=== PATIENT | female | born 1940 | race Caucasian/White ===

== ENCOUNTER 2024-09-16 21:46 | Inpatient (IN) | payer MEDICARE, BC, SELFPAY ==
[2024-09-16] VITALS (9 sets, daily range): BP systolic 103–144; BP diastolic 49–87; BMI 17.9
--- NOTE | 2024-09-16 19:11 | ED.GENMED ---
History of Present Illness
<Fina Wheeler PA-C - Last Filed: 09/16/24 21:19>
General
Chief Complaint: Bowel Problem
Source: patient
Exam Limitations: none
Time Seen by Provider: 09/16/24 18:53
History of Present Illness
History of Present Illness:
83yoF with a history of atrial fibrillation not on anticoagulation, prior pulmonary embolism, pacemaker, microscopic colitis, IBS presenting for evaluation of abdominal pain. She initially started with lower abdominal pain 4 days ago. Pain was
initially intermittent but is now constant. The pain became severe today and is now generalized. She currently rates her pain as a 100 out of 10 in severity. She states it feels like her stomach is going to explode. Her last bowel movement was 5
days ago. She is passing clear mucous several times a day with some blood in the stool. She had an episode of vomiting in the waiting room. She denies any fevers, chills, dysuria, chest pain, shortness of breath. Previous abdominal surgeries
includes an umbilical hernia as a child.
Phy Exam
<Fina Wheeler PA-C - Last Filed: 09/16/24 21:19>
General Physical Exam
General Presentation: moderate distress
General Skin: dry and ashen
General Habitus: elderly
General Mental: alert
ENT Exam
ENT Exam: normocephalic
Cardiovascular Exam
Cardiovascular Exam: regular rate/rhythm
Pulmonary Exam
Pulmonary Exam: lungs clear, no respiratory distress, no rales, no crackles and no rhonchi
Gastrointestinal Exam
Gastrointestinal Exam: guarding, rebound, tender and other (Abdomen distended with generalized tenderness. +Guarding and rebound.)
Neurological Exam
Neurological Exam: alert
Janeth Coma Scale
Eye Opening: Spontaneous
Verbal Response: Oriented
Motor Response: Obeys Commands
GCS Total Score: 15
Skin Exam
Skin Exam: warm/dry and pallor
Course
<Fina Wheeler PA-C - Last Filed: 09/16/24 21:19>
Orders/Labs/Results
Orders:
Orders
09/16/24 19:02
Electrocardiogram (*1) Urgent
Reason for Study: Abdominal Pain
EKG- Treatment ONCE
0.9% Sodium Chloride 500 ml [Nss] 500 ml IV BOLUS
09/16/24 19:11
Fentanyl Citrate/Pf [Sublimaze] 50 mcg IV NOW STA
09/16/24 19:12
Basic Metabolic Panel Urgent
Complete Blood Count/With Diff Urgent
LFT [Trwww-Syem-Gxiwoub] Urgent
Lactate Level [Lactic Acid] Urgent
Lipase Urgent
Potassium Urgent
Troponin I Urgent
09/16/24 19:17
Ondansetron Injectable [Zofran] 4 mg IV NOW STA
09/16/24 19:31
CT Abd/pelvis W Iv Cont Urgent
Comment:
Reason For Exam: generalized abd pain
09/16/24 19:45
Fentanyl Citrate/Pf [Sublimaze] 50 mcg IV NOW STA
09/16/24 19:47
Ondansetron Injectable [Zofran] 4 mg IV NOW STA
09/16/24 20:18
Piperacillin/Tazo 4.5 Gram [Zosyn] 4.5 gram in 100 ml IV NOW
09/16/24 20:40
0.9% Sodium Chloride 1000 ml [Nss] 1,000 ml IV BOLUS
09/16/24 20:48
Fentanyl Citrate/Pf [Sublimaze] 50 mcg IV NOW STA
09/16/24 20:53
Blood Culture Q30M
FRANCISCO Source: Blood/Venous
Specimen Description:
09/16/24 21:00
Blood Culture Q30M
FRANCISCO Source: Blood/Venous
Specimen Description:
Lidocaine HCl/Pf [Xylocaine-Mpf 1% Vial] 50 mg .ROUTE .STK-MED ONE
Propofol [Diprivan] 20 ml .ROUTE .STK-MED
Rocuronium [place] [Rocuronium] 50 mg .ROUTE .STK-MED ONE
Succinylcholine Chloride [Succinylcholine] 200 mg .ROUTE .STK-MED ONE
09/16/24 21:05
Admit/Transfer Patient As Directed
Co-Sign Provider:
Level of Care: Inpatient admission
Assign to:: IMU- Intermediate Care
Physician / Group: rosa
Diagnosis: perforated viscus
Reason for Hospitalization: perforated viscus
Expected length of stay greater than two midnights?: Yes
ELOS- Estimated Length of Stay in days: 2
I certify the patient meets the requirements for IP care: Yes
Code Status As Directed
Resuscitation Status: Full Code
PRN Pain Medication Management As Directed
May give lesser potent ordered pain med per pt: Yes
preference::
Protocol:: Medication orders for pain may be administered in a
manner that supports deferring to patient preference
when the pt is:
- Requesting an ordered lesser potent pain medication.
Least to most potent pain medications are defined
as: acetaminophen < NSAID < tramadol < opioids
(morphine, oxycodone, hydromorphone).
- Requesting a lesser dose of the same medication IF
ORDERED.
- Requesting a less intrusive route of administration
if both routes are prescribed by the provider (PO <
IV).
Abnormal Lab Results
09/16/24
19:12
RBC 3.87 L 10^6/uL
(4.20-5.40)
MCH 33.1 H pg
(27.0-31.0)
RDW 15.4 H %
(11.5-14.5)
Carbon Dioxide 16 L mmol/L
(22-30)
BUN 30 H mg/dl
(7-17)
Glucose 157 H mg/dl
(70-99)
Lactic Acid 2.8 H mmol/L
(0.7-2.0)
Direct Bilirubin 0.5 H mg/dl
(0.0-0.4)
AST 100 H U/L
(14-36)
ALT 102 H U/L
(0-35)
Alkaline Phosphatase 912 H U/L
(38-126)
09/16/24 19:12
09/16/24 19:12
Vital Signs
Initial and Last Documented VS:
Initial Vital Signs
Temp Pulse Resp BP Pulse Ox
97.4 F 73 18 135/73 98
09/16/24 18:41 09/16/24 18:41 09/16/24 18:41 09/16/24 18:41 09/16/24 18:41
Last Documented Vital Signs
Temp Pulse Resp BP Pulse Ox
97.4 F 84 19 106/87 96
09/16/24 18:41 09/16/24 20:45 09/16/24 20:45 09/16/24 20:22 09/16/24 20:45
<Maicol H. Asa, DO - Last Filed: 09/16/24 20:40>
Orders/Labs/Results
Orders:
Orders
09/16/24 19:02
Electrocardiogram (*1) Urgent
Reason for Study: Abdominal Pain
EKG- Treatment ONCE
0.9% Sodium Chloride 500 ml [Nss] 500 ml IV BOLUS
09/16/24 19:11
Fentanyl Citrate/Pf [Sublimaze] 50 mcg IV NOW STA
09/16/24 19:12
Basic Metabolic Panel Urgent
Complete Blood Count/With Diff Urgent
LFT [Etekh-Irxz-Elfjeih] Urgent
Lactate Level [Lactic Acid] Urgent
Lipase Urgent
Potassium Urgent
Troponin I Urgent
09/16/24 19:17
Ondansetron Injectable [Zofran] 4 mg IV NOW STA
09/16/24 19:31
CT Abd/pelvis W Iv Cont Urgent
Comment:
Reason For Exam: generalized abd pain
09/16/24 19:45
Fentanyl Citrate/Pf [Sublimaze] 50 mcg IV NOW STA
09/16/24 19:47
Ondansetron Injectable [Zofran] 4 mg IV NOW STA
09/16/24 20:18
Piperacillin/Tazo 4.5 Gram [Zosyn] 4.5 gram in 100 ml IV NOW
09/16/24 20:40
0.9% Sodium Chloride 1000 ml [Nss] 1,000 ml IV BOLUS
09/16/24 20:48
Fentanyl Citrate/Pf [Sublimaze] 50 mcg IV NOW STA
09/16/24 20:53
Blood Culture Q30M
FRANCISCO Source: Blood/Venous
Specimen Description:
09/16/24 21:00
Blood Culture Q30M
FRANCISCO Source: Blood/Venous
Specimen Description:
Lidocaine HCl/Pf [Xylocaine-Mpf 1% Vial] 50 mg .ROUTE .STK-MED ONE
Propofol [Diprivan] 20 ml .ROUTE .STK-MED
Rocuronium [place] [Rocuronium] 50 mg .ROUTE .STK-MED ONE
Succinylcholine Chloride [Succinylcholine] 200 mg .ROUTE .STK-MED ONE
09/16/24 21:05
Admit/Transfer Patient As Directed
Co-Sign Provider:
Level of Care: Inpatient admission
Assign to:: IMU- Intermediate Care
Physician / Group: rosa
Diagnosis: perforated viscus
Reason for Hospitalization: perforated viscus
Expected length of stay greater than two midnights?: Yes
ELOS- Estimated Length of Stay in days: 2
I certify the patient meets the requirements for IP care: Yes
Code Status As Directed
Resuscitation Status: Full Code
PRN Pain Medication Management As Directed
May give lesser potent ordered pain med per pt: Yes
preference::
Protocol:: Medication orders for pain may be administered in a
manner that supports deferring to patient preference
when the pt is:
- Requesting an ordered lesser potent pain medication.
Least to most potent pain medications are defined
as: acetaminophen < NSAID < tramadol < opioids
(morphine, oxycodone, hydromorphone).
- Requesting a lesser dose of the same medication IF
ORDERED.
- Requesting a less intrusive route of administration
if both routes are prescribed by the provider (PO <
IV).
Abnormal Lab Results
09/16/24
19:12
RBC 3.87 L 10^6/uL
(4.20-5.40)
MCH 33.1 H pg
(27.0-31.0)
RDW 15.4 H %
(11.5-14.5)
Carbon Dioxide 16 L mmol/L
(22-30)
BUN 30 H mg/dl
(7-17)
Glucose 157 H mg/dl
(70-99)
Lactic Acid 2.8 H mmol/L
(0.7-2.0)
Direct Bilirubin 0.5 H mg/dl
(0.0-0.4)
AST 100 H U/L
(14-36)
ALT 102 H U/L
(0-35)
Alkaline Phosphatase 912 H U/L
(38-126)
09/16/24 19:12
09/16/24 19:12
Vital Signs
Initial and Last Documented VS:
Initial Vital Signs
Temp Pulse Resp BP Pulse Ox
97.4 F 73 18 135/73 98
09/16/24 18:41 09/16/24 18:41 09/16/24 18:41 09/16/24 18:41 09/16/24 18:41
Last Documented Vital Signs
Temp Pulse Resp BP Pulse Ox
97.4 F 84 19 106/87 96
09/16/24 18:41 09/16/24 20:45 09/16/24 20:45 09/16/24 20:22 09/16/24 20:45
<Fina Wheeler PA-C - Last Filed: 09/16/24 21:19>
MDM/Problems Addressed
Differential Diagnosis Includes:
83yoF here with severe abd pain. Lower abd pain x 4 days with constipation. Severe generalized pain started today. Vomited in the waiting room. VSS. She is ill appearing and moaning in pain. Abdomen is distended with rebound and guarding.
Differential diagnosis includes but is not limited to: Ischemic colitis, perforated viscus, bowel obstruction, diverticulitis, constipation
Initial ED plan: Abdominal labs, lactate, troponin/EKG, and CT abdomen ordered. IV Zofran, fentanyl, and fluid bolus for symptoms.
<Fina Wheeler PA-C - Last Filed: 09/16/24 21:19>
*EKG
Interpreted by ED Provider?: Yes
EKG Intrepretation Date: 09/16/24
Heart Rate: 70
Rhythm: other (atrial paced)
[place]: left axis deviation
QRS Pattern: normal QRS
Ischemia: no ischemia
*Critical Care Note
Total Time (30-74mins, 75-104mins- exclusive of procedures): 45
<Fina Wheeler PA-C - Last Filed: 09/16/24 21:19>
Update Note
Update Note:
Lactate 2.8. White count within normal limits. Patient sent urgently for CT scan. Free air noted on images and case was discussed immediately with general surgeon on-call, Dr. Kaminski. Radiology read of CT shows: 'significant amount of free air
suggestive of perforated viscus. Severe proctocolitis with surrounding inflammatory change and fluid within the pelvis, possible site of perforation.' IV Zosyn ordered. Patient requiring multiple doses of pain medication throughout ED stay.
Goals of care discussed with patient. Patient is a full code and would like to pursue surgery. Patient to go to OR tonight. She was admitted for further management. Granddaughters updated at bedside.
ED Attending Note
<Fina Wheeler PA-C - Last Filed: 09/16/24 21:19>
-
Portions of this chart may have been created with voice recognition software.� Occasional wrong word or��sound alike� substitutions may have occurred due to the inherent limitations of voice recognition software.
<Maicol Bray DO - Last Filed: 09/16/24 20:40>
ED Attending Note
Patient seen and examined by attending physician: Yes
I performed the substantive portion of visit, reviewed & personally made and approve the management plan that is documented in note by myself or AMANDEEP.: Yes
ED Attending Note:
I agree with Abbie's note
83-year-old female presents to the emergency room with severe abdominal pain. Patient states has been having abdominal pain for several days however it has become more severe today.
Patient appears quite uncomfortable/
General: Awake, Alert, Oriented X3. Cachectic, in distress due to pain, pale
Vitals: unremarkable
Head: Atraumatic
Eyes: Pupils equal, EOMI
Throat: Airway intact, no exudates
Neck: Trachea midline
Lungs: Clear and equal b/l
Heart: Regular rate, no murmurs
Abd: Distended, firm, tender to palpation diffusely, rebound is present
Neuro: Nonfocal
Skin: Pale, dry
Extremities: pulses equal b/l, no edema
Abdominal exam concerning for surgical emergency. Patient taken to CAT scan urgently where it was discovered she has free air with rectosigmoid inflammation. There is fluid in the pelvis. Also a large amount of stool throughout the colon. Abbie
is reaching out to general surgery for a stat consultation. IV fluid resuscitation. IV antibiotics.
Discharge Plan
Departure
Patient Disposition: Admit
Date of Disposition: 09/16/24
Time of Disposition: 20:39
Presentation/result/management discussed w/ accepting MD/DO: Hospitalist
Discharge Problem:
Perforated abdominal viscus
Referrals:
UNKNOWN - PT DOES,NOT KNOW [Family Provider] -
Interventions
Interventions:
*Risk Screen - Suicide Last Done: 09/16/24 18:41
*General Assessment Last Done: 09/16/24 18:41
*Neglect/Abuse Screening Last Done: 09/16/24 18:41
*ED- Fall Risk Assessment Last Done: 09/16/24 18:41
*ED COVID-19 Vaccine History Last Done: 09/16/24 18:41
PQ-Hldcon-Qtsnogiiud Assessment Last Done: 09/16/24 19:57
Discharge Date and Time
Print Language: ANGUILLAN
[2024-09-16 19:21] LABS: % Basophils 0.4 % (0-2); % Eosinophils 1.2 % (0-6); % Immature Granulocytes 0.5 % (0-0.5); % Lymphocytes 24.9 % (20.5-51.1); % Monocytes 6.9 % (1.7-9.3); % Neutrophils 66.1 % (42.2-75.2); Absolute Eosinophils 0.1 10^3/uL (0-0.7); Absolute Lymphocytes 1.9 10^3/uL (1.2-3.4); Absolute Monocytes 0.5 10^3/uL (0.1-0.6); Absolute Neutrophils 5.2 10^3/uL (1.4-6.5); Hematocrit 37.9 % (37.0-47.0); Hemoglobin 12.8 g/dL (12.0-16.0); Mean Corp Hgb Conc. 33.8 g/dL (33.0-37.0); Mean Corpuscular Hgb 33.1 pg (27.0-31.0); Mean Corpuscular Volume 97.9 fL (81.0-99.0); Mean Platelet Volume 9.2 fL (7.4-10.4); Nucleated Red Blood Cells % 0 %; Platelet Count 208 10^3/uL (130-400); Red Blood Cell Count 3.87 10^6/uL (4.20-5.40); Red Cell Dist. Width 15.4 % (11.5-14.5); White Blood Cell Count 7.8 10^3/uL (4.8-10.8)
[2024-09-16] MEDS: NSS 500 IV (19:21)
[2024-09-16] MEDS: ZOFRAN 4 MG IV ×2 (19:21→19:45)
[2024-09-16] MEDS: SUBLIMAZE 50 MCG IV ×3 (19:22→20:54)
[2024-09-16 19:36] LABS: Lactic Acid 2.8 mmol/L (0.7-2.0)
[2024-09-16 19:41] LABS: Blood Urea Nitrogen 30 mg/dl (7-17); Calcium 9.9 mg/dl (8.4-10.2); Carbon Dioxide 16 mmol/L (22-30); Chloride 107 mmol/L (98-107); Estimated Creatinine Clearance 33 ml/min; Glucose 157 mg/dl (70-99); Lipase 259 U/L (23-300); Sodium 136 mmol/L (135-145)
[2024-09-16 19:54] LABS: Troponin I 0.013 ng/ml
[2024-09-16 20:06] LABS: ALT (SGPT) 102 U/L (0-35); AST (SGOT) 100 U/L (14-36); Albumin 4.2 g/dl (3.5-5.0); Alkaline Phosphatase 912 U/L (38-126); Direct Bilirubin 0.5 mg/dl (0.0-0.4); Potassium 4.8 mmol/L (3.5-5.1); Total Bilirubin 1.2 mg/dl (0.2-1.3); Total Protein 6.7 g/dl (6.3-8.2)
[2024-09-16] MEDS: NSS 1000 IV (20:54)
[2024-09-16] MEDS: ZOSYN 100 IV (21:01)
--- NOTE | 2024-09-16 21:09 | HPS.HSE ---
Family Physician
-
Family Physician: NOT KNOW UNKNOWN - PT DOES
Chief Complaint
-
abdominal pain
History of Present Illness
83-year-old female past medical history of umbilical hernia surgery as a child, atrial fibrillation not on anticoagulation, prior pulmonary embolism, microscopic colitis, IBS presenting with abdominal pain. She started having lower abdominal pain 4
days ago. Pain was initially intermittent but now constant. Pain became more severe today. Last bowel movement 5 days ago. She is passing clear mucus several times a day with some blood in the stool. She had an episode of vomiting today without
blood. Denies fevers or chills, chest pain, shortness of breath.
She denies smoking or alcohol use.
Medical History
Past Medical History
Past Medical History: Reports Other (umbilical hernia surgery as a child, atrial fibrillation not on anticoagulation, prior pulmonary embolism, microscopic colitis, IBS)
Past Surgical History: Reports Other (foot surgeries )
Social History
Tobacco: Non-smoker
Alcohol: None
Drug: None
Family History
Family History: Not pertinent
Allergies / Home Medications
Allergies reflects when Allergies were last updated in [facility].
Home Medications with original date entered in [facility]
Allergy/Medication List:
Allergies
Allergy/AdvReac Type Severity Reaction Status Date / Time
clindamycin Allergy Unknown Verified 09/16/24 18:48
Sulfa (Sulfonamide Allergy Unknown Verified 09/16/24 18:48
Antibiotics)
Review of Systems
-
History Source: Patient
A 12 point ROS was completed and negative except as noted: Yes
Constitutional: Reports No Symptoms
EENT: Reports No Symptoms
Respiratory: Reports No Symptoms
Cardiac: Reports No Symptoms
Abdomen/GI: Reports See HPI
: Reports No Symptoms
Musculoskeletal: Reports No Symptoms
Skin: Reports No Symptoms
Neurological: Reports No Symptoms
Endocrine: Reports No Symptoms
Hematologic/Lymphatic: Reports No Symptoms
Psych: Reports No Symptoms
Physical Exam
Vital Signs
Vital Signs
Temp Pulse Resp BP Pulse Ox
97.4 F 84 19 106/87 96
09/16/24 18:41 09/16/24 20:45 09/16/24 20:45 09/16/24 20:22 09/16/24 20:45
Physical Exam
General: Well Developed, Well Nourished and No Apparent Distress
HEENT: NormoCephalic, Moist mucous membranes and Atraumatic
Respiratory: Clear
Cardiac: S1/S2 and Regular Rhythm; No Murmur or Rub
GI: Soft, Non Distended, Normal Bowel Sounds and Tender (guarding and rebound, diffuse tenderness ); No Organomegaly
Rectal: Deferred by Provider
Musculoskeletal: No Clubbing, No Cyanosis and No Edema
Skin: No Rash
Neuro: Nonfocal/grossly intact
Laboratory Results
-
09/16/24 19:12
09/16/24 19:12
Laboratory Results
Lactic Acid 2.8 mmol/L (0.7-2.0) H 09/16/24 19:12
Total Bilirubin 1.2 mg/dl (0.2-1.3) 09/16/24 19:12
Total Bilirubin Cancelled 09/16/24 19:12
AST 100 U/L (14-36) H 09/16/24 19:12
AST Cancelled 09/16/24 19:12
ALT 102 U/L (0-35) H 09/16/24 19:12
ALT Cancelled 09/16/24 19:12
Alkaline Phosphatase 912 U/L (38-126) H 09/16/24 19:12
Alkaline Phosphatase Cancelled 09/16/24 19:12
Troponin I 0.013 ng/ml 09/16/24 19:12
Lipase 259 U/L (23-300) 09/16/24 19:12
Data Reviewed
-
Lab Data: Labs Reviewed by me
Old Records: Reviewed
Impression/Plan
-
IMPRESSION:
PLAN:
# Perforated viscus
# Severe proctocolitis likely site of perforation
-CT abdomen pelvis shows significant amount of free air suggesting perforated viscous, severe proctocolitis, indeterminate 1.6 cm left renal lesion, questionable subtle changes of acute pancreatitis, severe constipation
-Lipase 260, doubt pancreatitis
-N.p.o.
-IV fluids
-Blood cultures
-Zosyn
-Surgery to take to OR today
-Dilaudid/Zofran
# Transaminitis likely secondary to perforation
-Cholestatic pattern of elevation
-May need to consider abdominal ultrasound
History of umbilical hernia surgery as a child
Atrial fibrillation unspecified type
-Not on anticoagulation
Microscopic colitis
IBS
History of pulmonary embolism
Full code
DVT prophylaxis�SCDs
N.p.o.
--- NOTE | 2024-09-16 21:53 | CON.GS ---
Consultation
-
Requesting Provider: Liam
Performing Provider: Yamilex
Reason for Consultation: Pneumoperitoneum
Medical History
-
Chief Complaint: Abd pain
History of Present Illness:
83F with 4 day history of acute onset progressive and severe abd pain. Began intermittent, now constant. Acute worsening pain today prompting ED presentation. Last BM 5 days ago. Had been passing mucus and blood per rectum but no stool. + emesis
today. Denies f/c.
Past Medical History
Past Medical History: Other (atrial fibrillation not on anticoagulation, prior pulmonary embolism, microscopic colitis, IBS)
Past Surgical History: Hernia Repair (umbilical hernia repair in childhood) and Orthopedic
Social History
Tobacco: Non-Smoker
Alcohol: None
Drug: None
Family History
Family History: Reviewed & Noncontributory
Allergies / Home Medications
Allergy/AdvReac Type Severity Reaction Status Date / Time
clindamycin Allergy Unknown Verified 09/16/24 18:48
Sulfa (Sulfonamide Allergy Unknown Verified 09/16/24 18:48
Antibiotics)
Review of Systems
-
A 10 point review of systems was completed, and was negative except as per HPI.
Physical Exam
Vital Signs
Temp Pulse Resp BP Pulse Ox
97.4 F 82 14 118/65 98
09/16/24 18:41 09/16/24 21:15 09/16/24 21:15 09/16/24 21:06 09/16/24 21:15
09/15/24 09/16/24 09/17/24
06:59 06:59 06:59
Actual Weight 47.174 kg
Body Mass Index (BMI) 17.9
Lab Results
09/16/24 19:12
09/16/24 19:12
WBC 7.8 10^3/uL (4.8-10.8) 09/16/24 19:12
Hgb 12.8 g/dL (12.0-16.0) 09/16/24 19:12
Hct 37.9 % (37.0-47.0) 09/16/24 19:12
Plt Count 208 10^3/uL (130-400) 09/16/24 19:12
Abs Immat Gran (auto) 0.0 10^3/uL (0-0.05) 09/16/24 19:12
Neutrophils % 66.1 % (42.2-75.2) 09/16/24 19:12
Physical Exam
General: Other (mild distress)
HEENT: Normocephalic
GI: Other (deferred due to reported peritonitis)
Neuro: AO x 3
Data Reviewed
-
CT Scan: Image Personally Visualized and interpreted, Report Reviewed by me, Discussed with Physician, Discussed with Patient and Discussed with Family
Labs: Labs Reviewed by me and Discussed with Physician
Assessment / Plan
-
83F with free air, suspect stercoral colitis with perforation
Presently stable, reportedly peritoneal in ED, c/o severe intractable abd pain now, lactic elevated
OCTOR for emergent ex lap, possible bowel resection, possible ostomy
D/w patient , son, granddaughters at bedside. High risk situation.
--- NOTE | 2024-09-16 23:27 | SUR.PHASEI ---
REc'd sleepy in bed with HOB elevated low fowlers, oriented x 3 by RN reassured, N?G tube audible in stomach, to lcws with light pink seriosang drainage, Dr Kaminski in spoke with pt
--- NOTE | 2024-09-16 23:32 | W.IMMPOSTOP ---
Surgical Immed Post Op Note
-
Primary Surgeon: Yamilex
Pre-op Diagnosis: Pneumoperitoneum
Post-op Diagnosis: Stercoral colitis with perforated sigmoid colon
Procedure Performed: Exploratory laparotomy, sigmoid colon resection, creation end colostomy
Anesthesia Type: GETA
Specimen / Cultures: Sigmoid colon
Estimated Blood Loss: 25cc (+300cc old blood in belly)
Complications: None immediate
Operative Findings: 3cm sigmoid perforation, free floating stool and old blood in the belly, colon resected with 80mm purple load LAURIE stapler, end colostomy, rectal stump prolene tag, ngt palpated in stomach, sepra film, 19fr guerrero drain into pelvis
--- NOTE | 2024-09-16 23:34 | SUR.PHASEI ---
Conner to bsd cl yellow urine, sleeping in bed
[2024-09-16 23:46] LABS: Glucose - Point of Care 110 mg/dl (70-99)
[2024-09-17] VITALS (30 sets, daily range): BP systolic 15–109; BP diastolic 49–77; BMI 19.0
[2024-09-17] MEDS: DILAUDID 0.25 MG IV ×3 (00:42→07:59)
[2024-09-17] MEDS: ZOFRAN 4 MG IV ×3 (00:43→20:11)
[2024-09-17] MEDS: NSS 1000 IV ×3 (00:43→23:41)
[2024-09-17] MEDS: NSS IV ×3 (01:28→10:49)
--- NOTE | 2024-09-17 01:35 | PTCARENOTE ---
Pt received from PACU. Pt awake and alert. sleepy. c/o abdominal pain throughout. Pt given ordered dilaudid per order see THERESA ortega administration. family assisted pt in admission questions answering. NGT maintained to low intermittent suction.
colostomy present. bag with no current bowel movement or gas. BP 106/61(75) HR 80, sat 95% 2L. Call light in reach. Safe environment maintained.
[2024-09-17] MEDS: ZOSYN 50 IV ×4 (02:06→19:55)
[2024-09-17 06:01] LABS: Hematocrit 29.8 % (37.0-47.0); Hemoglobin 9.8 g/dL (12.0-16.0); Mean Corp Hgb Conc. 32.9 g/dL (33.0-37.0); Mean Corpuscular Hgb 33.1 pg (27.0-31.0); Mean Corpuscular Volume 100.7 fL (81.0-99.0); Mean Platelet Volume 9.5 fL (7.4-10.4); Platelet Count 175 10^3/uL (130-400); Red Blood Cell Count 2.96 10^6/uL (4.20-5.40); Red Cell Dist. Width 15.3 % (11.5-14.5); White Blood Cell Count 2.6 10^3/uL (4.8-10.8)
[2024-09-17 06:09] LABS: ALT (SGPT) 61 U/L (0-35); AST (SGOT) 52 U/L (14-36); Albumin 2.5 g/dl (3.5-5.0); Alkaline Phosphatase 423 U/L (38-126); Blood Urea Nitrogen 28 mg/dl (7-17); Calcium 7.9 mg/dl (8.4-10.2); Carbon Dioxide 21 mmol/L (22-30); Chloride 111 mmol/L (98-107); Estimated Creatinine Clearance 27 ml/min; Glucose 131 mg/dl (70-99); Potassium 4.6 mmol/L (3.5-5.1); Sodium 139 mmol/L (135-145); Total Bilirubin 1.4 mg/dl (0.2-1.3); Total Protein 4.6 g/dl (6.3-8.2); eGFR 45.48
--- NOTE | 2024-09-17 07:03 | W.PN.HOSP.TC ---
Today's Communication/Plan
-
Please see plan
Assessment / Plan
Assessment / Plan
Physical Exam
General: Well Developed, Well Nourished and No Apparent Distress
HEENT: Normocephalic, Moist mucous membranes and Atraumatic
Respiratory: Clear to Auscultation Bilaterally
Cardiac: S1/S2 and Regular Rhythm; No Murmur or Rub
GI: Soft, Mild Appropriate Tenderness (given surgery), midline incision and dressing intact, NG tube with bilious material
Rectal: Deferred by Provider
Musculoskeletal: No Cyanosis and No Edema
Skin: Warm. Dry.
Neuro: Alert. Awake. Nonfocal/grossly intact
Assessment/Plan
83-year-old female with past medical history of umbilical hernia surgery as a child, atrial fibrillation not on anticoagulation, prior pulmonary embolism, microscopic colitis and IBS presented with abdominal pain. She started having lower abdominal
pain 4 days prior to presentation. Pain was initially intermittent but now constant, and has become more severe. Last bowel movement 5 days prior to presentation. Patient has been passing clear mucus several times a day with some blood in the stool.
On the day of presentation, she had an episode of vomiting, without blood. At the time of admission, she denied fevers, chills, chest pain or shortness of breath. She was found to have perforated viscus likely secondary to severe proctocolitis.
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
#Severe proctocolitis likely site of perforation
-CT abdomen pelvis shows significant amount of free air suggesting perforated viscous, severe proctocolitis, indeterminate 1.6 cm left renal lesion, questionable subtle changes of acute pancreatitis,
severe constipation
-Not pancreatitis especially with pain location not characteristic of pancreatitis and lipase being normal
-Continue NPO (but can have ice chips) with NGT to LIWS. Continue MADELAINE drain output monitoring.
-IV fluids
-Blood cultures
-Continue Zosyn
-Surgery to take to OR today
-Pain regimen scheduled and PRN, but hold NSAIDs given increase in creatine
-Wound/ostomy nurse consultation
-Out of bed as tolerated
#Rising creatinine as of 09/17/24
#Decreased Urine Output as of 09/17/24
-Continue IVF at 100ml/hr with bolus of 1L over 4 hours
-Continue with Conner catheter
# Transaminitis likely secondary to perforation
# High ALP
-Numbers are improving, continue to monitor
-Cholestatic pattern of elevation
-May need to consider abdominal ultrasound
#History of umbilical hernia surgery as a child
#Atrial fibrillation unspecified type
-Not on anticoagulation as an outpatient
#History of Pulmonary Embolism
#Microscopic colitis
#IBS
Code Status: Full code
DVT Prophylaxis: SCDs and Heparin SUBQ
Anticipated Discharge: > 48 hours
Subjective/Interval History
-
Date of Service: September 17, 2024
Patient was seen and examined. She reported some abdominal soreness as expected post-op but otherwise denied any other symptoms or complaints.
Objective Data
-
Labs:
Laboratory Results
09/16/24 09/16/24 09/16/24
19:12 19:12 19:12
WBC 7.8
Hgb 12.8
Hct 37.9
Plt Count 208
Sodium 136
Potassium 4.8
Chloride 107
Carbon Dioxide 16 L
BUN 30 H
Creatinine 1.0
Glucose 157 H
Calcium 9.9
Total Bilirubin Cancelled 1.2
AST Cancelled
ALT
Alkaline Phosphatase
09/16/24 09/16/24 09/16/24
19:12 19:12 19:12
WBC
Hgb
Hct
Plt Count
Sodium
Potassium
Chloride
Carbon Dioxide
BUN
Creatinine
Glucose
Calcium
Total Bilirubin
AST 100 H
ALT Cancelled 102 H
Alkaline Phosphatase Cancelled 912 H
09/17/24 09/17/24
05:08 06:47
WBC 2.6 L Pending
Hgb 9.8 L D Pending
Hct 29.8 L Pending
Plt Count 175 Pending
Sodium 139
Potassium 4.6
Chloride 111 H
Carbon Dioxide 21 L
BUN 28 H
Creatinine 1.2 H
Glucose 131 H
Calcium 7.9 L D
Total Bilirubin 1.4 H
AST 52 H
ALT 61 H
Alkaline Phosphatase 423 H
Vital Signs:
Vital Signs
Temp Pulse Resp BP Pulse Ox
98.0 F 84 24 95/61 98
09/17/24 03:00 09/17/24 05:15 09/17/24 05:15 09/17/24 04:00 09/17/24 06:30
I&O
09/16/24 09/17/24 09/18/24
06:59 06:59 06:59
Intake Total 250 / 250
Output Total 870 / 870
Balance -620 / -620
--- NOTE | 2024-09-17 07:15 | PTCARENOTE ---
report received. aaox3. apaced. vss. ng tube in right nare. Aquacel dressing to midline abd. drainage noted. aware. + prelim blood cultures. aware. vss. aviles draining yellow urine, care provided. r erich draining serous fluid. stoma red and
budded. no output to ostomy. call goldberg in reach will monitor.
[2024-09-17 07:42] LABS: Lymphocytes 30 % (20-51); Monocytes 6 % (2-9)
[2024-09-17 07:43] LABS: Absolute Neutrophils -Man Diff 1.6 10^3/uL (1.4-6.5); Band Neutrophils 22 % (0-3); Normal RBC Morphology No; Platelets Checked Yes; Segmented Neutrophils 40 % (42-75)
[2024-09-17 07:44] LABS: Anisocytosis 1+; Hypochromasia 2+; Macrocytosis 1+; Ovalocytes Slight; Total Cells Counted 100
[2024-09-17] MEDS: HEPARIN 5000 UNITS SC ×2 (07:59→19:55)
[2024-09-17] MEDS: NSS 500 IV ×2 (11:35→18:47)
--- NOTE | 2024-09-17 13:35 | OR.RPT ---
Operative Report
Operative Report
Primary Surgeon: Yamilex
Pre-op Diagnosis: Pneumoperitoneum
Post-op Diagnosis: Stercoral colitis with perforated sigmoid colon
Procedure Performed: Exploratory laparotomy, sigmoid colon resection, creation end colostomy
Anesthesia Type: GETA
Specimen / Cultures: Sigmoid colon
Estimated Blood Loss: 25cc (+300cc old blood in belly)
Complications: None immediate
Operative Findings: 3cm sigmoid perforation, free floating stool and old blood in the belly, colon resected with 80mm purple load LAURIE stapler, end colostomy, rectal stump prolene tag, ngt palpated in stomach, sepra film, 19fr guerrero drain into pelvis
Date of Surgery: 09/16/24
Indications: This 83F developed severe abdominal pain and on workup was found to have pneumoperitoneum. Emergent exploratory laparotomy was planned.
Description of procedure: The patient was placed on the operating table in the supine position. General anesthesia was induced. A time-out was completed verifying correct patient, procedure, site, positioning, and special equipment prior to
beginning this procedure. An orogastric tube was placed. A aviles was placed. The abdomen was prepped and draped in the usual sterile fashion.
A midline incision was made with cut cautery and carried down to the fascia with coag cautery and the abdomen was entered. Immediately about 300cc of dark old blood and clot was encountered and several large pieces of stool in the pelvis. This was
evacuated. A 3cm defect in the wall of the sigmoid colon was identified. A LAURIE 80mm purple load stapler was used to transect the sigmoid colon distal and proximal to the defect. A prolene tag was placed on the sigmoid stump. The abdomen was
irrigated with 6L of warm sterile saline until effluent ran clear. The nasogastric tube was palpated in the stomach. A 19 fr guerrero drain was placed into the pelvis and brought out through the right lower quadrant of the abdominal wall and secured
with a 2-0 ethilon suture. A circular defect was created in the left upper quadrant of the abdominal wall skin, the anterior fascia was divided in cruciate fashion and the posterior fascia was opened with careful blunt dissection until two fingers
could pass easily through the defect. The proximal end of the colon was brought through the defect and secured gently with a patricia. Sepra film was placed over the bowel and the midline was closed with #1 PDS stratafix suture. The subcutaneous
tissues were irrigated and the skin was closed with laura. The stoma was matured with 3-0 vicryl suture. An aquacel dressing was placed. An ostomy appliance was placed.
The patient tolerated the procedure well and was taken to the postanesthesia care unit in stable condition.
--- NOTE | 2024-09-17 14:20 | W.PN.GS2 ---
Addendum entered and electronically signed by Misha Kaminski MD 09/17/24 15:10:
I saw and examined the patient.
The Senior It Architect's note was reviewed and I agree with the note.
Comment: Stable. BP soft, UOP declined a bit post-op, belly soft, stoma PPV will give additional IVF bolus today. Cont NPO/NGT
Original Note:
Today's Communication / Plan
-
NPO/NGT
Pain management
Assessment / Plan
-
83 yo female presenting with perforated sigmoid colon secondary to stercoral colitis now POD #1 ex lap with sigmoid resection and end colostomy creation
AFVSS
Low urine output overnight with JT noted, cr 1.2 (1.0)
metabolic acidosis improved on am labs
Acute anemia secondary to acute blood loss from perforation and subsequent surgery with hemodilution after volume resuscitation, do not suspect active bleeding
--Continue NPO with NGT to LIWS. Ok for ice chips for comfort
--Analgesics scheduled and PRN, hold NSAIDs given increase in creatine
--Continue IVF at 100ml/hr with bolus of 1L over 4 hours
--Continue IV zosyn
--c/w MADELAINE drain
--c/w aviles
--Ostomy nurse consult
--OOB as able. PT consult placed
--Trend labs
--Heparin SQ and SCDS for VTE ppx
Medical management as per primary team
Subjective Data
-
Date of Service: September 17, 2024
Patient seen and examined at bedside with Dr. Kaminski. Awake and oriented. Dry mouth. Denies n/v. Pain present but manageable. Feels quite tired.
Objective Data
-
Intake and Output
09/16/24 09/17/24 09/18/24
06:59 06:59 06:59
Intake Total 250 / 250
Output Total 870 / 870 60 / 60
Balance -620 / -620 -60 / -60
Intake:
IV fluids (Total) 250 / 250
normosol 250 / 250
Output:
Drain Output (Total) 75 / 75 60 / 60
Right Lower Abdomen Mynor- 75 / 75 60 / 60
Horner
Gastrointestinal tube output (
Total)
Lizarraga /
Urine, Aviles 700 / 700
Urine, Voided 75 / 75
Vital Signs
Temp Pulse Resp BP Pulse Ox
98 F 75 13 92/53 94
09/17/24 07:05 09/17/24 13:15 09/17/24 13:15 09/17/24 12:00 09/17/24 13:00
Lab Results
09/17/24 06:47
09/17/24 05:08
Calcium 7.9 mg/dl (8.4-10.2) L D 09/17/24 05:08
Total Bilirubin 1.4 mg/dl (0.2-1.3) H 09/17/24 05:08
Direct Bilirubin 0.5 mg/dl (0.0-0.4) H 09/16/24 19:12
AST 52 U/L (14-36) H 09/17/24 05:08
ALT 61 U/L (0-35) H 09/17/24 05:08
Alkaline Phosphatase 423 U/L (38-126) H 09/17/24 05:08
Total Protein 4.6 g/dl (6.3-8.2) L D 09/17/24 05:08
Albumin 2.5 g/dl (3.5-5.0) L D 09/17/24 05:08
Physical Exam
-
NAD
ABD softly protuberant, mild distention, expected tenderness
Midline abd incision with inact dressing. MADELAINE with SSF. NGT with bilious output
Patient has a aviles catheter: Yes
[2024-09-17] MEDS: OFIRMEV 100 IV ×2 (14:41→19:55)
--- NOTE | 2024-09-17 18:32 | PTCARENOTE ---
pt hypotensive. systolic 80's. nss 500c bolus ordered and infusing. Dr. hernandez and hospilist aware.
--- NOTE | 2024-09-17 19:17 | PTCARENOTE ---
report given to agricultural plow operator
--- NOTE | 2024-09-17 20:00 | PTCARENOTE ---
Resumed care of pt this evening. Received pt A&Ox3, can move all 4 extremities, and can make needs known. Pt is A-paced on tele monitor, has +3 pitting edema B/L lower extremities, and has palpable pedal pulses bilaterally. Pt is on 2L of O2 satting
at 98% pulse ox. On auscultation pt lungs sound diminished TO. Pt's abdomen is round, tender, tender to palpation, and has hypoactive BS. Pt has a right nare NG salem sump connected to low intermittent suctioning and is draining greenish output.
Pt's new colostomy stoma is red and budded. Pt is passing flatulence in colostomy bag. Pt also has a right MADELAINE drain that is draining serosanguineous drainage. Pt has aviles in place draining kiera colored urine. Pt's midline surgical aquacell
dressing intact, was previously reinforced w/ ABD pads by day shift.
[2024-09-17] MEDS: DILAUDID 0.5 MG IV (20:07)
[2024-09-17] MEDS: LR 1000 IV (21:18)
[2024-09-17 21:29] LABS: Hematocrit 26.6 % (37.0-47.0); Hemoglobin 8.8 g/dL (12.0-16.0)
[2024-09-17 21:57] LABS: Blood Urea Nitrogen 33 mg/dl (7-17); Calcium 7.6 mg/dl (8.4-10.2); Carbon Dioxide 18 mmol/L (22-30); Chloride 112 mmol/L (98-107); Estimated Creatinine Clearance 21 ml/min; Glucose 89 mg/dl (70-99); Potassium 5.2 mmol/L (3.5-5.1); Sodium 139 mmol/L (135-145); eGFR 29.94
[2024-09-18] VITALS (53 sets, daily range): BP systolic 85–131; BP diastolic 48–96; PULSE 70–77; O2SAT 96–98
--- NOTE | 2024-09-18 | PTCARENOTE ---
Pt is hypotensive. 1L NSS bolus administered by this RN per order.
[2024-09-18] MEDS: ZOSYN 50 IV ×3 (02:52→19:43)
[2024-09-18] MEDS: OFIRMEV 100 IV ×2 (02:52→09:11)
[2024-09-18 04:18] LABS: Lactic Acid 1.3 mmol/L (0.7-2.0)
[2024-09-18 04:34] LABS: Hematocrit 22.4 % (37.0-47.0); Hemoglobin 7.5 g/dL (12.0-16.0); INR 1.31; Mean Corp Hgb Conc. 33.5 g/dL (33.0-37.0); Mean Corpuscular Volume 98.7 fL (81.0-99.0); Mean Platelet Volume 9.9 fL (7.4-10.4); PT 16.6 Sec (11.4-14.6); Platelet Count 136 10^3/uL (130-400); Red Blood Cell Count 2.27 10^6/uL (4.20-5.40); Red Cell Dist. Width 15.7 % (11.5-14.5); White Blood Cell Count 7.2 10^3/uL (4.8-10.8)
[2024-09-18 04:35] LABS: APTT 39.2 Sec (23.4-35.0)
[2024-09-18] MEDS: LR 1000 IV ×2 (04:59→16:02)
[2024-09-18 05:03] LABS: ALT (SGPT) 49 U/L (0-35); AST (SGOT) 50 U/L (14-36); Albumin 2.1 g/dl (3.5-5.0); Alkaline Phosphatase 233 U/L (38-126); Blood Urea Nitrogen 33 mg/dl (7-17); Calcium 6.8 mg/dl (8.4-10.2); Carbon Dioxide 18 mmol/L (22-30); Chloride 114 mmol/L (98-107); Estimated Creatinine Clearance 21 ml/min; Glucose 88 mg/dl (70-99); Magnesium 1.8 mg/dl (1.6-2.3); Phosphorus 4.6 mg/dl (2.5-4.5); Potassium 4.7 mmol/L (3.5-5.1); Sodium 140 mmol/L (135-145); Total Bilirubin 0.9 mg/dl (0.2-1.3); eGFR 29.94
--- NOTE | 2024-09-18 06:00 | PTCARENOTE ---
1 unit of PRBCs initiated by this RN following morning labs.
--- NOTE | 2024-09-18 08:26 | CON.INTV ---
Addendum entered and electronically signed by Darian Garcia MD 09/18/24 15:59:
Additional impression + plan:
#Acute anemia likely due to hemoperitoneum (there was 300 cc of old blood in the belly found during the operation)
#Sepsis with bandemia
#JT with hyperphosphatemia
#Metabolic acidosis with preserved anion gap due to JT
#Transaminitis with elevated ALP
Plan:
-Postoperative management as per general surgery
-Pain control
-Follow-up sensitivities from blood cultures collected on 09/16, which is growing E. coli
-Obtain a surveillance set of blood cultures today
-Continue with broad-spectrum antibiotics however can change from Zosyn to cefuroxime + Flagyl
- Maintain SpO2 >90-94% and wean down supplemental O2 as tolerated
- Maintain MAP>65
- Replete electrolytes with K>4, Mg>2
- Maintain euglycemia with goal BG 140-180
- Trend H/H and transfuse if needed to keep Hb>7g/dL; keep plt>50k given her postoperative status
- prn nebulized bronchodilators - not currently bronchospastic
- Incentive spirometer encouraged 10x per hour for at least 4 hrs a day
- DVT ppx: HSQ
If patient remains hemodynamically stable today and is okay with surgery then will downgrade out of ICU to IMU. For now, continue ICU level of care. Once transferred to IMU then we will sign off.
Total time spent today was 78 minutes for this encounter. Time includes reviewing laboratory test/imaging results, reviewing pertinent medical records, obtaining and reviewing medical history, performing an appropriate exam, ordering medications,
tests and procedures. Time also includes documentation of this encounter, coordinating patient care and communicating with other healthcare professionals. Total time does not include separately billed tests performed on this date of service.
Original Note:
Consultation
Consultation Request
Date/Time Consultation Requested: 09/17/2024 19:51
Date/Time Consultation Performed: 09/18/2024 08:30
Requesting Provider: Momo Angulo
Performing Provider: Artemio Champion MD ; Darian Garcia MD
Reason for Consultation: ICU mgmt.
Medical History
-
Chief Complaint: Abdominal Pain
History of Present Illness:
83-year-old female with PMHx of Atrial fibrillation not on anticoagulation, h/o pulmonary embolism, microscopic colitis, IBS, umbilical hernia s/p sx presented in the ER on 09/16/24 with c/o abdominal pain.
Pain started 4 days prior to arrival. Pain was initially intermittent but was constant on day of arrival. Last BM 5 days prior to arrival. She was passing clear mucus several times a day with some blood in the stools. She also had an episode of
vomiting prior to coming to the hosp. Denies fevers or chills, chest pain, shortness of breath.
In the ER vitals were 97.4, pulse of 73, RR18, BP 135/73 and o2 sat 98.
EKG: Atrial-paced rhythm
Elevated Lactic acid to 2.8 on arrival now normal
Received IV NSS Bolus 1.5 L in the ER. Total of 7.5 L as of today
BC = for e coli and was started on zosyn
CT abd/pelvis: significant amount of free air suggestive of perforated viscus. Severe proctocolitis with surrounding inflammatory change and fluid within the pelvis, possible site of perforation.
Surgery was consulted stat and patient was taken to OR for emergent ex lap: had Exploratory laparotomy, sigmoid colon resection, creation end colostomy. Admitted to IMU initially, however patient bp continues to remain in 90s and patient was
trasnsferred to ICU.
Overnight stat H& H showed hb 8.8 at 21:16 and 7.5 in the am. Additional IV bolus of IVS nss given and 1 unit of PRBC ordered.
PMHx: Atrial fibrillation not on anticoagulation, h/o pulmonary embolism, microscopic colitis, IBS
PSHx: umbilical hernia, Pacemaker
Past Medical History
Past Medical History: Other (as above)
Past Surgical History: Other (as above)
Social History
Tobacco: Non-smoker
Alcohol: None
Drug: None
Living: Alone
Family History
Family History: Reviewed & Not Pertinent
Allergies / Home Medications
Allergies
Allergy/AdvReac Type Severity Reaction Status Date / Time
clindamycin Allergy Unknown Verified 09/16/24 18:48
Sulfa (Sulfonamide Allergy Unknown Verified 09/16/24 18:48
Antibiotics)
Review of Systems
-
History Source: Patient
Respiratory: No Symptoms
Cardiac: No Symptoms
Abdomen/GI: Other (mild abd cramping)
: No Symptoms
Neuro: No Symptoms
Vitals / Labs / Diagnostic Testing
Vital Signs
Temp Pulse Resp BP Pulse Ox
98.1 F 71 14 98/58 99
09/18/24 07:29 09/18/24 07:15 09/18/24 07:15 09/18/24 07:00 09/18/24 07:15
Lab Data
09/18/24 03:53
09/18/24 03:53
Laboratory Results
09/18/24
03:53
PT 16.6 H
INR 1.31
APTT 39.2 H
Microbiology
09/17/24 05:08 Nose MRSA Screen - Final
No Methicillin Resistant Staphylococcus aureus isolated.
09/16/24 20:53 Blood/Venous Blood Culture - Preliminary
Escherichia coli
09/16/24 20:53 Blood/Venous Gram Stain - Preliminary
09/16/24 21:00 Blood/Venous Blood Culture - Preliminary
Positive culture in progress
09/16/24 21:00 Blood/Venous Gram Stain - Preliminary
Diagnostic Testing:
Physical Exam
-
HEENT: Moist Mucous Membranes
Cardiovascular: S1/S2 and Regular Rhythm
Respiratory: Clear and Non-Labored Respirations
GI: Soft and Other (Midline abd incision with intact dressing. MADELAINE with SSF. NGT with bilious output, + ostomy appliance)
Neurology: Awake, Alert and Oriented
Skin: Warm
General: Comfortable
Exam:
Conner+
3+ non pitting edema b/l LE
Assessment
-
#Perforated sigmoid colon secondary to stercoral coral colitis status post ex lap with sigmoid resection and end colostomy on 09/16/2024
#Severe for toe colitis; likely site of perforation
#JT
#Transaminitis; likely due to perforation; improving
#A-fib; unspecified type
#History of PE
#Microscopic colitis
#IBS
#History of umbilical hernia s/p surgery
#Elevated phosphorus
#Acute blood loss anemia + likely dilutional
Continue n.p.o. with NG tube to LIWS for now; final recs defer to surgery
Maintain IV fluids for now; discussed with surgery during round
Awaiting ROBF
Maintain MADELAINE drain and Conner for now
IV Dilaudid as needed for pain
OOB as tolerated
Repeat labs in the a.m.
Blood culture positive for E. coli; okay to switch antibiotics to p.o.
Repeat blood culture today
Check CBC, CMP, Phos in the a.m.
Can be transferred out of the ICU once blood pressure stable. Currently soft blood pressure readings with most recent 99/56; patient not on any pressors.
DVT prophylaxis: Heparin subcu and SCDs
Data Reviewed
-
EKG: Report reviewed by me
Radiology: Report reviewed by me
CT Scan: Report reviewed by me
Labs: Labs reviewed by me, Discussed with Physician and Discussed with Patient
[2024-09-18] MEDS: HEPARIN 5000 UNITS SC ×2 (08:45→20:25)
--- NOTE | 2024-09-18 08:57 | W.PN.GS2 ---
Today's Communication / Plan
-
IV abx
NPO/NGT, possible clamp trial later today
1 u PRBCs for anemia
Assessment / Plan
-
83 yo female presenting with perforated sigmoid colon secondary to stercoral colitis now POD #1 ex lap with sigmoid resection and end colostomy creation
AF
Transient hypotension, fluid responsive, no tachycardia
SBP to 83 x1, received 500cc bolus and responded well.
Good UOP
Minimal NGT output
JT
Hb trending down, received 1 u PRBC this am
Acute anemia secondary to acute blood loss from perforation and subsequent surgery with hemodilution after volume resuscitation, do not suspect active bleeding, drain with ss fluid in bulb but clear serous fluid in the tubing
--Continue NPO with NGT to LIWS. Ok for ice chips for comfort, if continues with flatus will initiate clamp trial later today
--Analgesics scheduled and PRN, hold NSAIDs given increase in creatine
--IVF per yarn sizer
--Continue IV zosyn
--c/w MADELAINE drain
--c/w aviles for I/O monitoring
--Ostomy nurse consult
--OOB as able. PT consult placed
--Trend labs
--Heparin SQ and SCDS for VTE ppx given reported hx of PE
Appreciate [employer] sales consultant assistance.
Subjective Data
-
Date of Service: September 18, 2024
No complaints overnight, feeling some cramping in the belly 'like I need to have a BM', some gurgling and some flatus into the bag. Transfer to ICU overnight for the transient hypotension responsive to IVF
Objective Data
-
Intake and Output
09/17/24 09/18/24 09/19/24
06:59 06:59 06:59
Intake Total 250 / 250 3625 / 3625
Output Total 870 / 870 1118 / 1118
Balance -620 / -620 2507 / 2507
Intake:
IV fluids (Total) 250 / 250 2375 / 2375
Lr 1,000 ml @ 125 mls/hr IV . 1125 / 1125
Q8H JANNET Rx#:[id number]
Nss 1,000 ml @ 100 mls/hr IV . 250 / 250
Q10H JANNET Rx#:[id number]
normosol 250 / 250
IV piggybacks 1250 / 1250
Blood Product Amount Infused ( 0 / 0
mL)
Packed Rbc Leukoreduced Unit 0 / 0
[id number]
Output:
Drain Output (Total) 75 243 / 243
Right Lower Abdomen Mynor- 243 / 243
Horner
Gastrointestinal tube output ( 20 20 200 / 200
Total)
Lizarraga 20 / 20 200 / 200
Urine, Aviles 700 / 700 675 / 675
Urine, Voided
Vital Signs
Temp Pulse Resp BP Pulse Ox
98.1 F 71 14 98/58 99
09/18/24 07:29 09/18/24 07:15 09/18/24 07:15 09/18/24 07:00 09/18/24 07:15
Lab Results
09/18/24 03:53
09/18/24 03:53
Calcium 6.8 mg/dl (8.4-10.2) L* 09/18/24 03:53
Phosphorus 4.6 mg/dl (2.5-4.5) H 09/18/24 03:53
Magnesium 1.8 mg/dl (1.6-2.3) 09/18/24 03:53
Total Bilirubin 0.9 mg/dl (0.2-1.3) 09/18/24 03:53
Direct Bilirubin 0.5 mg/dl (0.0-0.4) H 09/16/24 19:12
AST 50 U/L (14-36) H 09/18/24 03:53
ALT 49 U/L (0-35) H 09/18/24 03:53
Alkaline Phosphatase 233 U/L (38-126) H 09/18/24 03:53
Total Protein 4.0 g/dl (6.3-8.2) L 09/18/24 03:53
Albumin 2.1 g/dl (3.5-5.0) L 09/18/24 03:53
Physical Exam
-
Gen: NAd
Abd: soft, approp ttp, drain with ss fluid in bulb but clear straw colored fluid in tubing
Patient has a aviles catheter: Yes
Patient has a central line: No
--- NOTE | 2024-09-18 09:30 | PTCARENOTE ---
Rec'd pt at 0745 dozing, awakens easily to verbal stimuli and is alert and oriented. Overall admits to some abd soreness but did not want anything for pain. ELIEL. 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 Denies headache or dizziness. Skin is pale pink
wm and dry. LE with multiple bruises. Buttocks with blanchable reddness- No sting and silicone boarder foam applied. Midline abd incision with aquacell intact. Old drainage on dressing. Respirs are shallow and sl tachypnic in the 20's but
non-labored . Rec'd pt on 2l nc with sats of 100%- changed to RA at 0900 with sats of 97%. BS are sl decreased a the bases. Pt coughing/spitting up whitish secretions from the back of her throat. Using the Yankeur to suction herself. Monitor A paced
with some periods of SR. Denies chest pain. + pulses. +2 LE edema. L upper arm with +2 edema -had infiltrated LAC IV Site- int removed at 0800 and arm elevated on pillows. VS as documented. KH SCD's in place. Abd is tender to palp but soft with
hypoactive BS. R nare salem ng to low int suction with greenish/brown drainage. RLQ MADELAINE drain to bulb suction.-old drainage on dressing.Draining sang-serosang drainage. LUQ colostomy stoma is reddish/pink/budded with scant amt of sanginous drainage +
some flatus/air- bag burped. Conner intact for kiera/yellow urine. I/O as documented. #1 unit PRBC completed at 0907 via R upper arm IV site and LR at 125 ml/hr changed over to that site once LAC site removed. Pt turned and repositioned. Complete
CHG bath given. Mouth care given. Turned and repositioned. Call goldberg in reach. Thuan Kaminski and Myriam in to see pt and updated.
--- NOTE | 2024-09-18 10:33 | CM ---
CM following re: discharge planning.
Reviewed pt's chart, met with pt.
Pt is an 83 year old female, admitted with primary dx of POD #1 ex lap with sigmoid resection and end colostomy creation
Pt [facility], 2 steps to enter, has supportive son and 3 grandchildren. Pt reports she uses a walker when goes outside, was at [facility] and [facility] and pt
expressed her negative experience being there. Pt made it very clear she will not go to any rehab places. Pt stated her son and grandchildren will stay with her upon the discharge and they will help as needed.
Pt reports she had [facility] in the past, 'not crazy about them', declined having [facility] again, and pt is requested [facility]. A referral to [facility] made.
PT and OT will evaluate the pt to determine a level of care at discharge.
PCP: Binu Carl
Pharmacy: [facility].
D/C plan: per pt's strong request, home with [facility] and family support.
CM will follow with discharge plan updates as hospitalization progresses
--- NOTE | 2024-09-18 11:00 | PTCARENOTE ---
Dozing at intervals. No changes in assessment. Repositioned.
--- NOTE | 2024-09-18 11:30 | W.PN.HOSP.TC ---
Today's Communication/Plan
-
Possible clamping of NGT today if patient continues to have flatus today
Blood cultures both sets growing E. coli
Zosyn stopped due to JT -- changed to a Cephalosporin and Flagyl
Consulted Infectious Disease given E. coli bacteremia
Assessment / Plan
Assessment / Plan
Physical Exam
General: Well Developed, Well Nourished and No Apparent Distress
HEENT: Normocephalic, Moist mucous membranes and Atraumatic
Respiratory: Clear to Auscultation Bilaterally
Cardiac: S1/S2 and Regular Rhythm; No Murmur or Rub
GI: Soft, Mild Appropriate Tenderness (given surgery), midline incision and dressing intact, NG tube with bilious material, drain with serosanguinous fluid
Musculoskeletal: No Cyanosis and No Edema
Skin: Warm. Dry.
Neuro: Alert. Awake. Nonfocal/grossly intact
Assessment/Plan
83-year-old female with past medical history of umbilical hernia surgery as a child, atrial fibrillation not on anticoagulation, prior pulmonary embolism, microscopic colitis and IBS presented with abdominal pain. She started having lower abdominal
pain 4 days prior to presentation. Pain was initially intermittent but now constant, and has become more severe. Last bowel movement 5 days prior to presentation. Patient has been passing clear mucus several times a day with some blood in the stool.
On the day of presentation, she had an episode of vomiting, without blood. At the time of admission, she denied fevers, chills, chest pain or shortness of breath. She was found to have perforated viscus likely secondary to severe proctocolitis.
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
#Severe proctocolitis likely site of perforation
#E. Coli bacteremia
-CT abdomen pelvis shows significant amount of free air suggesting perforated viscous, severe proctocolitis, indeterminate 1.6 cm left renal lesion, questionable subtle changes of acute pancreatitis,
severe constipation
-Not pancreatitis especially with pain location not characteristic of pancreatitis and lipase being normal
-Continue NPO (but can have ice chips) with NGT to LIWS. Continue MADELAINE drain output monitoring.
-Patient having flatus in her colostomy bag. If patient continues with flatus then start clamp trial later today
-IV fluids
-Blood cultures
-Given JT, change Zosyn to Cefuroxime and Flagyl (cannot do Ceftriaxone due to LR IV fluids, and avoiding Cefepime to avoid impact on kidneys)
-On 09/18/24, I communicated with the surgeon involved in the case, and he is okay with stopping the Zosyn and starting cephalosporin and Flagyl (as above)
-Given E. coli bacteremia, consulted Infectious Disease
-Pain regimen scheduled and PRN, but hold NSAIDs given increase in creatine
-Wound/ostomy nurse consultation
-Out of bed as tolerated
#Transient hypotension on 09/17/24
-Patient moved to ICU as per the recommendation of surgeon
-Hypotension responded to IV fluids bolus
-Patient did not need Levophed -- discussed this with patient's nurse today
#Anemia secondary to blood loss from colon perforation and subsequent surgery and hemodilution with intravenous fluids
-Received 1 unit PRBC on 09/18/24 morning
#Rising creatinine as of 09/17/24
#Decreased Urine Output as of 09/17/24
-Urine output better
-Continue with Conner catheter
-Avoid NSAIDs
-Stopping Zosyn as above
# Transaminitis likely secondary to perforation
# High ALP
-Numbers are improving, continue to monitor
-Cholestatic pattern of elevation
-May need to consider abdominal ultrasound
#History of umbilical hernia surgery as a child
#Atrial fibrillation unspecified type
-Not on anticoagulation as an outpatient
#History of Pulmonary Embolism
#Microscopic colitis
#IBS
Code Status: Full code
DVT Prophylaxis: SCDs and Heparin SUBQ
Anticipated Discharge: > 48 hours
Subjective/Interval History
-
Date of Service: September 18, 2024
Patient was seen and examined. She reported some abdominal soreness.
Objective Data
-
Labs:
Laboratory Results
09/18/24
03:53
WBC 7.2
Hgb 7.5 L
Hct 22.4 L
Plt Count 136 D
PT 16.6 H
INR 1.31
APTT 39.2 H
Sodium 140
Potassium 4.7
Chloride 114 H
Carbon Dioxide 18 L
BUN 33 H
Creatinine 1.7 H
Glucose 88
Calcium 6.8 L*
Total Bilirubin 0.9
AST 50 H
ALT 49 H
Alkaline Phosphatase 233 H
Vital Signs:
Vital Signs
Temp Pulse Resp BP Pulse Ox
98.3 F 70 23 99/56 97
09/18/24 09:09 09/18/24 10:15 09/18/24 10:15 09/18/24 10:00 09/18/24 10:15
I&O
09/17/24 09/18/24 09/19/24
06:59 06:59 06:59
Intake Total 250 / 250 3625 / 3750 900 / 900
Output Total 870 / 870 1118 / 1118 260 / 260
Balance -620 / -620 2507 / 2632 640 / 640
--- NOTE | 2024-09-18 12:30 | PTCARENOTE ---
Pt has been resting this am. IV team in earlier and difficulty obtaining a second site. Discusssed possible need for a midline if cannot maintain R upper arm site. L arm remains with edema. No increase in amt. PT/OT in at 1200 to work with pt and
assisted pt oob to the chair. Pt needs her own specialized shoes from home to be able to stand on hardened surface (hospital floor). Once shoes on pt able to stand with a walker and ambulate to the chair. Admits to tenderness in the abd but did not
want anything for pain. Currently oob in the chair. Call goldberg in reach. No other changes
--- NOTE | 2024-09-18 12:41 | VNURNOTE ---
Home health liaison met with patient to discuss [facility] services, visit scheduling/frequency, homebound status and pet policy. Patient understands home visits will be 1-3 times a week to assess and teach medical management. Patient has not learned out
to care for her ostomy yet. She has some trouble with her fingers and is aware she or a family member will need to know how to empty bag prior to coming home in case the visting nurse can not come out for for a few days. Patient made aware to take
the extra colostomy supplies home and that the visiting nurse will also be ordering supplies after the initial visit. Patient aware a visiting nurse will contact her for start of care within 1-2 days after discharge from . Home health liaison will
continue to follow
--- NOTE | 2024-09-18 12:54 | CON.ID ---
Consultation
-
Date/Time Consultation Requested: 09/18/2024 1149
Date/Time Consultation Performed: 09/18/2024 1250
Requesting Provider: Dr. Miguel
Performing Provider: Dr. Mike
Reason for Consultation: Perforated viscus
Chief Complaint / Past History
History of Present Illness
Porsche Suh is an 83-year-old female being evaluated at the request of Dr. Miguel regarding perforated viscus. History is obtained from chart review, along with patient interview.
The patient has a significant past medical history of atrial fibrillation and IBS and per reviewed records she started having lower abdominal discomfort approximately 4 days prior to admission. Pain initially was intermittent but had grown more
constant and severe. Because of the ongoing pain, she presented to the emergency room on 09/16/2024 for further evaluation. Here, a CT of the abdomen was performed which revealed free air and severe proctocolitis. She was taken emergently to the
OR last evening and underwent an exploratory laparotomy with sigmoid colon resection and end colostomy formation. Operative report indicated free-floating stool and old blood in the belly.
Patient currently in intensive care unit. Reports pain is controlled.
Past History
Additional Past Medical History:
Atrial fibrillation
Hx PE
Microscopic colitis
IBS
Additional Past Surgical History:
Umbilical hernia surgery
Foot surgery
Allergy History:
clindamycin Allergy (Verified 09/16/24 18:48)
Unknown
Sulfa (Sulfonamide Antibiotics) Allergy (Verified 09/16/24 18:48)
Unknown
Medications Reviewed: Yes
Current Antibiotics:
Cefuroxime 1.5 g IV every 8 hours
Metronidazole 500 mg IV every 8 hours
Zosyn � discontinued
Social History
Tobacco: Non-Smoker
Alcohol: None
Drug: None
Employment: Retired
Family History
Family History: Not Pertinent
Review of Systems
Vital Signs
Temp Pulse Resp BP Pulse Ox
97.8 F 70 23 99/56 97
09/18/24 11:35 09/18/24 10:15 09/18/24 10:15 09/18/24 10:00 09/18/24 10:15
Physical Exam
Physical Exam
Constitutional: Comfortable, Chronically Ill, Non-toxic and Cachetic (mild)
Head: Normocephalic
Eyes: Pupils Equal, Pupils Round, No Conjunctival Hemorrhage and Sclera Anicteric
Oral: No Thrush, No Ulcers and Other (NG tube to suction)
Cardiovascular: Regular Rate (Tachycardic) and S1/S2; Negative S3/S4 or Murmur
Pulmonary: Clear; Negative Wheezes or Rales
Gastrointestinal: Soft, Non Distended, Decreased Bowel Sounds and Other (Ostomy in place. MADELAINE in place with serosanguineous fluid.)
Extremities: Edema; Negative Cyanosis
Neurological: Awake and Alert
Psychological: Calm
.
Lab / Diagnostic Study Results
09/18/24 03:53
09/18/24 03:53
Abs Immat Gran (auto) Cancelled 09/17/24 06:47
Absolute Neuts (auto) Cancelled 09/17/24 06:47
Absolute Lymphs (auto) Cancelled 09/17/24 06:47
Absolute Monos (auto) Cancelled 09/17/24 06:47
Absolute Basos (auto) Cancelled 09/17/24 06:47
Total Counted 100 09/17/24 05:08
Immature Gran % Cancelled 09/17/24 06:47
Neutrophils % Cancelled 09/17/24 06:47
Lymphocytes % Cancelled 09/17/24 06:47
Monocytes % Cancelled 09/17/24 06:47
Eosinophils % Cancelled 09/17/24 06:47
Basophils % Cancelled 09/17/24 06:47
Abs Neuts (Manual) 1.6 10^3/uL (1.4-6.5) 09/17/24 05:08
Segmented Neutrophils 40 % (42-75) L 09/17/24 05:08
Band Neutrophils 22 % (0-3) H 09/17/24 05:08
Lymphocytes (Manual) 30 % (20-51) 09/17/24 05:08
PT 16.6 Sec (11.4-14.6) H 09/18/24 03:53
INR 1.31 09/18/24 03:53
Lactic Acid 1.3 mmol/L (0.7-2.0) 09/18/24 03:53
Microbiology Results
Micro:
09/16/24 21:00 Blood Culture - Preliminary
Blood/Venous Escherichia coli
Gram Stain - Final
09/16/24 20:53 Blood Culture - Preliminary
Blood/Venous Escherichia coli
Gram Stain - Final
09/17/24 05:08 MRSA Screen - Final
Nose No Methicillin Resistant Staphylococcus aureus isolated.
Imaging:
09/16/2024 CT abdomen/pelvis with IV contrast: Significant amount of free air suggestive of perforated viscus. Severe proctocolitis with surrounding inflammatory change and fluid within the pelvis. Indeterminate 1.6 cm left renal lesion noted.
Questionable subtle change of acute pancreatitis. Underlying mass not excluded. Please see full dictation for additional detail.
Assessment / Plan
Perforated viscus
Fecal peritonitis
E. coli bacteremia; likely secondary to above
Renal insufficiency/JT
Atrial fibrillation
Hx PE
Hx Microscopic colitis
IBS
Recommendations:
Transition back to Zosyn dosed for renal insufficiency.
Await further culture data to guide further antimicrobial selection and potential de-escalation.
Follow creatinine aspirin and creatinine clearance to guide further antibiotic dosing.
Follow-up pending cultures.
Monitor for clinical improvement
[2024-09-18] MEDS: FLAGYL 500 MG 100 IV (14:02)
--- NOTE | 2024-09-18 14:05 | PTCARENOTE ---
Pt a difficult blood draw but blood cultures x2 obtained from peripheral sites. After obtaining Flagyl hung as ordered. Pt remains sitting oob in the chair but is soon ready to get back to bed. Overall tolerated sitting oob well. Granddaughter in to
visit.
--- NOTE | 2024-09-18 14:30 | PTCARENOTE ---
Assisted back to bed. Overall tolerated being oob well. C/O just being cold. Call goldberg in reach. Admits to some abd soreness mostly on the R but did not want anything for pain. Had evacuated some air from the colostomy bag earlier but no additional
flatus/air to be evacuated currently. updated on pt. Will keep JULIO and traci in for now and reevaluate in the AM.
--- NOTE | 2024-09-18 15:08 | WOUNDNOTE ---
[facility] RN note: Patient s/p colostomy 09/17/24. Stoma pink (dark pink proximal/medial section). Appliance intact. Skin on heels intact. L heel blanchable red. Air chair cushion given. Heels off bed with pillow. Patient is on a [facility] air bed. RN
Latasha stated patient's sacrum is blanchable red and a silicone border foam was applied. Ostomy supplies (Fe wafer # [id number], Shaq seals and [place] pouch # [id number]) and colostomy teaching folder given. [place] texted Dr. Kaminski re: appearance
of stoma, asking what day he wants appliance change d/t wafer overlapping post op midline incision. Await response.
--- NOTE | 2024-09-18 15:19 | WOUNDNOTE ---
Dr. Kaminski responded 'probably Wednesday' to question as to when ostomy nurse can change patient's appliance.
[2024-09-18] MEDS: STERILE WATER FOR INJECTION 16 ML IV (15:53)
[2024-09-18] MEDS: ZINACEF 1500 MG IV (15:53)
[2024-09-18] MEDS: ZOFRAN 4 MG IV (16:02)
[2024-09-18] MEDS: FLUSH (NSS) 2 FLUSH IV (16:03)
[2024-09-18] MEDS: DILAUDID 0.5 MG IV (16:03)
--- NOTE | 2024-09-18 16:05 | PTCARENOTE ---
Visting with granddaugter- c/o 02/04 upper and lower abd discomfort. Medicated with Dilaudid 0.5 mg IV along with Zofran 4 mg IV. No other changes in assessment
--- NOTE | 2024-09-18 17:35 | PTCARENOTE ---
Pt resting post earlier Dilaudid - While resting went into Afib in the 130-140's around 1715 and remains in it. VS as documented. Pt states she has a hx of it since 2018 and normally takes Valsartan and Metoprolol for it. Pt asymptomatic. VS as
documented. ECG done. Will update Dr. Garcia. No other changes
[2024-09-18] MEDS: LOPRESSOR 5 MG IV ×2 (18:19→23:03)
[2024-09-18] MEDS: FLUSH (NSS) 1 FLUSH IV (18:20)
--- NOTE | 2024-09-18 18:30 | PTCARENOTE ---
Lopressor 5 mg iv given as ordered at 1820. Pt states overall she just feels 'off' and is tired. Dozing at intervals. VS as documented. Call goldberg in reach. No other changes. Pt had been put in for IMU transfer but will hold in ICU tonight per
Myriam after updates given. Family in to see pt
--- NOTE | 2024-09-18 19:00 | PTCARENOTE ---
HR sl better since Lopressor 115-130 range but still bursts up to the 140's.
--- NOTE | 2024-09-18 20:00 | PTCARENOTE ---
Resumed care of pt this evening. Received pt A&Ox3, can move all 4 extremities, and can make needs known. Pt is in A-fib on tele monitor, has +2 pitting edema B/L lower extremities, and has palpable pedal pulses bilaterally. Pt on RA satting at 95%
pulse ox. On auscultation pt lungs sound diminished TO. Pt's abdomen is round, tender, tender to palpation, and has hypoactive BS. Pt has right nare NG [place] sump connected to low intermittent suctioning and is draining greenish output. Pt's
colostomy stoma is pink/red and budded. Pt is passing flatulence and some serosanguineous drainage in colostomy bag. Pt also has right MADELAINE drain that is draining serous drainage. Pt has aviles in place and voiding kiera colored urine. Pt's midline
surgical aquacell dressing intact.
[2024-09-18] MEDS: RESTASIS 0.05% OPHTHALMIC EMULSION 1 DROPS BOTH EYES (20:24)
[2024-09-18] MEDS: NON-FORMULARY ITEM 1 SPRAY NASAL (20:25)
[2024-09-18] MEDS: REFRESH EYE DROPS (PF) 1 DROPS OPHTH (21:44)
[2024-09-19] VITALS (31 sets, daily range): BP systolic 91–149; BP diastolic 61–117; BMI 20.5
--- NOTE | 2024-09-19 | PTCARENOTE ---
Upon reassessment pt is resting comfortably.
[2024-09-19] MEDS: LR 1000 IV (00:08)
[2024-09-19] MEDS: ZOSYN 50 IV ×4 (02:08→22:04)
[2024-09-19] MEDS: ZOFRAN 4 MG IV ×2 (02:15→09:39)
[2024-09-19] MEDS: DILAUDID 0.5 MG IV (02:15)
--- NOTE | 2024-09-19 02:30 | PTCARENOTE ---
Pt awoke with c/o abdominal pain at the surgical site, 7 out of 10 rating. PRN dose of zofran and PRN dose of dilaudid administered by this RN.
[2024-09-19 05:17] LABS: Hematocrit 25.9 % (37.0-47.0); Hemoglobin 8.8 g/dL (12.0-16.0); Mean Corpuscular Hgb 31.1 pg (27.0-31.0); Mean Corpuscular Volume 91.5 fL (81.0-99.0); Platelet Count 143 10^3/uL (130-400); Red Blood Cell Count 2.83 10^6/uL (4.20-5.40); White Blood Cell Count 9.7 10^3/uL (4.8-10.8)
[2024-09-19] MEDS: LOPRESSOR 5 MG IV ×3 (05:25→17:28)
[2024-09-19 05:54] LABS: ALT (SGPT) 46 U/L (0-35); AST (SGOT) 52 U/L (14-36); Albumin 2.1 g/dl (3.5-5.0); Alkaline Phosphatase 230 U/L (38-126); Blood Urea Nitrogen 32 mg/dl (7-17); Calcium 7.4 mg/dl (8.4-10.2); Carbon Dioxide 20 mmol/L (22-30); Chloride 118 mmol/L (98-107); Estimated Creatinine Clearance 25 ml/min; Glucose 54 mg/dl (70-99); Potassium 3.5 mmol/L (3.5-5.1); Sodium 147 mmol/L (135-145); Total Bilirubin 0.9 mg/dl (0.2-1.3); Total Protein 4.2 g/dl (6.3-8.2); eGFR 34.79
[2024-09-19] MEDS: KCL ELIXIR 20 MEQ TUBE (06:29)
[2024-09-19] MEDS: DEXTROSE 50% SYRINGE 12.5 GRAMS IV ×2 (06:29→10:44)
[2024-09-19 06:58] LABS: Glucose - Point of Care 121 mg/dl (70-99)
--- NOTE | 2024-09-19 07:51 | W.PN.INTV ---
Today's Communication / Plan
Recommendations
Continue IV ABX
Postoperative management as per surgery
Can be transferred out of the ICU
Discontinue LR; start D5 half-normal
low resis insulin.
accucheck q6h
Assessment
-
#Pneumoperitoneum with stercoral colitis with perforated sigmoid colon found on ex lap with sigmoid colon resection and creation of end colostomy (POD #2)
#Severe stercoral colitis; likely site of perforation
#JT with hyperphosphatemia
#Transaminitis; likely due to perforation; improving
#A-fib; unspecified type
#History of PE
#Microscopic colitis
#IBS
#History of umbilical hernia s/p surgery
# Anemia secondary to acute blood loss+ likely dilutional
Continue n.p.o. with NG tube to LIWS for now; final recs defer to surgery
Awaiting ROBF
Blood cultures collected on 09/16 with growing E. coli; currently on Zosyn; awaiting final sensitivities can consider potential de-escalation
Maintain MADELAINE drain for now
IV Dilaudid as needed for pain
OOB as tolerated
Repeat blood culture pending
Discontinue LR
Start D5 half normal at 75
Added low resis insulin
Labs from the a.m. showed stable Hb
Phosphorus within normal limits
Can be transferred out of the ICU if ok with gen surgery and hospitalist.
DVT prophylaxis: Heparin subcu and SCDs
Subjective Dataa
Subjective Data
Date of Service:
Date of Service: September 19, 2024
Chief Complaint: Brush Stainer Follow Up
Subjective:
Patient seen and evaluated in the AM. Sitting comfortably in the bed. Offers no new complaints. AFVSS in the morning. Had an episode of tachycardia last night. Normal sinus rhythm in the AM. NG tube to low intermittent wall suction. Mild
abdominal pain.
Review of Systems
General: Fever (No)
Cardiopulmonary: Cough (No) and Chest Pain (No)
GI: Abdominal Pain and Vomiting (No)
Neuro: Headache (No)
Genitourinary: Conner
Objective Data
Data Reviewed
Vital Signs / I&O / Oxygen:
Vital Signs
Temp Pulse Resp BP Pulse Ox
97.8 F 119 22 107/66 95
09/19/24 07:48 09/19/24 05:25 09/19/24 05:15 09/19/24 05:25 09/19/24 05:15
Intake and Output
09/18/24 09/19/24 09/20/24
06:59 06:59 06:59
Intake Total 3625 / 3750 3515 / 3515
Output Total 1118 / 1118 191 / 1918
Balance 2507 / 2632 1597 / 1597
SaO2 95
Nasal Cannula flow liters per 2
minute
Physical Exam
General: Comfortable
Cardiovascular: S1-S2 and Regular Rhythm
Respiratory: Non-Labored Respirations
GI: Soft and Tender
Neurology: Awake, Alert and Oriented
Skin: Warm, Dry and Other (Nonpitting lower extremity edema)
Labs/Micro/Reports
Lab Data
09/19/24 05:00
09/19/24 05:00
Microbiology
09/16/24 20:53 Blood/Venous Blood Culture - Preliminary
Escherichia coli
09/16/24 20:53 Blood/Venous Gram Stain - Final
09/16/24 21:00 Blood/Venous Blood Culture - Preliminary
Escherichia coli
09/16/24 21:00 Blood/Venous Gram Stain - Final
09/17/24 05:08 Nose MRSA Screen - Final
No Methicillin Resistant Staphylococcus aureus isolated.
[2024-09-19] MEDS: RESTASIS 0.05% OPHTHALMIC EMULSION 1 DROPS BOTH EYES ×2 (07:55→22:04)
[2024-09-19] MEDS: HEPARIN 5000 UNITS SC ×2 (07:55→22:03)
[2024-09-19 08:47] LABS: Glucose - Point of Care 80 mg/dl (70-99)
[2024-09-19] MEDS: NON-FORMULARY ITEM 1 SPRAY NASAL ×2 (09:35→22:06)
[2024-09-19] MEDS: DILAUDID 0.25 MG IV (09:35)
[2024-09-19] MEDS: D5/0.45%NACL 1000 IV (10:11)
[2024-09-19] MEDS: LR IV (10:13)
--- NOTE | 2024-09-19 10:15 | W.PN.GS2 ---
Today's Communication / Plan
-
NPO/IVF/NGT
DC Aviles
IV abx per ID
Assessment / Plan
-
83 yo female presenting with perforated sigmoid colon secondary to stercoral colitis now POD #3 ex lap with sigmoid resection and end colostomy creation
AF, tachycadric yesterday, now resolved, normotensive
Excellent UOP
Minimal NGT output, dark and bilious
JT, improving
Hb stable
More nausea past 24 hrs
--Continue NPO with NGT to LIWS. Ok for ice chips for comfort,
--Analgesics scheduled and PRN, hold NSAIDs given increase in creatine
--IVF per money laundering investigator
--Continue IV abx per ID
--c/w MADELAINE drain
--OK to DC aviles today
--Ostomy nurse consult
--OOB as able. PT consult placed
--Trend labs
--Heparin SQ and SCDS for VTE ppx given reported hx of PE
Appreciate mining consultant assistance.
Subjective Data
-
Date of Service: September 19, 2024
AF, tachycardia resolved, normotensive, OOBTC, c/o intermittent pain and nausea
Objective Data
-
Intake and Output
09/18/24 09/19/24 09/20/24
06:59 06:59 06:59
Intake Total 3625 / 3750 3515 / 3515
Output Total 1118 / 1118 191 / 1918
Balance 2507 / 2632 1597 / 1597
Intake:
IV fluids (Total) 2375 / 2500 2875 / 2875
Lr 1,000 ml @ 125 mls/hr IV . 1125 / 1250 2875 / 2875
Q8H JANNET Rx#:[id number]
Nss 1,000 ml @ 100 mls/hr IV . 250 / 250
Q10H JANNET Rx#:[id number]
IV piggybacks 1250 / 1250 350 / 350
Amount instilled into GI Tube ( 40 / 40
Total)
[place] Sump 40 / 40
Blood Product Amount Infused ( 0 / 0 250 / 250
mL)
Packed Rbc Leukoreduced Unit 0 / 0 250 / 250
[id number]
Output:
Drain Output (Total)
Right Lower Abdomen Mynor-
Horner
Gastrointestinal tube output ( 200 / 200 550 / 550
Total)
[place] 200 / 200
Lookout Sump 550 / 550
Urine, Aviles 675 / 675 1340 / 1340
Vital Signs
Temp Pulse Resp BP Pulse Ox
97.8 F 119 22 107/66 95
09/19/24 07:48 09/19/24 05:25 09/19/24 05:15 09/19/24 05:25 09/19/24 05:15
Lab Results
09/19/24 05:00
09/19/24 05:00
Calcium 7.4 mg/dl (8.4-10.2) L 09/19/24 05:00
Phosphorus 4.0 mg/dl (2.5-4.5) 09/19/24 05:00
Magnesium 2.0 mg/dl (1.6-2.3) 09/19/24 05:00
Total Bilirubin 0.9 mg/dl (0.2-1.3) 09/19/24 05:00
Direct Bilirubin 0.5 mg/dl (0.0-0.4) H 09/16/24 19:12
AST 52 U/L (14-36) H 09/19/24 05:00
ALT 46 U/L (0-35) H 09/19/24 05:00
Alkaline Phosphatase 230 U/L (38-126) H 09/19/24 05:00
Total Protein 4.2 g/dl (6.3-8.2) L 09/19/24 05:00
Albumin 2.1 g/dl (3.5-5.0) L 09/19/24 05:00
Physical Exam
-
Gen: NAD
Abd: soft, approp ttp, stoma PPV with no gas or stool in the bag, drain ss
Patient has a aviles catheter: Yes
Patient has a central line: No
[2024-09-19 10:51] LABS: Glucose - Point of Care 63 mg/dl (70-99)
--- NOTE | 2024-09-19 11:00 | PTCARENOTE ---
pt awake and oriented , A paced on monitor , rate 70s , blood pressure 99/61, 96% on room air , pt blood glucose down overnight and rechecked as per protocol , she is now receiving D51/2 at 75 ml hour , her blood glucose at 63 she was given 12.5 of
dextrose and then her BS up to 118, 112 afterwards , she was seen by surgery , she is now written for telemetry status
[2024-09-19 11:27] LABS: Glucose - Point of Care 118 mg/dl (70-99)
--- NOTE | 2024-09-19 12:09 | W.PN.HOSP.TC ---
Today's Communication/Plan
-
Continue Zosyn
Follow repeat cultures
D5 06/29 NS
Recheck BMP this evening
Okay to transfer to telemetry/[address] [place] [address]. Continue monitoring on telemetry.
Assessment / Plan
Assessment / Plan
Physical Exam
General: Well Developed, Well Nourished and No Apparent Distress
HEENT: Normocephalic, Moist mucous membranes and Atraumatic
Respiratory: Clear to Auscultation Bilaterally
Cardiac: S1/S2 and Regular Rhythm; No Murmur or Rub
GI: Soft, Mild Appropriate Tenderness (given surgery), midline incision and dressing intact, NG tube with bilious material, drain with serosanguinous fluid
Musculoskeletal: No Cyanosis and No Edema
Skin: Warm. Dry.
Neuro: Alert. Awake. Nonfocal/grossly intact
Assessment/Plan
83-year-old female with past medical history of umbilical hernia surgery as a child, atrial fibrillation not on anticoagulation, prior pulmonary embolism, microscopic colitis and IBS presented with abdominal pain. She started having lower abdominal
pain 4 days prior to presentation. Pain was initially intermittent but now constant, and has become more severe. Last bowel movement 5 days prior to presentation. Patient has been passing clear mucus several times a day with some blood in the stool.
On the day of presentation, she had an episode of vomiting, without blood. At the time of admission, she denied fevers, chills, chest pain or shortness of breath. She was found to have perforated viscus likely secondary to severe proctocolitis.
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
#Severe proctocolitis likely site of perforation
#E. Coli bacteremia
-CT abdomen pelvis shows significant amount of free air suggesting perforated viscous, severe proctocolitis, indeterminate 1.6 cm left renal lesion, questionable subtle changes of acute pancreatitis,
severe constipation
-Not pancreatitis especially with pain location not characteristic of pancreatitis and lipase being normal
-Continue NPO (but can have ice chips) with NGT to LIWS. Continue MADELAINE drain output monitoring.
-Patient having flatus in her colostomy bag. If patient continues with flatus then start clamp trial later today
-IV fluids
-Initial blood cultures showed E. coli, repeat blood cultures with no growth to date
-Given E. coli bacteremia, consulted Infectious Disease --> okay to continue Zosyn
-Pain regimen scheduled and PRN, but hold NSAIDs given recent rise in creatine
-Wound/ostomy nurse consultation
-Out of bed as tolerated
#Mild Hypernatremia
-Continue D5 1/2 NS
-Recheck BMP this evening
#Asymptomatic Hypoglycemia
-Continue dextrose-containing IV fluids as above
#Transient hypotension on 09/17/24
-Patient moved to ICU as per the recommendation of surgeon
-Hypotension responded to IV fluids bolus
-Patient did not need Levophed -- discussed this with patient's nurse today
#Anemia secondary to blood loss from colon perforation and subsequent surgery and hemodilution with intravenous fluids
-Received 1 unit PRBC on 09/18/24 morning
#Rising creatinine as of 09/17/24
#Decreased Urine Output as of 09/17/24
-Urine output better
-Okay to stop Conner catheter today
-Avoid NSAIDs
# Transaminitis likely secondary to perforation
# High ALP
-Numbers are improving, continue to monitor
-Cholestatic pattern of elevation
-May need to consider abdominal ultrasound
#History of umbilical hernia surgery as a child
#Atrial fibrillation unspecified type
-Not on anticoagulation as an outpatient
#History of Pulmonary Embolism
#Microscopic colitis
-Patient usually sees Dr. Shweta Zhu at [facility] with [facility]; Dr. Zhu prescribes the patient's Budesonide and the Colestipol
#Rheumatoid Arthritis
-Patient sees Dr. Delgado - Rheumatology at [place] who prescribes the Hydroxychloroquine and Azathioprine
#IBS
Code Status: Full code
DVT Prophylaxis: SCDs and Heparin SUBQ
Anticipated Discharge: > 48 hours
Subjective/Interval History
-
Date of Service: September 19, 2024
Patient was seen and examined. She reported feeling fine, denied any new complaints, still has some on and off abdominal pain.
Objective Data
-
Labs:
Laboratory Results
09/19/24
05:00
WBC 9.7
Hgb 8.8 L
Hct 25.9 L
Plt Count 143
Sodium 147 H
Potassium 3.5 D
Chloride 118 H
Carbon Dioxide 20 L
BUN 32 H
Creatinine 1.5 H
Glucose 54 L*
Calcium 7.4 L
Total Bilirubin 0.9
AST 52 H
ALT 46 H
Alkaline Phosphatase 230 H
Vital Signs:
Vital Signs
Temp Pulse Resp BP Pulse Ox
97.8 F 119 22 107/66 95
09/19/24 11:07 09/19/24 05:25 09/19/24 05:15 09/19/24 05:25 09/19/24 05:15
I&O
09/18/24 09/19/24 09/20/24
06:59 06:59 06:59
Intake Total 3625 / 3750 3515 / 3515
Output Total 1118 / 1118 191 / 1918
Balance 2507 / 2632 1597 / 1597
[2024-09-19 13:11] LABS: Glucose - Point of Care 112 mg/dl (70-99)
--- NOTE | 2024-09-19 14:26 | W.PN.ID1 ---
Date of Service
Date of Service: September 19, 2024
Today's Communication
Continue antibiotics.
Assessment / Plan
Perforated viscus
Fecal peritonitis
E. coli bacteremia; likely secondary to above
Renal insufficiency/JT
Atrial fibrillation
Hx PE
Hx Microscopic colitis
IBS
Recommendations:
Continue with Zosyn.
Follow repeat blood cultures. No intraoperative cultures obtained.
Follow creatinine and creatinine clearance to guide further antibiotic dosing.
Monitor white count temperature curve.
Monitor for clinical improvement
����������������������������������������������������������
Chief Complaint
-: Other (Perforated viscus; fecal peritonitis.)
Subjective / Review of Systems
Review of Systems: No Fever and No Chills
Vital Signs / Physical Exam
Vital Signs
Vital Signs
Temp Pulse Resp BP Pulse Ox
97.8 F 70 22 117/70 95
09/19/24 11:07 09/19/24 12:59 09/19/24 05:15 09/19/24 12:59 09/19/24 05:15
Physical Exam
Constitutional: No Acute Distress, Acutely Ill, Chronically Ill and Non-toxic
Head: Other (NG to suction)
Eyes: Sclera Anicteric
Cardiovascular: S1/S2; Negative S3/S4
Pulmonary: Non Labored
Gastrointestinal: Soft, Non Distended and Decreased Bowel Sounds
Extremities: Edema; Negative Cyanosis or Erythema
Neurological: Awake and Alert
Psychological: Calm
Objective Data
Lab Data
Lab Results
09/19/24 05:00
09/19/24 05:00
PT 16.6 Sec (11.4-14.6) H 09/18/24 03:53
INR 1.31 09/18/24 03:53
APTT 39.2 Sec (23.4-35.0) H 09/18/24 03:53
Estimated Creat Clear 25 ml/min 09/19/24 05:00
Lactic Acid 1.3 mmol/L (0.7-2.0) 09/18/24 03:53
Total Bilirubin 0.9 mg/dl (0.2-1.3) 09/19/24 05:00
AST 52 U/L (14-36) H 09/19/24 05:00
ALT 46 U/L (0-35) H 09/19/24 05:00
Alkaline Phosphatase 230 U/L (38-126) H 09/19/24 05:00
Most recent labs reviewed.
Micro Results:
09/18/24 13:56 Blood Culture - Preliminary
Blood/Venous No Growth in 24 hours- Final report to follow
09/18/24 13:56 Blood Culture - Preliminary
Blood/Venous No Growth in 24 hours- Final report to follow
09/16/24 21:00 Blood Culture - Final
Blood/Venous Escherichia coli
Gram Stain - Final
09/16/24 20:53 Blood Culture - Final
Blood/Venous Escherichia coli
Gram Stain - Final
09/17/24 05:08 MRSA Screen - Final
Nose No Methicillin Resistant Staphylococcus aureus isolated.
Imaging:
09/16/2024 CT abdomen/pelvis with IV contrast: Significant amount of free air suggestive of perforated viscus. Severe proctocolitis with surrounding inflammatory change and fluid within the pelvis. Indeterminate 1.6 cm left renal lesion noted.
Questionable subtle change of acute pancreatitis. Underlying mass not excluded. Please see full dictation for additional detail.
--- NOTE | 2024-09-19 15:46 | CM ---
CM following re: discharge planning.
Reviewed pt's chart, met with pt. Pt is POD #3 ex lap with sigmoid resection and end colostomy creation, continue supportive care.
PT and OT evaluations noted - SNF vs home PT recommended. Pt strongly requested home PT.
[facility] liaison following.
D/C plan: home with [facility] and family support. Family to transport at discharge.
CM will follow with discharge plan updates as hospitalization progresses
[2024-09-19 15:49] LABS: Glucose - Point of Care 94 mg/dl (70-99)
[2024-09-19] MEDS: OFIRMEV 100 IV ×2 (16:15→22:46)
[2024-09-19 17:41] LABS: Glucose - Point of Care 109 mg/dl (70-99)
--- NOTE | 2024-09-19 18:15 | PTCARENOTE ---
pt transferred to , report given to receiving RN
--- NOTE | 2024-09-19 18:35 | PTCARENOTE ---
pt transferred from ICU. AOx3. No C/O pain. Tele, A-paced. obd tender to palp midline Aquacel, colostomy draining drk bloody liquid. MADELAINE righ abd dressing CDI draining clear red. NG to right nare @50 draining dark brown LWIS. +2 pitting edema noted
to B/L LE and LUE. PP detected with Doppler. Pt requesting Ice chips, oral suction set up, purwick and soda tester socks. states she is not able to walk on the floors here d/t compromised b/l foot anatomy. Conner was pulled in ICU prior to arrival, pt
instructed on voiding trial. education on purwick, pt agreeable to bed proctor. CB in reach
[2024-09-19 21:47] LABS: Blood Urea Nitrogen 33 mg/dl (7-17); Calcium 8.7 mg/dl (8.4-10.2); Carbon Dioxide 22 mmol/L (22-30); Chloride 116 mmol/L (98-107); Estimated Creatinine Clearance 29 ml/min; Glucose 85 mg/dl (70-99); Potassium 3.2 mmol/L (3.5-5.1); Sodium 144 mmol/L (135-145); eGFR 41.31
[2024-09-19] MEDS: REFRESH EYE DROPS (PF) 1 DROPS OPHTH (22:09)
[2024-09-19] MEDS: ZOFRAN IV (22:46)
[2024-09-20] VITALS (7 sets, daily range): BP systolic 128–139; BP diastolic 71–78
[2024-09-20 00:17] LABS: Glucose - Point of Care 99 mg/dl (70-99)
[2024-09-20] MEDS: LOPRESSOR 5 MG IV ×5 (00:26→22:46)
[2024-09-20] MEDS: KCL 270 MEQ IV (00:26)
[2024-09-20] MEDS: ZOFRAN 4 MG IV ×4 (03:53→21:56)
[2024-09-20] MEDS: D5/0.45%NACL 1000 IV (03:53)
[2024-09-20] MEDS: ZOSYN 50 IV ×4 (03:53→21:06)
[2024-09-20] MEDS: DILAUDID 0.5 MG IV ×6 (03:53→21:08)
--- NOTE | 2024-09-20 04:46 | PTCARENOTE ---
Patient resting in bed, NGT in Right nare to low intermittent suction, producing brown drainage, colostomy bag with small amount of bloody drainage and some air, patient was a very difficult blood draw for her BMP took 4 nurses to try, K+ came back
at 3.2 down from 3.5 in the AM, K Basil was ordered form Karen MARES, patient was up OOB to BS to void 200cc of yellow urine with out difficulty around 02:30am. Midline surgical dressing in place small amount of drainage noted, MADELAINE drain to RLQ
draining small amount of bloody drainage, outer dressing was saturated with old blood patient unsure of when or if it had been changed, site was assessed no concerns noted around insertion site, new outer dressing placed on. patient was medication
for pain 1x during shift. call goldberg within reach.
[2024-09-20] MEDS: OFIRMEV 100 IV ×2 (05:00→10:06)
[2024-09-20 06:20] LABS: Glucose - Point of Care 91 mg/dl (70-99)
[2024-09-20 06:46] LABS: Hematocrit 27.5 % (37.0-47.0); Hemoglobin 9.3 g/dL (12.0-16.0); Mean Corp Hgb Conc. 33.8 g/dL (33.0-37.0); Mean Corpuscular Hgb 31.1 pg (27.0-31.0); Mean Platelet Volume 10.2 fL (7.4-10.4); Platelet Count 155 10^3/uL (130-400); Red Blood Cell Count 2.99 10^6/uL (4.20-5.40); Red Cell Dist. Width 19.7 % (11.5-14.5); White Blood Cell Count 11.2 10^3/uL (4.8-10.8)
[2024-09-20 06:54] LABS: ALT (SGPT) 45 U/L (0-35); AST (SGOT) 49 U/L (14-36); Albumin 2.2 g/dl (3.5-5.0); Alkaline Phosphatase 325 U/L (38-126); Blood Urea Nitrogen 31 mg/dl (7-17); Calcium 8.9 mg/dl (8.4-10.2); Carbon Dioxide 25 mmol/L (22-30); Chloride 118 mmol/L (98-107); Estimated Creatinine Clearance 25 ml/min; Glucose 85 mg/dl (70-99); Potassium 3.5 mmol/L (3.5-5.1); Sodium 147 mmol/L (135-145); Total Bilirubin 0.9 mg/dl (0.2-1.3); Total Protein 4.1 g/dl (6.3-8.2); eGFR 34.79
--- NOTE | 2024-09-20 07:49 | W.PN.HOSP.TC ---
Today's Communication/Plan
-
Recheck potassium this evening given hypokalemia and the fact that patient is on Dextrose-containing IV fluids
See plan
Assessment / Plan
Assessment / Plan
Physical Exam
General: Well Developed, Well Nourished and No Apparent Distress
HEENT: Normocephalic, Moist mucous membranes and Atraumatic
Respiratory: Clear to Auscultation Bilaterally
Cardiac: S1/S2 and Regular Rhythm; No Murmur or Rub
GI: Soft, Mild Appropriate Tenderness (given surgery), midline incision and dressing intact, NG tube with bilious material, drain with serosanguinous fluid
Musculoskeletal: No Cyanosis and No Edema
Skin: Warm. Dry.
Neuro: Alert. Awake. Nonfocal/grossly intact
Assessment/Plan
83-year-old female with past medical history of umbilical hernia surgery as a child, atrial fibrillation not on anticoagulation, prior pulmonary embolism, microscopic colitis and IBS presented with abdominal pain. She started having lower abdominal
pain 4 days prior to presentation. Pain was initially intermittent but now constant, and has become more severe. Last bowel movement 5 days prior to presentation. Patient has been passing clear mucus several times a day with some blood in the stool.
On the day of presentation, she had an episode of vomiting, without blood. At the time of admission, she denied fevers, chills, chest pain or shortness of breath. She was found to have perforated viscus likely secondary to severe proctocolitis.
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
#Severe proctocolitis likely site of perforation
#E. Coli bacteremia
-CT abdomen pelvis shows significant amount of free air suggesting perforated viscous, severe proctocolitis, indeterminate 1.6 cm left renal lesion, questionable subtle changes of acute pancreatitis,
severe constipation
-Not pancreatitis especially with pain location not characteristic of pancreatitis and lipase being normal
-Continue NPO (but can have ice chips) with NGT to LIWS. Continue MADELAINE drain output monitoring.
-IV fluids with D5W given mild hypernatremia
-Initial blood cultures showed E. coli, repeat blood cultures with no growth to date
-Given E. coli bacteremia, consulted Infectious Disease --> okay to continue Zosyn
-Pain regimen scheduled and PRN, but hold NSAIDs given recent rise in creatine
-Wound/ostomy nurse consultation
-Out of bed as tolerated
#Mild Hypernatremia
-Sodium mildly elevated
-Change IV fluids from D5 1/2 NS to D5W @ 60 cc/hr
-Monitor potassium levels while on dextrose-containing IV fluids; recheck BMP this evening
#Asymptomatic Hypoglycemia
-Continue dextrose-containing IV fluids as above
#Transient hypotension on 09/17/24
-Patient was previously moved to ICU as per the recommendation of surgeon, then became more stable and transferred to tele
-Hypotension responded to IV fluids bolus
-Patient did not need Levophed
#Anemia secondary to blood loss from colon perforation and subsequent surgery and hemodilution with intravenous fluids
-Received 1 unit PRBC on 09/18/24 morning
#Rising creatinine as of 09/17/24
#Decreased Urine Output as of 09/17/24
-Urine output better
-Okay to stop Conner catheter today
-Avoid NSAIDs
# Transaminitis likely secondary to perforation
# High ALP
-Numbers are improving, continue to monitor
-Cholestatic pattern of elevation
-May need to consider abdominal ultrasound
#History of umbilical hernia surgery as a child
#Atrial fibrillation unspecified type
-Not on anticoagulation as an outpatient
#History of Pulmonary Embolism
#Microscopic colitis
-Patient usually sees Dr. Shweta Zhu at [facility]; Dr. Zhu prescribes the patient's Budesonide and the Colestipol
#Rheumatoid Arthritis
-Patient sees Dr. Delgado - Rheumatology at [facility] who prescribes the Hydroxychloroquine and Azathioprine
#IBS
Code Status: Full code
DVT Prophylaxis: SCDs and Heparin SUBQ
Anticipated Discharge: > 48 hours
Subjective/Interval History
-
Date of Service: September 20, 2024
Patient was seen and examined. She reported nausea, but there has been no flatus or stool via her stoma.
Objective Data
-
Labs:
Laboratory Results
09/19/24 09/20/24 09/20/24
21:28 05:21 12:00
WBC 11.2 H
Hgb 9.3 L
Hct 27.5 L
Plt Count 155
Sodium 144 147 H Pending
Potassium 3.2 L 3.5 Pending
Chloride 116 H 118 H Pending
Carbon Dioxide 22 25 Pending
BUN 33 H 31 H Pending
Creatinine 1.3 H 1.5 H Pending
Glucose 85 85 Pending
Calcium 8.7 8.9 Pending
Total Bilirubin 0.9
AST 49 H
ALT 45 H
Alkaline Phosphatase 325 H
09/20/24
20:00
WBC
Hgb
Hct
Plt Count
Sodium Pending
Potassium Pending
Chloride Pending
Carbon Dioxide Pending
BUN Pending
Creatinine Pending
Glucose Pending
Calcium Pending
Total Bilirubin
AST
ALT
Alkaline Phosphatase
Vital Signs:
Vital Signs
Temp Pulse Resp BP Pulse Ox
98.3 F 71 18 126/69 97
09/20/24 03:10 09/20/24 06:16 09/20/24 03:10 09/20/24 06:16 09/20/24 03:10
I&O
09/19/24 09/20/24 09/21/24
06:59 06:59 06:59
Intake Total 3515 / 3640 2180 / 2180
Output Total 1917 1460 / 1460
Balance 1597 / 1642 720 / 720
[2024-09-20] MEDS: D5W 1000 IV (08:46)
[2024-09-20] MEDS: THIAMINE INJECTION 100 MG IV (08:48)
[2024-09-20] MEDS: RESTASIS 0.05% OPHTHALMIC EMULSION 1 DROPS BOTH EYES ×2 (08:48→21:09)
[2024-09-20] MEDS: HEPARIN 5000 UNITS SC ×2 (08:49→21:08)
[2024-09-20] MEDS: NON-FORMULARY ITEM 1 SPRAY NASAL ×2 (08:53→21:22)
--- NOTE | 2024-09-20 11:18 | W.PN.GS2 ---
Today's Communication / Plan
-
F/U KUB
NPO/NGT/IVF
IV abx
Assessment / Plan
-
83 yo female presenting with perforated sigmoid colon secondary to stercoral colitis now POD #4 ex lap with sigmoid resection and end colostomy creation
AFVSS
Excellent UOP, aviles out and voiding
Low NGT output, dark and bilious
JT, Cr trended up today
Hb stable, WBC up slightly today
Ongoing nausea, post-op ileus expected after feculent peritonitis
--Continue NPO with NGT to LIWS. Ok for ice chips for comfort,
--KUB
--Analgesics scheduled and PRN, hold NSAIDs given increase in creatine
--IVF per injection molding machine tender
--Continue IV abx per ID
--c/w MADELAINE drain
--Ostomy nurse following
--OOB as able. PT following
--Trend labs
--Heparin SQ and SCDS for VTE ppx given reported hx of PE
Appreciate oracle security consultant assistance.
Subjective Data
-
Date of Service: September 20, 2024
AFVSS, OOBTC, no flatus or stool via stoma, c/o nausea and abd pain that impove with meds
Objective Data
-
Intake and Output
09/19/24 09/20/24 09/21/24
06:59 06:59 06:59
Intake Total 3515 / 3640 2180 / 2180
Output Total 1917 / 1997 1460 / 1460 200 / 200
Balance 1597 / 1642 720 / 720 -200 / -200
Intake:
Oral fluids 0 / 0
IV fluids (Total) 2875 / 3000 2150 / 2150
D5/0.45%NaCl 1,000 ml @ 75 mls/ 450 / 450
hr IV .[id number] JANNET Rx#:[id number]
Lr 1,000 ml @ 125 mls/hr IV . 2875 / 3000 500 / 500
Q8H JANNET Rx#:[id number]
IV piggybacks 350 / 350
Amount instilled into GI Tube ( 40 / 40 30 / 30
Total)
Dailey Sump 40 / 40 30 / 30
Blood Product Amount Infused ( 250 / 250
mL)
Packed Rbc Leukoreduced Unit 250 / 250
[id number]
Output:
Drain Output (Total)
Right Lower Abdomen Mynor-
Horner
Gastrointestinal tube output ( 550 / 550 750 / 750
Total)
Dailey Sump 550 / 550 750 / 750
Urine, Aviles 1340 / 1420 495 / 495
Urine, Voided 200 / 200 200 / 200
Vital Signs
Temp Pulse Resp BP Pulse Ox
98.2 F 72 16 128/71 96
09/20/24 07:15 09/20/24 07:15 09/20/24 07:15 09/20/24 07:15 09/20/24 10:37
Lab Results
09/20/24 05:21
Calcium 8.9 mg/dl (8.4-10.2) 09/20/24 05:21
Phosphorus 4.0 mg/dl (2.5-4.5) 09/19/24 05:00
Magnesium 2.0 mg/dl (1.6-2.3) 09/19/24 05:00
Total Bilirubin 0.9 mg/dl (0.2-1.3) 09/20/24 05:21
Direct Bilirubin 0.5 mg/dl (0.0-0.4) H 09/16/24 19:12
AST 49 U/L (14-36) H 09/20/24 05:21
ALT 45 U/L (0-35) H 09/20/24 05:21
Alkaline Phosphatase 325 U/L (38-126) H 09/20/24 05:21
Total Protein 4.1 g/dl (6.3-8.2) L 09/20/24 05:21
Albumin 2.2 g/dl (3.5-5.0) L 09/20/24 05:21
Physical Exam
-
Gen: NAD
Abd: soft, approp ttp, midl distention, stoma PPV with mild edema, bowel sweat in the bag but no air or stool, drain with minimal clear ss fluid
Patient has a aviles catheter: No
Patient has a central line: No
[2024-09-20 11:27] LABS: Glucose - Point of Care 102 mg/dl (70-99)
--- NOTE | 2024-09-20 11:30 | W.PN.ID1 ---
Date of Service
Date of Service: September 20, 2024
Today's Communication
Continue antibiotics.
Assessment / Plan
Perforated viscus
Fecal peritonitis
- s/p exp lap / sigmoid colon resection / colostomy (09/16/24)
E. coli bacteremia; secondary to above
Renal insufficiency/JT
Hyponatremia
Atrial fibrillation
Hx PE
Hx Microscopic colitis
IBS
Recommendations:
White count slightly up today.
Continue with Zosyn.
Follow repeat blood cultures. No intraoperative cultures obtained.
Follow creatinine and creatinine clearance to guide further antibiotic dosing.
Monitor white count temperature curve.
Monitor for clinical improvement
����������������������������������������������������������
Chief Complaint
-: Other (Perforated viscus; fecal peritonitis.)
Subjective / Review of Systems
Patient seen and examined. Overall feels weak, and notes ongoing nausea. NG tube remains in place at this time.
Review of Systems: No Fever and No Chills
Vital Signs / Physical Exam
Vital Signs
Vital Signs
Temp Pulse Resp BP Pulse Ox
98.2 F 72 16 128/71 96
09/20/24 07:15 09/20/24 07:15 09/20/24 07:15 09/20/24 07:15 09/20/24 10:37
Physical Exam
Constitutional: No Acute Distress, Comfortable, Chronically Ill and Non-toxic
Head: Other (NG to suction)
Eyes: Sclera Anicteric
Cardiovascular: S1/S2; Negative S3/S4
Pulmonary: Non Labored
Gastrointestinal: Soft, Non Distended, Decreased Bowel Sounds and Other (Midline incision intact with mild bloody strikethrough underneath dressing.)
Extremities: Edema; Negative Cyanosis or Erythema
Neurological: Awake and Alert
Psychological: Calm
Objective Data
Lab Data
Lab Results
09/20/24 05:21
PT 16.6 Sec (11.4-14.6) H 09/18/24 03:53
INR 1.31 09/18/24 03:53
APTT 39.2 Sec (23.4-35.0) H 09/18/24 03:53
Estimated Creat Clear 25 ml/min 09/20/24 05:21
Lactic Acid 1.3 mmol/L (0.7-2.0) 09/18/24 03:53
Total Bilirubin 0.9 mg/dl (0.2-1.3) 09/20/24 05:21
AST 49 U/L (14-36) H 09/20/24 05:21
ALT 45 U/L (0-35) H 09/20/24 05:21
Alkaline Phosphatase 325 U/L (38-126) H 09/20/24 05:21
Most recent labs reviewed.
Micro Results:
09/18/24 13:56 Blood Culture - Preliminary
Blood/Venous No Growth in 24 hours- Final report to follow
09/18/24 13:56 Blood Culture - Preliminary
Blood/Venous No Growth in 24 hours- Final report to follow
09/16/24 21:00 Blood Culture - Final
Blood/Venous Escherichia coli
Gram Stain - Final
09/16/24 20:53 Blood Culture - Final
Blood/Venous Escherichia coli
Gram Stain - Final
09/17/24 05:08 MRSA Screen - Final
Nose No Methicillin Resistant Staphylococcus aureus isolated.
Imaging:
09/16/2024 CT abdomen/pelvis with IV contrast: Significant amount of free air suggestive of perforated viscus. Severe proctocolitis with surrounding inflammatory change and fluid within the pelvis. Indeterminate 1.6 cm left renal lesion noted.
Questionable subtle change of acute pancreatitis. Underlying mass not excluded. Please see full dictation for additional detail.
[2024-09-20 13:36] LABS: Blood Urea Nitrogen 31 mg/dl (7-17); Carbon Dioxide 24 mmol/L (22-30); Chloride 116 mmol/L (98-107); Estimated Creatinine Clearance 29 ml/min; Glucose 104 mg/dl (70-99); Potassium 3.4 mmol/L (3.5-5.1); Sodium 146 mmol/L (135-145); eGFR 41.31
--- NOTE | 2024-09-20 13:38 | PTCARENOTE ---
Patient requested to have ALL 4 side rails up in bed. Patient is AAOx3 and makes her needs known appropriately.
[2024-09-20] MEDS: REFRESH EYE DROPS (PF) 1 DROPS OPHTH (14:35)
--- NOTE | 2024-09-20 15:28 | CM ---
Patient seen at bedside.
NPO, NGT
PT rec SNF vs. Home PT
Patient declines SNF - [facility] referral placed in [facility]
Left message with grand-daughter Jazmin
PLAN: home with [facility] and family support. Family to transport at discharge.
--- NOTE | 2024-09-20 15:31 | WOUNDNOTE ---
WO RN NOTE: Reviewed chart and met with patient, who was visiting with family. Ostomy appliance pink and budded with scant sanguinous drainage. TT with Dr. Kaminski and plan is to remove midline dressing and change ostomy appliance tomorrow, 09/21.
Midline dressing is intact. Spoke to family, patient and RN Aleyda to coordinate care and teaching for tomorrow. [id number], Hai will be here tomorrow and will be helping patient with ostomy appliance at home. RN's to text [facility] RN when
Hai arrives in the morning. Ostomy supplies at bedside.
[2024-09-20] MEDS: KCL 260 MEQ IV (15:45)
--- NOTE | 2024-09-20 16:13 | W.PN.UPDATE ---
Update Note
Progress Note Update
Patient's nurse reported patient's left arm appears more swollen. Ordered left upper extremity ultrasound.
--- NOTE | 2024-09-20 17:22 | W.PN.UPDATE ---
Update Note
Progress Note Update
Attempted to see, off floor for US of arm 2/2 edema.
XR with non obstructive bowel gas pattern. Per nursing NGT put out 800cc today. Will re-assess in the am
[2024-09-20 18:13] LABS: Glucose - Point of Care 105 mg/dl (70-99)
[2024-09-20 22:17] LABS: Blood Urea Nitrogen 31 mg/dl (7-17); Calcium 9.8 mg/dl (8.4-10.2); Carbon Dioxide 29 mmol/L (22-30); Chloride 112 mmol/L (98-107); Estimated Creatinine Clearance 31 ml/min; Glucose 98 mg/dl (70-99); Potassium 4.2 mmol/L (3.5-5.1); Sodium 148 mmol/L (135-145); eGFR 45.48
[2024-09-20 23:53] LABS: Glucose - Point of Care 100 mg/dl (70-99)
--- NOTE | 2024-09-21 01:10 | PTCARENOTE ---
224 pt noted to be in AFIB HR 115's-150's, b/p 132/74-97%RA-97.9. pt states she feels her heart racing. [employer] notified, lopressor 5mg given.
--- NOTE | 2024-09-21 01:13 | PTCARENOTE ---
0030 HR noted to be 80's-130's AFIB with pacer noted to occasionally pace on QRS, and randomly going between A and V paced at times. BOILERMAKER'S ASSISTANT notified, strips placed in chart. Vs 97.9-95-18-120/64-97% RA-NG drainage currently dark brown-bloody 500cc since
1900. pt denies any symptoms at this time. pt resting/sleeping comfortably.
[2024-09-21] MEDS: ZOSYN 50 IV ×4 (01:27→21:29)
[2024-09-21 03:20] VITALS: BP 118/64
[2024-09-21 05:52] LABS: Glucose - Point of Care 111 mg/dl (70-99)
[2024-09-21 06:00] VITALS: BMI 20.1
[2024-09-21] MEDS: LOPRESSOR 5 MG IV ×4 (06:05→23:38)
[2024-09-21 06:48] LABS: Hematocrit 29.2 % (37.0-47.0); Hemoglobin 9.7 g/dL (12.0-16.0); Mean Corp Hgb Conc. 33.2 g/dL (33.0-37.0); Mean Corpuscular Hgb 30.8 pg (27.0-31.0); Mean Corpuscular Volume 92.7 fL (81.0-99.0); Mean Platelet Volume 9.9 fL (7.4-10.4); Platelet Count 158 10^3/uL (130-400); Red Blood Cell Count 3.15 10^6/uL (4.20-5.40); Red Cell Dist. Width 19.1 % (11.5-14.5); White Blood Cell Count 7.3 10^3/uL (4.8-10.8)
[2024-09-21 07:01] LABS: ALT (SGPT) 53 U/L (0-35); AST (SGOT) 66 U/L (14-36); Albumin 2.2 g/dl (3.5-5.0); Alkaline Phosphatase 308 U/L (38-126); Blood Urea Nitrogen 27 mg/dl (7-17); Calcium 9.4 mg/dl (8.4-10.2); Carbon Dioxide 29 mmol/L (22-30); Chloride 113 mmol/L (98-107); Estimated Creatinine Clearance 34 ml/min; Glucose 118 mg/dl (70-99); Magnesium 1.8 mg/dl (1.6-2.3); Potassium 3.4 mmol/L (3.5-5.1); Sodium 148 mmol/L (135-145); Total Bilirubin 0.9 mg/dl (0.2-1.3); Total Protein 4.4 g/dl (6.3-8.2); eGFR 50.48
[2024-09-21 07:20] VITALS: BP 124/71
--- NOTE | 2024-09-21 07:27 | W.PN.HOSP.TC ---
Today's Communication/Plan
-
Small Bowel Follow Through
Clear Liquids Diet
Potassium replacement
Increased rate of D5W IV fluids to address hypernatremia
Monitor BMP closely given the D5W IV fluids for correction of sodium and any hypokalemia
Assessment / Plan
Assessment / Plan
Physical Exam
General: Well Developed, Well Nourished and No Apparent Distress
HEENT: Normocephalic, Moist mucous membranes and Atraumatic
Respiratory: Clear to Auscultation Bilaterally
Cardiac: S1/S2 and Regular Rate and Rhythm
GI: Soft, Mild Appropriate Tenderness (given surgery), midline incision and dressing intact, NG tube with bilious material, drain with serosanguinous fluid
Musculoskeletal: No Cyanosis and No Edema
Skin: Warm. Dry.
Neuro: Alert. Awake. Nonfocal/grossly intact
Assessment/Plan
83-year-old female with past medical history of umbilical hernia surgery as a child, atrial fibrillation not on anticoagulation, prior pulmonary embolism, microscopic colitis and IBS presented with abdominal pain. She started having lower abdominal
pain 4 days prior to presentation. Pain was initially intermittent but now constant, and has become more severe. Last bowel movement 5 days prior to presentation. Patient has been passing clear mucus several times a day with some blood in the stool.
On the day of presentation, she had an episode of vomiting, without blood. At the time of admission, she denied fevers, chills, chest pain or shortness of breath. She was found to have perforated viscus likely secondary to severe proctocolitis.
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
#Severe proctocolitis likely site of perforation
#E. Coli bacteremia
-CT abdomen pelvis shows significant amount of free air suggesting perforated viscous, severe proctocolitis, indeterminate 1.6 cm left renal lesion, questionable subtle changes of acute pancreatitis,
severe constipation
-Not pancreatitis especially with pain location not characteristic of pancreatitis and lipase being normal
-Small Bowel Follow Through X-Ray today
-Clear Liquids Diet started (NG tube taken out on 09/21/24, and previously was NPO). Continue MADELAINE drain output monitoring.
-IV fluids with D5W given mild hypernatremia
-Initial blood cultures showed E. coli, repeat blood cultures with no growth to date
-Given E. coli bacteremia, consulted Infectious Disease --> okay to continue Zosyn
-Pain regimen scheduled and PRN, but no NSAIDs given recent rise in creatine
-Wound/ostomy nurse consultation
-Out of bed as tolerated
#Mild Hypernatremia
-Sodium mildly elevated
-Previously changed IV fluids from D5 1/2 NS to D5W @ 60 cc/hr-->increased D5W rate to 75 cc/hr since sodium not improving but slightly worse
-Closely monitor sodium levels
-Closely monitor potassium levels while on dextrose-containing IV fluids; recheck BMP this afternoon
#Mild Hypokalemia
-Suspected from dextrose-containing fluids, NPO status, recent surgery with NG tube
-Replaced with IV potassium
-Closely monitor potassium levels while on dextrose-containing IV fluids; recheck BMP this afternoon
#Asymptomatic Hypoglycemia
-Continue dextrose-containing IV fluids as above
#Transient hypotension on 09/17/24
-Patient was previously moved to ICU as per the recommendation of surgeon, then became more stable and transferred to [facility]
-Previously, hypotension responded to IV fluids bolus
-Patient did not need Levophed
#Anemia secondary to blood loss from colon perforation and subsequent surgery and hemodilution with intravenous fluids
-Received 1 unit PRBC on 09/18/24 morning
#Rising creatinine as of 09/17/24
#Decreased Urine Output as of 09/17/24
-Urine output better
-Okay to stop Conner catheter today
-Avoid NSAIDs
# Transaminitis likely secondary to perforation
# High ALP
-Numbers are generally stable
-Cholestatic pattern of elevation
-May need to consider abdominal ultrasound
#History of umbilical hernia surgery as a child
#Atrial fibrillation unspecified type
-Not on anticoagulation as an outpatient
#History of Pulmonary Embolism
#Microscopic colitis
-Patient usually sees Dr. Shweta Zhu at [facility]; Dr. Zhu prescribes the patient's Budesonide and the Colestipol
#Rheumatoid Arthritis
-Patient sees Dr. Delgado - Rheumatology at [place] who prescribes the Hydroxychloroquine and Azathioprine
#IBS
Code Status: Full code
DVT Prophylaxis: SCDs and Heparin SUBQ
Anticipated Discharge: > 48 hours
Subjective/Interval History
-
Date of Service: September 21, 2024
Patient was seen and examined. She reported abdominal pain after having a small bowel follow-through earlier today.
Objective Data
-
Labs:
Laboratory Results
09/20/24 09/21/24
21:54 06:06
WBC 7.3
Hgb 9.7 L
Hct 29.2 L
Plt Count 158
Sodium 148 H 148 H
Potassium 4.2 3.4 L
Chloride 112 H 113 H
Carbon Dioxide 29 29
BUN 31 H 27 H
Creatinine 1.2 H 1.1 H
Glucose 98 118 H
Calcium 9.8 9.4
Total Bilirubin 0.9
AST 66 H
ALT 53 H
Alkaline Phosphatase 308 H
Vital Signs:
Vital Signs
Temp Pulse Resp BP Pulse Ox
98.2 F 93 16 118/64 93
09/21/24 03:20 09/21/24 03:20 09/21/24 03:20 09/21/24 03:20 09/21/24 03:20
I&O
09/20/24 09/21/24 09/22/24
06:59 06:59 06:59
Intake Total 2180 / 2180 2029
Output Total 1460 / 1460 218 / 218
Balance 720 / 720 -150 / -150
[2024-09-21] MEDS: DILAUDID 0.5 MG IV ×4 (08:31→23:49)
[2024-09-21] MEDS: HEPARIN 5000 UNITS SC ×2 (08:33→21:26)
[2024-09-21] MEDS: RESTASIS 0.05% OPHTHALMIC EMULSION 1 DROPS BOTH EYES ×2 (08:33→21:27)
[2024-09-21] MEDS: THIAMINE INJECTION 100 MG IV (08:33)
[2024-09-21] MEDS: NON-FORMULARY ITEM 1 SPRAY NASAL ×2 (08:34→21:28)
--- NOTE | 2024-09-21 09:01 | W.PN.GS2 ---
Today's Communication / Plan
-
SBFT
Assessment / Plan
-
83 yo female presenting with perforated sigmoid colon secondary to stercoral colitis now POD #5 ex lap with sigmoid resection and end colostomy creation
AFVSS
Low NGT output, dark and watery
Cr improving
Hb stable, WBC normalized
Small gas in bag, suspect increased ice chip intake explains rise in NGT output
--Continue NPO with NGT to LIWS. Ok for ice chips for comfort,
--SBFT
--Analgesics scheduled and PRN, hold NSAIDs given increase in creatine
--IVF per advertisement compositor
--Continue IV abx per ID
--c/w MADELAINE drain
--Ostomy nurse following
--OOB as able. PT following
--Trend labs
--Heparin SQ and SCDS for VTE ppx given reported hx of PE
Appreciate business intelligence consultant assistance.
Subjective Data
-
Date of Service: September 21, 2024
AFVSS, pain controlled, denies nausea
Objective Data
-
Intake and Output
09/20/24 09/21/24 09/22/24
06:59 06:59 06:59
Intake Total 218 / 2180 2029
Output Total 1460 / 1460 2179 / 218
Balance 720 / 720 -150 / -150
Intake:
Oral fluids 0 / 0 240 / 240
IV fluids (Total) 2150 / 2150 1340 / 1340
D5/0.45%NaCl 1,000 ml @ 75 mls/ 450 / 450
hr IV .[id number] JANNET Rx#:[id number]
Lr 1,000 ml @ 125 mls/hr IV . 500 / 500
Q8H JANNET Rx#:[id number]
IV piggybacks 450 / 450
Amount instilled into GI Tube ( 30 / 30
Total)
[place] Sump
Output:
Drain Output (Total)
Right Lower Abdomen Mynor-
Horner
Gastrointestinal tube output ( 750 / 750 1650 / 1650
Total)
[place] Sump 750 / 750 1650 / 1650
Urine, Aviles 495 / 495
Urine, Voided 200 / 200 500 / 500
Other:
Number of approximated SMALL 1
amounts of urine
Number of approximated MODERATE 2
amounts of urine
Number of approximated LARGE 2
amounts of urine
Vital Signs
Temp Pulse Resp BP Pulse Ox
97.7 F 100 16 124/71 99
09/21/24 07:20 09/21/24 07:20 09/21/24 07:20 09/21/24 07:20 09/21/24 07:20
Lab Results
09/21/24 06:06
Calcium 9.4 mg/dl (8.4-10.2) 09/21/24 06:06
Phosphorus 4.0 mg/dl (2.5-4.5) 09/19/24 05:00
Magnesium 1.8 mg/dl (1.6-2.3) 09/21/24 06:06
Total Bilirubin 0.9 mg/dl (0.2-1.3) 09/21/24 06:06
Direct Bilirubin 0.5 mg/dl (0.0-0.4) H 09/16/24 19:12
AST 66 U/L (14-36) H 09/21/24 06:06
ALT 53 U/L (0-35) H 09/21/24 06:06
Alkaline Phosphatase 308 U/L (38-126) H 09/21/24 06:06
Total Protein 4.4 g/dl (6.3-8.2) L 09/21/24 06:06
Albumin 2.2 g/dl (3.5-5.0) L 09/21/24 06:06
Physical Exam
-
Gen: NAD
Abd: soft, approp ttp, drain ss, ngt dark and watery, stoma ppv with small gas in bag
Patient has a aviles catheter: No
Patient has a central line: No
[2024-09-21] MEDS: ZOFRAN 4 MG IV (10:42)
[2024-09-21] MEDS: KCL 160 MEQ IV (10:42)
[2024-09-21] MEDS: D5W 1000 IV (10:42)
--- NOTE | 2024-09-21 10:58 | PTCARENOTE ---
Patient back from SBFT. Patient NG hooked back up to low intermittent suction per order. Patient immediately having excruciating abd pain. Dr. Kaminski made aware. Ordered to hold of on NGT suction. PRN Dilaudid administered per orders. VSS
[2024-09-21 11:05] VITALS: BP 141/71
--- NOTE | 2024-09-21 11:16 | PTCARENOTE ---
NG tube removed per MD order. Patient tolerated well. Patient still c/o of 10/10 abd pain. MD made aware.
[2024-09-21] MEDS: DILAUDID 1 MG IV (11:20)
[2024-09-21 12:07] LABS: Glucose - Point of Care 122 mg/dl (70-99)
--- NOTE | 2024-09-21 13:56 | W.PN.ID1 ---
Date of Service
Date of Service: September 21, 2024
Today's Communication
Continue Zosyn.
Assessment / Plan
Perforated viscus
Fecal peritonitis
- s/p exp lap / sigmoid colon resection / colostomy (09/16/24)
E. coli bacteremia; secondary to above
Renal insufficiency/JT
Hyponatremia
Atrial fibrillation
Hx PE
Hx Microscopic colitis
IBS
Recommendations:
Leukocytosis improved today.
Continue with Zosyn.
Follow repeat blood cultures. No intraoperative cultures obtained.
Creatinine appears stable.
Monitor white count temperature curve.
Monitor for clinical improvement
����������������������������������������������������������
Chief Complaint
-: Other (Perforated viscus; fecal peritonitis.)
Subjective / Review of Systems
Patient seen and examined. Notes ongoing abdominal discomfort and nausea.
Review of Systems: No Fever and No Chills
Vital Signs / Physical Exam
Vital Signs
Vital Signs
Temp Pulse Resp BP Pulse Ox
97.3 F 70 14 141/71 98
09/21/24 11:05 09/21/24 12:10 09/21/24 11:05 09/21/24 11:05 09/21/24 11:05
Physical Exam
Constitutional: Chronically Ill, Non-toxic and Other (Appears uncomfortable today.)
Eyes: Sclera Anicteric
Cardiovascular: S1/S2; Negative S3/S4
Pulmonary: Non Labored
Gastrointestinal: Soft, Distended (Mild), Decreased Bowel Sounds and Other (Midline incision intact with mild bloody strikethrough underneath dressing.)
Extremities: Edema; Negative Cyanosis or Erythema
Neurological: Awake and Alert
Psychological: Calm
Objective Data
Lab Data
Lab Results
09/21/24 06:06
PT 16.6 Sec (11.4-14.6) H 09/18/24 03:53
INR 1.31 09/18/24 03:53
APTT 39.2 Sec (23.4-35.0) H 09/18/24 03:53
Estimated Creat Clear 34 ml/min 09/21/24 06:06
Lactic Acid 1.3 mmol/L (0.7-2.0) 09/18/24 03:53
Total Bilirubin 0.9 mg/dl (0.2-1.3) 09/21/24 06:06
AST 66 U/L (14-36) H 09/21/24 06:06
ALT 53 U/L (0-35) H 09/21/24 06:06
Alkaline Phosphatase 308 U/L (38-126) H 09/21/24 06:06
Most recent labs reviewed.
Micro Results:
09/18/24 13:56 Blood Culture - Preliminary
Blood/Venous No Growth in 48 hours- Final report to follow
09/18/24 13:56 Blood Culture - Preliminary
Blood/Venous No Growth in 48 hours- Final report to follow
09/16/24 21:00 Blood Culture - Final
Blood/Venous Escherichia coli
Gram Stain - Final
09/16/24 20:53 Blood Culture - Final
Blood/Venous Escherichia coli
Gram Stain - Final
09/17/24 05:08 MRSA Screen - Final
Nose No Methicillin Resistant Staphylococcus aureus isolated.
Imaging:
09/16/2024 CT abdomen/pelvis with IV contrast: Significant amount of free air suggestive of perforated viscus. Severe proctocolitis with surrounding inflammatory change and fluid within the pelvis. Indeterminate 1.6 cm left renal lesion noted.
Questionable subtle change of acute pancreatitis. Underlying mass not excluded. Please see full dictation for additional detail.
[2024-09-21 14:43] LABS: Blood Urea Nitrogen 26 mg/dl (7-17); Calcium 9.6 mg/dl (8.4-10.2); Carbon Dioxide 28 mmol/L (22-30); Chloride 112 mmol/L (98-107); Estimated Creatinine Clearance 37 ml/min; Glucose 115 mg/dl (70-99); Potassium 3.3 mmol/L (3.5-5.1); Sodium 149 mmol/L (135-145)
[2024-09-21 15:35] VITALS: BP 144/71
--- NOTE | 2024-09-21 16:07 | WOUNDNOTE ---
Colostomy supplies- Fe Barrier # [id number], Pouch # [id number].
Call supply company (list in folder provided) for monthly Ostomy supplies after discharge (ask VN to order supplies while on service).
Follow up with surgeon.
Call [facility] RN nurse for ostomy pouching concerns or leakage problems [phone] or [phone] or [phone].
--- NOTE | 2024-09-21 16:11 | WOUNDNOTE ---
[facility] RN NOTE: Patient visited for ostomy teaching. [id number] and adult grandchildren present for teaching. Patient had NG tube removed today and is reporting some abdominal pain. RN aware and patient has been medicated for pain per order.
Midline dressing removed. Niko are clean and intact. No drainage or erythema noted. Stoma is pink, budded and appears slightly edematous. No output yet. Reviewed pouch emptying and pouch change with family and patient. All asked appropriate
questions and all questions were answered. Pouch changed with Chloe Barrier [id number] and pouch # [id number]. Secure start kit ordered to [facility] with permission of [id number] and patient. Patient reports getting OOB and ambulating to a few
times/day but explained that she could not today due to pain. Patient declined to be turned today due to pain, agree to allow RN to assess later. Heels intact and off-loaded with air cushion. Patient is on a [facility] Air bed. Will continue to
follow with patient for ostomy teaching. All ostomy supplies in room. RN Bradly given update.
--- NOTE | 2024-09-21 16:23 | CM ---
Patient chart reviewed
NGT out today
Ostomy teaching with patient, [id number] and adult grandchildren
Patient declines SNF
[facility] referral accepted
PLAN: home, [facility] when medically stable
family to transport
[2024-09-21 16:58] LABS: Glucose - Point of Care 144 mg/dl (70-99)
[2024-09-21 17:02] LABS: Potassium 2.3 mmol/L (3.5-5.1)
[2024-09-21 18:15] LABS: Blood Urea Nitrogen 26 mg/dl (7-17); Calcium 9.4 mg/dl (8.4-10.2); Carbon Dioxide 30 mmol/L (22-30); Chloride 108 mmol/L (98-107); Estimated Creatinine Clearance 34 ml/min; Glucose 156 mg/dl (70-99); Potassium 2.9 mmol/L (3.5-5.1); Sodium 148 mmol/L (135-145); eGFR 50.48
[2024-09-21] MEDS: D5W IV (18:20)
[2024-09-21] MEDS: D5W with KCL 20 MEQ 1000 IV (18:21)
[2024-09-21] MEDS: KCL 260 MEQ IV (18:36)
[2024-09-21 19:05] VITALS: BP 122/77
[2024-09-21 21:47] LABS: Glucose - Point of Care 226 mg/dl (70-99)
[2024-09-21 23:15] VITALS: BP 103/68
[2024-09-22] VITALS (7 sets, daily range): BP systolic 110–126; BP diastolic 55–76; BMI 20.6
--- NOTE | 2024-09-22 01:08 | PTCARENOTE ---
pt's K-Basil still infusing. pt was unable to tolerate infusion rate d/t burning. TOW MOTOR MECHANIC notified. will notify TOW MOTOR MECHANIC when K-Basil complete so BMP can be drawn
[2024-09-22] MEDS: DILAUDID 0.5 MG IV ×3 (01:56→08:57)
[2024-09-22] MEDS: ZOSYN 50 IV ×4 (01:56→20:23)
[2024-09-22 04:45] LABS: Blood Urea Nitrogen 28 mg/dl (7-17); Carbon Dioxide 29 mmol/L (22-30); Chloride 108 mmol/L (98-107); Estimated Creatinine Clearance 28 ml/min; Glucose 231 mg/dl (70-99); Potassium 3.8 mmol/L (3.5-5.1); Sodium 144 mmol/L (135-145); eGFR 41.31
[2024-09-22] MEDS: LOPRESSOR 5 MG IV ×3 (05:00→17:33)
--- NOTE | 2024-09-22 07:06 | W.PN.HOSP.TC ---
Today's Communication/Plan
-
See plan
Assessment / Plan
Assessment / Plan
Physical Exam
General: Well Developed, Well Nourished and No Apparent Distress
HEENT: Normocephalic, Moist mucous membranes and Atraumatic
Respiratory: Clear to Auscultation Bilaterally
Cardiac: S1/S2 and Regular Rate and Rhythm
GI: Soft, Mild Appropriate Tenderness (given surgery), midline incision and dressing intact, NG tube with bilious material, drain with serosanguinous fluid
Musculoskeletal: No Cyanosis and No Edema
Skin: Warm. Dry.
Neuro: Alert. Awake. Nonfocal/grossly intact
Assessment/Plan
83-year-old female with past medical history of umbilical hernia surgery as a child, atrial fibrillation not on anticoagulation, prior pulmonary embolism, microscopic colitis and IBS presented with abdominal pain. She started having lower abdominal
pain 4 days prior to presentation. Pain was initially intermittent but now constant, and has become more severe. Last bowel movement 5 days prior to presentation. Patient has been passing clear mucus several times a day with some blood in the stool.
On the day of presentation, she had an episode of vomiting, without blood. At the time of admission, she denied fevers, chills, chest pain or shortness of breath. She was found to have perforated viscus likely secondary to severe proctocolitis.
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
#Severe proctocolitis likely site of perforation
#E. Coli bacteremia
-CT abdomen pelvis shows significant amount of free air suggesting perforated viscous, severe proctocolitis, indeterminate 1.6 cm left renal lesion, questionable subtle changes of acute pancreatitis,
severe constipation
-Not pancreatitis especially with pain location not characteristic of pancreatitis and lipase being normal
-Small Bowel Follow Through X-Ray completed on 09/21/24
-Clear Liquids Diet started (NG tube taken out on 09/21/24, and previously was NPO) --> continue. Continue MADELAINE drain output monitoring.
-IV fluids with D5W given mild hypernatremia
-Initial blood cultures showed E. coli, repeat blood cultures with no growth to date
-Given E. coli bacteremia, consulted Infectious Disease --> okay to continue Zosyn
-At time of discharge, can transition to Augmentin 500mg po bid.
-Pain regimen scheduled and PRN, but no NSAIDs given recent rise in creatine
-Wound/ostomy nurse consultation
-Out of bed as tolerated
-PO bowel regimen, colace/miralax -- may need to irrigate stoma pending outputs.
#Mild Hypernatremia
-Sodium mildly elevated
-Previously changed IV fluids from D5 1/2 NS to D5W @ 60 cc/hr-->increased D5W rate to 75 cc/hr since sodium not improving but slightly worse
-Closely monitor sodium levels
-Closely monitor potassium levels while on dextrose-containing IV fluids
#Mild Hypokalemia
-Suspected from dextrose-containing fluids, NPO status, recent surgery with NG tube
-Replaced with IV potassium
-Closely monitor potassium levels while on dextrose-containing IV fluids
#Asymptomatic Hypoglycemia
#Transient hypotension on 09/17/24
-Patient was previously moved to ICU as per the recommendation of surgeon, then became more stable and transferred to tele
-Previously, hypotension responded to IV fluids bolus
-Patient did not need Levophed
#Anemia secondary to blood loss from colon perforation and subsequent surgery and hemodilution with intravenous fluids
-Received 1 unit PRBC on 09/18/24 morning
#Rising creatinine as of 09/17/24
#Decreased Urine Output as of 09/17/24
-Urine output better
-Okay to stop Conner catheter today
-Avoid NSAIDs
hi pt hasn't been takig her Lasix for some days, she has swelling on her legs and left arm, bladder scanned for 149 and no urine output, small amount overnight, painful urination, BUN and CR are on the high side
# Transaminitis likely secondary to perforation
# High ALP
-Numbers are generally stable
-Cholestatic pattern of elevation
-May need to consider abdominal ultrasound
#History of umbilical hernia surgery as a child
#Atrial fibrillation unspecified type
#A-Fib with RVR
-Not on anticoagulation as an outpatient
-Ordered IV Lopressor, Consulted cardiology
#History of Pulmonary Embolism
#Microscopic colitis
-Patient usually sees Dr. Shweta Zhu at [facility]; Dr. Zhu prescribes the patient's Budesonide and the Colestipol
#Rheumatoid Arthritis
-Patient sees Dr. Delgado - Rheumatology at [place] who prescribes the Hydroxychloroquine and Azathioprine
#IBS
Code Status: Full code
DVT Prophylaxis: SCDs and Heparin SUBQ
Anticipated Discharge: > 48 hours
Subjective/Interval History
-
Date of Service: September 22, 2024
Patient was seen and examined. She reported abdominal pain from her surgery.
Objective Data
-
Labs:
Laboratory Results
09/21/24 09/22/24 09/22/24
22:30 01:53 02:30
WBC
Hgb
Hct
Plt Count
Sodium Cancelled Cancelled Cancelled
Potassium Cancelled Cancelled Cancelled
Chloride Cancelled Cancelled Cancelled
Carbon Dioxide Cancelled Cancelled Cancelled
BUN Cancelled Cancelled Cancelled
Creatinine Cancelled Cancelled Cancelled
Glucose Cancelled Cancelled Cancelled
Calcium Cancelled Cancelled Cancelled
Total Bilirubin
AST
ALT
Alkaline Phosphatase
09/22/24 09/22/24
03:14 06:00
WBC Pending
Hgb Pending
Hct Pending
Plt Count Pending
Sodium 144 Pending
Potassium 3.8 D Pending
Chloride 108 H Pending
Carbon Dioxide 29 Pending
BUN 28 H Pending
Creatinine 1.3 H Pending
Glucose 231 H Pending
Calcium 9.0 Pending
Total Bilirubin Pending
AST Pending
ALT Pending
Alkaline Phosphatase Pending
Vital Signs:
Vital Signs
Temp Pulse Resp BP Pulse Ox
98.4 F 80 17 111/59 96
09/22/24 03:05 09/22/24 05:00 09/22/24 03:05 09/22/24 03:05 09/22/24 03:05
I&O
09/21/24 09/22/24 09/23/24
06:59 06:59 06:59
Intake Total 2029 / 2029 1670 / 1670
Output Total 2180 / 2180 455 / 455
Balance -150 / -150 1215 / 1215
[2024-09-22 07:22] LABS: Glucose - Point of Care 239 mg/dl (70-99)
[2024-09-22 08:38] LABS: Hematocrit 34.3 % (37.0-47.0); Hemoglobin 11.5 g/dL (12.0-16.0); Mean Corp Hgb Conc. 33.5 g/dL (33.0-37.0); Mean Corpuscular Hgb 30.7 pg (27.0-31.0); Mean Corpuscular Volume 91.7 fL (81.0-99.0); Mean Platelet Volume 10.1 fL (7.4-10.4); Platelet Count 168 10^3/uL (130-400); Red Blood Cell Count 3.74 10^6/uL (4.20-5.40); Red Cell Dist. Width 18.6 % (11.5-14.5)
[2024-09-22 08:57] LABS: ALT (SGPT) 40 U/L (0-35); AST (SGOT) 38 U/L (14-36); Albumin 2.3 g/dl (3.5-5.0); Alkaline Phosphatase 266 U/L (38-126); Blood Urea Nitrogen 28 mg/dl (7-17); Carbon Dioxide 29 mmol/L (22-30); Chloride 108 mmol/L (98-107); Estimated Creatinine Clearance 32 ml/min; Glucose 193 mg/dl (70-99); Magnesium 1.7 mg/dl (1.6-2.3); Potassium 3.5 mmol/L (3.5-5.1); Sodium 142 mmol/L (135-145); Total Bilirubin 0.8 mg/dl (0.2-1.3); Total Protein 4.3 g/dl (6.3-8.2); eGFR 45.48
[2024-09-22] MEDS: D5W with KCL 20 MEQ 1000 IV (08:57)
[2024-09-22] MEDS: HEPARIN 5000 UNITS SC ×2 (08:58→20:22)
[2024-09-22] MEDS: RESTASIS 0.05% OPHTHALMIC EMULSION 1 DROPS BOTH EYES ×2 (08:58→20:22)
[2024-09-22] MEDS: THIAMINE INJECTION 100 MG IV (08:59)
[2024-09-22] MEDS: NON-FORMULARY ITEM 1 SPRAY NASAL ×2 (09:15→20:26)
--- NOTE | 2024-09-22 09:30 | W.PN.GS2 ---
Today's Communication / Plan
-
Continue CLD
Bowel regimen
Assessment / Plan
-
83 yo female presenting with perforated sigmoid colon secondary to stercoral colitis now POD #6 ex lap with sigmoid resection and end colostomy creation
AFVSS
Tolerating some clears, but discomfort with PO intake
SBFT on 09/21 with moderate fecal material throughout the colon but good transit time/no obstruction
Cr mildly elevated/stable
Hb stable, WBC normalized
Stoma with some stool
--CLD with supplements as tolerated
--Multimodal analgesics
--Add PO bowel regimen, colace/miralax. May need to irrigate stoma pending outputs.
--IVF per prmary team
--Continue IV abx per ID
--c/w MADELAINE drain
--Ostomy nurse following
--OOB as able. PT following
--Trend labs
--Heparin SQ and SCDS for VTE ppx given reported hx of PE
Appreciate portrait consultant assistance.
Subjective Data
-
Date of Service: September 22, 2024
Patient seen and examined at bedside with Dr. Amin. Pain to abdomen persists, increases with eating. Denies n/v.
Objective Data
-
Intake and Output
09/21/24 09/22/24 09/23/24
06:59 06:59 06:59
Intake Total 2029 1670 / 1670
Output Total 2180 / 2180 455 / 455
Balance -150 / -150 1215 / 1215
Intake:
Oral fluids 240 / 240 320 / 320
IV fluids (Total) 1340 / 1340 1250 / 1250
IV piggybacks 450 / 450 100 / 100
Output:
Liquid stool amount 5 / 5
Colostomy 5 / 5
Drain Output (Total) 30 / 30 50 / 50
Right Lower Abdomen Mynor- 30 / 30 50 / 50
Horner
Gastrointestinal tube output ( 165 / 0 400 / 400
Total)
[place] Sump 1650 / 1650 400 / 400
Urine, Voided 500 / 500
Other:
Number of approximated SMALL 1
amounts of urine
Number of approximated MODERATE 2 1
amounts of urine
Number of approximated LARGE 2 1
amounts of urine
Vital Signs
Temp Pulse Resp BP Pulse Ox
97.9 F 72 17 123/55 96
09/22/24 07:15 09/22/24 07:15 09/22/24 07:15 09/22/24 07:15 09/22/24 07:15
Lab Results
09/22/24 08:13
09/22/24 08:13
Calcium 9.0 mg/dl (8.4-10.2) 09/22/24 08:13
Phosphorus 4.0 mg/dl (2.5-4.5) 09/19/24 05:00
Magnesium 1.7 mg/dl (1.6-2.3) 09/22/24 08:13
Total Bilirubin 0.8 mg/dl (0.2-1.3) 09/22/24 08:13
Direct Bilirubin 0.5 mg/dl (0.0-0.4) H 09/16/24 19:12
AST 38 U/L (14-36) H 09/22/24 08:13
ALT 40 U/L (0-35) H 09/22/24 08:13
Alkaline Phosphatase 266 U/L (38-126) H 09/22/24 08:13
Total Protein 4.3 g/dl (6.3-8.2) L 09/22/24 08:13
Albumin 2.3 g/dl (3.5-5.0) L 09/22/24 08:13
Physical Exam
-
Gen: NAD
Abd: soft, some distention, approp ttp, drain with ssf, stoma ppv with small gas/stool in appliance
Incision with intact staple line
Patient has a aviles catheter: No
Patient has a central line: No
[2024-09-22] MEDS: NOVOLOG FLEXPEN-LOW RESISTANCE 2 UNITS SC (10:06)
[2024-09-22] MEDS: MIRALAX 17 GRAMS PO (10:06)
--- NOTE | 2024-09-22 10:07 | W.PN.ID1 ---
Date of Service
Date of Service: September 22, 2024
Today's Communication
Continue Zosyn
Assessment / Plan
Perforated viscus
Fecal peritonitis
- s/p exp lap / sigmoid colon resection / colostomy (09/16/24)
E. coli bacteremia; secondary to above
Renal insufficiency/JT
Hyponatremia
Atrial fibrillation
Hx PE
Hx Microscopic colitis
IBS
Recommendations:
Leukocytosis resolved
Follow repeat blood cultures - neg to date.
Continue with Zosyn.
At time of discharge, can transition to Augmentin 500mg po bid.
Creatinine appears stable.
Monitor white count temperature curve.
Monitor for clinical improvement
����������������������������������������������������������
Chief Complaint
-: Other (Perforated viscus; fecal peritonitis.)
Subjective / Review of Systems
c/o abd spasms with severe pain.
Vital Signs / Physical Exam
Vital Signs
Vital Signs
Temp Pulse Resp BP Pulse Ox
97.9 F 72 17 123/55 96
09/22/24 07:15 09/22/24 07:15 09/22/24 07:15 09/22/24 07:15 09/22/24 07:15
Physical Exam
Constitutional: Chronically Ill, Non-toxic and Other (Appears uncomfortable today.)
Eyes: Sclera Anicteric
Cardiovascular: S1/S2; Negative S3/S4
Pulmonary: Non Labored
Gastrointestinal: Soft, Distended (Mild), Decreased Bowel Sounds and Other (Midline incision intact with mild bloody strikethrough underneath dressing.)
Extremities: Edema; Negative Cyanosis or Erythema
Neurological: Awake, Alert and AO x 3
Objective Data
Lab Data
Lab Results
09/22/24 08:13
09/22/24 08:13
PT 16.6 Sec (11.4-14.6) H 09/18/24 03:53
INR 1.31 09/18/24 03:53
APTT 39.2 Sec (23.4-35.0) H 09/18/24 03:53
Estimated Creat Clear 32 ml/min 09/22/24 08:13
Lactic Acid 1.3 mmol/L (0.7-2.0) 09/18/24 03:53
Total Bilirubin 0.8 mg/dl (0.2-1.3) 09/22/24 08:13
AST 38 U/L (14-36) H 09/22/24 08:13
ALT 40 U/L (0-35) H 09/22/24 08:13
Alkaline Phosphatase 266 U/L (38-126) H 09/22/24 08:13
Most recent labs reviewed.
Micro Results:
09/18/24 13:56 Blood Culture - Preliminary
Blood/Venous No Growth in 72 hours- Final report to follow
09/18/24 13:56 Blood Culture - Preliminary
Blood/Venous No Growth in 72 hours- Final report to follow
09/16/24 21:00 Blood Culture - Final
Blood/Venous Escherichia coli
Gram Stain - Final
09/16/24 20:53 Blood Culture - Final
Blood/Venous Escherichia coli
Gram Stain - Final
09/17/24 05:08 MRSA Screen - Final
Nose No Methicillin Resistant Staphylococcus aureus isolated.
Imaging:
09/16/2024 CT abdomen/pelvis with IV contrast: Significant amount of free air suggestive of perforated viscus. Severe proctocolitis with surrounding inflammatory change and fluid within the pelvis. Indeterminate 1.6 cm left renal lesion noted.
Questionable subtle change of acute pancreatitis. Underlying mass not excluded. Please see full dictation for additional detail.
[2024-09-22] MEDS: ULTRAM 50 MG PO ×2 (10:20→23:21)
[2024-09-22] MEDS: FLEET MINERAL OIL ENEMA 133 ML S (10:39)
--- NOTE | 2024-09-22 11:23 | WOUNDNOTE ---
R PLANTAR FOOT, L 5TH TOE
--- NOTE | 2024-09-22 11:25 | WOUNDNOTE ---
[facility] RN note: Patient's colostomy stoma pink. ELSIE Isaacs changed patient's colostomy appliance this am d/t DANILO Bundy gave patient a mineral oil enema via the stoma this am. Sacral/buttocks with red fragile slow to ollie red skin areas with a small,
slightly serous filled blister. Sacral shaped silicone border foam changed. Heel foam dressings changed. Heels blanchable red. Patient has R plantar foot callus and a small scabbed abrasion on her L dorsal 5th toe. She wears custom molded off
loading shoes. L shoulder with red area and mid back with linear blanchable red bear. +Anasarca. +Extremity bruises. Bruises appear old on legs. Patient is on a [facility] Max air bed. Patient turned to R semi side lying position using a folded air
chair cushion with help from ELSIE Isaacs. Heels off bed with pillow. Foam cushion in recliner chair. Ostomy supplies in room. Spoke with DANILO Bundy who requested ostomy irrigation kit and 20 surinamese red rubber catheter in case patient needs her
colostomy irrigated. Niharika cuadra text this commercial lines underwriter if assistance for colostomy irrigation needed later today. Next colostomy appliance change due Wednesday.
[2024-09-22 12:23] LABS: Glucose - Point of Care 193 mg/dl (70-99)
--- NOTE | 2024-09-22 14:13 | CM ---
Patient chart reviewed
cont on antibiotic
[facility]
Refuses SNF
PLAN: home with [facility] with family support
family to transport
[2024-09-22] MEDS: NOVOLOG FLEXPEN-LOW RESISTANCE 1 UNITS SC (14:34)
[2024-09-22] MEDS: D5W with KCL 20 MEQ IV (14:35)
[2024-09-22 15:17] LABS: Blood Urea Nitrogen 28 mg/dl (7-17); Calcium 9.1 mg/dl (8.4-10.2); Carbon Dioxide 30 mmol/L (22-30); Chloride 103 mmol/L (98-107); Estimated Creatinine Clearance 32 ml/min; Glucose 143 mg/dl (70-99); Magnesium 1.6 mg/dl (1.6-2.3); Potassium 3.1 mmol/L (3.5-5.1); Sodium 140 mmol/L (135-145); eGFR 45.48
--- NOTE | 2024-09-22 15:18 | CON.CAR ---
Addendum entered and electronically signed by Brennan Vann DO 09/22/24 16:36:
I saw and examined the patient.
The Ged Teacher's note was reviewed and I agree with the note.
Comment:
A/P as below
PAF noted by telemetry/EKG likely in the setting of acute illness (surgery, NPO, off medical therapy).
Resume oral medical therapy (beta-valeria); start at 50 BID (prev 25 TID) and monitor response.
Regarding anticoagulation, patient has a [id number] of at least 5 (age, gender, prior VTE); however, following discussion, patient wishes to forgo anticoagulation due to prior hemorrhagic pericardial effusion. Benefits and risks regarding OAC
discussed with patient. Patient remains a candidate for OAC however following discussion, she wishes to hold OAC for now and discuss with her primary roustabout supervisor further. Patient verbalized understanding of risks associated with not taking OAC.
Routine post-op care per surgery, primary services
Monitor on telemetry, replete electrolytes goal K > 4, Mg >2
Remaining plan as below.
Original Note:
Consultation
Consultation Request
Date/Time Consultation Performed: 09/22/24
Requesting Provider: Dr. Miguel
Performing Provider: Missy Tamez PA-C for Dr. Vann
Reason for Consultation: afib
Medical History
-
Chief Complaint: abd pain
History of Present Illness:
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
fibrillation, not on anticoagulation due to history of hemorrhagic pericardial effusion, rheumatoid arthritis, hypertension, hyperlipidemia who presented to [facility] due to abdominal discomfort. She was found to have evidence by imaging
of perforated viscus and underwent ex lap with colostomy formation earlier in hospital course. She is presently on clear liquids. Her metoprolol was initially held postoperatively and over the last 3 days she reports she has had some brief runs of
atrial fibrillation, however today was more prolonged. She was given a dose of IV Lopressor and several minutes later spontaneously converted back to sinus rhythm. As an outpatient she is on Lopressor 25 mg 3 times daily. She can typically tell
when she is in atrial fibrillation with palpitations. She denies chest pain or shortness of breath. Cardiology consulted for evaluation. She reports prior to this admission, she had not had recurrence of A-fib for some time.
PMH:
Paroxysmal atrial fibrillation, not on OAC
History of PE
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
[employer] DC PPM
RA
HTN
HLD
Chronic venous insufficiency
Peripheral neuropathy
PVCs
Osteoporosis
Past Medical History
Past Medical History: Other (in HPI)
Social History
Tobacco: Non-Smoker
Alcohol: None
Living: Alone
Family History
Family History: Reviewed & Not Pertinent
Allergies / Home Medications
Allergy/AdvReac Type Severity Reaction Status Date / Time
clindamycin Allergy Unknown Verified 09/16/24 18:48
Sulfa (Sulfonamide Allergy Unknown Verified 09/16/24 18:48
Antibiotics)
�Medication �Instructions �Recorded �Confirmed �Type
B-complex with vitamin C 1 tab PO DAILY Supplement 09/18/24 09/18/24 History
adalimumab 40 mg/0.4 mL 40 mg SC Q14D Gastrointestinal 09/18/24 09/18/24 History
subcutaneous pen kit (Humira(CF) Issue
Pen)
alendronate 35 mg tablet 35 mg PO Q7D Osteoporosis 09/18/24 09/18/24 History
atorvastatin 20 mg tablet 20 mg PO HS High Cholesterol 09/18/24 09/18/24 History
azathioprine 50 mg tablet 50 mg PO DAILY Gastrointestinal 09/18/24 09/18/24 History
Issue
budesonide 3 mg 3 mg PO DAILY Gastrointestinal 09/18/24 09/18/24 History
capsule,delayed,extended release Issue
carboxymethylcellulose 0.5 1 drp ophthalmic (eye) QIDPRN PRN 09/18/24 09/18/24 History
%-glycerin 1 % (PF) eye dry eyes
drops,dropperette (Refresh Relieva
PF)
cholecalciferol (vitamin D3) 25 25 mcg PO DAILY Supplement 09/18/24 09/18/24 History
mcg (1,000 unit) tablet
colestipol 1 gram tablet 3 g PO DAILY Gastrointestinal Issue 09/18/24 09/18/24 History
cyanocobalamin (vitamin B-12) 500 500 mcg PO DAILY Supplement 09/18/24 09/18/24 History
mcg tablet
cyclosporine 0.05 % eye drops in a 1 drp BOTH EYES BID dry eyes 09/18/24 09/18/24 History
dropperette (Restasis)
famotidine 20 mg tablet 20 mg PO BID Gastrointestinal Issue 09/18/24 09/18/24 History
furosemide 40 mg tablet 40 mg PO DAILY Fluid 09/18/24 09/18/24 History
Retention/Swelling
hydroxychloroquine 200 mg tablet 200 mg PO DAILY Autoimmune Disorder 09/18/24 09/18/24 History
metoprolol tartrate 25 mg tablet 25 mg PO TID Heart 09/18/24 09/18/24 History
Disease/Condition
potassium chloride 20 mEq 40 meq PO BID@14,20 Electrolyte 09/18/24 09/18/24 History
tablet,extended release Repletion
potassium chloride 20 mEq 60 meq PO DAILY Electrolyte 09/18/24 09/18/24 History
tablet,extended release Repletion
valsartan 40 mg tablet 40 mg PO DAILY@2000 Blood Pressure 09/18/24 09/18/24 History
varenicline tartrate 0.03 mg/spray 1 spray intranasal BID dry eyes 09/18/24 09/18/24 History
metered nasal spray (Tyrvaya)
Review of Systems
-
History Source: Patient
All other systems: Negative unless noted
Physical Exam
Vital Signs
Temp Pulse Resp BP Pulse Ox
97.7 F 92 17 126/76 96
09/22/24 14:49 09/22/24 14:49 09/22/24 14:49 09/22/24 14:49 09/22/24 14:49
Lab Results
09/22/24 08:13
09/22/24 14:46
Troponin I 0.013 ng/ml 09/16/24 19:12
Physical Exam
General: No Apparent Distress and Other (chronically ill appearing)
HEENT: Normocephalic, Anicteric and Moist Mucous Membranes
Respiratory: Clear and Non Labored Respirations
Cardiac: S1/S2 and Regular Rhythm
GI: Soft, Non Tender, Non Distended and Normal Bowel Sounds
Musculoskeletal: No Clubbing, No Cyanosis and No Edema
Skin: Warm, Dry and Other (ecchymoses of B/L UE)
Impression / Plan
-
Primary Auto Electrical Technician: Dr. Tiwari
Assessment:
Presentation with abdominal pain
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
E. coli bacteremia
JT
Hyponatremia
Paroxysmal atrial fibrillation, not on OAC
History of PE
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
[employer] DC PPM
RA
HTN
HLD
Chronic venous insufficiency
Peripheral neuropathy
PVCs
Osteoporosis
[facility]: EF 60 to 65%, no regional wall motion abnormalities noted, mild to moderate MR, mild TR, mild AR, no pericardial effusion, mildly dilated ascending aorta measuring 3.6 cm
Plan:
-Patient recovering from ex lap with sigmoid resection and end colostomy formation in the setting of perforated viscus secondary to stercoral colitis. As off her outpatient beta-valeria, over the last 72 hours has been noted to have very brief runs
of atrial fibrillation, with episode more persistent today however did spontaneously convert with dose of IV Lopressor
-Requested and reviewed records from primary roustabout supervisor including EKG and office visit 03/17/2024, echocardiogram 09/11/2024
-remains in sinus rhythm at this time on review of telemetry
-As able to take p.o. medications at this time, will resume po Lopressor at 50 mg twice daily. Prior to admission was on 25 mg 3 times daily
-Despite elevated [id number] score, in the setting of recent surgery and prior hemorrhagic pericardial effusion, patient continues to refuse anticoagulation. We did discuss stroke risk associated with this
-Recent echo as outpatient as above, no need to repeat at this time
-By last device check atrially paced 90% of the time and paced in the ventricle less than 1%
-Suspect increased arrhythmia burden secondary to acute abdominal process. Continue supportive care postoperatively
-Outpatient follow-up to Dr. Tiwari of [facility]
-Discussed with nursing
-Discussed with hospitalist via [place] text
-Discussed with family at bedside
Data Reviewed
-
EKG: Tracing Personally Visualized and interpreted
Medical Tests (Nuc Med, Echo etc): Report Reviewed by me
Labs: Labs Reviewed by me
Old Records: Requested and Reviewed
[2024-09-22 15:50] LABS: Urine Albumin 2+ (Neg - Trace); Urine Bilirubin Negative (Negative); Urine Character Clear (Clear); Urine Color Yellow; Urine Glucose Negative (Negative); Urine Ketone Negative (Negative); Urine Leukocyte 1+ (Negative); Urine Nitrite Negative (Negative); Urine Occult Blood Negative (Negative); Urine Urobilinogen Negative (Neg - 1+)
[2024-09-22 16:02] LABS: Urine Red Blood Cell 0-2 /HPF (0-2)
[2024-09-22 16:03] LABS: Urine Bacteria Many (Negative)
[2024-09-22] MEDS: KCL 260 MEQ IV ×2 (16:31→23:45)
[2024-09-22 17:02] LABS: Glucose - Point of Care 121 mg/dl (70-99)
[2024-09-22] MEDS: NOVOLOG FLEXPEN-LOW RESISTANCE SC (17:05)
--- NOTE | 2024-09-22 18:23 | PTCARENOTE ---
during PT session pt had an episode of rapid afib with HR as high as 190bp, cardiology and MD made aware, IV Lopressor given EKG obtained. Cardiology at bedside to evaluate pt, she also was retaining urine, unable to urinate 300ml output vis
straight cath. Stoma was irrigated with Fleet enema from [employer], with some output and relief on abdominal pain. HR came down to 74 and abdominal discomfort got better throughout shift.
--- NOTE | 2024-09-22 18:28 | PTCARENOTE ---
MADELAINE drain leaking around it, Kriss CARRASCO made aware, soaked through her sheets, changed bed and dressing.
[2024-09-22] MEDS: LOPRESSOR 50 MG PO (20:22)
[2024-09-22] MEDS: COLACE 100 MG PO (20:22)
[2024-09-22 21:49] LABS: Glucose - Point of Care 122 mg/dl (70-99)
[2024-09-22 23:02] LABS: Blood Urea Nitrogen 28 mg/dl (7-17); Calcium 8.7 mg/dl (8.4-10.2); Carbon Dioxide 28 mmol/L (22-30); Chloride 104 mmol/L (98-107); Estimated Creatinine Clearance 32 ml/min; Glucose 115 mg/dl (70-99); Potassium 3.3 mmol/L (3.5-5.1); Sodium 137 mmol/L (135-145); eGFR 45.48
[2024-09-23] MEDS: ZOSYN 50 IV ×4 (01:52→20:24)
[2024-09-23 03:09] VITALS: BP 98/50
[2024-09-23 06:00] VITALS: BMI 21.4
--- NOTE | 2024-09-23 06:55 | W.PN.HOSP.TC ---
Today's Communication/Plan
-
Continue antibiotics
Hypernatremia and Hypokalemia have resolved
Still with abdominal pain
Sinus rhythm in the 70s -- AFib RVR resolved -- appreciate cardiology -- continue increased dose (increased more than home dose) of Lopressor
Assessment / Plan
Assessment / Plan
Physical Exam
General: Not in acute distress
HEENT: Normocephalic, Moist mucous membranes and Atraumatic
Respiratory: Clear to Auscultation Bilaterally
Cardiac: S1/S2 and Regular Rate and Rhythm
GI: Soft, Mild Appropriate Tenderness (given surgery), midline incision and dressing intact, NG tube with bilious material, drain with serosanguinous fluid
Musculoskeletal: No Cyanosis and No Edema
Skin: Warm. Dry.
Neuro: Alert. Awake. Nonfocal/grossly intact
Assessment/Plan
83-year-old female with past medical history of umbilical hernia surgery as a child, atrial fibrillation not on anticoagulation, prior pulmonary embolism, microscopic colitis and IBS presented with abdominal pain. She started having lower abdominal
pain 4 days prior to presentation. Pain was initially intermittent but now constant, and has become more severe. Last bowel movement 5 days prior to presentation. Patient has been passing clear mucus several times a day with some blood in the stool.
On the day of presentation, she had an episode of vomiting, without blood. At the time of admission, she denied fevers, chills, chest pain or shortness of breath. She was found to have perforated viscus likely secondary to severe proctocolitis.
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
#Severe proctocolitis likely site of perforation
#E. Coli bacteremia
#Leukocytosis
-CT abdomen pelvis shows significant amount of free air suggesting perforated viscous, severe proctocolitis, indeterminate 1.6 cm left renal lesion, questionable subtle changes of acute pancreatitis,
severe constipation
-Small Bowel Follow Through X-Ray completed on 09/21/24 with moderate fecal material
-Clear Liquids Diet started (NG tube taken out on 09/21/24, and previously was NPO) --> continue. Continue MADELAINE drain output monitoring.
-Initial blood cultures showed E. coli
-Repeat blood cultures with no growth to date
-Given E. coli bacteremia, consulted Infectious Disease --> okay to continue Zosyn
-At time of discharge, can transition to Augmentin 500mg po bid.
-Pain regimen scheduled and PRN, but no NSAIDs given recent rise in creatine
-Wound/ostomy nurse consultation
-Out of bed as tolerated
-PO bowel regimen, colace/miralax -- may need to irrigate stoma pending outputs.
#Mild Hypernatremia - RESOLVED
-Sodium was mildly elevated
-Previously changed IV fluids from D5 1/2 NS to D5W @ 60 cc/hr-->previously increased D5W rate to 100 cc/hr with resolution of hyponatremia
-Stopped D5W+Potassium IV fluids
-Patient taking in clear liquids
-Monitor BMP
#Hypokalemia - RESOLVED
-Suspected from dextrose-containing fluids, NPO status, recent surgery with NG tube
-Replaced with IV potassium
-Closely monitor potassium levels if dextrose-containing fluids are restarted as Dextrose can stimulate Insulin which can lower potassium
#Asymptomatic Hypoglycemia
-Monitor glucose
#Transient hypotension on 09/17/24
-Patient was previously moved to ICU as per the recommendation of surgeon, then became more stable and transferred to tele
-Previously, hypotension responded to IV fluids bolus
-Patient did not need Levophed
-Now blood pressure stable
#Anemia secondary to blood loss from colon perforation and subsequent surgery and hemodilution with intravenous fluids
-Received 1 unit PRBC on 09/18/24 morning
#Rising creatinine as of 09/17/24
#Decreased Urine Output as of 09/17/24
-Urine output better
-Okay to stop Conner catheter
-Avoid NSAIDs
#Anasarca
-Suspected from hypoalbuminemia
-Patient's blood pressure was low recently so her home Lasix was being held
# Transaminitis likely secondary to perforation
# High ALP
-AST and ALT have improved
-ALP stable in the 200s
-Cholestatic pattern of elevation
-May need to consider abdominal ultrasound outpatient
#History of umbilical hernia surgery as a child
#Atrial fibrillation unspecified type
#A-Fib with RVR
-Not on anticoagulation as an outpatient
-Ordered IV Lopressor, Consulted cardiology
-No anticoagulation due to history of hemorrhagic pericardial effusion (her piano accompanist told her no oral anticoagulation)
-Patient is aware of stroke risk associated with not taking anticoagulation and prefers to continue to avoid anticoagulation at this time
-But patient said Heparin DVT prophylaxis is okay
-Patient's PO Lopressor resumed, but at increased dose @ 50 mg BID (instead of home 25 mg TID)
-Outpatient follow-up to Dr. Tiwari of [facility]
#[place] DC PPM
#History of Pulmonary Embolism
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
#Microscopic colitis
-Patient usually sees Dr. Shweta Zhu at [facility] [place]; Dr. Zhu prescribes the patient's Budesonide and the Colestipol
-Holding Budesonide and Colestipol for now given acute illness
#Rheumatoid Arthritis
-Stable without any flare-up
-Patient sees Dr. Delgado - Rheumatology at [place] who prescribes the Hydroxychloroquine and Azathioprine
-Holding both for now, especially given Azathioprine is a immunosuppressant and patient is recovering from abdominal surgery and bacteremia
-Can consider resuming Hydroxychloroquine, when patient's clinical condition improved
-Patient will notify her manager business operations Dr. Delgado that both of the above medications are being held at this time
#IBS
#Chronic venous insufficiency
#Peripheral neuropathy
#PVCs
#Osteoporosis
Code Status: Full code
DVT Prophylaxis: SCDs and Heparin SUBQ
Anticipated Discharge: > 48 hours
Subjective/Interval History
-
Date of Service: September 23, 2024
Patient was seen and examined. She reported still having abdominal pain, denied any other significant complaints, she denied chest pain or shortness of breath.
Objective Data
-
Labs:
Laboratory Results
09/22/24 09/23/24
22:38 06:00
WBC Pending
Hgb Pending
Hct Pending
Plt Count Pending
Sodium 137 Pending
Potassium 3.3 L Pending
Chloride 104 Pending
Carbon Dioxide 28 Pending
BUN 28 H Pending
Creatinine 1.2 H Pending
Glucose 115 H Pending
Calcium 8.7 Pending
Total Bilirubin Pending
AST Pending
ALT Pending
Alkaline Phosphatase Pending
Vital Signs:
Vital Signs
Temp Pulse Resp BP Pulse Ox
98.7 F 72 16 98/50 96
09/23/24 03:09 09/23/24 03:09 09/23/24 03:09 09/23/24 03:09 09/23/24 03:09
I&O
09/21/24 09/22/24 09/23/24
06:59 06:59 06:59
Intake Total 2029 / 2029 1670 / 1670 960 / 960
Output Total 2180 / 2180 455 / 455 940 / 940
Balance -150 / -150 1215 / 1215
[2024-09-23 07:20] VITALS: BP 113/62
[2024-09-23 07:35] LABS: Glucose - Point of Care 100 mg/dl (70-99)
[2024-09-23] MEDS: NOVOLOG FLEXPEN-LOW RESISTANCE SC ×3 (08:01→18:14)
[2024-09-23 08:18] LABS: Hemoglobin 9.5 g/dL (12.0-16.0); Mean Corp Hgb Conc. 35.2 g/dL (33.0-37.0); Mean Corpuscular Hgb 31.5 pg (27.0-31.0); Mean Corpuscular Volume 89.4 fL (81.0-99.0); Mean Platelet Volume 10.6 fL (7.4-10.4); Platelet Count 177 10^3/uL (130-400); Red Blood Cell Count 3.02 10^6/uL (4.20-5.40); Red Cell Dist. Width 18.2 % (11.5-14.5)
[2024-09-23] MEDS: HEPARIN 5000 UNITS SC ×2 (09:21→20:23)
[2024-09-23] MEDS: MIRALAX 17 GRAMS PO (09:21)
[2024-09-23] MEDS: LOPRESSOR 50 MG PO ×2 (09:22→20:24)
[2024-09-23] MEDS: RESTASIS 0.05% OPHTHALMIC EMULSION 1 DROPS BOTH EYES ×2 (09:22→20:23)
[2024-09-23] MEDS: COLACE 100 MG PO ×2 (09:23→20:23)
[2024-09-23] MEDS: THIAMINE INJECTION 100 MG IV (09:23)
[2024-09-23 09:25] LABS: ALT (SGPT) 30 U/L (0-35); AST (SGOT) 35 U/L (14-36); Albumin 1.9 g/dl (3.5-5.0); Alkaline Phosphatase 277 U/L (38-126); Blood Urea Nitrogen 27 mg/dl (7-17); Calcium 8.3 mg/dl (8.4-10.2); Carbon Dioxide 26 mmol/L (22-30); Chloride 108 mmol/L (98-107); Estimated Creatinine Clearance 35 ml/min; Glucose 83 mg/dl (70-99); Magnesium 1.6 mg/dl (1.6-2.3); Potassium 3.9 mmol/L (3.5-5.1); Sodium 136 mmol/L (135-145); Total Bilirubin 0.9 mg/dl (0.2-1.3); Total Protein 3.7 g/dl (6.3-8.2); eGFR 50.48
[2024-09-23] MEDS: NON-FORMULARY ITEM 1 SPRAY NASAL ×2 (09:25→20:24)
[2024-09-23] MEDS: DILAUDID 0.5 MG IV ×3 (09:29→15:19)
--- NOTE | 2024-09-23 10:16 | W.PN.CARDCBS ---
Addendum entered and electronically signed by Tommy Hurt DO 09/23/24 12:18:
I saw and examined the patient.
The Batch Plant Supervisor's note was reviewed and I agree with the note.
Comment:
Plan:
Remains sinus rhythm
Continue Lopressor 50 mg BID
She has history of paroxysmal atrial fibrillation followed by Dr. Jarrett of [facility]. She was chronically on Lopressor 25 mg 3 times daily.
She is not on anticoagulation due to history of hemorrhagic pericardial effusion status post pericardial window.
She is aware of stroke risk associated with not taking anticoagulation and prefers to continue to avoid anticoagulation at this time as this was again discussed.
-By last device check as an outpatient her burden of atrial fibrillation was felt to be less than 1%.
Likely her recent increased arrhythmia burden secondary to acute abdominal process.
Cont post op care.
Stable cv status.
Outpt follow up with her outside railroad track mechanic, Dr. Tiwari of [facility].
Discussed with nursing.
Please recall if needed.
Original Note:
Today's Communication / Plan
-
continue lopressor 50mg BID
no OAC due to history of hemorrhagic pericardial effusion
continue post op care
Impression / Plan
-
Primary Fireproof Door Assembler: Dr. Tiwari
Assessment:
Presentation with abdominal pain
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
E. coli bacteremia
JT
Hyponatremia
Paroxysmal atrial fibrillation, not on OAC
History of PE
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
[employer] DC PPM
RA
HTN
HLD
Chronic venous insufficiency
Peripheral neuropathy
PVCs
Osteoporosis
outpatient echocardiogram at [facility] 09/11/2024: EF 60 to 65%, no regional wall motion abnormalities noted, mild to moderate MR, mild TR, mild AR, no pericardial effusion, mildly dilated ascending aorta measuring 3.6 cm
Plan:
-She continues to recover from ex lap with sigmoid resection and end colostomy formation due to perforated viscus in the setting of stercoral colitis
-Cardiology consulted as was noted to have some episodes of atrial fibrillation on telemetry. She did feel occasional palpitations. She has history of paroxysmal atrial fibrillation followed by Dr. Jarrett of [facility]. She is chronically on Lopressor
25 mg 3 times daily however is not on anticoagulation due to history of hemorrhagic pericardial effusion status post pericardial window. She is aware of stroke risk associated with not taking anticoagulation and prefers to continue to avoid
anticoagulation at this time. By last device check as an outpatient her burden of atrial fibrillation was felt to be less than 1%.
-Transitioned from IV Lopressor to p.o. Lopressor 50 mg twice daily as is tolerating clear liquids with improvement on review of telemetry overnight. currently in SR
-Suspect increased arrhythmia burden secondary to acute abdominal process. Continue supportive care postoperatively
-Outpatient follow-up to Dr. Tiwari of [facility]
Progress Note - Fireproof Door Assembler
Subjective
Date of Service: September 23, 2024
reports some discomfort with eating. no CP
Objective
Labs:
09/23/24 08:09
09/23/24 08:09
Labs
Hgb 9.5 g/dL (12.0-16.0) L 09/23/24 08:09
Hct 27.0 % (37.0-47.0) L 09/23/24 08:09
Plt Count 177 10^3/uL (130-400) 09/23/24 08:09
PT 16.6 Sec (11.4-14.6) H 09/18/24 03:53
INR 1.31 09/18/24 03:53
APTT 39.2 Sec (23.4-35.0) H 09/18/24 03:53
Sodium 136 mmol/L (135-145) 09/23/24 08:09
Potassium 3.9 mmol/L (3.5-5.1) 09/23/24 08:09
BUN 27 mg/dl (7-17) H 09/23/24 08:09
Creatinine 1.1 mg/dL (0.6-1.0) H 09/23/24 08:09
Glucose 83 mg/dl (70-99) 09/23/24 08:09
Vital Signs and I&O:
Vital Signs
Temp Pulse Resp BP Pulse Ox
98.4 F 70 16 113/62 93
09/23/24 07:20 09/23/24 09:22 09/23/24 07:20 09/23/24 09:22 09/23/24 07:20
Vital Signs
Temp Pulse Resp BP Pulse Ox
98.4 F 70 16 113/62 93
09/23/24 07:20 09/23/24 09:22 09/23/24 07:20 09/23/24 09:22 09/23/24 07:20
Intake & Output
09/21/24 09/22/24 09/23/24 09/24/24
07:59 07:59 07:59 07:59
Intake Total 2029 / 2029 1670 / 1670 960 / 960
Output Total 2180 / 2180 455 / 455 940 / 940
Balance -150 / -150 1215 / 1215
Physical Exam
Physical Exam
GEN: No distress, awake, alert, oriented x3. chronically ill appearing
HEENT: supple, anicteric, mmm, eomi
LUNGS: CTA B/L, no wheezes
CV: Reg, S1/S2, no murmur
ABD: soft, BS+
EXT: No cyanosis, clubbing, edema
NEURO: Gross non-focal
SKIN: Warm, pink, dry. No rash. ecchymoses of B/L UE
[2024-09-23 11:15] VITALS: BP 118/58
--- NOTE | 2024-09-23 11:54 | CHAP ---
Porsche was rather discouraged and frustrated. She has [facility] rody - welcomed prayer. Emotional and spiritual support provided.
[2024-09-23 12:32] LABS: Glucose - Point of Care 95 mg/dl (70-99)
--- NOTE | 2024-09-23 12:51 | W.PN.GS2 ---
Addendum entered and electronically signed by Darian Mejia MD 09/23/24 14:33:
Patient seen and examined.
Overall slightly improved. Reports issues with swallowing secondary to a globus sensation and increased phlegm/sputum. No episodes of emesis. Passing more flatus and stool via ostomy. No fevers. Difficulties with urination.
Gen: NAD
Abd: soft, mild tenderness, mild distension, non-peritoneal, midline dressing c/d/i, ostomy edematous, flatus and thin liquid stool in appliance, RRC fed through ostomy without resistance below level of fascia, flushing performed, debris and stool
returned
Labs reviewed.
83 yo female presenting with perforated sigmoid colon secondary to stercoral colitis
POD #7 ex lap with sigmoid resection and end colostomy creation
SBFT on 09/21 with moderate fecal material throughout the colon but good transit time/no obstruction
AFVSS
Pain improved today, passing more flatus
Cr mildly elevated/stable
Hb stable, WBC trended back up
Stoma productive of flatus, stool
Acute urinary retention, CIC yesterday
Overall slowly improving. Issues with ileus and constipation related to underlying disease process. Continue with full liquid diet and supplement shakes. Has been added MiraLAX daily to aid in thicker colonic stool and constipation.
Issues with urinary retention. Plan for straight cath and potential Aviles placement. Urine culture with no growth. Continues on Zosyn.
--Place Aviles if continues to retain urine, d/w patient's primary RN
--Advance to FLD with supplements
--Pain control: Tylenol and IV Dilaudid PRN
--Continue PO bowel regimen, Colace/Miralax. Stoma hand irrigated on 09/23
--IVF per primary team
--Continue IV abx per ID
--C/w MADELAINE drain
--Ostomy nurse following
--OOB as able. PT following
--Trend labs
--DVT: SQH, SCDs
Original Note:
Today's Communication / Plan
-
Aviles if continues retaining urine
Full liquids
Assessment / Plan
-
83 yo female presenting with perforated sigmoid colon secondary to stercoral colitis now POD #7 ex lap with sigmoid resection and end colostomy creation
AFVSS
Pain improved today, passing more flatus
SBFT on 09/21 with moderate fecal material throughout the colon but good transit time/no obstruction
Cr mildly elevated/stable
Hb stable, WBC trended back up
Stoma productive of flatus, stool
Acute urinary retention, CIC yesterday
--Place aviles if continues to retain urine, d/w patient's primary RN
--Advance to FLD with supplements
--Multimodal analgesics
--Continue PO bowel regimen, colace/miralax. Stoma hand irrigated today.
--IVF per primary team
--Continue IV abx per ID
--c/w MADELAINE drain
--Ostomy nurse following
--OOB as able. PT following
--Trend labs
--Heparin SQ and SCDS for VTE ppx given reported hx of PE
Subjective Data
-
Date of Service: September 23, 2024
Patient seen and examined at bedside with Dr. Mejia. Denies n/v. Tolerating more PO intake. Not spontaneously passing urine. Less pain today. Passing a good deal more flatus via stoma.
Objective Data
-
Intake and Output
09/22/24 09/23/24 09/24/24
06:59 06:59 06:59
Intake Total 1670 / 1670 960 / 960 50 / 50
Output Total 455 / 455 940 / 940 130 / 130
Balance 1215 / 1215 20 / 20 -80 / -80
Intake:
Oral fluids 320 / 320 960 / 960
IV fluids (Total) 1250 / 1250
IV piggybacks 100 / 100 50 / 50
Output:
Liquid stool amount 5 / 5 130 / 130 100 / 100
Colostomy 5 / 5 130 / 130 100 / 100
Drain Output (Total) 50 / 50 110 / 110 30 / 30
Right Lower Abdomen Mynor- 50 / 50 110 / 110 30 / 30
Horner
Gastrointestinal tube output ( 400 / 400
Total)
[place] Sump 400 / 400
Straight cath output 700 / 700
Other:
Number of approximated MODERATE 1
amounts of urine
Number of approximated LARGE 1
amounts of urine
Vital Signs
Temp Pulse Resp BP Pulse Ox
99.3 F 73 16 118/58 96
09/23/24 11:15 09/23/24 11:15 09/23/24 11:15 09/23/24 11:15 09/23/24 11:15
Lab Results
09/23/24 08:09
09/23/24 08:09
Calcium 8.3 mg/dl (8.4-10.2) L 09/23/24 08:09
Phosphorus 4.0 mg/dl (2.5-4.5) 09/19/24 05:00
Magnesium 1.6 mg/dl (1.6-2.3) 09/23/24 08:09
Total Bilirubin 0.9 mg/dl (0.2-1.3) 09/23/24 08:09
Direct Bilirubin 0.5 mg/dl (0.0-0.4) H 09/16/24 19:12
AST 35 U/L (14-36) 09/23/24 08:09
ALT 30 U/L (0-35) 09/23/24 08:09
Alkaline Phosphatase 277 U/L (38-126) H 09/23/24 08:09
Total Protein 3.7 g/dl (6.3-8.2) L 09/23/24 08:09
Albumin 1.9 g/dl (3.5-5.0) L 09/23/24 08:09
Physical Exam
-
NAD
ABD soft, mild distention, expected tenderness
Stoma pink, viable with some edema. Passing flatus several times during exam. Stoma irrigated and appliance changed
MADELAINE with SSF
Midline incision with intact laura
[2024-09-23] MEDS: REFRESH EYE DROPS (PF) 1 DROPS OPHTH ×2 (13:06→21:23)
[2024-09-23 15:30] VITALS: BP 116/60
[2024-09-23 17:45] LABS: Glucose - Point of Care 145 mg/dl (70-99)
[2024-09-23] MEDS: REFRESH EYE DROPS (PF) OPHTH (18:15)
[2024-09-23 19:20] VITALS: BP 110/64
[2024-09-23 21:53] LABS: Glucose - Point of Care 93 mg/dl (70-99)
[2024-09-23 23:15] VITALS: BP 107/55
[2024-09-24] MEDS: ZOSYN 50 IV ×4 (02:21→20:10)
[2024-09-24 03:13] VITALS: BP 107/58
[2024-09-24] MEDS: DILAUDID 0.5 MG IV ×5 (03:55→20:21)
[2024-09-24 06:00] VITALS: BMI 21.4
[2024-09-24 07:08] LABS: Hematocrit 29.2 % (37.0-47.0); Hemoglobin 9.7 g/dL (12.0-16.0); Mean Corp Hgb Conc. 33.2 g/dL (33.0-37.0); Mean Corpuscular Hgb 30.9 pg (27.0-31.0); Mean Platelet Volume 10.5 fL (7.4-10.4); Platelet Count 209 10^3/uL (130-400); Red Blood Cell Count 3.14 10^6/uL (4.20-5.40); Red Cell Dist. Width 17.9 % (11.5-14.5); White Blood Cell Count 14.4 10^3/uL (4.8-10.8)
[2024-09-24 07:20] VITALS: BP 111/61
[2024-09-24 07:26] LABS: Glucose - Point of Care 90 mg/dl (70-99)
[2024-09-24 07:48] LABS: ALT (SGPT) 22 U/L (0-35); AST (SGOT) 25 U/L (14-36); Albumin 1.8 g/dl (3.5-5.0); Alkaline Phosphatase 274 U/L (38-126); Blood Urea Nitrogen 25 mg/dl (7-17); Calcium 7.8 mg/dl (8.4-10.2); Carbon Dioxide 30 mmol/L (22-30); Chloride 105 mmol/L (98-107); Estimated Creatinine Clearance 32 ml/min; Glucose 64 mg/dl (70-99); Magnesium 1.7 mg/dl (1.6-2.3); Potassium 3.3 mmol/L (3.5-5.1); Sodium 136 mmol/L (135-145); Total Bilirubin 0.9 mg/dl (0.2-1.3); Total Protein 3.7 g/dl (6.3-8.2); eGFR 45.48
[2024-09-24] MEDS: LOPRESSOR 50 MG PO ×2 (08:36→20:11)
[2024-09-24] MEDS: REFRESH EYE DROPS (PF) 1 DROPS OPHTH ×3 (08:36→21:57)
[2024-09-24] MEDS: MIRALAX 17 GRAMS PO (08:36)
[2024-09-24] MEDS: RESTASIS 0.05% OPHTHALMIC EMULSION 1 DROPS BOTH EYES ×2 (08:37→20:10)
[2024-09-24] MEDS: THIAMINE INJECTION 100 MG IV (08:37)
[2024-09-24] MEDS: HEPARIN 5000 UNITS SC ×2 (08:37→20:10)
[2024-09-24] MEDS: COLACE 100 MG PO ×2 (08:38→20:10)
[2024-09-24] MEDS: NOVOLOG FLEXPEN-LOW RESISTANCE SC ×3 (08:38→17:17)
[2024-09-24] MEDS: NON-FORMULARY ITEM 1 SPRAY NASAL ×2 (08:59→20:10)
--- NOTE | 2024-09-24 10:17 | W.PN.GS2 ---
Addendum entered and electronically signed by Darian Mejia MD 09/24/24 13:49:
Patient seen and examined.
No complaints. No worsening pain. No worsening nausea or vomiting. Passing small amounts of liquid stool via ostomy. Minimal ambulation.
Gen: NAD
Abd: soft, mild tenderness, mild distension, non-peritoneal, incision c/d/i - no erythema, ecchymosis or drainage, laura in place, MADELAINE serosang, ostomy PPV small amount of stool present
83 yo female presenting with perforated sigmoid colon secondary to stercoral colitis now POD #8 ex lap with sigmoid resection and end colostomy creation
SBFT on 09/21 with moderate fecal material throughout the colon but good transit time/no obstruction
XR in follow up today with retained PO contrast noted all the way to stoma
AFVSS
Continues to pass flatus, not much stool. Stoma irrigated on 09/23
Cr mildly elevated/stable
Labs stable, mild hypokalemia noted
Acute urinary retention, Aviles placed on 09/23
--Continue FLD with supplements
--Multimodal analgesics
--Continue PO bowel regimen, colace/miralax
--IVF and electrolyte replacements as per primary team
--Continue aviles
--Continue IV abx per ID
--c/w MADELAINE drain
--Ostomy nurse following
--OOB as able. PT following
--Trend labs
--Heparin SQ and SCDS for VTE ppx given reported hx of PE
Original Note:
Today's Communication / Plan
-
Full liquids
OOB, increase activity
Assessment / Plan
-
83 yo female presenting with perforated sigmoid colon secondary to stercoral colitis now POD #8 ex lap with sigmoid resection and end colostomy creation
AFVSS
Continues to pass flatus, not much stool. Stoma irrigated on 09/23
SBFT on 09/21 with moderate fecal material throughout the colon but good transit time/no obstruction
XR in follow up today with retained PO contrast noted all the way to stoma
Cr mildly elevated/stable
Labs stable, mild hypokalemia noted
Acute urinary retention, aviles placed on 09/23
--Continue aviles
--Continue FLD with supplements
--Multimodal analgesics
--Continue PO bowel regimen, colace/miralax
--IVF and electrolyte replacements as per primary team
--Continue IV abx per ID
--c/w MADELAINE drain
--Ostomy nurse following
--OOB as able. PT following
--Trend labs
--Heparin SQ and SCDS for VTE ppx given reported hx of PE
Subjective Data
-
Date of Service: September 24, 2024
Patient seen and examined at bedside with Dr. Mejia. Using tonsil tip suction to assist with manageing secretions. Some cramping with PO intake but eating more than previous. Denies n/v. Passing flatus via stoma. Still with pain with movment.
Objective Data
-
Intake and Output
09/23/24 09/24/24 09/25/24
06:59 06:59 06:59
Intake Total 960 / 960 850 / 850
Output Total 940 / 940 550 / 550
Balance 20 / 20 300 / 300
Intake:
Oral fluids 960 / 960 800 / 800
IV piggybacks 50 / 50
Output:
Liquid stool amount 130 / 130 105 / 105
Colostomy 130 / 130 105 / 105
Drain Output (Total) 110 / 110 120 / 120
Right Lower Abdomen Mynor- 110 / 110 120 / 120
Horner
Urine, Aviles 325 / 325
Straight cath output 700 / 700
Vital Signs
Temp Pulse Resp BP Pulse Ox
97.9 F 72 16 111/61 95
09/24/24 07:20 09/24/24 08:36 09/24/24 07:20 09/24/24 08:36 09/24/24 07:20
Lab Results
09/24/24 05:53
09/24/24 05:53
Calcium 7.8 mg/dl (8.4-10.2) L 09/24/24 05:53
Phosphorus 4.0 mg/dl (2.5-4.5) 09/19/24 05:00
Magnesium 1.7 mg/dl (1.6-2.3) 09/24/24 05:53
Total Bilirubin 0.9 mg/dl (0.2-1.3) 09/24/24 05:53
Direct Bilirubin 0.5 mg/dl (0.0-0.4) H 09/16/24 19:12
AST 25 U/L (14-36) 09/24/24 05:53
ALT 22 U/L (0-35) 09/24/24 05:53
Alkaline Phosphatase 274 U/L (38-126) H 09/24/24 05:53
Total Protein 3.7 g/dl (6.3-8.2) L 09/24/24 05:53
Albumin 1.8 g/dl (3.5-5.0) L 09/24/24 05:53
Physical Exam
-
NAD
ABD soft, mild distention, expected tenderness
Stoma pink, viable with some edema. Passing flatus and small amounts of stool
MADELAINE with SSF
Midline incision with intact laura
[2024-09-24 11:05] VITALS: BP 92/54
[2024-09-24 12:16] LABS: Glucose - Point of Care 101 mg/dl (70-99)
--- NOTE | 2024-09-24 12:42 | W.PN.HOSP.TC ---
Today's Communication/Plan
-
IS
replace K
f/w surgery recommendations
Assessment / Plan
Assessment / Plan
Physical Exam
General: Not in acute distress
HEENT: Normocephalic, Moist mucous membranes and Atraumatic
Respiratory: limited to Auscultation Bilaterally, no wheezes.
Cardiac: S1/S2 and Regular Rate and Rhythm
GI: Soft, Mild Appropriate Tenderness (given surgery), midline incision and dressing intact, NG tube with bilious material, drain with serosanguineous fluid, + BS.
Musculoskeletal: No Cyanosis and No Edema
Skin: Warm. Dry.
Neuro: Alert. Awake. Nonfocal/grossly intact
Psych: calm
Assessment/Plan
83-year-old female with past medical history of umbilical hernia surgery as a child, atrial fibrillation not on anticoagulation, prior pulmonary embolism, microscopic colitis and IBS presented with abdominal pain. She started having lower abdominal
pain 4 days prior to presentation. Pain was initially intermittent but now constant, and has become more severe. Last bowel movement 5 days prior to presentation. Patient has been passing clear mucus several times a day with some blood in the stool.
On the day of presentation, she had an episode of vomiting, without blood. At the time of admission, she denied fevers, chills, chest pain or shortness of breath. She was found to have perforated viscus likely secondary to severe proctocolitis.
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
#Severe proctocolitis likely site of perforation
#E. Coli bacteremia
#Leukocytosis
-CT abdomen pelvis shows significant amount of free air suggesting perforated viscous, severe proctocolitis, indeterminate 1.6 cm left renal lesion, questionable subtle changes of acute pancreatitis,
severe constipation
-Small Bowel Follow Through X-Ray completed on 09/21/24 with moderate fecal material
-Clear Liquids Diet started (NG tube taken out on 09/21/24, and previously was NPO) --> continue. Continue MADELAINE drain output monitoring.
-Initial blood cultures showed E. coli
-Repeat blood cultures with no growth to date
-Given E. coli bacteremia, consulted Infectious Disease --> okay to continue Zosyn
-At time of discharge, can transition to Augmentin 500mg po bid.
-Pain regimen scheduled and PRN, but no NSAIDs given recent rise in creatine
-Wound/ostomy nurse consultation
-Out of bed as tolerated
-PO bowel regimen, colace/miralax -- may need to irrigate stoma pending outputs.
#Mild Hypernatremia - RESOLVED
-Sodium was mildly elevated
-Previously changed IV fluids from D5 1/2 NS to D5W @ 60 cc/hr-->previously increased D5W rate to 100 cc/hr with resolution of hyponatremia
-Stopped D5W+Potassium IV fluids
-Patient taking in clear liquids
-Monitor BMP
#Hypokalemia
#Asymptomatic Hypoglycemia
-Monitor glucose
#Transient hypotension on 09/17/24
-Patient was previously moved to ICU as per the recommendation of surgeon, then became more stable and transferred to tele
-Previously, hypotension responded to IV fluids bolus
-Patient did not need Levophed
-Now blood pressure stable
#Anemia secondary to acute blood loss anemia from colon perforation and subsequent surgery and hemodilution with intravenous fluids
Also suspect anemia of chronic disease due to Hx of RA
Stable HGB
-Received 1 unit PRBC on 09/18/24
#JT
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
-Urine output better
-Okay to stop Conner catheter
-Avoid NSAIDs
#Anasarca
-Suspected from hypoalbuminemia
# Transaminitis likely secondary to perforation
# High ALP
-AST and ALT have improved
-ALP stable in the 200s
-Cholestatic pattern of elevation
-May need to consider abdominal ultrasound outpatient
#History of umbilical hernia surgery as a child
#Atrial fibrillation unspecified type
#A-Fib with RVR
-Not on anticoagulation as an outpatient
-Ordered IV Lopressor, Consulted cardiology
-No anticoagulation due to history of hemorrhagic pericardial effusion (her tailor women's garment alteration told her no oral anticoagulation)
-Patient is aware of stroke risk associated with not taking anticoagulation and prefers to continue to avoid anticoagulation at this time
-But patient said Heparin DVT prophylaxis is okay
-Patient's PO Lopressor resumed, but at increased dose @ 50 mg BID (instead of home 25 mg TID)
-Outpatient follow-up to Dr. Tiwari of [facility]
#[employer] DC PPM
#History of Pulmonary Embolism
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
#Microscopic colitis
-Patient usually sees Dr. Shweta Zhu at [facility] [place]; Dr. Zhu prescribes the patient's Budesonide and the Colestipol
-Holding Budesonide and Colestipol for now given acute illness
#Rheumatoid Arthritis
-Stable without any flare-up
-Patient sees Dr. Delgado - Rheumatology at [place] who prescribes the Hydroxychloroquine and Azathioprine
-Holding both for now, especially given Azathioprine is a immunosuppressant and patient is recovering from abdominal surgery and bacteremia
-Can consider resuming Hydroxychloroquine, when patient's clinical condition improved
-Patient will notify her doggy daycare activities director Dr. Delgado that both of the above medications are being held at this time
#IBS
#Chronic venous insufficiency
#Peripheral neuropathy
#PVCs
#Osteoporosis
Code Status: Full code
DVT Prophylaxis: SCDs and Heparin SUBQ
Total time spent to see the patient, examine the pt, review data and lab results, discuss treatment plan with pt, nursing staff around 55 minutes
Anticipated Discharge: > 48 hours
Subjective/Interval History
-
Date of Service: September 24, 2024
No sob
No chest pain
Reports difficulty swallowing at times
Objective Data
-
Labs:
Laboratory Results
09/24/24
05:53
WBC 14.4 H
Hgb 9.7 L
Hct 29.2 L
Plt Count 209
Sodium 136
Potassium 3.3 L
Chloride 105
Carbon Dioxide 30
BUN 25 H
Creatinine 1.2 H
Glucose 64 L
Calcium 7.8 L
Total Bilirubin 0.9
AST 25
ALT 22
Alkaline Phosphatase 274 H
Vital Signs:
Vital Signs
Temp Pulse Resp BP Pulse Ox
97.4 F 72 16 92/54 98
09/24/24 11:05 09/24/24 11:05 09/24/24 11:05 09/24/24 11:05 09/24/24 11:05
I&O
09/23/24 09/24/24 09/25/24
06:59 06:59 06:59
Intake Total 960 / 960 850 / 850
Output Total 940 / 940 550 / 550
Balance 20 / 20 300 / 300
[2024-09-24] MEDS: KCL ELIXIR 40 MEQ PO (13:14)
[2024-09-24 15:25] VITALS: BP 126/59
[2024-09-24 17:01] LABS: Glucose - Point of Care 109 mg/dl (70-99)
[2024-09-24] MEDS: REFRESH EYE DROPS (PF) OPHTH (18:02)
[2024-09-24 19:10] VITALS: BP 123/62
--- NOTE | 2024-09-24 19:51 | PTCARENOTE ---
Patient was OOB to chair for 3 hours today.
[2024-09-24 21:45] LABS: Glucose - Point of Care 115 mg/dl (70-99)
[2024-09-24 23:47] VITALS: BP 97/49
[2024-09-25] VITALS (7 sets, daily range): BP systolic 102–123; BP diastolic 49–67; PULSE 72; O2SAT 95; BMI 21.5
[2024-09-25] MEDS: DILAUDID 0.5 MG IV ×5 (00:17→21:12)
[2024-09-25] MEDS: ZOSYN 50 IV ×4 (02:44→21:09)
[2024-09-25 06:44] LABS: Hematocrit 28.1 % (37.0-47.0); Hemoglobin 9.5 g/dL (12.0-16.0); Mean Corp Hgb Conc. 33.8 g/dL (33.0-37.0); Mean Corpuscular Volume 91.8 fL (81.0-99.0); Mean Platelet Volume 9.9 fL (7.4-10.4); Platelet Count 245 10^3/uL (130-400); Red Blood Cell Count 3.06 10^6/uL (4.20-5.40); Red Cell Dist. Width 17.7 % (11.5-14.5); White Blood Cell Count 12.8 10^3/uL (4.8-10.8)
[2024-09-25 07:04] LABS: Blood Urea Nitrogen 25 mg/dl (7-17); Calcium 8.1 mg/dl (8.4-10.2); Carbon Dioxide 26 mmol/L (22-30); Chloride 106 mmol/L (98-107); Estimated Creatinine Clearance 35 ml/min; Glucose 91 mg/dl (70-99); Potassium 3.6 mmol/L (3.5-5.1); Sodium 135 mmol/L (135-145); eGFR 50.48
[2024-09-25 07:54] LABS: Glucose - Point of Care 89 mg/dl (70-99)
[2024-09-25] MEDS: NOVOLOG FLEXPEN-LOW RESISTANCE SC ×3 (07:58→17:27)
[2024-09-25] MEDS: REFRESH EYE DROPS (PF) 1 DROPS OPHTH ×4 (08:21→21:09)
[2024-09-25] MEDS: LOPRESSOR 50 MG PO ×2 (08:22→21:09)
[2024-09-25] MEDS: COLACE 100 MG PO ×2 (08:22→21:08)
[2024-09-25] MEDS: RESTASIS 0.05% OPHTHALMIC EMULSION 1 DROPS BOTH EYES ×2 (08:22→21:09)
[2024-09-25] MEDS: THIAMINE INJECTION 100 MG IV (08:22)
[2024-09-25] MEDS: NON-FORMULARY ITEM 1 SPRAY NASAL ×2 (08:23→21:11)
[2024-09-25] MEDS: HEPARIN 5000 UNITS SC ×2 (08:23→21:08)
[2024-09-25] MEDS: MIRALAX 17 GRAMS PO (08:23)
--- NOTE | 2024-09-25 09:50 | W.PN.GS2 ---
Today's Communication / Plan
-
Out of bed and ambulate patient is much as able today.
Consider Lasix for swelling.
Remainder of care per primary.
Assessment / Plan
-
83 yo female presenting with perforated sigmoid colon secondary to stercoral colitis now POD #9 XL, Chauncey's. Has had a fairly prolonged hospital course.
AFVSS
Continues to pass flatus, not much stool. Stoma irrigated on 09/23
SBFT on 09/21 with moderate fecal material throughout the colon but good transit time/no obstruction
XR in follow up with retained PO contrast noted all the way to stoma
Cr mildly elevated/stable
Labs stable, mild hypokalemia noted
Acute urinary retention, aviles placed on 09/23
--Continue aviles
--Continue FLD with supplements
--Multimodal analgesics
--Continue PO bowel regimen, colace/miralax
--IVF and electrolyte replacements as per primary team
--Continue IV abx per ID
--c/w MADELAINE drain
--Ostomy nurse following
--OOB as able. PT following
--Trend labs
--Heparin SQ and SCDS for VTE ppx given reported hx of PE
Time Spent
Total Time Spent with Patient (in minutes): 20
Subjective Data
-
Date of Service: September 25, 2024
Interval Events:
No acute events overnight. Slept well. Pain Controlled. Denies Nausea/Vomiting, +bowel function. Tolerating diet.
Objective Data
-
Intake and Output
09/24/24 09/25/24 09/26/24
06:59 06:59 06:59
Intake Total 850 / 850 460 / 460
Output Total 550 / 550 815 / 815
Balance 300 / 300 -355 / -355
Intake:
Oral fluids 800 / 800 360 / 360
IV piggybacks 50 / 50 100 / 100
Output:
Liquid stool amount 105 / 105 5 / 5
Colostomy 105 / 105 5 / 5
Drain Output (Total) 120 / 120 110 / 110
Right Lower Abdomen Mynor- 120 / 120 110 / 110
Horner
Urine, Aviles 325 / 325 700 / 700
Vital Signs
Temp Pulse Resp BP Pulse Ox
98.3 F 73 16 108/49 94
09/25/24 07:55 09/25/24 07:55 09/25/24 07:55 09/25/24 07:55 09/25/24 07:55
Lab Results
09/25/24 06:26
09/25/24 06:26
Calcium 8.1 mg/dl (8.4-10.2) L 09/25/24 06:26
Phosphorus 4.0 mg/dl (2.5-4.5) 09/19/24 05:00
Magnesium 1.7 mg/dl (1.6-2.3) 09/24/24 05:53
Total Bilirubin 0.9 mg/dl (0.2-1.3) 09/24/24 05:53
Direct Bilirubin 0.5 mg/dl (0.0-0.4) H 09/16/24 19:12
AST 25 U/L (14-36) 09/24/24 05:53
ALT 22 U/L (0-35) 09/24/24 05:53
Alkaline Phosphatase 274 U/L (38-126) H 09/24/24 05:53
Total Protein 3.7 g/dl (6.3-8.2) L 09/24/24 05:53
Albumin 1.8 g/dl (3.5-5.0) L 09/24/24 05:53
Physical Exam
-
GENERAL/NEURO: Awake, Alert, no distress
CHEST: Unlabored breathing on RA
ABDOMEN: Soft, still mildly tender, and mildly distended. Stoma is edematous but pink patent and productive of stool and flatus
EXTREMITIES: warm, well perfused, no jaundice, there is some swelling but nonpitting edema in all 4 extremities. There is some stable bruising in the lower extremities bilaterally.
Patient has a aviles catheter: Yes
Patient has a central line: No
--- NOTE | 2024-09-25 10:47 | W.PN.HOSP.TC ---
Today's Communication/Plan
-
# chronic lymphedema
Her oral intake is very small to none per staff , and she has low albumin and borderline hypotension, stable weight, prefer to avoid Lasix for today, press on taking ensure/ food, re-consider Lasix in AM, will follow. c/w Daily weight
Assessment / Plan
Assessment / Plan
Physical Exam
General: Not in acute distress
HEENT: Normocephalic, Moist mucous membranes and Atraumatic
Respiratory: limited to Auscultation Bilaterally, no wheezes.
Cardiac: S1/S2 and Regular Rate and Rhythm
GI: Soft, not tender or distended. , midline incision and dressing intact, NG tube with bilious material, drain with serosanguineous fluid, + BS.
Musculoskeletal: No Cyanosis and No Edema
Skin: Warm. Dry.
Neuro: Alert. Awake. Nonfocal/grossly intact
Psych: calm
Assessment/Plan
83-year-old female with past medical history of umbilical hernia surgery as a child, atrial fibrillation not on anticoagulation, prior pulmonary embolism, microscopic colitis and IBS presented with abdominal pain. She started having lower abdominal
pain 4 days prior to presentation. Pain was initially intermittent but now constant, and has become more severe. Last bowel movement 5 days prior to presentation. Patient has been passing clear mucus several times a day with some blood in the stool.
On the day of presentation, she had an episode of vomiting, without blood. At the time of admission, she denied fevers, chills, chest pain or shortness of breath. She was found to have perforated viscus likely secondary to severe proctocolitis.
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
#Severe proctocolitis likely site of perforation
#E. Coli bacteremia
#Leukocytosis
-CT abdomen pelvis shows significant amount of free air suggesting perforated viscous, severe proctocolitis, indeterminate 1.6 cm left renal lesion, questionable subtle changes of acute pancreatitis,
severe constipation
-Small Bowel Follow Through X-Ray completed on 09/21/24 with moderate fecal material
-Clear Liquids Diet started (NG tube taken out on 09/21/24, and previously was NPO) --> continue. Continue MADELAINE drain output monitoring.
-Initial blood cultures showed E. coli
-Repeat blood cultures with no growth to date
-Given E. coli bacteremia, consulted Infectious Disease --> okay to continue Zosyn
-At time of discharge, can transition to Augmentin 500mg po bid.
-Pain regimen scheduled and PRN, but no NSAIDs given recent rise in creatine
-Wound/ostomy nurse consultation
- d/w pt, will do ensure clear BID, restric sodium intake
-Out of bed as tolerated
-PO bowel regimen, colace/miralax -- may need to irrigate stoma pending outputs.
#Mild Hypernatremia - RESOLVED
-Sodium was mildly elevated
-Previously changed IV fluids from D5 1/2 NS to D5W @ 60 cc/hr-->previously increased D5W rate to 100 cc/hr with resolution of hyponatremia
-Stopped D5W+Potassium IV fluids
-Patient taking in clear liquids
-Monitor BMP
#Hypokalemia
# chronic lymphedema
Her oral intake is very small to none per staff , and she has low albumin and borderline hypotension, stable weight, prefer to avoid Lasix for today, press on taking ensure/ food, re-consider Lasix in AM, will follow. c/w Daily weight
#Asymptomatic Hypoglycemia
-Monitor glucose
#Transient hypotension on 09/17/24
-Patient was previously moved to ICU as per the recommendation of surgeon, then became more stable and transferred to tele
-Previously, hypotension responded to IV fluids bolus
-Patient did not need Levophed
-Now blood pressure stable
#Anemia secondary to acute blood loss anemia from colon perforation and subsequent surgery and hemodilution with intravenous fluids
Also suspect anemia of chronic disease due to Hx of RA
Stable HGB
-Received 1 unit PRBC on 09/18/24
#JT
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
-Urine output better
-Okay to stop Conner catheter
-Avoid NSAIDs
#Anasarca
-Suspected from hypoalbuminemia
# Transaminitis likely secondary to perforation
# High ALP
-AST and ALT have improved
-ALP stable in the 200s
-Cholestatic pattern of elevation
-May need to consider abdominal ultrasound outpatient
#History of umbilical hernia surgery as a child
#Atrial fibrillation unspecified type
#A-Fib with RVR
-Not on anticoagulation as an outpatient
-Ordered IV Lopressor, Consulted cardiology
-No anticoagulation due to history of hemorrhagic pericardial effusion (her publications sales representative told her no oral anticoagulation)
-Patient is aware of stroke risk associated with not taking anticoagulation and prefers to continue to avoid anticoagulation at this time
-But patient said Heparin DVT prophylaxis is okay
-Patient's PO Lopressor resumed, but at increased dose @ 50 mg BID (instead of home 25 mg TID)
-Outpatient follow-up to Dr. Tiwari of [facility]
#[employer] DC PPM
#History of Pulmonary Embolism
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
#Microscopic colitis
-Patient usually sees Dr. Shweta Zhu at [facility]; Dr. Zhu prescribes the patient's Budesonide and the Colestipol
-Holding Budesonide and Colestipol for now given acute illness
#Rheumatoid Arthritis
-Stable without any flare-up
-Patient sees Dr. Delgado - Rheumatology at [place] who prescribes the Hydroxychloroquine and Azathioprine
-Holding both for now, especially given Azathioprine is a immunosuppressant and patient is recovering from abdominal surgery and bacteremia
-Can consider resuming Hydroxychloroquine, when patient's clinical condition improved
-Patient will notify her skating carhop Dr. Delgado that both of the above medications are being held at this time
#IBS
#Chronic venous insufficiency
#Peripheral neuropathy
#PVCs
#Osteoporosis
Code Status: Full code
DVT Prophylaxis: SCDs and Heparin SUBQ
Total time spent to see the patient, examine the pt, review data and lab results, discuss treatment plan with pt, surgery, nursing staff around 55 minutes
Anticipated Discharge: > 48 hours
Subjective/Interval History
-
Date of Service: September 25, 2024
No worsening pain in abdomen
No chest pain
Less difficulty swallowing
Objective Data
-
Labs:
Laboratory Results
09/25/24
06:26
WBC 12.8 H
Hgb 9.5 L
Hct 28.1 L
Plt Count 245
Sodium 135
Potassium 3.6
Chloride 106
Carbon Dioxide 26
BUN 25 H
Creatinine 1.1 H
Glucose 91
Calcium 8.1 L
Vital Signs:
Vital Signs
Temp Pulse Resp BP Pulse Ox
98.3 F 73 16 108/49 94
09/25/24 07:55 09/25/24 07:55 09/25/24 07:55 09/25/24 07:55 09/25/24 07:55
I&O
09/24/24 09/25/24 09/26/24
06:59 06:59 06:59
Intake Total 850 / 850 460 / 460
Output Total 550 / 550 815 / 815
Balance 300 / 300 -355 / -355
[2024-09-25 11:51] LABS: Glucose - Point of Care 132 mg/dl (70-99)
[2024-09-25] MEDS: ZOFRAN 4 MG IV ×2 (12:12→21:39)
--- NOTE | 2024-09-25 15:07 | PTCARENOTE ---
Patient attempted to get OOB with PT, however, unsuccessful. Patient requiring max assistance for standing balance and to bring weight forward. Patient assisted back to bed. Call goldberg within reach.
--- NOTE | 2024-09-25 15:30 | WOUNDNOTE ---
WON RN NOTE: Appliance changed today. Stoma pink with swelling, os patent and for liquid brown output. Peristomal skin intact. Patient able to open and close tail end of pouch. Reviewed skin care, emptying and changing appliance. Answered all
questions, support and encouragement given.
[2024-09-25 17:26] LABS: Glucose - Point of Care 120 mg/dl (70-99)
[2024-09-25 21:55] LABS: Glucose - Point of Care 122 mg/dl (70-99)
[2024-09-26] MEDS: DILAUDID 0.5 MG IV ×5 (01:13→21:56)
[2024-09-26] MEDS: COMPAZINE 5 MG IV ×2 (01:13→08:48)
[2024-09-26] MEDS: ZOSYN 50 IV ×4 (02:46→20:35)
[2024-09-26 03:07] VITALS: BP 107/52
[2024-09-26 06:00] VITALS: BMI 22.1
[2024-09-26 07:58] VITALS: BP 106/59
[2024-09-26 08:01] LABS: Glucose - Point of Care 105 mg/dl (70-99)
[2024-09-26] MEDS: MILK OF MAGNESIA 30 ML PO (08:43)
[2024-09-26] MEDS: NOVOLOG FLEXPEN-LOW RESISTANCE SC (08:43)
[2024-09-26] MEDS: REFRESH EYE DROPS (PF) 1 DROPS OPHTH ×4 (08:44→21:55)
[2024-09-26] MEDS: BUMEX 0.5 MG IV ×2 (08:44→20:30)
[2024-09-26] MEDS: MIRALAX 17 GRAMS PO ×2 (08:44→20:49)
[2024-09-26] MEDS: LOPRESSOR 50 MG PO ×2 (08:45→20:33)
[2024-09-26] MEDS: RESTASIS 0.05% OPHTHALMIC EMULSION 1 DROPS BOTH EYES ×2 (08:45→20:34)
[2024-09-26] MEDS: COLACE 100 MG PO ×2 (08:45→20:33)
[2024-09-26] MEDS: HEPARIN 5000 UNITS SC ×2 (08:45→20:33)
[2024-09-26] MEDS: THIAMINE INJECTION 100 MG IV (08:46)
[2024-09-26] MEDS: NON-FORMULARY ITEM 1 SPRAY NASAL ×2 (08:46→20:35)
--- NOTE | 2024-09-26 09:33 | W.PN.HOSP.TC ---
Today's Communication/Plan
-
Bumex trial
c/w oral diet
f/w surgery regarding drain out put
BMP in AM
Assessment / Plan
Assessment / Plan
Physical Exam
General: Not in acute distress
HEENT: Normocephalic, Moist mucous membranes and Atraumatic
Respiratory: limited to Auscultation Bilaterally, no wheezes.
Cardiac: S1/S2 and Regular Rate and Rhythm
GI: Soft, not tender or distended. , midline incision and dressing intact, NG tube with bilious material, drain with serosanguineous fluid, + BS.
Musculoskeletal: No Cyanosis, Edema of both lower extremities.
Skin: Warm. Dry.
Neuro: Alert. Awake. Nonfocal/grossly intact
Psych: calm
Assessment/Plan
83-year-old female with past medical history of umbilical hernia surgery as a child, atrial fibrillation not on anticoagulation, prior pulmonary embolism, microscopic colitis and IBS presented with abdominal pain. She started having lower abdominal
pain 4 days prior to presentation. Pain was initially intermittent but now constant, and has become more severe. Last bowel movement 5 days prior to presentation. Patient has been passing clear mucus several times a day with some blood in the stool.
On the day of presentation, she had an episode of vomiting, without blood. At the time of admission, she denied fevers, chills, chest pain or shortness of breath. She was found to have perforated viscus likely secondary to severe proctocolitis.
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
#Severe proctocolitis likely site of perforation
#E. Coli bacteremia
#Leukocytosis
-CT abdomen pelvis shows significant amount of free air suggesting perforated viscous, severe proctocolitis, indeterminate 1.6 cm left renal lesion, questionable subtle changes of acute pancreatitis,
severe constipation
-Small Bowel Follow Through X-Ray completed on 09/21/24 with moderate fecal material
-Clear Liquids Diet started (NG tube taken out on 09/21/24, and previously was NPO) --> continue. Continue MADELAINE drain output monitoring.
-Initial blood cultures showed E. coli
-Repeat blood cultures with no growth to date
-Given E. coli bacteremia, consulted Infectious Disease --> okay to continue Zosyn
-At time of discharge, can transition to Augmentin 500mg po bid.
-Pain regimen scheduled and PRN, but no NSAIDs given recent rise in creatine
-Wound/ostomy nurse consultation
- d/w pt, will do ensure clear BID, restrict sodium intake
-Out of bed as tolerated
-PO bowel regimen, Colace/MiraLAX BID -- may need to irrigate stoma pending outputs.
# Acute on chronic lymphedema
Will do Bumex IV , monitor BP and renal function
#Mild Hypernatremia - RESOLVED
-Sodium was mildly elevated
-Previously changed IV fluids from D5 1/2 NS to D5W @ 60 cc/hr-->previously increased D5W rate to 100 cc/hr with resolution of hyponatremia
-Stopped D5W+Potassium IV fluids
-Patient taking in clear liquids
-Monitor BMP
#Hypokalemia
# chronic lymphedema
Her oral intake is very small to none per staff , and she has low albumin and borderline hypotension, stable weight, prefer to avoid Lasix for today, press on taking ensure/ food, re-consider Lasix in AM, will follow. c/w Daily weight
#Asymptomatic Hypoglycemia
-Monitor glucose
#Transient hypotension on 09/17/24
-Patient was previously moved to ICU as per the recommendation of surgeon, then became more stable and transferred to tele
-Previously, hypotension responded to IV fluids bolus
-Patient did not need Levophed
-Now blood pressure stable
#Anemia secondary to acute blood loss anemia from colon perforation and subsequent surgery and hemodilution with intravenous fluids
Also suspect anemia of chronic disease due to Hx of RA
Stable HGB
-Received 1 unit PRBC on 09/18/24
#JT
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
-Urine output better
-Okay to stop Conner catheter
-Avoid NSAIDs
#Anasarca
-Suspected from hypoalbuminemia
# Transaminitis likely secondary to perforation
# High ALP
-AST and ALT have improved
-ALP stable in the 200s
-Cholestatic pattern of elevation
-May need to consider abdominal ultrasound outpatient
#History of umbilical hernia surgery as a child
#Atrial fibrillation unspecified type
#A-Fib with RVR
-Not on anticoagulation as an outpatient
-Ordered IV Lopressor, Consulted cardiology
-No anticoagulation due to history of hemorrhagic pericardial effusion (her hotel baggage handler told her no oral anticoagulation)
-Patient is aware of stroke risk associated with not taking anticoagulation and prefers to continue to avoid anticoagulation at this time
-But patient said Heparin DVT prophylaxis is okay
-Patient's PO Lopressor resumed, but at increased dose @ 50 mg BID (instead of home 25 mg TID)
-Outpatient follow-up to Dr. Tiwari of [facility]
#[employer] DC PPM
#History of Pulmonary Embolism
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
#Microscopic colitis
-Patient usually sees Dr. Shweta Zhu at [facility] [place]; Dr. Zhu prescribes the patient's Budesonide and the Colestipol
-Holding Budesonide and Colestipol for now given acute illness
#Rheumatoid Arthritis
-Stable without any flare-up
-Patient sees Dr. Delgado - Rheumatology at [place] who prescribes the Hydroxychloroquine and Azathioprine
-Holding both for now, especially given Azathioprine is a immunosuppressant and patient is recovering from abdominal surgery and bacteremia
-Can consider resuming Hydroxychloroquine, when patient's clinical condition improved
-Patient will notify her mill recorder Dr. Delgado that both of the above medications are being held at this time
#IBS
#Chronic venous insufficiency
#Peripheral neuropathy
#PVCs
#Osteoporosis
Code Status: Full code
DVT Prophylaxis: SCDs and Heparin SUBQ
Total time spent to see the patient, examine the pt, review data and lab results, discuss treatment plan with pt, surgery, nursing staff around 55 minutes
Anticipated Discharge: > 48 hours
Subjective/Interval History
-
Date of Service: September 26, 2024
No chest pain
No sob
No fevers
Objective Data
-
Vital Signs:
Vital Signs
Temp Pulse Resp BP Pulse Ox
98.2 F 72 16 106/59 96
09/26/24 07:58 09/26/24 07:58 09/26/24 07:58 09/26/24 07:58 09/26/24 07:58
I&O
09/25/24 09/26/24 09/27/24
06:59 06:59 06:59
Intake Total 460 / 460 600 / 600 220 / 220
Output Total 815 / 815 470 / 470 500 / 500
Balance -355 / -355 130 / 130 -280 / -280
--- NOTE | 2024-09-26 10:22 | W.PN.GS2 ---
Today's Communication / Plan
-
--Increased bowel regimen with Miralax BID and milk of mag
--OOB as able. PT following
Assessment / Plan
-
83 yo female presenting with perforated sigmoid colon secondary to stercoral colitis now POD #10 XL, Chauncey's
SBFT on 09/21 with moderate fecal material throughout the colon but good transit time/no obstruction
XR in follow up with retained PO contrast noted all the way to stoma
AFVSS
Cr mildly elevated/stable
Labs stable, mild hypokalemia noted
Continues to pass flatus, not much stool. Stoma irrigated on 09/23
Acute urinary retention, aviles placed on 09/23
Plan for more aggressive bowel regimen today.
--Continue FLD with supplements
--Multimodal analgesics
--Increased bowel regimen with Miralax BID and milk of mag
--Continue Aviles
--IVF and electrolyte replacements as per primary team
--Continue IV abx per ID
--OOB as able. PT following
--Heparin SQ and SCDS for VTE ppx given reported hx of PE
--c/w MADELAINE drain
--Ostomy nurse following
Subjective Data
-
Date of Service: September 26, 2024
No new complaints or issues. Continue with stable and slowly improving abdominal discomfort. No nausea or vomiting. Flatus and minimal stool via ostomy
Objective Data
-
Intake and Output
09/25/24 09/26/24 09/27/24
06:59 06:59 06:59
Intake Total 460 / 460 600 / 600 220 / 220
Output Total 815 / 815 470 / 470 500 / 500
Balance -355 / -355 130 / 130 -280 / -280
Intake:
Oral fluids 360 / 360 600 / 600 120 / 120
IV piggybacks 100 / 100 100 / 100
Output:
Liquid stool amount 5 / 5
Colostomy 5 / 5
Drain Output (Total) 110 / 110 120 / 120 100 / 100
Right Lower Abdomen Mynor- 110 / 110 120 / 120 100 / 100
[place]
Urine, Aviles 700 / 700 350 / 350 400 / 400
Vital Signs
Temp Pulse Resp BP Pulse Ox
98.2 F 72 16 106/59 96
09/26/24 07:58 09/26/24 07:58 09/26/24 07:58 09/26/24 07:58 09/26/24 07:58
Lab Results
09/25/24 06:26
09/25/24 06:26
Calcium 8.1 mg/dl (8.4-10.2) L 09/25/24 06:26
Phosphorus 4.0 mg/dl (2.5-4.5) 09/19/24 05:00
Magnesium 1.7 mg/dl (1.6-2.3) 09/24/24 05:53
Total Bilirubin 0.9 mg/dl (0.2-1.3) 09/24/24 05:53
Direct Bilirubin 0.5 mg/dl (0.0-0.4) H 09/16/24 19:12
AST 25 U/L (14-36) 09/24/24 05:53
ALT 22 U/L (0-35) 09/24/24 05:53
Alkaline Phosphatase 274 U/L (38-126) H 09/24/24 05:53
Total Protein 3.7 g/dl (6.3-8.2) L 09/24/24 05:53
Albumin 1.8 g/dl (3.5-5.0) L 09/24/24 05:53
Physical Exam
-
Gen: NAD
Abd: soft, tender, distended, non-peritoneal, incision c/d/i - no erythema, ecchymosis or drainage. MADELAINE serous, ostomy PPV - less edematous, minimal stool, some flatus
Patient has a aviles catheter: Yes
Patient has a central line: No
--- NOTE | 2024-09-26 10:35 | CM ---
Patient seen at bedside. Patient aknowleged that she was having difficulty with standing or moving. Patient states that she refuses to go to SNF due to problems with food; no salt is impossible for the institution to complete. CM reviewed concerns
about home and she states that grandchildren are planning to stay with her for 18/01 for the first 2 weeks and then see what she needed, referral also in place for [facility]. CM will provide information about a place for mom. CM will continue to follow fo
discharge planning needs.
Plan; home with [facility]; watch for further needs/ declining SNF
[2024-09-26 11:46] VITALS: BP 114/66
[2024-09-26 11:49] LABS: Glucose - Point of Care 198 mg/dl (70-99)
[2024-09-26] MEDS: NOVOLOG FLEXPEN-LOW RESISTANCE 1 UNITS SC ×2 (11:54→18:15)
[2024-09-26 15:26] VITALS: BP 113/63
[2024-09-26 17:11] LABS: Glucose - Point of Care 153 mg/dl (70-99)
[2024-09-26 19:20] VITALS: BP 130/61
[2024-09-26] MEDS: MIRALAX PO (20:30)
[2024-09-26 22:17] LABS: Glucose - Point of Care 141 mg/dl (70-99)
[2024-09-26 23:35] VITALS: BP 101/56
[2024-09-27] VITALS (8 sets, daily range): BP systolic 92–116; BP diastolic 49–59; PULSE 73; BMI 21.9
[2024-09-27] MEDS: DILAUDID 0.5 MG IV (02:31)
[2024-09-27] MEDS: ZOSYN 50 IV ×4 (02:31→20:47)
[2024-09-27 05:39] LABS: Hemoglobin 8.4 g/dL (12.0-16.0); Mean Corp Hgb Conc. 33.6 g/dL (33.0-37.0); Mean Corpuscular Hgb 30.4 pg (27.0-31.0); Mean Corpuscular Volume 90.6 fL (81.0-99.0); Platelet Count 267 10^3/uL (130-400); Red Blood Cell Count 2.76 10^6/uL (4.20-5.40); Red Cell Dist. Width 17.1 % (11.5-14.5); White Blood Cell Count 10.1 10^3/uL (4.8-10.8)
[2024-09-27 06:04] LABS: ALT (SGPT) 16 U/L (0-35); AST (SGOT) 28 U/L (14-36); Albumin 1.8 g/dl (3.5-5.0); Alkaline Phosphatase 246 U/L (38-126); Blood Urea Nitrogen 21 mg/dl (7-17); Calcium 7.7 mg/dl (8.4-10.2); Carbon Dioxide 27 mmol/L (22-30); Chloride 103 mmol/L (98-107); Estimated Creatinine Clearance 32 ml/min; Glucose 95 mg/dl (70-99); Potassium 3.3 mmol/L (3.5-5.1); Sodium 133 mmol/L (135-145); Total Bilirubin 0.5 mg/dl (0.2-1.3); Total Protein 3.8 g/dl (6.3-8.2); eGFR 45.48
[2024-09-27 07:45] LABS: Glucose - Point of Care 103 mg/dl (70-99)
--- NOTE | 2024-09-27 07:49 | W.PN.HOSP.TC ---
Today's Communication/Plan
-
Replace potassium
c/w Bumex for another day
Resume hydroxychloroquine
Assessment / Plan
Assessment / Plan
Physical Exam
General: Not in acute distress
HEENT: Normocephalic, Moist mucous membranes and Atraumatic
Respiratory: limited to Auscultation Bilaterally, no wheezes.
Cardiac: S1/S2 and Regular Rate and Rhythm
GI: Soft, not tender or distended. , midline incision and dressing intact, NG tube with bilious material, drain with serosanguineous fluid, + BS.
Musculoskeletal: No Cyanosis, Edema of both lower extremities.
Skin: Warm. Dry.
Neuro: Alert. Awake. Nonfocal/grossly intact
Psych: calm
Assessment/Plan
83-year-old female with past medical history of umbilical hernia surgery as a child, atrial fibrillation not on anticoagulation, prior pulmonary embolism, microscopic colitis and IBS presented with abdominal pain. She started having lower abdominal
pain 4 days prior to presentation. Pain was initially intermittent but now constant, and has become more severe. Last bowel movement 5 days prior to presentation. Patient has been passing clear mucus several times a day with some blood in the stool.
On the day of presentation, she had an episode of vomiting, without blood. At the time of admission, she denied fevers, chills, chest pain or shortness of breath. She was found to have perforated viscus likely secondary to severe proctocolitis.
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
#Severe proctocolitis likely site of perforation
#E. Coli bacteremia
#Leukocytosis
-CT abdomen pelvis shows significant amount of free air suggesting perforated viscous, severe proctocolitis, indeterminate 1.6 cm left renal lesion, questionable subtle changes of acute pancreatitis,
severe constipation
-Small Bowel Follow Through X-Ray completed on 09/21/24 with moderate fecal material
-Clear Liquids Diet started (NG tube taken out on 09/21/24, and previously was NPO) --> continue. Continue MADELAINE drain output monitoring.
-Initial blood cultures showed E. coli
-Repeat blood cultures with no growth to date
-Given E. coli bacteremia, consulted Infectious Disease --> okay to continue Zosyn
-At time of discharge, can transition to Augmentin 500mg po bid.
-Pain regimen scheduled and PRN, but no NSAIDs given recent rise in creatine
-Wound/ostomy nurse consultation
- d/w pt, will do ensure clear BID, restrict sodium intake
-Out of bed as tolerated
-PO bowel regimen, Colace/MiraLAX BID
# Acute on chronic lymphedema
c/w Bumex IV , monitor BP and renal function
#Mild Hyponatremia.
#Hypokalemia
replace with IV KCl
#Asymptomatic Hypoglycemia
-Monitor glucose
#Transient hypotension on 09/17/24
-Patient was previously moved to ICU as per the recommendation of surgeon, then became more stable and transferred to tele
-Previously, hypotension responded to IV fluids bolus
-Patient did not need Levophed
-Now blood pressure stable
#Anemia secondary to acute blood loss anemia from colon perforation and subsequent surgery and hemodilution with intravenous fluids
Also suspect anemia of chronic disease due to Hx of RA
Stable HGB
-Received 1 unit PRBC on 09/18/24
#JT
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
-Urine output better
-Okay to stop Conner catheter
-Avoid NSAIDs
#Anasarca
-Suspected from hypoalbuminemia
#Hx of paroxysmal atrial fibrillation, followed by Dr. Jarrett of [facility]
#A-Fib with RVR
-Not on anticoagulation as an outpatient
-No anticoagulation due to history of hemorrhagic pericardial effusion (her floors buffer told her no oral anticoagulation)
-Patient is aware of stroke risk associated with not taking anticoagulation and prefers to continue to avoid anticoagulation at this time
-But patient said Heparin DVT prophylaxis is okay
-Patient's PO Lopressor resumed, but at increased dose @ 50 mg BID (instead of home 25 mg TID)
-Outpatient follow-up to Dr. Tiwari of [facility]
#[email or web address] DC PPM
#History of Pulmonary Embolism
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
#Microscopic colitis
-Patient usually sees Dr. Shweta Zhu at [facility] [place]; Dr. Zhu prescribes the patient's Budesonide and the Colestipol
-Holding Budesonide and Colestipol for now given acute illness
#Rheumatoid Arthritis
-Stable without any flare-up
-Patient sees Dr. Delgado - Rheumatology at [place] who prescribes the Hydroxychloroquine , ok to resume.
-Holding immunosuppressive [place], especially given Azathioprine is a immunosuppressant and patient is recovering from abdominal surgery and bacteremia
-- OP f/u withrheumatologist Dr. Delgado
#IBS
#Chronic venous insufficiency
#Peripheral neuropathy
#PVCs
#Osteoporosis
Code Status: Full code
DVT Prophylaxis: SCDs and Heparin SUBQ
Total time spent to see the patient, examine the pt, review data and lab results, discuss treatment plan with pt, son surgery, nursing staff around 55 minutes
Anticipated Discharge: > 48 hours
Subjective/Interval History
-
Date of Service: September 27, 2024
No worsening abd pain
No fevers
Objective Data
-
Labs:
Laboratory Results
09/27/24
04:56
WBC 10.1
Hgb 8.4 L
Hct 25.0 L
Plt Count 267
Sodium 133 L
Potassium 3.3 L
Chloride 103
Carbon Dioxide 27
BUN 21 H
Creatinine 1.2 H
Glucose 95
Calcium 7.7 L
Total Bilirubin 0.5
AST 28
ALT 16
Alkaline Phosphatase 246 H
Vital Signs:
Vital Signs
Temp Pulse Resp BP Pulse Ox
98.8 F 75 16 94/49 96
09/27/24 07:30 09/27/24 07:30 09/27/24 07:30 09/27/24 07:30 09/27/24 07:30
I&O
09/26/24 09/27/24 09/28/24
06:59 06:59 06:59
Intake Total 600 / 600 1450 / 1450
Output Total 470 / 470 1565 / 1565
Balance 130 / 130 -115 / -115
[2024-09-27] MEDS: NOVOLOG FLEXPEN-LOW RESISTANCE SC ×2 (08:01→17:23)
[2024-09-27] MEDS: MIRALAX 17 GRAMS PO (09:14)
[2024-09-27] MEDS: REFRESH EYE DROPS (PF) 1 DROPS OPHTH ×3 (09:16→22:16)
[2024-09-27] MEDS: RESTASIS 0.05% OPHTHALMIC EMULSION 1 DROPS BOTH EYES ×2 (09:16→20:49)
[2024-09-27] MEDS: THIAMINE INJECTION 100 MG IV (09:17)
[2024-09-27] MEDS: COLACE 100 MG PO (09:18)
[2024-09-27] MEDS: HEPARIN 5000 UNITS SC (09:19)
[2024-09-27] MEDS: KCL 270 MEQ IV (09:21)
[2024-09-27] MEDS: LOPRESSOR 50 MG PO (09:27)
[2024-09-27] MEDS: BUMEX 0.5 MG IV (09:28)
[2024-09-27] MEDS: PLAQUENIL 200 MG PO (09:32)
[2024-09-27] MEDS: NON-FORMULARY ITEM 1 SPRAY NASAL ×2 (09:33→20:49)
--- NOTE | 2024-09-27 10:18 | W.PN.GS2 ---
Addendum entered and electronically signed by Misha Kaminski MD 09/27/24 15:01:
Son updated by phone, all ?s answered
Addendum entered and electronically signed by Misha Kaminski MD 09/27/24 14:15:
I saw and examined the patient.
The resident's note was reviewed and I agree with the note.
Comment: Stable. Weak and deconditioned, not participating well with PT and relying on dilaudid for pain control. Ostomy ppv, belly distended and mildly ttp, brown liquid stool and lots of gas in appliance, incision cdi, drain clear serous. I think
she is having some overflow around the hard stools in her colon, will cont miralax BID, add PO mineral oil and mineral oil enema via stoma; tylenol ana PO and dc dilaudid in favor of oxycodone PO. Cont FLD with supps.
Original Note:
Today's Communication / Plan
-
The increased bowel regimen with MiraLAX twice daily and milk of mag has resulted in more loose stool produced in the ostomy bag. It is likely that the stool is flowing around the hard impacted stool that has been seen on imaging. We will progress
to enemas with mineral oil if indicated.
Assessment / Plan
-
83 yo female presenting with perforated sigmoid colon secondary to stercoral colitis now POD #11 XL, Chauncey's
SBFT on 09/21 with moderate fecal material throughout the colon but good transit time/no obstruction
XR in follow up with retained PO contrast noted all the way to stoma
AFVSS
Cr mildly elevated/stable
Labs stable, mild hypokalemia noted
Continues to pass flatus, not much stool. Stoma irrigated on 09/23
Acute urinary retention, aviles placed on 09/23
Plan for more aggressive bowel regimen today.
--Continue FLD with supplements
--Multimodal analgesics
--Increased bowel regimen with Miralax BID and milk of mag - will progress to enemas if indicated
--Continue Aviles
--IVF and electrolyte replacements as per primary team
--Continue IV abx per ID
--OOB as able. PT following
--Heparin SQ and SCDS for VTE ppx given reported hx of PE
--c/w MADELAINE drain
--Ostomy nurse following
Subjective Data
-
Date of Service: September 27, 2024
Met with patient at the bedside. She continues to complain of ongoing pain when she is moving in the bed or when she attempts to eat. Patient struggles to participate with PT stating that pain is an ongoing issue.
Objective Data
-
Intake and Output
09/26/24 09/27/24 09/28/24
06:59 06:59 06:59
Intake Total 600 / 600 1450 / 1450
Output Total 470 / 470 1565 / 1565
Balance 130 / 130 -115 / -115
Intake:
Oral fluids 600 / 600 1200 / 1200
IV piggybacks 250 / 250
Output:
Liquid stool amount 75 / 75
Colostomy 75 / 75
Drain Output (Total) 120 / 120 315 / 315
Right Lower Abdomen Mynor- 120 / 120 315 / 315
Horner
Urine, Aviles 350 / 350 1175 / 1175
Vital Signs
Temp Pulse Resp BP Pulse Ox
98.8 F 84 16 113/56 96
09/27/24 07:30 09/27/24 09:28 09/27/24 07:30 09/27/24 09:28 09/27/24 07:30
Lab Results
09/27/24 04:56
09/27/24 04:56
Calcium 7.7 mg/dl (8.4-10.2) L 09/27/24 04:56
Phosphorus 4.0 mg/dl (2.5-4.5) 09/19/24 05:00
Magnesium 1.7 mg/dl (1.6-2.3) 09/24/24 05:53
Total Bilirubin 0.5 mg/dl (0.2-1.3) 09/27/24 04:56
Direct Bilirubin 0.5 mg/dl (0.0-0.4) H 09/16/24 19:12
AST 28 U/L (14-36) 09/27/24 04:56
ALT 16 U/L (0-35) 09/27/24 04:56
Alkaline Phosphatase 246 U/L (38-126) H 09/27/24 04:56
Total Protein 3.8 g/dl (6.3-8.2) L 09/27/24 04:56
Albumin 1.8 g/dl (3.5-5.0) L 09/27/24 04:56
Physical Exam
-
Gen: NAD
Abd: soft, tender, distended, non-peritoneal, incision c/d/i - no erythema, ecchymosis or drainage. MADELAINE serous, ostomy PPV - less edematous, minimal stool, some flatus
Patient has a aviles catheter: Yes
Patient has a central line: No
[2024-09-27] MEDS: TYLENOL 1000 MG PO (10:48)
[2024-09-27 12:18] LABS: Glucose - Point of Care 150 mg/dl (70-99)
[2024-09-27] MEDS: NOVOLOG FLEXPEN-LOW RESISTANCE 1 UNITS SC (12:54)
[2024-09-27] MEDS: ZOFRAN 4 MG IV ×2 (14:54→20:26)
--- NOTE | 2024-09-27 15:43 | W.PN.UPDATE ---
Update Note
Progress Note Update
Called to bedside after episode of coffee grounds emesis, pt reports came on suddenly, low volume. More liquid stool in the stoma pouch, remains distended and mild ttp, similar to earlier exam. Hb has trended down slightly past 72 hrs, will recheck
labs in am. Will check stat upright CXR to r/o free air. Parameters added to lopressor. IV protinix added. Back to NPO with PO meds sips and chips, will hold off on NGT for now but nursing advised if further episodes of vomiting would place NGT.
[2024-09-27] MEDS: NSS (PRESERVATIVE FREE) 10 ML IV (16:32)
[2024-09-27] MEDS: PROTONIX IV 40 MG IV (16:32)
[2024-09-27] MEDS: COMPAZINE 5 MG IV (16:33)
[2024-09-27] MEDS: REFRESH EYE DROPS (PF) OPHTH (17:00)
--- NOTE | 2024-09-27 17:05 | W.PN.ID1 ---
Date of Service
Date of Service: September 27, 2024
Today's Communication
Continue antibiotics
Assessment / Plan
Perforated viscus
Fecal peritonitis
- s/p exp lap / sigmoid colon resection / colostomy (09/16/24)
E. coli bacteremia; secondary to above
Renal insufficiency/JT
Hyponatremia
Atrial fibrillation
Hx PE
Hx Microscopic colitis
IBS
Recommendations:
Leukocytosis resolved
Follow repeat blood cultures - neg to date.
Continue with Zosyn (d#11)
At time of discharge, can transition to Augmentin 500mg po bid.
Creatinine appears stable.
Monitor white count & temperature curve.
����������������������������������������������������������
Chief Complaint
-: Other (Perforated viscus; fecal peritonitis.)
Subjective / Review of Systems
Review of Systems: No Fever and No Chills
Vital Signs / Physical Exam
Vital Signs
Vital Signs
Temp Pulse Resp BP Pulse Ox
98.5 F 77 16 93/56 95
09/27/24 14:45 09/27/24 14:45 09/27/24 14:45 09/27/24 14:45 09/27/24 14:45
Physical Exam
Constitutional: Comfortable, Chronically Ill and Non-toxic
Eyes: Sclera Anicteric
Cardiovascular: S1/S2; Negative S3/S4
Pulmonary: Non Labored
Gastrointestinal: Soft, Non Distended, Normal Bowel Sounds, No Rebound, No Guarding and Other (Ostomy in place.)
Extremities: Edema; Negative Cyanosis or Erythema
Neurological: Awake and Alert
Psychological: Calm
Objective Data
Lab Data
Lab Results
09/27/24 04:56
09/27/24 04:56
PT 16.6 Sec (11.4-14.6) H 09/18/24 03:53
INR 1.31 09/18/24 03:53
APTT 39.2 Sec (23.4-35.0) H 09/18/24 03:53
Estimated Creat Clear 32 ml/min 09/27/24 04:56
Lactic Acid 1.3 mmol/L (0.7-2.0) 09/18/24 03:53
Total Bilirubin 0.5 mg/dl (0.2-1.3) 09/27/24 04:56
AST 28 U/L (14-36) 09/27/24 04:56
ALT 16 U/L (0-35) 09/27/24 04:56
Alkaline Phosphatase 246 U/L (38-126) H 09/27/24 04:56
Most recent labs reviewed.
Micro Results:
09/26/24 07:56 MRSA Screen - Final
Nose No Methicillin Resistant Staphylococcus aureus isolated.
09/18/24 13:56 Blood Culture - Final
Blood/Venous No Growth - Final Report
09/18/24 13:56 Blood Culture - Final
Blood/Venous No Growth - Final Report
09/22/24 15:36 Urine Culture - Final
Urine NO GROWTH
09/16/24 21:00 Blood Culture - Final
Blood/Venous Escherichia coli
Gram Stain - Final
09/16/24 20:53 Blood Culture - Final
Blood/Venous Escherichia coli
Gram Stain - Final
09/17/24 05:08 MRSA Screen - Final
Nose No Methicillin Resistant Staphylococcus aureus isolated.
Imaging:
09/16/2024 CT abdomen/pelvis with IV contrast: Significant amount of free air suggestive of perforated viscus. Severe proctocolitis with surrounding inflammatory change and fluid within the pelvis. Indeterminate 1.6 cm left renal lesion noted.
Questionable subtle change of acute pancreatitis. Underlying mass not excluded. Please see full dictation for additional detail.
[2024-09-27 17:18] LABS: Glucose - Point of Care 151 mg/dl (70-99)
[2024-09-27] MEDS: ROXICODONE 5 MG PO (19:50)
--- NOTE | 2024-09-27 20:30 | PTCARENOTE ---
Pt had 250 cc colostomy output of brown liquid stool mixed with mod amount of dark red blood, c/o nausea and using oral suction for increase oral secretions which noted to be dark brown on the wall canister. Medicated for cramping pain 03/07
throughout abdomen and nausea with + effect. VS 92/54, 90, T98.0, Pox [address] Kaminski and medicare contact specialist [employer] made aware of the above. Also, CXR results taken on previous shift were TT to dr. Kaminski as per his request. CBC w/o diff ordered and obtained,
results TT to dr. Kaminski, 'will hold off on transfusions for now, GI will see pt in AM'. T&S and repeat CBC ordered by covering [employer] with morning labs.
[2024-09-27] MEDS: LOPRESSOR PO (20:48)
[2024-09-27] MEDS: BUMEX IV (20:48)
[2024-09-27] MEDS: HEPARIN SC (20:48)
[2024-09-27] MEDS: MIRALAX PO (20:49)
[2024-09-27 21:04] LABS: Hematocrit 23.2 % (37.0-47.0); Hemoglobin 7.8 g/dL (12.0-16.0); Mean Corp Hgb Conc. 33.6 g/dL (33.0-37.0); Mean Corpuscular Hgb 30.7 pg (27.0-31.0); Mean Corpuscular Volume 91.3 fL (81.0-99.0); Mean Platelet Volume 10.2 fL (7.4-10.4); Platelet Count 322 10^3/uL (130-400); Red Blood Cell Count 2.54 10^6/uL (4.20-5.40); Red Cell Dist. Width 17.2 % (11.5-14.5); White Blood Cell Count 10.3 10^3/uL (4.8-10.8)
[2024-09-27 23:42] LABS: Glucose - Point of Care 127 mg/dl (70-99)
[2024-09-28] VITALS (16 sets, daily range): BP systolic 92–108; BP diastolic 48–62; BMI 21.6
[2024-09-28] MEDS: ZOSYN 50 IV ×3 (02:54→21:10)
--- NOTE | 2024-09-28 03:00 | PTCARENOTE ---
Pt had another 350 cc liquid stools mixed with bright red blood from colostomy, bp remains low 92/50, 90.
[2024-09-28 05:35] LABS: Hematocrit 20.4 % (37.0-47.0); Hemoglobin 6.9 g/dL (12.0-16.0); Mean Corp Hgb Conc. 33.8 g/dL (33.0-37.0); Mean Corpuscular Hgb 30.5 pg (27.0-31.0); Mean Corpuscular Volume 90.3 fL (81.0-99.0); Mean Platelet Volume 10.3 fL (7.4-10.4); Platelet Count 285 10^3/uL (130-400); Red Blood Cell Count 2.26 10^6/uL (4.20-5.40); Red Cell Dist. Width 17.2 % (11.5-14.5); White Blood Cell Count 9.6 10^3/uL (4.8-10.8)
[2024-09-28 05:47] LABS: Blood Urea Nitrogen 44 mg/dl (7-17); Calcium 7.7 mg/dl (8.4-10.2); Carbon Dioxide 22 mmol/L (22-30); Chloride 105 mmol/L (98-107); Estimated Creatinine Clearance 29 ml/min; Glucose 88 mg/dl (70-99); Potassium 3.1 mmol/L (3.5-5.1); Sodium 134 mmol/L (135-145); eGFR 41.31
--- NOTE | 2024-09-28 05:50 | PTCARENOTE ---
Addendum entered by Farhana Barlow RN 09/28/24 06:50:
1 unit of PRBC ordered and transfusing, GI consulted from talent acquisition program manager SUZAN. Dr. Kaminski updated via TT.
Original Note:
Pt with liquid bright red stools colostomy output during shift, critical labs this morning hgb 6.9, hct 20.4. house calls nurse SUZAN Griffiths made aware,on the unit to obtain transfusion consent from pt.
--- NOTE | 2024-09-28 06:42 | W.PN.UPDATE ---
Update Note
Progress Note Update
AM Hgb 6.9/20.4. VS 96/51, 90, 18, 97.7,95%. noted pink to burgundy stool in colostomy bag. AAO x3, Patient reports feeling tired, otherwise stable. blood consent signed, verbalized understanding. Advised to let family know, Grand daughter Macarena
made aware. Type and screen, will transfuse 1 unit PRBC. GI consult in place.
--- NOTE | 2024-09-28 06:48 | CON.GI ---
Addendum entered and electronically signed by Alyssa Reece DO 09/28/24 10:24:
The patient was seen and examined by me independently in collaboration with the nurse practitioner.
Past medical history/social history/medications/allergies/family history reviewed.
Lab data and imaging data reviewed.
Porsche Hayes is an 83-year-old female with past medical history of A-fib not on anticoagulation, history of PE, RA on Humira, osteoporosis, history of microscopic colitis maintained on 3 mg of budesonide and 3 g of colestipol daily admitted with
severe abdominal pain on 09/16 found to have bowel perforation 2/2 stercoral colitis with hemoperitoneum/peritonitis c/b Ecoli bacteremia s/p sigmoid resection and creation of end descending colon colostomy. Her postoperative course has been
complicated by some constipation, hard stool balls in the colon, felt to be contributing to her ongoing abdomianl pain and bloating. Overnight, she had an episode of coffee ground emesis and noted to have red blood in ostomy bag. At time of my
evaluation, abdomen is much less distended and soft, patient admits to symptomatic improvement. Hgb down to 6.9, being transfused with 1 unit PRBC.
Given history/postoperative course suspect current bleeding is 2/2 stercoral ulcer or colitis given the difficulties of breaking up the hard stool balls left in her remaining colon and less likely an upper GI source. Will plan to perform an EGD to
rule out an upper GI source, if normal, will proceed to place an NG tube, which will assist in administering PO contrast for planned CT scan as well as to help give some larger volume of laxatives in attempts to break up her stool balls.
Original Note:
Consultation
-
Date/Time Consultation Requested: 09/28/24 06
Date/Time Consultation Performed: 09/28/24 08
Requesting Provider: SUZAN More
Performing Provider: SUZAN Grissom, Gypsy Reece DO
Reason for Consultation: anemia/GI bleed
Medical History
Chief Complaint / HPI
History of Present Illness:
Pt is an 83y with hx Afib no on AC prior to admission,PE, RA on remicade, osteoporosis, microscopic colitis follows with Shweta on (Colestipol 3 grams/Budesonide 3mg daily), IBS, umbilical hernia as child, foot surgery with admission 09/16 with
severe abdominal pain. Imaging on admission with concern for free air with perforated viscus and severe proctocolitis. Also noted indeterminate renal lesion and subtle changes of pancreatitis underlying mass not excluded and severe constipation.
Pt was taken to OR with concern for stercoral colitis and hemoperitoneum with 300+ blood in abdomen with perforation with sigmoid resection and creation of end descending colostomy(path with segment of colon with perforation and acute peritonitis,
serosal adhesions) . Pt was also noted with Ecoli bacteremia with ID following for antibiotic management. Pt completed SBFT 09/21 with post surgical changes, moderate stool in colon. Pt was noted 09/27 with episode of coffee ground emesis then noted
with pink to burgundy stool in colostomy bag and drop in hbg to 6.9 and asked to see. In review with surgical team concern for constipation with hard stool in colon during surgery with also noted severe constipation on initial imaging. She has
been started on laxative regiment prior to vomiting episode and only passing liquid stool and now noted with brown and red blood in ostomy bag.
Pt denies constipation prior to admission. She states she was having 2 stools daily large volume that would clog toilet at times. She does have GERD on Pepcid prior to admission and admits to only rectal bleeding small amount with mucous 1-2
days prior to admission. Last EGD years ago and colonoscopy around 2022 with diagnosis of microscopic colitis.
Past Medical History
Past Medical History: Arrhythmias (afib on anticoagulation) and Other (PE, microscopic colitis, IBS, RA on remicade, osteoporosis )
Past Surgical History: Orthopedic (foot surgery ) and Other (umbilical hernia as child, foot surgery )
Social History
Tobacco: Non-Smoker
Alcohol: None
Drug: None
Employment: Retired
Family History
Family History: Other (son with hx rectal CA)
Allergies / Home Medications
Allergy/AdvReac Type Severity Reaction Status Date / Time
clindamycin Allergy Unknown Verified 09/16/24 18:48
Sulfa (Sulfonamide Allergy Unknown Verified 09/16/24 18:48
Antibiotics)
�Medication �Instructions �Recorded
B-complex with vitamin C 1 tab PO DAILY Supplement 09/18/24
adalimumab 40 mg/0.4 mL 40 mg SC Q14D Gastrointestinal 09/18/24
subcutaneous pen kit (Humira(CF) Issue
Pen)
alendronate 35 mg tablet 35 mg PO Q7D Osteoporosis 09/18/24
atorvastatin 20 mg tablet 20 mg PO HS High Cholesterol 09/18/24
azathioprine 50 mg tablet 50 mg PO DAILY Gastrointestinal 09/18/24
Issue
budesonide 3 mg 3 mg PO DAILY Gastrointestinal 09/18/24
capsule,delayed,extended release Issue
carboxymethylcellulose 0.5 1 drp ophthalmic (eye) QIDPRN PRN 09/18/24
%-glycerin 1 % (PF) eye dry eyes
drops,dropperette (Refresh Relieva
PF)
cholecalciferol (vitamin D3) 25 25 mcg PO DAILY Supplement 09/18/24
mcg (1,000 unit) tablet
colestipol 1 gram tablet 3 g PO DAILY Gastrointestinal Issue 09/18/24
cyanocobalamin (vitamin B-12) 500 500 mcg PO DAILY Supplement 09/18/24
mcg tablet
cyclosporine 0.05 % eye drops in a 1 drp BOTH EYES BID dry eyes 09/18/24
dropperette (Restasis)
famotidine 20 mg tablet 20 mg PO BID Gastrointestinal Issue 09/18/24
furosemide 40 mg tablet 40 mg PO DAILY Fluid 09/18/24
Retention/Swelling
hydroxychloroquine 200 mg tablet 200 mg PO DAILY Autoimmune Disorder 09/18/24
metoprolol tartrate 25 mg tablet 25 mg PO TID Heart 09/18/24
Disease/Condition
potassium chloride 20 mEq 40 meq PO BID@14,20 Electrolyte 09/18/24
tablet,extended release Repletion
potassium chloride 20 mEq 60 meq PO DAILY Electrolyte 09/18/24
tablet,extended release Repletion
valsartan 40 mg tablet 40 mg PO DAILY@2000 Blood Pressure 09/18/24
varenicline tartrate 0.03 mg/spray 1 spray intranasal BID dry eyes 09/18/24
metered nasal spray (Tyrvaya)
Review of Systems
-
History Source: Patient
Constitutional: Reports Weight Gain (few lbs with fluid )
EENT: Reports No Symptoms
Respiratory: Reports No Symptoms
Cardiac: Reports No Symptoms
Abdomen/GI: Reports Abdominal Pain, Nausea, Vomiting (coffee ground emesis 09/27 ) and Diarrhea (liquid stool with blood in ostomy)
: Reports Other (mild decreased urination prior to admission )
Musculoskeletal: Reports No Symptoms
Skin: Reports No Symptoms
Neurological: Reports Weakness
Endocrine: Reports No Symptoms
Hematologic/Lymphatic: Reports Bleeding (coffee ground emesis and some red blood mixed with stool on ostomy bag )
Vital Signs
Temp Pulse Resp BP Pulse Ox
97.7 F 90 18 96/51 95
09/28/24 06:35 09/28/24 06:35 09/28/24 06:35 09/28/24 06:35 09/28/24 06:35
Physical Exam
Exam
General: Well Developed, Well Nourished and No Apparent Distress
HEENT: Normocephalic and Anicteric
Respiratory: Clear
Cardiac: Regular Rhythm
GI: Soft and Non Distended
Genito-urinary: No Costovertebral Tender
Musculoskeletal: No Clubbing and No Cyanosis
Skin: Warm and Dry
Neuro: Awake, Alert and AO x 3
Psych: Calm
Results
WBC 9.6 10^3/uL (4.8-10.8) 09/28/24 04:38
Hgb 6.9 g/dL (12.0-16.0) L* 09/28/24 04:38
Hct 20.4 % (37.0-47.0) L* 09/28/24 04:38
MCV 90.3 fL (81.0-99.0) 09/28/24 04:38
Plt Count 285 10^3/uL (130-400) 09/28/24 04:38
Absolute Neuts (auto) Cancelled 09/17/24 06:47
PT 16.6 Sec (11.4-14.6) H 09/18/24 03:53
INR 1.31 09/18/24 03:53
APTT 39.2 Sec (23.4-35.0) H 09/18/24 03:53
Sodium 134 mmol/L (135-145) L 09/28/24 04:38
Potassium 3.1 mmol/L (3.5-5.1) L 09/28/24 04:38
Chloride 105 mmol/L (98-107) 09/28/24 04:38
Carbon Dioxide 22 mmol/L (22-30) 09/28/24 04:38
BUN 44 mg/dl (7-17) H 09/28/24 04:38
Creatinine 1.3 mg/dL (0.6-1.0) H 09/28/24 04:38
Calcium 7.7 mg/dl (8.4-10.2) L 09/28/24 04:38
Total Bilirubin 0.5 mg/dl (0.2-1.3) 09/27/24 04:56
AST 28 U/L (14-36) 09/27/24 04:56
ALT 16 U/L (0-35) 09/27/24 04:56
Alkaline Phosphatase 246 U/L (38-126) H 09/27/24 04:56
Lipase 259 U/L (23-300) 09/16/24 19:12
Diagnostic Image Results:
09/16/24 CT A/p
1. Significant amount of free air suggestive of perforated viscus. Severe proctocolitis with surrounding inflammatory change and fluid within the pelvis, possibly site of perforation.
2. Indeterminate 1.6 cm left renal lesion. Recommend outpatient workup with dedicated renal mass protocol CT or MRI.
3. Questionable subtle changes of acute pancreatitis, in the appropriate clinical context. Underlying mass not excluded. Recommend attention on follow-up imaging.
4. Severe constipation.
09/20 CR Abdomen - 1 View
Grossly nonobstructive intestinal bowel gas pattern.
Nasogastric tube with tip in proximal stomach.
09/21/24 RF Sm Intest ONLY-Single Cont
IMPRESSION: Unremarkable exam aside from postsurgical change, lines and tubes as described above and a scoliosis.
Moderate fecal material throughout the colon..
09/24/24 CR Abdomen - 1 View
GI luminal contrast agent from recent small bowel series is now seen within the colon, including extension to the ostomy in the left pelvis.
No significantly dilated air-filled loops of small bowel are identified.
Prior GI Procedures:
EGD: years ago
Colonoscopy: 2022 Dr. Zhu Microscopic colitis report not reviewed
Assessment / Plan
-
Pt is an 83y with hx Afib no on AC prior to admission,PE, RA- on remicade, osteoporosis microscopic colitis follows with Shweta on (Colestipol 3 grams/Budesonide 3mg daily), IBS, umbilical hernia as child, foot surgery with admission 09/16 with
severe abdominal pain. Imaging on admission with concern for free air with perforated viscus and severe proctocolitis. Also noted indeterminate renal lesion and subtle changes of pancreatitis underlying mass not excluded and severe constipation.
Pt was taken to OR with concern for stercoral colitis and hemoperitoneum with 300+ blood in abdomen with perforation with sigmoid resection and creation of end descending colostomy(path with segment of colon with perforation and acute peritonitis,
serosal adhesions) . Pt was also noted with Ecoli bacteremia with ID following for antibiotic management. Pt completed SBFT 09/21 with post surgical changes, moderate stool in colon. Pt was noted 09/27 with episode of coffee ground emesis then noted
with pink to burgundy stool in colostomy bag and drop in hbg to 6.9 and asked to see. In review with surgical team concern for constipation with hard stool in colon during surgery with also noted severe constipation on initial imaging. She has
been started on laxative regiment prior to vomiting episode and only passing liquid stool and now noted with brown and red blood in ostomy bag.
-coffee ground emesis
-blood/brown stool on ostomy bag
-anemia with slow drop in hbg
-perforated viscus with severe proctocolitis on admission s/p Chauncey's 09/16
-hx microscopic colitis on Colestipol 3 grams/Budesonide 3mg daily prior to admission
-initial CT with subtle pancreatitis and underlying mass note excluded
-hypokalemia
-JT on admission
-hypoalbuminemia
other med problems:
-afib no AC prior to admission
-RA on remicade prior to admisison
-hx PE
-IBS
-umbilical hernia as child
PLAN:
etiology of coffee ground and blood in ostomy with concern for continued constipation(as large stool burden on admission) vs UGI bleeding vs other
plan for EGD this AM with NGT during EGD
trend hbg s/p transfusion
cont PPI
for K replacement
after EGD proceed with Ct to follow up on stool burden and reassess pancreas as noted abnormal on initial CT
cont to hold budesonide and Colestipol pending bowel function would cont to hold on discharge
reviewed with Dr. Kaminski
pt agreeable to plan
-
-
Thank you for consultation and allowing me to participate in the patient's care. Please call the moving consultant GI physician during the after hours with any questions or concerns.
--- NOTE | 2024-09-28 07:09 | W.PN.GS2 ---
Addendum entered and electronically signed by Misha Kaminski MD 09/28/24 08:41:
I saw and examined the patient.
The resident's note was reviewed and I agree with the note with the following additions and modifications:
Comment: Issues overnight with single episode emesis described as coffee grounds, low volume, this am with maroon bloody stool per stoma and Hb has declined. She is receiving 1u PRBC, her vitals have remained stable throughout. Her abd exam is
better today than yesterday, softer and less tender. Drain remains clear and serous. She denies nausea this am and reports when she takes ice chips she has no issues. I am concerned about stress ulcer vs recurrent stercoral ulcer. Her diet was
backed down to NPO with sips yesterday after the emesis. Plan for GI consult, protonix increase to BID, CT A/P with PO and IV contrast. Her Cr is elevated but at this time the benefit of the CT outweighs the risks in my opinion. I expect she will
have difficulty taking the contrast, will place NGT for both diagnostic purposes and to aid contrast administration. Son called, unable to reach, VM left.
Original Note:
Today's Communication / Plan
-
Patient's hemoglobin in the morning was 6.9 which is 1 whole unit less than the day prior. 1 unit PRBC given. Patient made n.p.o. Will start NGT. Abdominal CT with IV and oral contrast ordered. Chest x-ray conducted on 09/27/2024 showed no
definite pneumoperitoneum. May need to consider TPN based on persistent diminished oral intake.
Assessment / Plan
-
83 yo female presenting with perforated sigmoid colon secondary to stercoral colitis now POD #12 XL, Chauncey's
SBFT on 09/21 with moderate fecal material throughout the colon but good transit time/no obstruction
XR in follow up with retained PO contrast noted all the way to stoma
AFVSS
Cr mildly elevated/stable
Labs stable, mild hypokalemia noted
Continues to pass flatus, not much stool. Stoma irrigated on 09/23
Acute urinary retention, aviles placed on 09/23
Coffee ground emesis on the afternoon of 09/27/2024, blood found in ostomy bag on morning of 09/28/24, morning labs shows hemoglobin of 6.9 which is 1 full unit less then the morning prior.
- 1 unit of PRBC was given, will follow H&H
--Full liquid diet discontinued�returned to n.p.o.
--Will start NGT
--Abdominal CT with IV and Oral contrast ordered
--May need to consider TPN based on ongoing poor oral intake
--IV Protonix added
--Multimodal analgesics
--Increased bowel regimen with Miralax BID and milk of mag - will progress to enemas if indicated
--Continue Aviles
--IVF and electrolyte replacements as per primary team
--Continue IV abx per ID
--OOB as able. PT following
--Heparin SQ and SCDS for VTE ppx given reported hx of PE
--c/w MADELAINE drain
--Ostomy nurse following
Subjective Data
-
Date of Service: September 28, 2024
Met with patient at the bedside. Yesterday afternoon she had an episode of coffee-ground emesis. She was resting in bed this morning but clearly fatigued. Feels low on energy. Asked if she must get out of bed today and it worried manner.
Reassurance given at the bedside. Patient continues to pass flatus and stool into her ostomy bag. Blood seen in ostomy bag.
Objective Data
-
Intake and Output
09/27/24 09/28/24 09/29/24
06:59 06:59 06:59
Intake Total 1450 / 1450 850 / 850
Output Total 1565 / 1565 1870 / 1870
Balance -115 / -115 -1020 / -1020
Intake:
Oral fluids 1200 / 1200 650 / 650
IV piggybacks 250 / 250 200 / 200
Blood Product Amount Infused ( 0 / 0
mL)
Packed Rbc Leukoreduced Unit 0 / 0
[id number]
Output:
Emesis 200 / 200
Liquid stool amount 75 / 75 750 / 750
Colostomy 75 / 75 750 / 750
Drain Output (Total) 315 / 315 190 / 190
Right Lower Abdomen Mynor- 315 / 315 190 / 190
Horner
Urine, Aviles 1175 / 1175 380 / 380
Urine, Voided 350 / 350
Other:
Number of immeasurable emeses? 5
Vital Signs
Temp Pulse Resp BP Pulse Ox
97.8 F 89 18 93/48 97
09/28/24 06:55 09/28/24 06:55 09/28/24 06:55 09/28/24 06:55 09/28/24 06:55
Lab Results
09/28/24 04:38
09/28/24 04:38
Calcium 7.7 mg/dl (8.4-10.2) L 09/28/24 04:38
Phosphorus 4.0 mg/dl (2.5-4.5) 09/19/24 05:00
Magnesium 1.7 mg/dl (1.6-2.3) 09/24/24 05:53
Total Bilirubin 0.5 mg/dl (0.2-1.3) 09/27/24 04:56
Direct Bilirubin 0.5 mg/dl (0.0-0.4) H 09/16/24 19:12
AST 28 U/L (14-36) 09/27/24 04:56
ALT 16 U/L (0-35) 09/27/24 04:56
Alkaline Phosphatase 246 U/L (38-126) H 09/27/24 04:56
Total Protein 3.8 g/dl (6.3-8.2) L 09/27/24 04:56
Albumin 1.8 g/dl (3.5-5.0) L 09/27/24 04:56
Physical Exam
-
Gen: NAD
Abd: soft, tender, distended, non-peritoneal, incision c/d/i - no erythema, ecchymosis or drainage. MADELAINE serous fluid, ostomy with gas, liquid stool, and blood
Patient has a aviles catheter: Yes
Patient has a central line: No
[2024-09-28] MEDS: LOPRESSOR PO (07:10)
[2024-09-28 07:43] LABS: Glucose - Point of Care 97 mg/dl (70-99)
[2024-09-28] MEDS: NOVOLOG FLEXPEN-LOW RESISTANCE SC (08:24)
[2024-09-28] MEDS: PROTONIX IV 40 MG IV (08:26)
[2024-09-28] MEDS: NSS (PRESERVATIVE FREE) 10 ML IV (08:26)
[2024-09-28] MEDS: NON-FORMULARY ITEM 1 SPRAY NASAL ×2 (08:29→21:13)
[2024-09-28] MEDS: RESTASIS 0.05% OPHTHALMIC EMULSION 1 DROPS BOTH EYES ×2 (08:29→21:10)
[2024-09-28] MEDS: REFRESH EYE DROPS (PF) 1 DROPS OPHTH ×2 (08:29→21:39)
--- NOTE | 2024-09-28 09:28 | W.PN.HOSP.TC ---
Today's Communication/Plan
-
CT study with contrast
NPO for now
Lower dose of BB , encourage BB use to avoid tachycardia/ Afib
One unit of RBCs
IV Potassium
Holding oral medications for now
TPN
Assessment / Plan
Assessment / Plan
Physical Exam
General: Not in acute distress
HEENT: Normocephalic, Moist mucous membranes and Atraumatic
Respiratory: limited to Auscultation Bilaterally, no wheezes.
Cardiac: S1/S2 and Regular Rate and Rhythm
GI: Soft, not tender or distended. , midline incision and dressing intact, NG tube with bilious material, drain with serosanguineous fluid, + BS.
Musculoskeletal: No Cyanosis, Edema of both lower extremities.
Skin: Warm. Dry.
Neuro: Alert. Awake. Nonfocal/grossly intact
Psych: calm
Assessment/Plan
83-year-old female with past medical history of umbilical hernia surgery as a child, atrial fibrillation not on anticoagulation, prior pulmonary embolism, microscopic colitis and IBS presented with abdominal pain. She started having lower abdominal
pain 4 days prior to presentation. Pain was initially intermittent but now constant, and has become more severe. Last bowel movement 5 days prior to presentation. Patient has been passing clear mucus several times a day with some blood in the stool.
On the day of presentation, she had an episode of vomiting, without blood. At the time of admission, she denied fevers, chills, chest pain or shortness of breath. She was found to have perforated viscus likely secondary to severe proctocolitis.
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
Patient was noticed to have slow recovery with slow colostomy output. Drain right lower side ( + output)
She was on liquid diet and given laxative regimen
Last night, she had vomiting then blood stool in colostomy, plan for CT with contrast study. Back to be NPO, will need IVF/TPN
Started on PPI BID.
GI is consulted also
f/w surgery and GI recommendations
-Wound/ostomy nurse consultation
#E. Coli bacteremia
-Repeat blood cultures with no growth to date
-Given E. coli bacteremia, consulted Infectious Disease --> okay to continue Zosyn
-At time of discharge, can transition to Augmentin 500mg po bid.
-Pain regimen scheduled and PRN, but no NSAIDs given recent rise in creatine
# Acute blood loss anemia
Received 1 unit PRBC on 09/18/24
Ordered another unit 09/28
# Acute on chronic lymphedema
-Suspected from hypoalbuminemia and not ambulatory
Was started on Bumex IV, lost weight and less edema in legs but now with NPO/ Hypotension/ contrast study, will hold Bumex for now
#Mild Hyponatremia.
#Hypokalemia
replace with IV KCl
#Asymptomatic Hypoglycemia
-Monitor glucose
#JT
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
-Urine output better
-Okay to c/w Conner catheter while dealing with abdominal issue and not ambulatory
-Avoid NSAIDs
#Hx of paroxysmal atrial fibrillation, followed by Dr. Jarrett of [facility]
#A-Fib with RVR
-Not on anticoagulation as an outpatient
-No anticoagulation due to history of hemorrhagic pericardial effusion (her drug discovery informatics specialist told her no oral anticoagulation)
-Patient is aware of stroke risk associated with not taking anticoagulation and prefers to continue to avoid anticoagulation at this time
-But patient said Heparin DVT prophylaxis is okay
-Patient's PO Lopressor resumed, but at increased dose @ 50 mg BID (instead of home 25 mg TID), holding BB while low BP
-Outpatient follow-up to Dr. Tiwari of [facility]
#[employer] DC PPM
#History of Pulmonary Embolism
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
#Microscopic colitis
-Patient usually sees Dr. Shweta Zhu at [facility] with [facility] Dr. Zhu prescribes the patient's Budesonide and the Colestipol
-Holding Budesonide and Colestipol for now given acute illness
#Rheumatoid Arthritis
-Stable without any flare-up
-Patient sees Dr. Delgado - Rheumatology at [place] who prescribes the Hydroxychloroquine , ok to resume.
-Holding immunosuppressive [place], especially given Azathioprine is a immunosuppressant and patient is recovering from abdominal surgery and bacteremia
-- OP f/u with latin american studies professor Dr. Delgado
#IBS
#Chronic venous insufficiency
#Peripheral neuropathy
#PVCs
#Osteoporosis
Code Status: Full code
DVT Prophylaxis: SCDs and Heparin SUBQ
Total time spent to see the patient, examine the pt, review data and lab results, discuss treatment plan with pt, consultants, nursing staff around 57 minutes
Anticipated Discharge: > 48 hours
Subjective/Interval History
-
Date of Service: September 28, 2024
No chest pain
Mild abd discomfort
Events over night reviewed, d/w night nurse
Objective Data
-
Labs:
Laboratory Results
09/28/24 09/28/24
02:00 04:38
WBC 9.6
Hgb Cancelled 6.9 L*
Hct Cancelled 20.4 L*
Plt Count 285
Sodium 134 L
Potassium 3.1 L
Chloride 105
Carbon Dioxide 22
BUN 44 H
Creatinine 1.3 H
Glucose 88
Calcium 7.7 L
Vital Signs:
Vital Signs
Temp Pulse Resp BP Pulse Ox
97.9 F 87 16 105/55 97
09/28/24 07:12 09/28/24 07:12 09/28/24 07:12 09/28/24 07:12 09/28/24 07:12
I&O
09/27/24 09/28/2425
06:59 06:59 06:59
Intake Total 1450 / 1450 850 / 850
Output Total 1565 / 1565 1870 / 1870
Balance -115 / -115 -1020 / -1020
[2024-09-28] MEDS: KCL 270 MEQ IV (09:48)
--- NOTE | 2024-09-28 10:42 | PTCARENOTE ---
Addendum entered by Gabriela Gautam RN 09/28/24 10:49:
MD order to hold AM metoprolol dose for BP of 99/53.
Original Note:
1 unit of PRBC finished infusing for this RN, BP 99/53. Pt in GI for EGD with placement of NGT to instill CT oral prep after 1 hour of decompression to LIS, NGT to be placed in procedure. CT scan made aware of current plan. GI and surgical in to see
pt and explain plan, this RN updated granddaughter at bedside. Conner to be staying in for 2 additional days given decline in care. Colostomy with stool and small amount of bright red bloody output, multiple MD's included in care all made aware.
Serous output from right MADELAINE drain. Nathaly brumfield for K of 3.1. No new orders at this time.
[2024-09-28] MEDS: ZOSYN IV (11:19)
--- NOTE | 2024-09-28 11:59 | PTCARENOTE ---
Received pt back from PACU, VSS, granddaughter updated at bedside, report given to this RN. PPI gtt to be initiated, pt resting comfortably in bed at this time.
[2024-09-28] MEDS: REFRESH EYE DROPS (PF) OPHTH ×2 (12:00→17:11)
[2024-09-28 12:08] LABS: Glucose - Point of Care 89 mg/dl (70-99)
[2024-09-28] MEDS: DILAUDID 0.25 MG IV (12:09)
[2024-09-28] MEDS: PROTONIX 100 IV ×2 (13:00→23:17)
--- NOTE | 2024-09-28 14:43 | CM ---
Patient with decreased hgb, transfused.
EGD completed.
NPO, IVF.
Plan: home with [facility] when stable, declined skilled rehab.
[2024-09-28] MEDS: DILAUDID 0.5 MG IV ×2 (14:48→19:53)
[2024-09-28] MEDS: MIRALAX PO ×2 (15:06→21:39)
--- NOTE | 2024-09-28 15:52 | W.PN.ID1 ---
Date of Service
Date of Service: September 28, 2024
Today's Communication
Continue antibiotics.
Assessment / Plan
Perforated viscus
Fecal peritonitis
- s/p exp lap / sigmoid colon resection / colostomy (09/16/24)
E. coli bacteremia; secondary to above
Renal insufficiency/JT
Hyponatremia
Atrial fibrillation
Hx PE
Hx Microscopic colitis
IBS
Recommendations:
Leukocytosis resolved
Follow repeat blood cultures - neg to date.
Continue with Zosyn (d#12) to continue through 09/30/24
If discharged before hand, can transition to Augmentin 500 mg twice daily, with the same end date.
Little more to offer from an Infectious Diseases standpoint.
Will see again at your request.
����������������������������������������������������������
Chief Complaint
-: Other (Perforated viscus; fecal peritonitis.)
Subjective / Review of Systems
Review of Systems: No Fever and No Chills
Vital Signs / Physical Exam
Vital Signs
Vital Signs
Temp Pulse Resp BP Pulse Ox
97.6 F 86 16 106/57 93
09/28/24 11:58 09/28/24 11:58 09/28/24 11:58 09/28/24 11:58 09/28/24 11:58
Physical Exam
Constitutional: Comfortable, Chronically Ill and Non-toxic
Eyes: Sclera Anicteric
Cardiovascular: S1/S2; Negative S3/S4
Pulmonary: Non Labored
Gastrointestinal: Soft, Non Distended, Normal Bowel Sounds, No Rebound, No Guarding and Other (Ostomy in place.)
Extremities: Edema and Cyanosis; Negative Erythema
Neurological: Awake and Alert
Psychological: Calm
Objective Data
Lab Data
Lab Results
09/28/24 04:38
09/28/24 04:38
PT 16.6 Sec (11.4-14.6) H 09/18/24 03:53
INR 1.31 09/18/24 03:53
APTT 39.2 Sec (23.4-35.0) H 09/18/24 03:53
Estimated Creat Clear 29 ml/min 09/28/24 04:38
Lactic Acid 1.3 mmol/L (0.7-2.0) 09/18/24 03:53
Total Bilirubin 0.5 mg/dl (0.2-1.3) 09/27/24 04:56
AST 28 U/L (14-36) 09/27/24 04:56
ALT 16 U/L (0-35) 09/27/24 04:56
Alkaline Phosphatase 246 U/L (38-126) H 09/27/24 04:56
Most recent labs reviewed.
Micro Results:
09/26/24 07:56 MRSA Screen - Final
Nose No Methicillin Resistant Staphylococcus aureus isolated.
09/18/24 13:56 Blood Culture - Final
Blood/Venous No Growth - Final Report
09/18/24 13:56 Blood Culture - Final
Blood/Venous No Growth - Final Report
09/22/24 15:36 Urine Culture - Final
Urine NO GROWTH
09/16/24 21:00 Blood Culture - Final
Blood/Venous Escherichia coli
Gram Stain - Final
09/16/24 20:53 Blood Culture - Final
Blood/Venous Escherichia coli
Gram Stain - Final
09/17/24 05:08 MRSA Screen - Final
Nose No Methicillin Resistant Staphylococcus aureus isolated.
Imaging:
09/16/2024 CT abdomen/pelvis with IV contrast: Significant amount of free air suggestive of perforated viscus. Severe proctocolitis with surrounding inflammatory change and fluid within the pelvis. Indeterminate 1.6 cm left renal lesion noted.
Questionable subtle change of acute pancreatitis. Underlying mass not excluded. Please see full dictation for additional detail.
[2024-09-28 17:28] LABS: Glucose - Point of Care 77 mg/dl (70-99)
--- NOTE | 2024-09-28 17:40 | PTCARENOTE ---
Addendum entered by Gabriela Gautam RN 09/28/24 18:37:
Oncoming RN made aware of waiting on albumin.
Addendum entered by Gabriela Gautam RN 09/28/24 17:55:
Spoke with cross coverage over the phone, albumin and repeat labs ordered, PRN hypoglycemic agent in AUG if need be. Oncoming RN to be made aware.
Original Note:
Q6 accucheck today was 97 at 0600, 87 at 1200, and 77 at 1800. This RN texted cross coverage and surgical team assigned to case to let them know of the decrease in blood sugar, no IVF or oral intake, and severe edema on pt. Hypoglycemic agent in AUG
for blood sugar less than 70. No new orders at this time.
[2024-09-28 18:20] LABS: Hematocrit 25.9 % (37.0-47.0); Hemoglobin 8.9 g/dL (12.0-16.0); Mean Corp Hgb Conc. 34.4 g/dL (33.0-37.0); Mean Corpuscular Hgb 30.4 pg (27.0-31.0); Mean Corpuscular Volume 88.4 fL (81.0-99.0); Mean Platelet Volume 9.7 fL (7.4-10.4); Platelet Count 331 10^3/uL (130-400); Red Blood Cell Count 2.93 10^6/uL (4.20-5.40); Red Cell Dist. Width 17.7 % (11.5-14.5); White Blood Cell Count 10.4 10^3/uL (4.8-10.8)
[2024-09-28 18:30] LABS: Blood Urea Nitrogen 36 mg/dl (7-17); Calcium 7.6 mg/dl (8.4-10.2); Carbon Dioxide 26 mmol/L (22-30); Chloride 107 mmol/L (98-107); Estimated Creatinine Clearance 29 ml/min; Glucose 75 mg/dl (70-99); Potassium 3.8 mmol/L (3.5-5.1); Sodium 136 mmol/L (135-145); eGFR 41.31
[2024-09-28] MEDS: FLEXBUMIN 50 IV (19:42)
[2024-09-28] MEDS: D5/0.9% SODIUM CHLORIDE 1000 IV (19:53)
[2024-09-28] MEDS: NSS (PRESERVATIVE FREE) IV (20:43)
[2024-09-28] MEDS: LOPRESSOR 50 MG PO (21:10)
[2024-09-29] VITALS (12 sets, daily range): BP systolic 97–122; BP diastolic 49–64; BMI 22.1
[2024-09-29 00:21] LABS: Glucose - Point of Care 97 mg/dl (70-99)
[2024-09-29] MEDS: DILAUDID 0.5 MG IV ×5 (00:39→22:20)
[2024-09-29] MEDS: ZOSYN 50 IV ×4 (02:03→21:20)
[2024-09-29] MEDS: FLEXBUMIN 50 IV ×2 (02:04→09:30)
[2024-09-29 06:32] LABS: Glucose - Point of Care 97 mg/dl (70-99)
--- NOTE | 2024-09-29 07:12 | W.PN.HOSP.TC ---
Today's Communication/Plan
-
Recheck H&H, if stable, will start liquid
Assessment / Plan
Assessment / Plan
Physical Exam
General: Not in acute distress
HEENT: Normocephalic, Moist mucous membranes and Atraumatic
Respiratory: limited to Auscultation Bilaterally, no wheezes.
Cardiac: S1/S2 and Regular Rate and Rhythm
GI: Soft, not tender or distended. , midline incision and dressing intact, NG tube with bilious material, drain with serosanguineous fluid, + BS.
Musculoskeletal: No Cyanosis, Edema of both lower extremities.
Skin: Warm. Dry.
Neuro: Alert. Awake. Nonfocal/grossly intact
Psych: calm
Assessment/Plan
83-year-old female with past medical history of umbilical hernia surgery as a child, atrial fibrillation not on anticoagulation, prior pulmonary embolism, microscopic colitis and IBS presented with abdominal pain. She started having lower abdominal
pain 4 days prior to presentation. Pain was initially intermittent but now constant, and has become more severe. Last bowel movement 5 days prior to presentation. Patient has been passing clear mucus several times a day with some blood in the stool.
On the day of presentation, she had an episode of vomiting, without blood. At the time of admission, she denied fevers, chills, chest pain or shortness of breath. She was found to have perforated viscus likely secondary to severe proctocolitis.
# Upper GI bleeding due to esophagitis and esophageal ulcer
EGD also showed non bleeding gastric ulcer
No nausea, feels hungry
Started on IV PPI
Recheck HGB, if stable, will change to IV PPI BID & Ok for clear liquid
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
Patient was noticed to have slow recovery with slow colostomy output. Drain right lower side ( + output)
She was on liquid diet and given laxative regimen but held after vomiting, blood in colostomy bag
Started on PPI
GI is consulted also
f/w surgery and GI recommendations
-Wound/ostomy nurse consultation
#E. Coli bacteremia
-Repeat blood cultures with no growth to date
-Given E. coli bacteremia, consulted Infectious Disease --> okay to continue Zosyn Per ID: Zosyn (d#13) to continue through 09/30/24
-At time of discharge, can transition to Augmentin 500mg po bid.
-Pain regimen scheduled and PRN, but no NSAIDs given recent rise in creatine
# Acute blood loss anemia
Received 1 unit PRBC on 09/18/24
Ordered another unit 09/28
# Acute on chronic lymphedema
-Suspected from hypoalbuminemia and not ambulatory
Was started on Bumex IV, lost weight and less edema in legs but now with NPO/ Hypotension/ contrast study, holding Bumex for now
#Mild Hyponatremia.
#Hypokalemia
replace with IV KCl
#Asymptomatic Hypoglycemia
-Monitor glucose
#JT
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
-Urine output better
-Okay to c/w Conner catheter while dealing with abdominal issue and not ambulatory
-Avoid NSAIDs
#Hx of paroxysmal atrial fibrillation, followed by Dr. Jarrett of [facility]
#A-Fib with RVR
-Not on anticoagulation as an outpatient
-No anticoagulation due to history of hemorrhagic pericardial effusion (her junior paralegal told her no oral anticoagulation)
-Patient is aware of stroke risk associated with not taking anticoagulation and prefers to continue to avoid anticoagulation at this time
-But patient said Heparin DVT prophylaxis is okay
-Patient's PO Lopressor resumed, but at increased dose @ 50 mg BID (instead of home 25 mg TID), holding BB while low BP
-Outpatient follow-up to Dr. Tiwari of [facility]
#[employer] DC PPM
#History of Pulmonary Embolism
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
#Microscopic colitis
-Patient usually sees Dr. Shweta Zhu at [facility]; Dr. Zhu prescribes the patient's Budesonide and the Colestipol
-Holding Budesonide and Colestipol for now given acute illness
#Rheumatoid Arthritis
-Stable without any flare-up
-Patient sees Dr. Delgado - Rheumatology at [place] who prescribes the Hydroxychloroquine , ok to resume.
-Holding immunosuppressive [place], especially given Azathioprine is a immunosuppressant and patient is recovering from abdominal surgery and bacteremia
-- OP f/u with genetic technologist Dr. Delgado
#IBS
#Chronic venous insufficiency
#Peripheral neuropathy
#PVCs
#Osteoporosis
Code Status: Full code
DVT Prophylaxis: SCDs and Heparin SUBQ
Total time spent to see the patient, examine the pt, review data and lab results, discuss treatment plan with pt, consultants, nursing staff around 57 minutes
Anticipated Discharge: > 48 hours
Subjective/Interval History
-
Date of Service: September 29, 2024
Mild lower abdominal pain
She feels hungry, no nausea
Objective Data
-
Labs:
Laboratory Results
09/29/24
06:51
Hgb Pending
Vital Signs:
Vital Signs
Temp Pulse Resp BP Pulse Ox
98.2 F 72 18 103/52 96
09/29/24 03:27 09/29/24 03:27 09/29/24 03:27 09/29/24 03:27 09/29/24 03:27
I&O
09/28/24 09/29/24 09/30/24
06:59 06:59 06:59
Intake Total 850 / 850 1944 / 1944
Output Total 1870 / 1870 1245 / 1245
Balance -1020 / -1020 700 / 700
[2024-09-29] MEDS: REFRESH EYE DROPS (PF) 1 DROPS OPHTH ×4 (07:59→21:19)
[2024-09-29] MEDS: MIRALAX PO ×2 (07:59→17:00)
[2024-09-29] MEDS: RESTASIS 0.05% OPHTHALMIC EMULSION 1 DROPS BOTH EYES ×2 (08:06→21:20)
[2024-09-29] MEDS: PROTONIX 100 IV (08:06)
[2024-09-29] MEDS: NSS (PRESERVATIVE FREE) IV (08:07)
[2024-09-29] MEDS: NON-FORMULARY ITEM 1 SPRAY NASAL ×2 (08:09→21:20)
[2024-09-29] MEDS: LOPRESSOR PO (08:11)
--- NOTE | 2024-09-29 09:02 | W.PN.GI.CBS2 ---
Today's Communication / Plan
-
monitor H&H, give 1unit of PRBC. t/c repeat EGD if signs of ongoing bleeding/hemoglobin continues to drop
Assessment / Plan
-
Porsche Hayes is an 83-year-old female with past medical history of A-fib not on anticoagulation, history of PE, RA on Humira, osteoporosis, history of microscopic colitis maintained on 3 mg of budesonide and 3 g of colestipol daily admitted with
severe abdominal pain on 09/16 found to have bowel perforation 2/2 stercoral colitis with hemoperitoneum/peritonitis c/b Ecoli bacteremia s/p sigmoid resection and creation of end descending colon colostomy. Her postoperative course has been
complicated by some constipation, hard stool balls in the colon, felt to be contributing to her ongoing abdominal pain and bloating. On 09/27-09/28, had an episode of coffee-ground emesis and bloody output in her colostomy bag, with some hypotension.
Hgb dropped to 6.9, transfused wtih 2 units of PRBC with adequate correction.
She underwent EGD yesterday with findings of 3 ulcers, 1 of which had a large clot, but appeared to be healing without obvious high risk stigmata, present within her hiatal hernia. She had 2 other ulcer, a smaller one in her hiatal hernia and a
linear ulcer in her cardia which also appeared clean based. Suspect etiology of ulcers were related to prior NGT as well as stress-induced. She was placed on PPI gtt, some melena in her colostomy bag overnight but brown liquid stool this morning.
#Esophageal/gastric ulcers
-s/p EGD on 09/28 w/o intervention
-PPI gtt
-Hgb 6.9 --> 8.9 --> 7.2 this morning, it does not appear that she is actively bleeding on exam, so this could be her equilibrating from blood lost initially
-recommend changing to NPO, repeating H&H in early afternoon, if she continues to drop, would recommend repeat EGD
#Severe constipation following Chauncey's POD#13 for perforated sigmoid colon 2/2 stercoral colitis
-SBFT on 09/21 with moderate fecal material throughout the colon but good transit time/no obstruction
-XR in follow up with retained PO contrast noted all the way to stoma
-started on miralax TID on 09/28
#Abnormal imaging of the pancreas
-CT A/P on 09/16: 'questionable pancreatic edema, questionable subtle changes of acute pancreatitis, underlying mass cannot be excluded.'
-recommend follow-up CT or MRI to better assess these findings
Subjective
Subjective
Date of Service: September 29, 2024
Patient seen in follow-up, reports that her nurse had emptied some black stool from her colostomy bag earlier this morning, no bright red blood seen. She was transfused with 2 units of PRBC yesterday with a evening hemoglobin of 8.9. Morning labs
pending.
Objective
Data Reviewed
Laboratory Data:
Laboratory Results
09/28/24 18:07
Laboratory Results
PT 16.6 Sec (11.4-14.6) H 09/18/24 03:53
INR 1.31 09/18/24 03:53
APTT 39.2 Sec (23.4-35.0) H 09/18/24 03:53
Phosphorus 4.0 mg/dl (2.5-4.5) 09/19/24 05:00
Magnesium 1.7 mg/dl (1.6-2.3) 09/24/24 05:53
Total Bilirubin 0.5 mg/dl (0.2-1.3) 09/27/24 04:56
AST 28 U/L (14-36) 09/27/24 04:56
ALT 16 U/L (0-35) 09/27/24 04:56
Alkaline Phosphatase 246 U/L (38-126) H 09/27/24 04:56
Lipase 259 U/L (23-300) 09/16/24 19:12
Vital Signs and I&O:
Vital Signs
Temp Pulse Resp BP Pulse Ox
97.5 F 74 22 93/46 96
09/29/24 07:25 09/29/24 08:11 09/29/24 07:25 09/29/24 08:11 09/29/24 07:25
I&O
09/28/24 09/29/24 09/30/24
06:59 06:59 06:59
Intake Total 850 / 850 1945 / 194
Output Total 1870 / 1870 1245 / 1245
Balance -1020 / -1020 700 / 700
Physical Exam
Physical Exam
GENERAL: In no acute distress, appears comfortable
ABDOMEN: +BS; soft, mildy distended but improved. Surgical incision c/d/i. Colostomy bag with liquid brown stool , non-tender and non-distended; no rebound or guarding
[2024-09-29 09:08] LABS: Hemoglobin 7.2 g/dL (12.0-16.0)
--- NOTE | 2024-09-29 10:01 | WOUNDNOTE ---
BUTTOCKS AND SACRUM 1942 [id number]
--- NOTE | 2024-09-29 10:02 | WOUNDNOTE ---
[facility] RN NOTE: Patient visited for colostomy pouch change. Patient feeling very weak today due to recent events and could not assist with emptying of pouch. Patient asked appropriate questions during colostomy care and all questions were answered by
this leader writer. Pouch with some dark, bloody output. Peristomal skin intact and pouch changed with barrier # [id number] and pouch # [id number]. Stoma pink and edematous. Patient with new DTI to sacrum. The area measures approximally 3x4cm and is characterized by
blue/black ecchymosis and some non-blanchable red areas. Bilateral heels are blanchable. Patient expressed surprise when told about wound and possibility of it worsening. Patient commented that staff have been doing a 'great job' turning and
repositioning her frequently. This leader writer explained to patient that other factors such as poor intake and decreased mobility can also put her at risk for pressure injuries. The DTI was covered with sacral foam and RN, Julisa and Dr. Hernandez made
aware. Static air overlay added to bed and patient was placed in semi-side lying position. Heels off-loaded on 2 pillows. Will update discharge, orders and care plan. Will continue to follow during in-patient stay.
[2024-09-29 10:59] LABS: Glucose - Point of Care 78 mg/dl (70-99)
[2024-09-29] MEDS: NOVOLOG FLEXPEN-LOW RESISTANCE SC (11:01)
--- NOTE | 2024-09-29 11:32 | W.PN.GS2 ---
Addendum entered and electronically signed by Misha Kaminski MD 09/29/24 14:32:
Son updated by phone. All questions answered.
Addendum entered and electronically signed by Misha Kaminski MD 09/29/24 12:07:
I saw and examined the patient.
The Tile Decorator's note was reviewed and I agree with the note.
Comment: Looks non-toxic, feels weak, pain about the same, denies n/v. Hb improved after tranfusion but dropped again. Normotensive but soft pressures. Belly soft slightly more distended than yesterday, stoma PV with black liquid contents, no
further melena or burgundy fluid. plan for additional PRBCs today, monitoring, CLD, miralax. If Hb contiinues dropping may need rpt EGD
Original Note:
Today's Communication / Plan
-
Clear liquids
Transfuse 2 units and follow labs
Assessment / Plan
-
83 yo female presenting with perforated sigmoid colon secondary to stercoral colitis now POD #13 XL, Chauncey's
SBFT on 09/21 with moderate fecal material throughout the colon but good transit time/no obstruction
XR in follow up with retained PO contrast noted all the way to stoma
Stoma irrigated on 09/23
AFVSS
Cr mildly elevated/stable
Acute blood loss anemia present s/p 1 unit on 09/28 with 2 units planned today
Acute urinary retention, aviles placed on 09/23
More stool present in appliance, old blood noted
UGI with esophageal and gastric ulcers seen on EGD 09/28
--GI following, appreciate recs
--Clear liquids
--IV Protonix gtt as per GI
--Multimodal analgesics
--ABX as per ID
--Bowel regimen with Miralax TID, last 3 doses not given d/t NPO status
--Continue Aviles
--IVF and electrolyte replacements as per primary team
--Continue IV abx per ID
--OOB as able. PT following
--Heparin SQ on hold given bleeding, utilize SCDS for VTE ppx given reported hx of PE
--c/w MADELAINE drain
Subjective Data
-
Date of Service: September 29, 2024
Patient seen and examined at bedside with Dr. Kaminski. Some pain to her abdomen/epigastric area, minimal.
Objective Data
-
Intake and Output
09/28/24 09/29/24 09/30/24
06:59 06:59 06:59
Intake Total 850 / 850 1945 / 1945
Output Total 1870 / 1870 1245 / 1245
Balance -1020 / -1020 700 / 700
Intake:
Oral fluids 650 / 650 190 / 190
IV fluids (Total) 675 / 675
NSS 75 / 75
IV piggybacks 200 / 200 560 / 560
Blood products 270 / 270
Blood Product Amount Infused ( 0 / 0 250 / 250
mL)
Packed Rbc Leukoreduced Unit 0 / 0 250 / 250
[id number]
Output:
Emesis 200 / 200
Liquid stool amount 750 / 750 140 / 140
Colostomy 750 / 750 140 / 140
Drain Output (Total) 190 / 190 105 / 105
Right Lower Abdomen Mynor- 190 / 190 105 / 105
Horner
Urine, Aviles 380 / 380 1000 / 1000
Urine, Voided 350 / 350
Other:
Number of immeasurable emeses? 5
Vital Signs
Temp Pulse Resp BP Pulse Ox
97.5 F 74 22 93/46 96
09/29/24 07:25 09/29/24 08:11 09/29/24 07:25 09/29/24 08:11 09/29/24 07:25
Lab Results
09/29/24 08:55
09/28/24 18:07
Calcium 7.6 mg/dl (8.4-10.2) L 09/28/24 18:07
Phosphorus 4.0 mg/dl (2.5-4.5) 09/19/24 05:00
Magnesium 1.7 mg/dl (1.6-2.3) 09/24/24 05:53
Total Bilirubin 0.5 mg/dl (0.2-1.3) 09/27/24 04:56
Direct Bilirubin 0.5 mg/dl (0.0-0.4) H 09/16/24 19:12
AST 28 U/L (14-36) 09/27/24 04:56
ALT 16 U/L (0-35) 09/27/24 04:56
Alkaline Phosphatase 246 U/L (38-126) H 09/27/24 04:56
Total Protein 3.8 g/dl (6.3-8.2) L 09/27/24 04:56
Albumin 1.8 g/dl (3.5-5.0) L 09/27/24 04:56
Physical Exam
-
Gen: NAD
Abd: soft, tender, mildly distended, non-peritoneal, incision c/d/i - no erythema, ecchymosis or drainage, intact laura. MADELAINE with serous fluid, ostomy with gas, liquid stool, and old blood. Stoma pink, viable, mild edema
Patient has a aviles catheter: Yes
Patient has a central line: No
--- NOTE | 2024-09-29 12:39 | CM ---
Patient receiving blood products today for decr hgb.
Colostomy changed today.
Patient has been declining skilled rehab, will await medical stability and additional recommendations for patient.
Liquid diet.
Plan: TBD, wants home with [facility] but may be too weak.
[2024-09-29] MEDS: LASIX 20 MG IV (13:36)
[2024-09-29] MEDS: DILAUDID 0.25 MG IV (13:47)
[2024-09-29 17:02] LABS: Glucose - Point of Care 153 mg/dl (70-99)
[2024-09-29] MEDS: NOVOLOG FLEXPEN-LOW RESISTANCE 1 UNITS SC (18:09)
[2024-09-29] MEDS: PROTONIX IV 40 MG IV (21:19)
[2024-09-29] MEDS: NSS (PRESERVATIVE FREE) 10 ML IV (21:19)
[2024-09-29] MEDS: LOPRESSOR 50 MG PO (21:21)
[2024-09-29] MEDS: MIRALAX 17 GRAMS PO (21:21)
[2024-09-29 22:38] LABS: Glucose - Point of Care 104 mg/dl (70-99)
[2024-09-30] MEDS: DILAUDID 0.5 MG IV ×4 (01:15→22:43)
[2024-09-30] MEDS: ZOSYN 50 IV ×4 (02:43→21:01)
[2024-09-30 03:39] VITALS: BP 101/61
[2024-09-30 05:36] LABS: Hematocrit 31.1 % (37.0-47.0); Hemoglobin 10.9 g/dL (12.0-16.0); Mean Corpuscular Hgb 31.1 pg (27.0-31.0); Mean Corpuscular Volume 88.6 fL (81.0-99.0); Mean Platelet Volume 9.3 fL (7.4-10.4); Platelet Count 263 10^3/uL (130-400); Red Blood Cell Count 3.51 10^6/uL (4.20-5.40); Red Cell Dist. Width 16.3 % (11.5-14.5); White Blood Cell Count 7.6 10^3/uL (4.8-10.8)
[2024-09-30 05:53] LABS: Blood Urea Nitrogen 24 mg/dl (7-17); Calcium 7.7 mg/dl (8.4-10.2); Carbon Dioxide 23 mmol/L (22-30); Chloride 107 mmol/L (98-107); Estimated Creatinine Clearance 35 ml/min; Glucose 79 mg/dl (70-99); Magnesium 1.7 mg/dl (1.6-2.3); Potassium 2.9 mmol/L (3.5-5.1); Sodium 137 mmol/L (135-145); eGFR 50.48
[2024-09-30 06:00] VITALS: BMI 21.7
--- NOTE | 2024-09-30 07:21 | W.PN.UPDATE ---
Update Note
Progress Note Update
AM labs: K+ 2.9. Ordered IV�potassium rider 40 meq.
[2024-09-30 07:29] LABS: Glucose - Point of Care 99 mg/dl (70-99)
[2024-09-30 07:59] VITALS: BP 102/56
[2024-09-30] MEDS: NSS (PRESERVATIVE FREE) 10 ML IV ×2 (08:21→21:00)
[2024-09-30] MEDS: PROTONIX IV 40 MG IV ×2 (08:22→21:01)
--- NOTE | 2024-09-30 08:49 | W.PN.GI.CBS2 ---
Today's Communication / Plan
-
Continue PPI IV BID. Monitor hemoglobin
Assessment / Plan
-
Porsche Hayes is an 83-year-old female with past medical history of A-fib not on anticoagulation, history of PE, RA on Humira, osteoporosis, history of microscopic colitis maintained on 3 mg of budesonide and 3 g of colestipol daily admitted with
severe abdominal pain on 09/16 found to have bowel perforation 2/2 stercoral colitis with hemoperitoneum/peritonitis c/b Ecoli bacteremia s/p sigmoid resection and creation of end descending colon colostomy. Her postoperative course has been
complicated by some constipation, hard stool balls in the colon, felt to be contributing to her ongoing abdominal pain and bloating. On 09/27-09/28, had an episode of coffee-ground emesis and bloody output in her colostomy bag, with some hypotension.
Hgb dropped to 6.9, transfused wtih 2 units of PRBC with adequate correction.
She underwent EGD on 09/28 with findings of 3 ulcers, 1 of which had a large clot, but appeared to be healing without obvious high risk stigmata, present within her hiatal hernia. She had 2 other ulcer, a smaller one in her hiatal hernia and a linear
ulcer in her cardia which also appeared clean based. Suspect etiology of ulcers were related to prior NGT as well as stress-induced. She was placed on PPI gtt, some melena in her colostomy bag on 09/29, hemoglobin dropped to 7.2. However, she then
started having brown liquid stool without evidence of ongoing active GI bleeding.
#Esophageal/gastric ulcers
-s/p EGD on 09/28 w/o intervention
-PPI IV BID
-Hgb 6.9 --> 8.9 --> 7.2, transfused with 2 units of PRBC 09/29 with stable Hgb this morning of 10.9; brown liquid stool in colostomy bag.
-okay for full liquids
-consider repeat EGD if signs of rebleeding; would recommend repeat EGD in 2 months following d/c to ensure healing
#Severe constipation following Chauncey's POD#13 for perforated sigmoid colon 2/2 stercoral colitis
-SBFT on 09/21 with moderate fecal material throughout the colon but good transit time/no obstruction
-XR in follow up with retained PO contrast noted all the way to stoma
-started on miralax TID on 09/28
#Abnormal imaging of the pancreas
-CT A/P on 09/16: 'questionable pancreatic edema, questionable subtle changes of acute pancreatitis, underlying mass cannot be excluded.'
-recommend follow-up CT or MRI to better assess these findings
Subjective
Subjective
Date of Service: September 30, 2024
Patient seen in follow-up this morning. She was transfused with 2 units of PRBC yesterday, Hgb 7.2 --> 10.9. Colostomy bag with scant amounts of brown liquid stool.
Objective
Data Reviewed
Laboratory Data:
Laboratory Results
09/30/24 04:59
09/30/24 04:59
Laboratory Results
PT 16.6 Sec (11.4-14.6) H 09/18/24 03:53
INR 1.31 09/18/24 03:53
APTT 39.2 Sec (23.4-35.0) H 09/18/24 03:53
Phosphorus 4.0 mg/dl (2.5-4.5) 09/19/24 05:00
Magnesium 1.7 mg/dl (1.6-2.3) 09/30/24 04:59
Total Bilirubin 0.5 mg/dl (0.2-1.3) 09/27/24 04:56
AST 28 U/L (14-36) 09/27/24 04:56
ALT 16 U/L (0-35) 09/27/24 04:56
Alkaline Phosphatase 246 U/L (38-126) H 09/27/24 04:56
Lipase 259 U/L (23-300) 09/16/24 19:12
Vital Signs and I&O:
Vital Signs
Temp Pulse Resp BP Pulse Ox
98.5 F 72 16 102/56 97
09/30/24 07:59 09/30/24 07:59 09/30/24 07:59 09/30/24 07:59 09/30/24 07:59
I&O
09/29/24 09/30/24 10/01/24
06:59 06:59 06:59
Intake Total 1945 / 1945 1800 / 1800
Output Total 1245 / 1245 1640 / 1640
Balance 700 / 700 160 / 160
Physical Exam
Physical Exam
GENERAL: In no acute distress, appears comfortable
ABDOMEN: +BS; soft, mildy distended but improved. Surgical incision c/d/i. Colostomy bag with liquid brown stool , non-tender and non-distended; no rebound or guarding
[2024-09-30] MEDS: NOVOLOG FLEXPEN-LOW RESISTANCE SC (09:29)
[2024-09-30] MEDS: RESTASIS 0.05% OPHTHALMIC EMULSION 1 DROPS BOTH EYES ×2 (09:37→21:01)
[2024-09-30] MEDS: LOPRESSOR 50 MG PO ×2 (09:37→21:00)
[2024-09-30] MEDS: MAGNESIUM OXIDE 500 MG PO (09:37)
[2024-09-30] MEDS: MIRALAX 17 GRAMS PO ×3 (09:37→21:03)
[2024-09-30] MEDS: REFRESH EYE DROPS (PF) 1 DROPS OPHTH ×4 (09:38→21:04)
[2024-09-30] MEDS: KCL 270 MEQ IV ×2 (09:39→13:45)
[2024-09-30] MEDS: NON-FORMULARY ITEM 1 SPRAY NASAL ×2 (09:42→21:01)
--- NOTE | 2024-09-30 10:08 | W.PN.HOSP.TC ---
Today's Communication/Plan
-
IV KCL
IV Zosyn ( last dose)
IV PPI
Ok to advance diet
Assessment / Plan
Assessment / Plan
Physical Exam
General: Not in acute distress, cachexia
HEENT: Normocephalic, Moist mucous membranes and Atraumatic
Respiratory: limited to Auscultation Bilaterally, no wheezes.
Cardiac: S1/S2 and Regular Rate and Rhythm
GI: Soft, not tender or distended. , midline incision and dressing intact, colostomy ( brown stool) ,right drain
Musculoskeletal: No Cyanosis, Edema of both lower extremities.
Skin: Warm. Dry.
Neuro: Alert. Awake. Nonfocal/grossly intact
Psych: calm
Assessment/Plan
83-year-old female with past medical history of umbilical hernia surgery as a child, atrial fibrillation not on anticoagulation, prior pulmonary embolism, microscopic colitis and IBS presented with abdominal pain. She started having lower abdominal
pain 4 days prior to presentation. Pain was initially intermittent but now constant, and has become more severe. Last bowel movement 5 days prior to presentation. Patient has been passing clear mucus several times a day with some blood in the stool.
On the day of presentation, she had an episode of vomiting, without blood. At the time of admission, she denied fevers, chills, chest pain or shortness of breath. She was found to have perforated viscus likely secondary to severe proctocolitis.
# Upper GI bleeding due to esophagitis and esophageal ulcer
EGD also showed non bleeding gastric ulcer
No nausea, tolerated liquid diet
Started on IV PPI
Recheck HGB, showed upward trending
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
Patient was noticed to have slow recovery with slow colostomy output. Drain right lower side ( + output)
She was on liquid diet and given laxative regimen but held after vomiting, blood in colostomy bag
Started on PPI
GI is consulted also
f/w surgery and GI recommendations
-Wound/ostomy nurse consultation
#E. Coli bacteremia
-Repeat blood cultures with no growth to date
-Given E. coli bacteremia, consulted Infectious Disease --> okay to continue Zosyn Per ID: Zosyn (d#[id number]) to continue through 09/30/24
-At time of discharge, can transition to Augmentin 500mg po bid.
-Pain regimen scheduled and PRN, but no NSAIDs given recent rise in creatinine and GI bleeding.
# Acute blood loss anemia , s/p total 4 units
Received 1 unit PRBC on 09/18/24
one unit 09/28, 2 units on 09/29
# Acute on chronic lymphedema
-Suspected from hypoalbuminemia and not ambulatory
Was started on Bumex IV, lost weight and less edema in legs but now with NPO/ Hypotension/ contrast study, holding Bumex for now
#Mild Hyponatremia.
#Hypokalemia
replace with IV KCl
Will add another K rider.
# Moderate protein calorie malnutrition
#Asymptomatic Hypoglycemia
Will stop Acu-check per request
#JT
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
-Urine output better
-Okay to c/w Conner catheter while dealing with abdominal issue and not ambulatory
-Avoid NSAIDs
#Hx of paroxysmal atrial fibrillation, followed by Dr. Jarrett of [facility]
#A-Fib with RVR
-Not on anticoagulation as an outpatient
-No anticoagulation due to history of hemorrhagic pericardial effusion (her wheel molder told her no oral anticoagulation)
-Patient is aware of stroke risk associated with not taking anticoagulation and prefers to continue to avoid anticoagulation at this time
-But patient said Heparin DVT prophylaxis is okay
-Patient's PO Lopressor resumed, but at increased dose @ 50 mg BID (instead of home 25 mg TID), holding BB while low BP
-Outpatient follow-up to Dr. Tiwari of [facility]
#XMPie DC PPM
#History of Pulmonary Embolism
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
#Microscopic colitis
-Patient usually sees Dr. Shweta Zhu at [facility]; Dr. Zhu prescribes the patient's Budesonide and the Colestipol
-Holding Budesonide and Colestipol for now given acute illness
#Rheumatoid Arthritis
-Stable without any flare-up
-Patient sees Dr. Delgado - Rheumatology at [place] who prescribes the Hydroxychloroquine , ok to resume.
-Holding immunosuppressive TX, especially given Azathioprine is a immunosuppressant and patient is recovering from abdominal surgery and bacteremia
-- OP f/u with acetone button paster Dr. Delgado
#IBS
#Chronic venous insufficiency
#Peripheral neuropathy
#PVCs
#Osteoporosis
Code Status: Full code
DVT Prophylaxis: SCDs and
We held Heparin SUBQ due to GI bleeding.
Total time spent to see the patient, examine the pt, review data and lab results, discuss treatment plan with pt, consultants, nursing staff around 57 minutes
Anticipated Discharge: > 48 hours
Subjective/Interval History
-
Date of Service: September 30, 2024
Objective Data
-
Labs:
Laboratory Results
09/30/24
04:59
WBC 7.6
Hgb 10.9 L D
Hct 31.1 L
Plt Count 263 D
Sodium 137
Potassium 2.9 L
Chloride 107
Carbon Dioxide 23
BUN 24 H
Creatinine 1.1 H
Glucose 79
Calcium 7.7 L
Vital Signs:
Vital Signs
Temp Pulse Resp BP Pulse Ox
98.5 F 72 16 102/56 97
09/30/24 07:59 09/30/24 07:59 09/30/24 07:59 09/30/24 07:59 09/30/24 07:59
I&O
09/29/24 09/30/24 10/01/24
06:59 06:59 06:59
Intake Total 1944 1800 / 1800
Output Total 1245 / 1245 1640 / 1640
Balance 700 / 700 160 / 160
[2024-09-30] MEDS: COMPAZINE 5 MG IV (10:38)
[2024-09-30 11:10] VITALS: BP 106/58
--- NOTE | 2024-09-30 13:39 | W.PN.GS2 ---
Today's Communication / Plan
-
Liquids
Magic mouthwash
OOB/increase activity. Encourage OOB for meals
Assessment / Plan
-
83 yo female presenting with perforated sigmoid colon secondary to stercoral colitis now POD #14 XL, Chauncey's
SBFT on 09/21 with moderate fecal material throughout the colon but good transit time/no obstruction
XR in follow up with retained PO contrast noted all the way to stoma
Stoma irrigated on 09/23
EGD for UGIB on 09/28 with esophageal/gastric ulcers present
AFVSS
Cr mildly elevated/stable
H/H stable s/p transfusions
Acute urinary retention, aviles placed on 09/23
Passing stool/flatus via stoma. Vomited after breakfast, unclear if d/t esophageal irritation?
--GI following, appreciate recs
--Clear liquids, hold on diet advancement given vomiting this am
--Start magic mouthwash ac/hs given continued esophageal pain/symptoms
--IV Protonix gtt as per GI
--Multimodal analgesics
--ABX as per ID
--Bowel regimen with Miralax TID as per GI
--Continue Aviles, VT in AM
--OOB as able. PT following. Encourage mobility.
--Heparin SQ resumed given h/o PE, utilize CHEMA/SCDS while in bed
--c/w MADELAINE drain
Subjective Data
-
Date of Service: September 30, 2024
Patient seen and examined at bedside with Dr. Oviedo. Vomited this Am after breakfast. Denies active nausea. Pain to esophagus with eating. Abdominal pain minimal.
Objective Data
-
Intake and Output
09/29/24 09/30/24 10/01/24
06:59 06:59 06:59
Intake Total 1944 / 1944 1800 / 1800
Output Total 1245 / 1245 1640 / 1640
Balance 700 / 700 160 / 160
Intake:
Oral fluids 190 / 190 1200 / 1200
IV fluids (Total) 675 / 675
NSS 75 / 75
IV piggybacks 560 / 560 100 / 100
Blood products 270 / 270
Blood Product Amount Infused ( 250 / 250 500 / 500
mL)
Packed Rbc Leukoreduced Unit 250 / 250
[id number]
Packed Rbc Leukoreduced Unit 250 / 250
[id number]
Packed Rbc Leukoreduced Unit 250 / 250
[id number]
Output:
Liquid stool amount 140 / 140
Colostomy 140 / 140
Drain Output (Total) 105 / 105 215 / 215
Right Lower Abdomen Mynor- 105 / 105 215 / 215
Horner
Urine, Aviles 1000 / 1000 1425 / 1425
Vital Signs
Temp Pulse Resp BP Pulse Ox
98.0 F 72 16 106/58 98
09/30/24 11:10 09/30/24 11:10 09/30/24 11:10 09/30/24 11:10 09/30/24 11:10
Lab Results
09/30/24 04:59
09/30/24 04:59
Calcium 7.7 mg/dl (8.4-10.2) L 09/30/24 04:59
Phosphorus 4.0 mg/dl (2.5-4.5) 09/19/24 05:00
Magnesium 1.7 mg/dl (1.6-2.3) 09/30/24 04:59
Total Bilirubin 0.5 mg/dl (0.2-1.3) 09/27/24 04:56
Direct Bilirubin 0.5 mg/dl (0.0-0.4) H 09/16/24 19:12
AST 28 U/L (14-36) 09/27/24 04:56
ALT 16 U/L (0-35) 09/27/24 04:56
Alkaline Phosphatase 246 U/L (38-126) H 09/27/24 04:56
Total Protein 3.8 g/dl (6.3-8.2) L 09/27/24 04:56
Albumin 1.8 g/dl (3.5-5.0) L 09/27/24 04:56
Physical Exam
-
Gen: NAD
Abd: soft, NT, mildly distended, non-peritoneal, incision c/d/i - no erythema, ecchymosis or drainage, intact laura.
MADELAINE with serous fluid, ostomy with gas, liquid stool. Stoma pink, viable, mild edema
Patient has a aviles catheter: Yes
Patient has a central line: No
[2024-09-30 15:06] VITALS: BP 104/64
[2024-09-30] MEDS: MAGIC OR MIRACLE MOUTHWASH 5 ML PO ×2 (16:33→21:02)
[2024-09-30] MEDS: HEPARIN SC ×2 (21:00→21:58)
[2024-09-30 22:38] LABS: Hematocrit 34.8 % (37.0-47.0)
[2024-09-30 23:20] VITALS: BP 142/89
[2024-10-01] MEDS: DILAUDID 0.5 MG IV ×5 (03:23→23:20)
[2024-10-01 06:00] VITALS: BMI 22.4
[2024-10-01 07:25] VITALS: BP 96/62
[2024-10-01 08:25] VITALS: BP 96/62
--- NOTE | 2024-10-01 08:27 | W.PN.HOSP.TC ---
Today's Communication/Plan
-
Resume Bumex
Voiding trial over night
CBC & BMP
Assessment / Plan
Assessment / Plan
Physical Exam
General: Not in acute distress, cachexia
HEENT: Normocephalic, Moist mucous membranes and Atraumatic
Respiratory: limited to Auscultation Bilaterally, no wheezes.
Cardiac: S1/S2 and Regular Rate and Rhythm
GI: Soft, not tender, mildly distended. , midline incision and dressing intact, colostomy ( brown stool) ,right drain
Musculoskeletal: No Cyanosis, Edema of both lower extremities.
Skin: Warm. Dry.
Neuro: Alert. Awake. Nonfocal/grossly intact
Psych: calm
Assessment/Plan
83-year-old female with past medical history of umbilical hernia surgery as a child, atrial fibrillation not on anticoagulation, prior pulmonary embolism, microscopic colitis and IBS presented with abdominal pain. She started having lower abdominal
pain 4 days prior to presentation. Pain was initially intermittent but now constant, and has become more severe. Last bowel movement 5 days prior to presentation. Patient has been passing clear mucus several times a day with some blood in the stool.
On the day of presentation, she had an episode of vomiting, without blood. At the time of admission, she denied fevers, chills, chest pain or shortness of breath. She was found to have perforated viscus likely secondary to severe proctocolitis.
# Upper GI bleeding due to esophagitis and esophageal ulcer
EGD also showed non bleeding gastric ulcer
No nausea, tolerated liquid diet
Started on IV PPI
Recheck HGB, showed upward trending
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
Patient was noticed to have slow recovery with slow colostomy output. Drain right lower side ( + output)
Back on liquid diet
Started on PPI
GI is consulted also
f/w surgery and GI recommendations
-Wound/ostomy nurse consultation
#E. Coli bacteremia
-Repeat blood cultures with no growth to date
-Given E. coli bacteremia, consulted Infectious Disease --> okay to continue Zosyn Per ID: Zosyn (d#[id number]) to continue through 09/30/24
-At time of discharge, can transition to Augmentin 500mg po bid.
-Pain regimen scheduled and PRN, but no NSAIDs given recent rise in creatinine and GI bleeding.
# Acute blood loss anemia , s/p total 4 units
Received 1 unit PRBC on 09/18/24
one unit 09/28, 2 units on 09/29
# Acute on chronic lymphedema
- From hypoalbuminemia and not ambulatory
Was started on Bumex IV, lost weight and less edema in legs
#Mild Hyponatremia.
#Hypokalemia
replaced with IV KCl
# Moderate protein calorie malnutrition
#Asymptomatic Hypoglycemia
Stopped Acu-check per request
#JT
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
-Urine output better
- Will try voiding trial over night
-Avoid NSAIDs
#Hx of paroxysmal atrial fibrillation, followed by Dr. Jarrett of [facility]
#A-Fib with RVR
-Not on anticoagulation as an outpatient
-No anticoagulation due to history of hemorrhagic pericardial effusion (her manager supplier told her no oral anticoagulation)
-Patient is aware of stroke risk associated with not taking anticoagulation and prefers to continue to avoid anticoagulation at this time
-But patient said Heparin DVT prophylaxis is okay
-Patient's PO Lopressor resumed, but at increased dose @ 50 mg BID (instead of home 25 mg TID), holding BB while low BP
-Outpatient follow-up to Dr. Tiwari of [facility]
#[employer] DC PPM
#History of Pulmonary Embolism
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
#Microscopic colitis
-Patient usually sees Dr. Shweta Zhu at [facility] [place]; Dr. Zhu prescribes the patient's Budesonide and the Colestipol
-Holding Budesonide and Colestipol for now given acute illness
#Rheumatoid Arthritis
-Stable without any flare-up
-Patient sees Dr. Delgado - Rheumatology at [place] who prescribes the Hydroxychloroquine , ok to resume.
-Holding immunosuppressive [place], especially given Azathioprine is a immunosuppressant and patient is recovering from abdominal surgery and bacteremia
-- OP f/u with field identification specialist Dr. Delgado
#IBS
#Chronic venous insufficiency
#Peripheral neuropathy
#PVCs
#Osteoporosis
Code Status: Full code
DVT Prophylaxis: SCDs and
We held Heparin SUBQ due to GI bleeding.
Total time spent to see the patient, examine the pt, review data and lab results, discuss treatment plan with pt, consultants, nursing staff around 57 minutes
Anticipated Discharge: > 48 hours
Subjective/Interval History
-
Date of Service: October 01, 2024
Still abdominal discomfort
No fever
Objective Data
-
Labs:
Laboratory Results
09/30/24 10/01/24
22:32 07:10
WBC Pending
Hgb 12.0 Pending
Hct 34.8 L Pending
Plt Count Pending
Sodium Pending
Potassium Pending
Chloride Pending
Carbon Dioxide Pending
BUN Pending
Creatinine Pending
Glucose Pending
Calcium Pending
Vital Signs:
Vital Signs
Temp Pulse Resp BP Pulse Ox
98.1 F 75 16 96/62 97
10/01/24 07:25 10/01/24 07:25 10/01/24 07:25 10/01/24 07:25 10/01/24 07:25
I&O
09/30/24 10/01/24 10/02/24
06:59 06:59 06:59
Intake Total 1800 / 1800 1010 / 1010
Output Total 1640 / 1640 1340 / 1340
Balance 160 / 160 -330 / -330
--- NOTE | 2024-10-01 08:39 | W.PN.GI.CBS2 ---
Today's Communication / Plan
-
f/u AM hemoglobin. Add carafate
Assessment / Plan
-
Porsche Hayes is an 83-year-old female with past medical history of A-fib not on anticoagulation, history of PE, RA on Humira, osteoporosis, history of microscopic colitis maintained on 3 mg of budesonide and 3 g of colestipol daily admitted with
severe abdominal pain on 09/16 found to have bowel perforation 2/2 stercoral colitis with hemoperitoneum/peritonitis c/b Ecoli bacteremia s/p sigmoid resection and creation of end descending colon colostomy. Her postoperative course has been
complicated by some constipation, hard stool balls in the colon, felt to be contributing to her ongoing abdominal pain and bloating. On 09/27-09/28, had an episode of coffee-ground emesis and bloody output in her colostomy bag, with some hypotension.
Hgb dropped to 6.9, transfused wtih 2 units of PRBC with adequate correction.
She underwent EGD on 09/28 with findings of 3 ulcers, 1 of which had a large clot, but appeared to be healing without obvious high risk stigmata, present within her hiatal hernia. She had 2 other ulcer, a smaller one in her hiatal hernia and a linear
ulcer in her cardia which also appeared clean based. Suspect etiology of ulcers were related to prior NGT as well as stress-induced. She was placed on PPI gtt, some melena in her colostomy bag on 09/29, hemoglobin dropped to 7.2. However, she then
started having brown liquid stool without evidence of ongoing active GI bleeding.
#Esophageal/gastric ulcers
-s/p EGD on 09/28 w/o intervention
-PPI IV BID
-Hgb 6.9 --> 8.9 --> 7.2, transfused with 2 units of PRBC 09/29 with stable Hgb. Concern for possible bleeding in colostomy bag overnight, last hgb from yesterday was 12, repeat labs pending. Colostomy bag this morning with brown liquid stool.
-okay for full liquids
-consider repeat EGD if signs of rebleeding; would recommend repeat EGD in 2 months following d/c to ensure healing
#N/V
-trouble with advancing her diet, not tolerating much PO
-difficult to determine if nausea is due to lower abdominal discomfort/bloating or irritation from esohpageal ulcers
-agree with magic mouthwash
-recommend adding carafate
#Severe constipation following Chauncey's POD#13 for perforated sigmoid colon 2/2 stercoral colitis
-SBFT on 09/21 with moderate fecal material throughout the colon but good transit time/no obstruction
-XR in follow up with retained PO contrast noted all the way to stoma
-started on miralax TID on 09/28
#Abnormal imaging of the pancreas
-CT A/P on 09/16: 'questionable pancreatic edema, questionable subtle changes of acute pancreatitis, underlying mass cannot be excluded.'
-recommend follow-up CT or MRI to better assess these findings
Subjective
Subjective
Date of Service: October 01, 2024
Patient seen in follow-up, some reports of burgundy stool in her colostomy, however, brown/greenish output on my exam. Her Hgb last night was 12, AM labs pending. She vomited after breakfast yesterday, currently on full liquids but not taking much
PO.
Objective
Data Reviewed
Laboratory Data:
Laboratory Results
PT 16.6 Sec (11.4-14.6) H 09/18/24 03:53
INR 1.31 09/18/24 03:53
APTT 39.2 Sec (23.4-35.0) H 09/18/24 03:53
Phosphorus 4.0 mg/dl (2.5-4.5) 09/19/24 05:00
Magnesium 1.7 mg/dl (1.6-2.3) 09/30/24 04:59
Total Bilirubin 0.5 mg/dl (0.2-1.3) 09/27/24 04:56
AST 28 U/L (14-36) 09/27/24 04:56
ALT 16 U/L (0-35) 09/27/24 04:56
Alkaline Phosphatase 246 U/L (38-126) H 09/27/24 04:56
Lipase 259 U/L (23-300) 09/16/24 19:12
Vital Signs and I&O:
Vital Signs
Temp Pulse Resp BP Pulse Ox
98.1 F 75 16 96/62 97
10/01/24 07:25 10/01/24 07:25 10/01/24 07:25 10/01/24 07:25 10/01/24 07:25
I&O
09/30/24 10/01/24 10/02/24
06:59 06:59 06:59
Intake Total 1800 / 1800 1010 / 1010
Output Total 1640 / 1640 1340 / 1340
Balance 160 / 160 -330 / -330
Physical Exam
Physical Exam
GENERAL: In no acute distress, appears comfortable
ABDOMEN: +BS; soft, mildy distended, mild discomfort in RLQ/periumbilcus. Surgical incision c/d/i. Colostomy bag with liquid brown/green liquid stool ,
[2024-10-01] MEDS: LOPRESSOR 50 MG PO ×2 (08:52→20:28)
[2024-10-01] MEDS: MAGIC OR MIRACLE MOUTHWASH 5 ML PO ×4 (08:52→22:06)
[2024-10-01] MEDS: HEPARIN 5000 UNITS SC ×2 (08:53→20:28)
[2024-10-01] MEDS: RESTASIS 0.05% OPHTHALMIC EMULSION 1 DROPS BOTH EYES ×2 (08:53→20:32)
[2024-10-01] MEDS: NSS (PRESERVATIVE FREE) 10 ML IV ×2 (08:53→20:32)
[2024-10-01] MEDS: REFRESH EYE DROPS (PF) 1 DROPS OPHTH ×4 (08:53→22:07)
[2024-10-01] MEDS: PROTONIX IV 40 MG IV ×2 (08:53→20:32)
[2024-10-01] MEDS: NON-FORMULARY ITEM 1 SPRAY NASAL ×2 (08:54→20:33)
[2024-10-01] MEDS: MIRALAX 17 GRAMS PO ×3 (08:54→22:07)
[2024-10-01 09:02] LABS: Hematocrit 35.3 % (37.0-47.0); Hemoglobin 12.5 g/dL (12.0-16.0); Mean Corp Hgb Conc. 35.4 g/dL (33.0-37.0); Mean Corpuscular Hgb 31.4 pg (27.0-31.0); Mean Corpuscular Volume 88.7 fL (81.0-99.0); Mean Platelet Volume 9.5 fL (7.4-10.4); Platelet Count 244 10^3/uL (130-400); Red Blood Cell Count 3.98 10^6/uL (4.20-5.40); Red Cell Dist. Width 16.8 % (11.5-14.5); White Blood Cell Count 7.7 10^3/uL (4.8-10.8)
[2024-10-01 09:05] LABS: Blood Urea Nitrogen 19 mg/dl (7-17); Carbon Dioxide 24 mmol/L (22-30); Chloride 109 mmol/L (98-107); Estimated Creatinine Clearance 38 ml/min; Glucose 83 mg/dl (70-99); Potassium 3.4 mmol/L (3.5-5.1); Sodium 135 mmol/L (135-145)
[2024-10-01] MEDS: CARAFATE SUSPENSION 1 GM PO ×2 (11:26→17:20)
[2024-10-01] MEDS: KCL 270 MEQ IV (13:28)
--- NOTE | 2024-10-01 14:29 | W.PN.GS2 ---
Today's Communication / Plan
-
FLD
Void trial
Assessment / Plan
-
83 yo female presenting with perforated sigmoid colon secondary to stercoral colitis now POD #15 XL, Chauncey's
SBFT on 09/21 with moderate fecal material throughout the colon but good transit time/no obstruction
XR in follow up with retained PO contrast noted all the way to stoma
Stoma irrigated on 09/23
EGD for UGIB on 09/28 with esophageal/gastric ulcers present
AFVSS
Cr normalized
H/H stable s/p transfusions
Acute urinary retention, aviles placed on 09/23
Passing stool/flatus via stoma. No further vomiting.
Seems to be tolerating diet better with magic mouthwash. Carafate added today by GI
--GI following, appreciate recs
--FLD with supplements
--C/W magic mouthwash and carafate
--PPI as per GI
--Multimodal analgesics
--ABX as per ID
--Bowel regimen with Miralax TID as per GI
--Voiding trial
--OOB as able. PT following. Encourage mobility.
--Heparin SQ restarted, h/o PE, utilize CHEMA/SCDS while in bed
--c/w MADELAINE drain
Subjective Data
-
Date of Service: October 01, 2024
Patient seen and examined at bedside with Dr. Oviedo. Denies n/v. Tolerating FLD. Some abdominal cramping intermittently. OOB to chair. Feels magic mouthwash is helping.
Objective Data
-
Intake and Output
09/30/24 10/01/24 10/02/24
06:59 06:59 06:59
Intake Total 1800 / 1800 1010 / 1010
Output Total 1640 / 1640 1340 / 1340
Balance 160 / 160 -330 / -330
Intake:
Oral fluids 1200 / 1200 960 / 960
IV piggybacks 100 / 100 50 / 50
Blood Product Amount Infused ( 500 / 500
mL)
Packed Rbc Leukoreduced Unit 250 / 250
[id number]
Packed Rbc Leukoreduced Unit 250 / 250
[id number]
Output:
Liquid stool amount 350 / 350
Colostomy 350 / 350
Drain Output (Total) 215 / 215 215 / 215
Right Lower Abdomen Mynor- 215 / 215 215 / 215
Horner
Urine, Aviles 1425 / 1425 775 / 775
Vital Signs
Temp Pulse Resp BP Pulse Ox
98.1 F 75 16 96/62 97
10/01/24 07:25 10/01/24 07:25 10/01/24 07:25 10/01/24 07:25 10/01/24 07:25
Lab Results
10/01/24 08:38
10/01/24 08:38
Calcium 8.0 mg/dl (8.4-10.2) L 10/01/24 08:38
Phosphorus 4.0 mg/dl (2.5-4.5) 09/19/24 05:00
Magnesium 1.7 mg/dl (1.6-2.3) 09/30/24 04:59
Total Bilirubin 0.5 mg/dl (0.2-1.3) 09/27/24 04:56
Direct Bilirubin 0.5 mg/dl (0.0-0.4) H 09/16/24 19:12
AST 28 U/L (14-36) 09/27/24 04:56
ALT 16 U/L (0-35) 09/27/24 04:56
Alkaline Phosphatase 246 U/L (38-126) H 09/27/24 04:56
Total Protein 3.8 g/dl (6.3-8.2) L 09/27/24 04:56
Albumin 1.8 g/dl (3.5-5.0) L 09/27/24 04:56
Physical Exam
-
Gen: NAD
Abd: soft, NT, protuberant, non-peritoneal, incision c/d/i - no erythema, ecchymosis or drainage, intact laura.
MADELAINE with serous fluid, ostomy with gas, liquid stool. Stoma pink, viable.
--- NOTE | 2024-10-01 14:29 | VATNOTE ---
PT WITH B/L UE ECCHYMOSIS THAT IS NOT NEW. R FOREARM AREA +1 EDEMA, ALERTED NURSE SUSU, SUGGESTED US ,HE SATES THAT ATTENDING MD IS AWARE. PT STATES THAT ARM IS NOT BOTHERING HER. PT RESTING, CALL LAI IN PLACE
[2024-10-01 15:20] VITALS: BP 124/74
[2024-10-01] MEDS: BUMEX 0.5 MG IV (20:26)
[2024-10-01 23:27] VITALS: BP 105/57
[2024-10-02] MEDS: DILAUDID 0.5 MG IV ×3 (03:54→11:22)
[2024-10-02 06:00] VITALS: BMI 22.8
--- NOTE | 2024-10-02 07:10 | W.PN.GI.CBS2 ---
Today's Communication / Plan
-
Hgb stable. GI will sign off, will arrange for outpatient f/u. Please call with questions.
Assessment / Plan
-
Porsche Hayes is an 83-year-old female with past medical history of A-fib not on anticoagulation, history of PE, RA on Humira, osteoporosis, history of microscopic colitis maintained on 3 mg of budesonide and 3 g of colestipol daily admitted with
severe abdominal pain on 09/16 found to have bowel perforation 2/2 stercoral colitis with hemoperitoneum/peritonitis c/b Ecoli bacteremia s/p sigmoid resection and creation of end descending colon colostomy. Her postoperative course has been
complicated by some constipation, hard stool balls in the colon, felt to be contributing to her ongoing abdominal pain and bloating. On 09/27-09/28, had an episode of coffee-ground emesis and bloody output in her colostomy bag, with some hypotension.
Hgb dropped to 6.9, transfused wtih 2 units of PRBC with adequate correction.
She underwent EGD on 09/28 with findings of 3 ulcers, 1 of which had a large clot, but appeared to be healing without obvious high risk stigmata, present within her hiatal hernia. She had 2 other ulcer, a smaller one in her hiatal hernia and a linear
ulcer in her cardia which also appeared clean based. Suspect etiology of ulcers were related to prior NGT as well as stress-induced. She was placed on PPI gtt, some melena in her colostomy bag on 09/29, hemoglobin dropped to 7.2. However, she then
started having brown liquid stool without evidence of ongoing active GI bleeding.
#Esophageal/gastric ulcers
-s/p EGD on 09/28 w/o intervention
-PPI IV BID--> okay to transition to PO BID and continue for 8 weeks upon d/c
-Hgb 6.9 --> 8.9 --> 7.2, transfused with 2 units of PRBC 09/29 with stable Hgb. Concern for possible bleeding in colostomy bag however, hemoglobin has improved to >12 and remained stable without any additional episodes of bleeding.
-currently on full liquids but seems early satiety is 2/2 pain related to surgery, unsure how much of this is expected post-operatively, definitely protracted improvement
-recommend repeat EGD in 2 months following d/c to ensure healing; will arrange for outpatient appointment with GI upon discharge
#N/V
-trouble with advancing her diet, not tolerating much PO
-difficult to determine if nausea is due to lower abdominal discomfort/bloating or irritation from esophageal ulcers, improved with magic mouthwash and carafate
#Severe constipation following Chauncey's POD#13 for perforated sigmoid colon 2/2 stercoral colitis
-SBFT on 09/21 with moderate fecal material throughout the colon but good transit time/no obstruction
-XR in follow up with retained PO contrast noted all the way to stoma
-started on miralax TID on 09/28
#Abnormal imaging of the pancreas
-CT A/P on 09/16: 'questionable pancreatic edema, questionable subtle changes of acute pancreatitis, underlying mass cannot be excluded.'
-recommend follow-up CT or MRI to better assess these findings
No signs of ongoing bleeding, Hgb remains stable. GI will sign off and arrange for outpatient follow-up. Pleases call with questions.
Subjective
Subjective
Date of Service: October 02, 2024
Patient seen in follow-up, no bleeding overnight. Brown stool in colostomy bag. Continues to report significant pain, specifically just superior to and at her surgical site. Swallowing has improved, able to tolerate some but not a significant
amount of p.o., endorses early satiety. Hgb remains stable.
Objective
Data Reviewed
Laboratory Data:
Laboratory Results
PT 16.6 Sec (11.4-14.6) H 09/18/24 03:53
INR 1.31 09/18/24 03:53
APTT 39.2 Sec (23.4-35.0) H 09/18/24 03:53
Phosphorus 4.0 mg/dl (2.5-4.5) 09/19/24 05:00
Magnesium 1.7 mg/dl (1.6-2.3) 09/30/24 04:59
Total Bilirubin 0.5 mg/dl (0.2-1.3) 09/27/24 04:56
AST 28 U/L (14-36) 09/27/24 04:56
ALT 16 U/L (0-35) 09/27/24 04:56
Alkaline Phosphatase 246 U/L (38-126) H 09/27/24 04:56
Lipase 259 U/L (23-300) 09/16/24 19:12
Vital Signs and I&O:
Vital Signs
Temp Pulse Resp BP Pulse Ox
98.0 F 72 19 105/57 97
10/01/24 23:27 10/01/24 23:27 10/01/24 23:27 10/01/24 23:27 10/01/24 23:27
I&O
10/01/24 10/02/24 10/03/24
06:59 06:59 06:59
Intake Total 1010 / 1010 1200 / 1200
Output Total 1340 / 1340 795 / 795
Balance -330 / -330 405 / 405
Physical Exam
Physical Exam
GENERAL: In no acute distress, appears comfortable
ABDOMEN: +BS; soft, mildy distended, mild discomfort in RLQ/periumbilcus. Surgical incision c/d/i. Colostomy bag with brown stool
[2024-10-02 07:20] VITALS: BP 117/65
[2024-10-02] MEDS: RESTASIS 0.05% OPHTHALMIC EMULSION 1 DROPS BOTH EYES ×2 (08:15→20:46)
[2024-10-02] MEDS: MIRALAX 17 GRAMS PO ×3 (08:15→22:45)
[2024-10-02] MEDS: CARAFATE SUSPENSION 1 GM PO ×2 (08:16→16:51)
[2024-10-02] MEDS: LOPRESSOR 50 MG PO ×2 (08:16→20:46)
[2024-10-02] MEDS: HEPARIN 5000 UNITS SC ×2 (08:17→20:45)
[2024-10-02] MEDS: REFRESH EYE DROPS (PF) 1 DROPS OPHTH ×4 (08:17→22:44)
[2024-10-02] MEDS: PROTONIX 40 MG PO ×2 (08:17→20:46)
[2024-10-02] MEDS: BUMEX 0.5 MG IV ×2 (08:18→20:45)
[2024-10-02] MEDS: MAGIC OR MIRACLE MOUTHWASH 5 ML PO ×4 (08:18→22:45)
[2024-10-02] MEDS: NON-FORMULARY ITEM NASAL ×2 (08:20→21:06)
[2024-10-02 08:29] LABS: Blood Urea Nitrogen 19 mg/dl (7-17); Carbon Dioxide 23 mmol/L (22-30); Chloride 108 mmol/L (98-107); Estimated Creatinine Clearance 42 ml/min; Glucose 70 mg/dl (70-99); Hematocrit 36.3 % (37.0-47.0); Hemoglobin 12.8 g/dL (12.0-16.0); Mean Corp Hgb Conc. 35.3 g/dL (33.0-37.0); Mean Corpuscular Hgb 31.1 pg (27.0-31.0); Mean Corpuscular Volume 88.1 fL (81.0-99.0); Mean Platelet Volume 10.5 fL (7.4-10.4); Platelet Count 196 10^3/uL (130-400); Red Blood Cell Count 4.12 10^6/uL (4.20-5.40); Red Cell Dist. Width 16.7 % (11.5-14.5); Sodium 132 mmol/L (135-145); White Blood Cell Count 10.4 10^3/uL (4.8-10.8); eGFR > 60.00
--- NOTE | 2024-10-02 08:56 | W.PN.HOSP.TC ---
Today's Communication/Plan
-
See plan
Assessment / Plan
Assessment / Plan
Physical Exam
General: Not in acute distress, cachexia
HEENT: Normocephalic, Moist mucous membranes and Atraumatic
Respiratory: Decreased Breath Sounds Bilaterally; No wheezes.
Cardiac: S1/S2 and Regular Rate and Rhythm
GI: Soft, not tender, mildly distended, midline incision and dressing intact, colostomy (gas and liquid stool present), right drain (removed)
Musculoskeletal: No Cyanosis, Edema of both lower extremities.
Skin: Warm. Dry.
Neuro: Alert. Awake. Nonfocal/grossly intact
Psych: calm
Assessment/Plan
83-year-old female with past medical history of umbilical hernia surgery as a child, atrial fibrillation not on anticoagulation, prior pulmonary embolism, microscopic colitis and IBS presented with abdominal pain. She started having lower abdominal
pain 4 days prior to presentation. Pain was initially intermittent but now constant, and has become more severe. Last bowel movement 5 days prior to presentation. Patient has been passing clear mucus several times a day with some blood in the stool.
On the day of presentation, she had an episode of vomiting, without blood. At the time of admission, she denied fevers, chills, chest pain or shortness of breath. She was found to have perforated viscus likely secondary to severe proctocolitis.
#Upper GI bleeding due to esophagitis and esophageal ulcer
#Esophageal/gastric ulcers
EGD also showed non bleeding gastric ulcer -- s/p EGD on 09/28 w/o intervention
Full liquids diet
Switch IV PPI BID to PO PPI BID, and continue for 8 weeks upon discharge
Recheck HGB, showed upward trending
Repeat EGD in 2 months to ensure healing; GI will arrange for outpatient appointment with GI upon discharge
# Acute blood loss anemia , s/p total 4 units, suspected secondary to GI Bleed
Received 1 unit PRBC on 09/18/24
one unit 09/28, 2 units on 09/29
Total of 4 units PRBCs so far this hospitalization
#Nausea/Vomiting
-trouble with advancing her diet, not tolerating much PO
-difficult to determine if nausea is due to lower abdominal discomfort/bloating or irritation from esophageal ulcers
-Continue magic mouthwash and carafate as patient's symptoms improved with those -- can use these PRN
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
#Severe constipation following Chauncey's for perforated sigmoid colon 2/ stercoral colitis
Patient was noticed to have slow recovery with slow colostomy output. Drain right lower side removed on 10/02/24
SBFT on 09/21 with moderate fecal material throughout the colon but good transit time/no obstruction
GI is consulted also
Follow up abdominal x-ray with retained PO contrast noted all the way to stoma
Bowel regimen with Miralax TID as per GI
f/w surgery and GI recommendations
-Wound/ostomy nurse consultation
#E. Coli bacteremia
-Repeat blood cultures with no growth to date
-Given E. coli bacteremia, consulted Infectious Disease --> received Zosyn--> completed course of antibiotics (end date was 09/30/24)
-Pain regimen scheduled and PRN, but no NSAIDs given recent rise in creatinine and GI bleeding.
# Acute on chronic lymphedema
#Bilateral Lower Extremity Edema
- From hypoalbuminemia and not ambulatory
Was started on Bumex IV, lost weight and less edema in legs
Lower extremity ultrasound with no DVTs
#R arm (with midline) looks bruised and lumpy, with possible concern for DVT (?) as per night nurse
-Check upper extremity ultrasound
#Weight Gain -- 23 lbs gain as of 10/02/24 since admission in August 2024
-Seems to be hypervolemia
-Currently on BID 0.5 mg IV Bumex
#Wheezing
#Left Lung Crackles
-Patient denied SOB as of 10/02/24 but reported feeling the wheezing which resolved
-CXR without significant change
-May need echocardiogram
#Mild Hyponatremia.
#Hypokalemia
replaced with IV KCl
Monitor BMP
# Moderate protein calorie malnutrition
#Asymptomatic Hypoglycemia
Stopped Acu-check per request
#JT
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
-Urine output better
-Bladder scans -- may need Conner Catheter again
-Avoid NSAIDs
#Hx of paroxysmal atrial fibrillation, followed by Dr. Jarrett of [facility]
#A-Fib with RVR
-Not on anticoagulation as an outpatient
-No anticoagulation due to history of hemorrhagic pericardial effusion (her senior caregiver told her no oral anticoagulation)
-Patient is aware of stroke risk associated with not taking anticoagulation and prefers to continue to avoid anticoagulation at this time
-But patient said Heparin DVT prophylaxis is okay
-Patient's PO Lopressor resumed, but at increased dose @ 50 mg BID (instead of home 25 mg TID), holding BB while low BP
-Outpatient follow-up to Dr. Tiwari of [facility]
#[employer] DC PPM
#History of Pulmonary Embolism
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
#Microscopic colitis
-Patient usually sees Dr. Shweta Zhu at [facility] [place]; Dr. Zhu prescribes the patient's Budesonide and the Colestipol
-Holding Budesonide and Colestipol for now given acute illness
#Rheumatoid Arthritis
-Stable without any flare-up
-Patient sees Dr. Delgado - Rheumatology at [place] who prescribes the Hydroxychloroquine , ok to resume.
-Holding immunosuppressive TX, especially given Azathioprine is a immunosuppressant and patient is recovering from abdominal surgery and bacteremia
-- OP f/u with warp splitter Dr. Delgado
#Abnormal imaging of the pancreas
-CT A/P on 09/16: 'questionable pancreatic edema, questionable subtle changes of acute pancreatitis, underlying mass cannot be excluded.'
-Outpatient follow-up CT or MRI
#IBS
#Chronic venous insufficiency
#Peripheral neuropathy
#PVCs
#Osteoporosis
Code Status: Full code
DVT Prophylaxis: Patient is wearing TEDS but refusing SCDs
Continue Heparin SUBQ [was previously held (from 09/27/24 PM to 09/30/24 PM) due to GI bleeding]
Anticipated Discharge: > 48 hours
Subjective/Interval History
-
Date of Service: October 02, 2024
Patient was seen and examined. She reported some wheeze on the right side of her chest, the wheezing later resolved, she denied any chest pain or shortness of breath, but she is still having abdominal pain.
Objective Data
-
Labs:
Laboratory Results
10/02/24
07:29
WBC 10.4
Hgb 12.8
Hct 36.3 L
Plt Count 196
Sodium 132 L
Potassium 4.0
Chloride 108 H
Carbon Dioxide 23
BUN 19 H
Creatinine 0.9
Glucose 70
Calcium 8.0 L
Vital Signs:
Vital Signs
Temp Pulse Resp BP Pulse Ox
98.1 F 79 16 117/65 97
10/02/24 07:20 10/02/24 08:18 10/02/24 07:20 10/02/24 08:18 10/02/24 07:20
I&O
10/01/24 10/02/24 10/03/24
06:59 06:59 06:59
Intake Total 1010 / 1010 1200 / 1200
Output Total 1340 / 1340 795 / 795
Balance -330 / -330 405 / 405
--- NOTE | 2024-10-02 10:02 | W.PN.GS2 ---
Today's Communication / Plan
-
FLD
MADELAINE removed
Assessment / Plan
-
83 yo female presenting with perforated sigmoid colon secondary to stercoral colitis now POD #16 XL, Chauncey's
SBFT on 09/21 with moderate fecal material throughout the colon but good transit time/no obstruction
XR in follow up with retained PO contrast noted all the way to stoma
Stoma irrigated on 09/23
EGD for UGIB on 09/28 with esophageal/gastric ulcers present
AFVSS
H/H stable s/p transfusions
Passing stool/flatus via stoma. No further vomiting.
Seems to be tolerating diet better with magic mouthwash/Carafate
--GI following, appreciate recs
--FLD with supplements
--C/W magic mouthwash and Carafate
--PPI as per GI
--Multimodal analgesics
--ABX as per ID
--Bowel regimen with Miralax TID as per GI
--Voiding trial
--OOB as able. PT following. Encourage mobility.
--Heparin SQ restarted, h/o PE, utilize CHEMA/SCDS while in bed
--MADELAINE drain removed at bedside
Subjective Data
-
Date of Service: October 02, 2024
Patient seen and examined at bedside with Dr. Philip. Henry n/v. Tolerating more PO intake than previously. States she feels 'more human' today. Still with abdominal discomfort and uncomfortable getting oob.
Objective Data
-
Intake and Output
10/01/24 10/02/24 10/03/24
06:59 06:59 06:59
Intake Total 1010 / 1010 1200 / 1200
Output Total 1340 / 1340 795 / 795
Balance -330 / -330 405 / 405
Intake:
Oral fluids 960 / 960 1200 / 1200
IV piggybacks 50 / 50
Output:
Liquid stool amount 350 / 350 295 / 295
Colostomy 350 / 350 295 / 295
Drain Output (Total) 215 / 215 100 / 100
Right Lower Abdomen Mynor- 215 / 215 100 / 100
Horner
Urine, Conner 775 / 775 400 / 400
Vital Signs
Temp Pulse Resp BP Pulse Ox
98.1 F 79 16 117/65 97
10/02/24 07:20 10/02/24 08:18 10/02/24 07:20 10/02/24 08:18 10/02/24 07:20
Lab Results
10/02/24 07:29
10/02/24 07:29
Calcium 8.0 mg/dl (8.4-10.2) L 10/02/24 07:29
Phosphorus 4.0 mg/dl (2.5-4.5) 09/19/24 05:00
Magnesium 1.7 mg/dl (1.6-2.3) 09/30/24 04:59
Total Bilirubin 0.5 mg/dl (0.2-1.3) 09/27/24 04:56
Direct Bilirubin 0.5 mg/dl (0.0-0.4) H 09/16/24 19:12
AST 28 U/L (14-36) 09/27/24 04:56
ALT 16 U/L (0-35) 09/27/24 04:56
Alkaline Phosphatase 246 U/L (38-126) H 09/27/24 04:56
Total Protein 3.8 g/dl (6.3-8.2) L 09/27/24 04:56
Albumin 1.8 g/dl (3.5-5.0) L 09/27/24 04:56
Physical Exam
-
Gen: NAD
Abd: soft, NT, protuberant, non-peritoneal, incision c/d/i - no erythema, ecchymosis or drainage, intact larua.
MADELAINE with serous fluid (removed), ostomy with gas, liquid stool. Stoma pink, viable, edematous.
[2024-10-02 15:15] VITALS: BP 137/79
--- NOTE | 2024-10-02 15:46 | WOUNDNOTE ---
GLUTEAL CLEFT AND BUTTOCKS
--- NOTE | 2024-10-02 15:50 | WOUNDNOTE ---
WON RN NOTE: Appliance changed today, patient assisted with closing tail end. Answered all questions. Stoma pink and less swollen, peristomal skin slightly pink. Shaq seal with [place] 2 3/4' 2 piece used. Patient remains on [employer]rella air
mattress, turned with assist from PCT. Buttocks and gluteal cleft with healing DTI, had blistered and now skin starting to peel with healed skin underneath. Few small dark maroon levin remain, sacral silicone foam changed. Appetite poor, encouraged
patient to eat protein if can tolerate. TPN remains in use. Will follow, next pouch change due Wednesday.
--- NOTE | 2024-10-02 15:51 | WOUNDNOTE ---
WON RN NOTE: Appliance changed today, patient assisted with closing tail end. Answered all questions. Stoma pink and less swollen, peristomal skin slightly pink. Shaq seal with Fe 2 3/4' 2 piece used. Patient remains on Centrella air
mattress, turned with assist from PCT. Buttocks and gluteal cleft with healing DTI, had blistered and now skin starting to peel with healed skin underneath. Few small dark maroon levin remain, sacral silicone foam changed. Appetite poor, encouraged
patient to eat protein if can tolerate. Will follow, next pouch change due Wednesday.
[2024-10-02 16:58] VITALS: BP 144/84; PULSE 82; O2SAT 96
[2024-10-02] MEDS: ROXICODONE 5 MG PO (22:45)
--- NOTE | 2024-10-02 22:59 | VATNOTE ---
NOTIFIED BY PCN OF POSITIVE RESULTS OF RUE US INDICATING A THROMBUS. ML REMOVED PER PROTOCOL. TWO FAILED ATTEMPTS TO ESTABLISH AN IV SITE IN LUE. PT ONLY RECIEVING IV BUMEX BID.NO NEED FOR IV ACCESS UNTIL 10/03. WILL NOT ATTEMPT FURTHER IV ACCESS AND
HAVE PROVIDER CONSIDER ORAL BUMEX IN AM. PT AND PCN AWARE OF PLAN OF CARE. VAT TO FOLLOW.
[2024-10-02] MEDS: MYLICON 80 MG PO (23:13)
[2024-10-02 23:37] VITALS: BP 131/81
[2024-10-03] MEDS: ROXICODONE 5 MG PO ×4 (04:35→22:20)
[2024-10-03 06:00] VITALS: BMI 22.9
--- NOTE | 2024-10-03 07:37 | W.PN.HOSP.TC ---
Today's Communication/Plan
-
Continue Full Liquids diet
Potassium replacement
Assessment / Plan
Assessment / Plan
Physical Exam
General: Not in acute distress, cachexia
HEENT: Normocephalic, Moist mucous membranes and Atraumatic
Respiratory: Decreased Breath Sounds Bilaterally; No wheezes.
Cardiac: S1/S2 and Regular Rate and Rhythm
GI: Soft, not tender, mildly distended, midline incision and dressing intact, colostomy (gas and liquid stool present), right drain (removed)
Musculoskeletal: No Cyanosis, Edema of both lower extremities.
Skin: Warm. Dry.
Neuro: Alert. Awake. Nonfocal/grossly intact
Psych: calm
Assessment/Plan
83-year-old female with past medical history of umbilical hernia surgery as a child, atrial fibrillation not on anticoagulation, prior pulmonary embolism, microscopic colitis and IBS presented with abdominal pain. She started having lower abdominal
pain 4 days prior to presentation. Pain was initially intermittent but now constant, and has become more severe. Last bowel movement 5 days prior to presentation. Patient has been passing clear mucus several times a day with some blood in the stool.
On the day of presentation, she had an episode of vomiting, without blood. At the time of admission, she denied fevers, chills, chest pain or shortness of breath. She was found to have perforated viscus likely secondary to severe proctocolitis.
#Upper GI bleeding due to esophagitis and esophageal ulcer
#Esophageal/gastric ulcers
EGD also showed non bleeding gastric ulcer -- s/p EGD on 09/28 w/o intervention
Full liquids diet
Switch IV PPI BID to PO PPI BID, and continue for 8 weeks upon discharge
Recheck HGB, showed upward trending
Repeat EGD in 2 months to ensure healing; GI will arrange for outpatient appointment with GI upon discharge
# Acute blood loss anemia , s/p total 4 units, suspected secondary to GI Bleed
Received 1 unit PRBC on 09/18/24
one unit 09/28, 2 units on 09/29
Total of 4 units PRBCs so far this hospitalization
#Nausea/Vomiting
-tolerating her Full Liquids Diet somewhat
-difficult to determine if nausea is due to lower abdominal discomfort/bloating or irritation from esophageal ulcers
-Continue magic mouthwash and carafate as patient's symptoms improved with those
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
#Severe constipation following Chauncey's for perforated sigmoid colon 2/2 stercoral colitis
Patient was noticed to have slow recovery with slow colostomy output. Drain right lower side removed on 10/02/24
SBFT on 09/21 with moderate fecal material throughout the colon but good transit time/no obstruction
GI is consulted also
Follow up abdominal x-ray with retained PO contrast noted all the way to stoma
Bowel regimen with Miralax TID as per GI
f/w surgery and GI recommendations
-Wound/ostomy nurse consultation
#E. Coli bacteremia
-Repeat blood cultures with no growth to date
-Given E. coli bacteremia, consulted Infectious Disease --> received Zosyn--> completed course of antibiotics (end date was 09/30/24)
-Pain regimen scheduled and PRN, but no NSAIDs given recent rise in creatinine and GI bleeding.
# Acute on chronic lymphedema
#Bilateral Lower Extremity Edema
- From hypoalbuminemia and not ambulatory
Was started on Bumex lost weight and less edema in legs
Lower extremity ultrasound with no DVTs
#R arm (with midline) looks bruised and lumpy, with possible concern for DVT (?) as per night nurse
#Proximal RIGHT BASILIC VEIN superficial venous thrombosis
-Upper extremity ultrasound performed on 10/03/24 with the findings above
-Clinically, patient's arm appearance and symptoms are stable
-Will repeat another ultrasound in few days especially given that overlying soft tissue bandage limited evaluation of the venous system of the mid to distal right upper arm
#Weight Gain -- 23 lbs gain as of 10/02/24 since admission in August 2024
-Seems to be hypervolemia
-Currently on BID 0.5 mg PO Bumex
#Wheezing
#Left Lung Crackles
-Patient denied SOB as of 10/02/24 but reported feeling the wheezing which resolved
-CXR without significant change
-May need echocardiogram
#Mild Hyponatremia.
#Hypokalemia
replaced with IV KCl
Monitor BMP
# Moderate protein calorie malnutrition
#Asymptomatic Hypoglycemia
Stopped Acu-check per patient's request
#JT
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
-Urine output better
-Bladder scans -- may need Conner Catheter again
-Avoid NSAIDs
#Hx of paroxysmal atrial fibrillation, followed by Dr. Jarrett of [facility]
#A-Fib with RVR
-Not on anticoagulation as an outpatient
-No anticoagulation due to history of hemorrhagic pericardial effusion (her museum informatics specialist told her no oral anticoagulation)
-Patient is aware of stroke risk associated with not taking anticoagulation and prefers to continue to avoid anticoagulation at this time
-But patient said Heparin DVT prophylaxis is okay
-Patient's PO Lopressor resumed, but at increased dose @ 50 mg BID (instead of home 25 mg TID)
-Outpatient follow-up to Dr. Tiwari of [facility]
#[employer] DC PPM
#History of Pulmonary Embolism
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
#Microscopic colitis
-Patient usually sees Dr. Shweta Zhu at [facility] with [place]; Dr. Zhu prescribes the patient's Budesonide and the Colestipol
-Holding Budesonide and Colestipol for now given acute illness
#Rheumatoid Arthritis
-Stable without any flare-up
-Patient sees Dr. Delgado - Rheumatology at [place] who prescribes the Hydroxychloroquine , ok to resume.
-Holding immunosuppressive [place], especially given Azathioprine is a immunosuppressant and patient is recovering from abdominal surgery and bacteremia
-- OP f/u with wedger and gluer Dr. Delgado
#Abnormal imaging of the pancreas
-CT A/P on 09/16: 'questionable pancreatic edema, questionable subtle changes of acute pancreatitis, underlying mass cannot be excluded.'
-Outpatient follow-up CT or MRI
#IBS
#Chronic venous insufficiency
#Peripheral neuropathy
#PVCs
#Osteoporosis
Code Status: Full code
DVT Prophylaxis: Patient is wearing TEDS but refusing SCDs
Continue Heparin SUBQ [was previously held (from 09/27/24 PM to 09/30/24 PM) due to GI bleeding]
Anticipated Discharge: > 48 hours
Subjective/Interval History
-
Date of Service: October 03, 2024
Patient was seen and examined. No new symptoms or complaints.
Objective Data
-
Labs:
Laboratory Results
10/03/24
07:16
WBC Pending
Hgb Pending
Hct Pending
Plt Count Pending
Sodium Pending
Potassium Pending
Chloride Pending
Carbon Dioxide Pending
BUN Pending
Creatinine Pending
Glucose Pending
Calcium Pending
Vital Signs:
Vital Signs
Temp Pulse Resp BP Pulse Ox
98.3 F 93 19 131/81 98
10/02/24 23:37 10/02/24 23:37 10/02/24 23:37 10/02/24 23:37 10/02/24 23:37
I&O
10/02/24 10/03/24 10/04/24
06:59 06:59 06:59
Intake Total 1200 / 1200 1350 / 1350
Output Total 795 / 795 770 / 770
Balance 405 / 405 580 / 580
[2024-10-03 07:55] VITALS: BP 115/66
[2024-10-03 08:10] LABS: Hematocrit 31.5 % (37.0-47.0); Hemoglobin 11.1 g/dL (12.0-16.0); Mean Corp Hgb Conc. 35.2 g/dL (33.0-37.0); Mean Corpuscular Hgb 31.3 pg (27.0-31.0); Mean Corpuscular Volume 88.7 fL (81.0-99.0); Mean Platelet Volume 9.3 fL (7.4-10.4); Platelet Count 312 10^3/uL (130-400); Red Blood Cell Count 3.55 10^6/uL (4.20-5.40); Red Cell Dist. Width 16.5 % (11.5-14.5); White Blood Cell Count 8.3 10^3/uL (4.8-10.8)
[2024-10-03 08:44] LABS: Albumin 1.9 g/dl (3.5-5.0); Blood Urea Nitrogen 20 mg/dl (7-17); Calcium 8.3 mg/dl (8.4-10.2); Carbon Dioxide 20 mmol/L (22-30); Chloride 105 mmol/L (98-107); Estimated Creatinine Clearance 42 ml/min; Glucose 71 mg/dl (70-99); Potassium 3.5 mmol/L (3.5-5.1); Sodium 131 mmol/L (135-145); eGFR > 60.00
[2024-10-03] MEDS: CARAFATE SUSPENSION 1 GM PO ×2 (09:01→15:36)
[2024-10-03] MEDS: BUMEX 0.5 MG PO ×2 (09:01→15:36)
[2024-10-03] MEDS: MIRALAX 17 GRAMS PO ×3 (09:01→20:55)
[2024-10-03] MEDS: MAGIC OR MIRACLE MOUTHWASH 5 ML PO ×4 (09:01→20:50)
[2024-10-03] MEDS: PROTONIX 40 MG PO ×2 (09:02→20:51)
[2024-10-03] MEDS: REFRESH EYE DROPS (PF) 1 DROPS OPHTH ×4 (09:02→22:20)
[2024-10-03] MEDS: HEPARIN 5000 UNITS SC ×2 (09:02→20:51)
[2024-10-03] MEDS: RESTASIS 0.05% OPHTHALMIC EMULSION 1 DROPS BOTH EYES ×2 (09:02→20:51)
[2024-10-03] MEDS: NON-FORMULARY ITEM NASAL (09:03)
[2024-10-03] MEDS: LOPRESSOR 50 MG PO ×2 (09:03→20:57)
--- NOTE | 2024-10-03 09:11 | W.PN.GS2 ---
Today's Communication / Plan
-
-- No changes from surgical perspective, given issues overnight would maintain on fulls with supplement shakes
-- Niko removed prior to discharge.
Assessment / Plan
-
83 yo female presenting with perforated sigmoid colon secondary to stercoral colitis now POD #17 s/p Chauncey's
SBFT on 09/21 with moderate fecal material throughout the colon but good transit time/no obstruction
XR in follow up with retained PO contrast noted all the way to stoma
Stoma irrigated on 09/23
EGD for UGIB on 09/28 with esophageal/gastric ulcers present
AFVSS
H/H stable s/p transfusions
Passing stool/flatus via stoma. No further vomiting.
Seems to be tolerating diet better with magic mouthwash/Carafate
Improved p.o. intake based on the numbers yesterday. Patient continues to report some abdominal distention and crampiness at night likely indicative of constipation slow transit. No evidence of persistent obstruction. No role for further surgical
intervention. Can likely remove niko tomorrow.
--GI following, appreciate recs
--FLD with supplements
--C/W magic mouthwash and Carafate
--PPI as per GI
--Multimodal analgesics
--ABX as per ID
--Bowel regimen with Miralax TID as per GI
--OOB as able. PT following. Encourage mobility.
--Heparin SQ restarted, h/o PE, utilize CHEMA/SCDS while in bed
--MADELAINE drain removed at bedside, can likely remove niko tomorrow
Subjective Data
-
Date of Service: October 03, 2024
Reports some bloating and crampy abdominal pain overnight. No nausea or vomiting. Patient reports stool in some flatus in appliance. Little ambulation or mobility due to patient reports issues with chronic arthritic pain. Afebrile.
Objective Data
-
Intake and Output
10/02/24 10/03/24 10/04/24
06:59 06:59 06:59
Intake Total 1200 / 1200 1350 / 1350
Output Total 795 / 795 770 / 770
Balance 405 / 405 580 / 580
Intake:
Oral fluids 1200 / 1200 1350 / 1350
Output:
Liquid stool amount 295 / 295 125 / 125
Colostomy 295 / 295 125 / 125
Drain Output (Total) 100 / 100
Right Lower Abdomen Myn[place]- 100 / 100
Horner
Urine, Conner 400 / 400
Urine, Voided 645 / 645
Vital Signs
Temp Pulse Resp BP Pulse Ox
98.4 F 80 16 115/66 99
10/03/24 07:55 10/03/24 07:55 10/03/24 07:55 10/03/24 07:55 10/03/24 07:55
Lab Results
10/03/24 07:16
10/03/24 07:16
Calcium 8.3 mg/dl (8.4-10.2) L 10/03/24 07:16
Phosphorus 4.0 mg/dl (2.5-4.5) 09/19/24 05:00
Magnesium 1.7 mg/dl (1.6-2.3) 09/30/24 04:59
Total Bilirubin 0.5 mg/dl (0.2-1.3) 09/27/24 04:56
Direct Bilirubin 0.5 mg/dl (0.0-0.4) H 09/16/24 19:12
AST 28 U/L (14-36) 09/27/24 04:56
ALT 16 U/L (0-35) 09/27/24 04:56
Alkaline Phosphatase 246 U/L (38-126) H 09/27/24 04:56
Total Protein 3.8 g/dl (6.3-8.2) L 09/27/24 04:56
Albumin 1.9 g/dl (3.5-5.0) L 10/03/24 07:16
Physical Exam
-
Gen: NAD
Abd: soft, minimal tenderness, distended (stable), tympany, ostomy PPV with stool in appliance, midline incision well healed, niko in place
--- NOTE | 2024-10-03 10:49 | CM ---
Chart reviewed and recommendation from physical therapy is skilled placement will review with patient skilled options.
Plan; To follow with patient for skilled options.
[2024-10-03 15:20] VITALS: BP 135/70
[2024-10-03] MEDS: KCL 40 MEQ PO (15:34)
[2024-10-03] MEDS: MYLICON 80 MG PO ×2 (18:12→22:20)
[2024-10-03] MEDS: NON-FORMULARY ITEM 1 SPRAY NASAL (20:50)
[2024-10-03 23:35] VITALS: BP 113/68
[2024-10-04] MEDS: ROXICODONE 5 MG PO (04:18)
[2024-10-04] MEDS: MYLICON 80 MG PO (04:21)
[2024-10-04 06:00] VITALS: BMI 23.3
[2024-10-04 07:58] VITALS: BP 112/66
[2024-10-04 08:00] LABS: Hemoglobin 12.1 g/dL (12.0-16.0); Mean Corp Hgb Conc. 34.6 g/dL (33.0-37.0); Mean Corpuscular Hgb 31.3 pg (27.0-31.0); Mean Corpuscular Volume 90.4 fL (81.0-99.0); Mean Platelet Volume 9.3 fL (7.4-10.4); Platelet Count 338 10^3/uL (130-400); Red Blood Cell Count 3.87 10^6/uL (4.20-5.40); Red Cell Dist. Width 16.9 % (11.5-14.5); White Blood Cell Count 8.7 10^3/uL (4.8-10.8)
--- NOTE | 2024-10-04 08:13 | W.PN.HOSP.TC ---
Today's Communication/Plan
-
LRD diet
CT imaging
Will check echo and proBNP
Assessment / Plan
Assessment / Plan
Physical Exam
General: Not in acute distress, cachexia
HEENT: Normocephalic, Moist mucous membranes and Atraumatic
Respiratory: Decreased Breath Sounds Bilaterally; No wheezes.
Cardiac: S1/S2 and Regular Rate and Rhythm
GI: Soft, not tender, mildly distended, midline incision and dressing intact, colostomy (gas and liquid stool present), right drain (removed)
Musculoskeletal: No Cyanosis, Edema of both lower extremities.
Skin: Warm. Dry.
Neuro: Alert. Awake. Nonfocal/grossly intact
Psych: calm
Assessment/Plan
83-year-old female with past medical history of umbilical hernia surgery as a child, atrial fibrillation not on anticoagulation, prior pulmonary embolism, microscopic colitis and IBS presented with abdominal pain. She started having lower abdominal
pain 4 days prior to presentation. Pain was initially intermittent but now constant, and has become more severe. Last bowel movement 5 days prior to presentation. Patient has been passing clear mucus several times a day with some blood in the stool.
On the day of presentation, she had an episode of vomiting, without blood. At the time of admission, she denied fevers, chills, chest pain or shortness of breath. She was found to have perforated viscus likely secondary to severe proctocolitis.
#Upper GI bleeding due to esophagitis and esophageal ulcer
#Esophageal/gastric ulcers
EGD also showed non bleeding gastric ulcer -- s/p EGD on 09/28 w/o intervention
Switch IV PPI BID to PO PPI BID, and continue for 8 weeks upon discharge
Recheck HGB, showed upward trending
Repeat EGD in 2 months to ensure healing; GI will arrange for outpatient appointment with GI upon discharge
# Acute blood loss anemia , s/p total 4 units, suspected secondary to GI Bleed
Received 1 unit PRBC on 09/18/24
one unit 4/3, 2 units on 09/29
Total of 4 units PRBCs so far this hospitalization
#Nausea/Vomiting
-tolerating her Full Liquids Diet somewhat
-difficult to determine if nausea is due to lower abdominal discomfort/bloating or irritation from esophageal ulcers
-Continue magic mouthwash and carafate as patient's symptoms improved with those
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
#Severe constipation following Chauncey's for perforated sigmoid colon 2/2 stercoral colitis
Patient was noticed to have slow recovery with slow colostomy output. Drain right lower side removed on 10/02/24
SBFT on 09/21 with moderate fecal material throughout the colon but good transit time/no obstruction
GI is consulted also
Follow up abdominal x-ray with retained PO contrast noted all the way to stoma
Bowel regimen with Miralax TID as per GI
Full Liquids diet upgraded to Low Residue Diet
Repeat CT today as per Surgery team
f/w surgery and GI recommendations
-Wound/ostomy nurse consultation
#E. Coli bacteremia
-Repeat blood cultures with no growth to date
-Given E. coli bacteremia, consulted Infectious Disease --> received Zosyn--> completed course of antibiotics (end date was 09/30/24)
-Pain regimen scheduled and PRN, but no NSAIDs given recent rise in creatinine and GI bleeding.
# Acute on chronic lymphedema
#Bilateral Lower Extremity Edema
- From hypoalbuminemia and not ambulatory
Was started on Bumex lost weight and less edema in legs -- SWITCH TO LASIX
Lower extremity ultrasound with no DVTs
-Check proBNP and Echo
#R arm (with midline) looks bruised and lumpy, with possible concern for DVT (?) as per night nurse
#Proximal RIGHT BASILIC VEIN superficial venous thrombosis
-Upper extremity ultrasound performed on 10/03/24 with the findings above
-Clinically, patient's arm appearance and symptoms are stable
-Will repeat another ultrasound in few days especially given that overlying soft tissue bandage limited evaluation of the venous system of the mid to distal right upper arm
#Weight Gain -- 23 lbs gain as of 10/02/24 since admission in August 2024
-Seems to be hypervolemia
-Changed Bumex to Lasix as per patient's request
#Wheezing
#Left Lung Crackles
-Patient denied SOB as of 10/02/24 but reported feeling the wheezing which resolved
-CXR without significant change
-Echo ordered
#Mild Hyponatremia.
#Hypokalemia
replaced with IV KCl
Monitor BMP
# Moderate protein calorie malnutrition
#Asymptomatic Hypoglycemia
Stopped Acu-check per patient's request
#JT
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
-Urine output better
-Bladder scans -- may need Conner Catheter again
-Avoid NSAIDs
#Hx of paroxysmal atrial fibrillation, followed by Dr. Jarrett of [facility]
#A-Fib with RVR
-Not on anticoagulation as an outpatient
-No anticoagulation due to history of hemorrhagic pericardial effusion (her adult education manager told her no oral anticoagulation)
-Patient is aware of stroke risk associated with not taking anticoagulation and prefers to continue to avoid anticoagulation at this time
-But patient said Heparin DVT prophylaxis is okay
-Patient's PO Lopressor resumed, but at increased dose @ 50 mg BID (instead of home 25 mg TID)
-Outpatient follow-up to Dr. Tiwari of [facility]
#[employer] DC PPM
#History of Pulmonary Embolism
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
#Microscopic colitis
-Patient usually sees Dr. Shweta Zhu at [facility] with [place]; Dr. Zhu prescribes the patient's Budesonide and the Colestipol
-Holding Budesonide and Colestipol for now given acute illness
#Rheumatoid Arthritis
-Stable without any flare-up
-Patient sees Dr. Delgado - Rheumatology at [place] who prescribes the Hydroxychloroquine , ok to resume.
-Holding immunosuppressive [place], especially given Azathioprine is a immunosuppressant and patient is recovering from abdominal surgery and bacteremia
-- OP f/u with casino supervisor Dr. Delgado
#Abnormal imaging of the pancreas
-CT A/P on 09/16: 'questionable pancreatic edema, questionable subtle changes of acute pancreatitis, underlying mass cannot be excluded.'
-Outpatient follow-up CT or MRI
#IBS
#Chronic venous insufficiency
#Peripheral neuropathy
#PVCs
#Osteoporosis
Code Status: Full code
DVT Prophylaxis: Patient is wearing TEDS but refusing SCDs
Continue Heparin SUBQ [was previously held (from 09/27/24 PM to 09/30/24 PM) due to GI bleeding]
Anticipated Discharge: > 48 hours
Subjective/Interval History
-
Date of Service: October 04, 2024
Patient was seen and examined. She reported abdominal discomfort and bloating, but denied any chest pain or shortness of breath.
Objective Data
-
Labs:
Laboratory Results
10/04/24
07:17
WBC 8.7
Hgb 12.1
Hct 35.0 L
Plt Count 338
Sodium Pending
Potassium Pending
Chloride Pending
Carbon Dioxide Pending
BUN Pending
Creatinine Pending
Glucose Pending
Calcium Pending
Vital Signs:
Vital Signs
Temp Pulse Resp BP Pulse Ox
98.5 F 83 18 112/66 98
10/04/24 07:58 10/04/24 07:58 10/04/24 07:58 10/04/24 07:58 10/04/24 07:58
I&O
10/03/24 10/04/24 10/05/24
06:59 06:59 06:59
Intake Total 1350 / 1350 780 / 780
Output Total 770 / 770 625 / 625
Balance 580 / 580 155 / 155
[2024-10-04 08:37] LABS: Blood Urea Nitrogen 20 mg/dl (7-17); Calcium 8.8 mg/dl (8.4-10.2); Carbon Dioxide 20 mmol/L (22-30); Chloride 104 mmol/L (98-107); Estimated Creatinine Clearance 38 ml/min; Glucose 79 mg/dl (70-99); Magnesium 1.5 mg/dl (1.6-2.3); Potassium 4.1 mmol/L (3.5-5.1); Sodium 132 mmol/L (135-145)
[2024-10-04] MEDS: BUMEX 0.5 MG PO (09:25)
[2024-10-04] MEDS: HEPARIN 5000 UNITS SC (09:25)
[2024-10-04] MEDS: PROTONIX 40 MG PO (09:25)
[2024-10-04] MEDS: LOPRESSOR 50 MG PO (09:26)
[2024-10-04] MEDS: REFRESH EYE DROPS (PF) 1 DROPS OPHTH ×4 (09:26→22:05)
[2024-10-04] MEDS: RESTASIS 0.05% OPHTHALMIC EMULSION 1 DROPS BOTH EYES ×2 (09:26→20:43)
[2024-10-04] MEDS: NON-FORMULARY ITEM 1 SPRAY NASAL ×2 (09:27→20:44)
[2024-10-04] MEDS: CARAFATE SUSPENSION 1 GM PO ×2 (09:27→16:41)
[2024-10-04] MEDS: MAGIC OR MIRACLE MOUTHWASH 5 ML PO ×3 (09:27→16:38)
[2024-10-04] MEDS: MIRALAX 17 GRAMS PO ×2 (09:27→17:16)
[2024-10-04] MEDS: ROXICODONE 2.5 MG PO (10:36)
--- NOTE | 2024-10-04 11:10 | W.PN.GS2 ---
Addendum entered and electronically signed by Misha Kaminski MD 10/04/24 11:32:
I saw and examined the patient.
The resident's note was reviewed and I agree with the notewith the following additions/corrections:
Comment: Seen and evaluated at bedside. Difficulty taking PO due to bloating. Liquid stool into stoma. Exam softly distended, incision cdi with laura, drain site cdi. KUB with distended colon with gas and moderate stool burden. Will obtain CT
with PO contrast (holding IV contrast due to prior JT and limited ability to push fluids given her cardiopulmonary status). Can try LRD to see if those options more palatable but don't expect her to take much.
Original Note:
Today's Communication / Plan
-
Advance to low residue diet
Encourage protein intake
Decrease oxy PRN dose
Keep laura in until discharge or 10/16 (3 weeks due to poor wound healing common with poor nutrition)
Assessment / Plan
-
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
SBFT on 09/21 with moderate fecal material throughout the colon but good transit time/no obstruction
XR in follow up with retained PO contrast noted all the way to stoma
Stoma irrigated on 09/23
EGD for UGIB on 09/28 with esophageal/gastric ulcers present
MADELAINE drain removed 10/02
AFVSS
H/H stable s/p transfusions
Passing stool/flatus via stoma. No further vomiting.
Seems to be tolerating diet better with magic mouthwash/Carafate
Improved p.o. intake and wishes to increase diet if able. She does report ab bloating, distension and cramping overnight. Ostomy passing liquid stool and appears healthy. Due to poor nutrition, maintain laura for up to 3 weeks.
--GI has singed off
--FLD -> low residue and monitor tolerance
--C/W magic mouthwash and Carafate
--Cont PPI BID for 8 weeks after discharge per GI
--Multimodal analgesics - decrease Oxy 5 PRN to 2.5
--ABX regimen completed on 09/30 per ID
--Bowel regimen with Miralax TID as per GI
--OOB as able. PT following. Encourage mobility.
--Heparin SQ restarted, h/o PE, utilize CHEMA/SCDS while in bed
--MADELAINE drain removed at bedside on 10/02
--Remove laura on 10/07 (POD #21) or right before discharge as decreased wound healing ability with protein calorie malnutrition
Subjective Data
-
Date of Service: October 04, 2024
Feels bloated every time she tries to drink something. Concerned about her weight gain and swelling in her legs. Stated at home she avoids salt and sugar and lasix is the only thing that has helped her leg swelling decrease.
Objective Data
-
Intake and Output
10/03/24 10/04/24 10/05/24
06:59 06:59 06:59
Intake Total 1350 / 1350 780 / 780
Output Total 770 / 770 625 / 625
Balance 580 / 580 155 / 155
Intake:
Oral fluids 1350 / 1350 780 / 780
Output:
Liquid stool amount 125 / 125 125 / 125
Colostomy 125 / 125 125 / 125
Urine, Conner 250 / 250
Urine, Voided 645 / 645 250 / 250
Vital Signs
Temp Pulse Resp BP Pulse Ox
98.5 F 83 18 112/66 98
10/04/24 07:58 10/04/24 07:58 10/04/24 07:58 10/04/24 07:58 10/04/24 07:58
Lab Results
10/04/24 07:17
10/04/24 07:17
Calcium 8.8 mg/dl (8.4-10.2) 10/04/24 07:17
Phosphorus 4.0 mg/dl (2.5-4.5) 09/19/24 05:00
Magnesium 1.5 mg/dl (1.6-2.3) L 10/04/24 07:17
Total Bilirubin 0.5 mg/dl (0.2-1.3) 09/27/24 04:56
Direct Bilirubin 0.5 mg/dl (0.0-0.4) H 09/16/24 19:12
AST 28 U/L (14-36) 09/27/24 04:56
ALT 16 U/L (0-35) 09/27/24 04:56
Alkaline Phosphatase 246 U/L (38-126) H 09/27/24 04:56
Total Protein 3.8 g/dl (6.3-8.2) L 09/27/24 04:56
Albumin 1.9 g/dl (3.5-5.0) L 10/03/24 07:16
Physical Exam
-
AFVSS
Slight tenderness with palpation diffusely, abdominal distension.
Colostomy with liquid stool, no signs of infection around ostomy
No signs of infx around laura along her midline surgical incision
[2024-10-04 12:37] VITALS: BP 124/78; PULSE 94; O2SAT 92
[2024-10-04 12:38] LABS: Glucose - Point of Care 93 mg/dl (70-99)
[2024-10-04] MEDS: OMNIPAQUE 50 ML PO (12:43)
[2024-10-04] MEDS: MAGNESIUM SULFATE 50 IV (14:10)
[2024-10-04 16:18] VITALS: BP 128/77
[2024-10-04] MEDS: MIRALAX PO ×2 (16:36→19:49)
--- NOTE | 2024-10-04 16:37 | CM ---
appraisal manager reviewed patient's chart and physical therapy are recommending skilled, patient is not agreeable to skilled placement. appraisal manager will follow, possible home with visiting nurses.
Plan; Patient states she will think about skilled placement and let caser in know her decision.
[2024-10-04] MEDS: ZOFRAN 4 MG IV (19:48)
[2024-10-04] MEDS: COMPAZINE 5 MG IV ×2 (20:31→22:05)
[2024-10-04] MEDS: PROTONIX PO (20:32)
[2024-10-04] MEDS: HEPARIN SC (20:43)
[2024-10-04] MEDS: PROTONIX IV 40 MG IV (20:44)
[2024-10-04] MEDS: NSS (PRESERVATIVE FREE) 10 ML IV (20:44)
[2024-10-04 21:00] VITALS: BP 125/72
[2024-10-04] MEDS: LOPRESSOR PO (21:48)
[2024-10-04] MEDS: MAGIC OR MIRACLE MOUTHWASH PO (21:48)
[2024-10-04 23:20] VITALS: BP 124/75
[2024-10-05] MEDS: ATIVAN 0.5 MG IV (02:37)
[2024-10-05] MEDS: NSS (PRESERVATIVE FREE) 0.25 ML IV (02:38)
[2024-10-05 02:59] VITALS: BP 108/62
--- NOTE | 2024-10-05 04:30 | PTCARENOTE ---
Overnight, patient w/ large amounts of emesis. At change of shift, patient vomited approximately 150ccs of light green emesis - medicated w/ PRN Zofran and WELLNESS PROGRAM MANAGER notified - patient made NPO w/ sips. Patient then vomited again at approximately 2030 -
small amount of blood tinged vomit. One time dose of IV Protonix ordered and administered and PRN compazine given - see AUG. Miralax and heparin subq held per WELLNESS PROGRAM MANAGER order. Patient vomited again at approximately 2145 - remains brown/green/blood tinged.
WELLNESS PROGRAM MANAGER notified - one time order of compazine ordered and administered - see AUG. Patient continued to vomit small but frequent amounts throughout the night. At approximately 0100 - patient w/ large amounts of emesis - dark brown/green - WELLNESS PROGRAM MANAGER notified -
NGT ordered to be replaced and GI reconsulted. Reached out to GI physician electrical continuity inspector who recommended placing NGT and premedicating with benzo - see AUG. 16Fr salem sump placed in L nare - minimal drainage. NGT removed and replaced with 18Fr salem sump
in L nare - immediately drained 300mls of brown/green liquid. XR taken to confirm placement. WELLNESS PROGRAM MANAGER notified.
[2024-10-05 05:16] LABS: Hemoglobin 10.5 g/dL (12.0-16.0); Mean Corpuscular Hgb 30.9 pg (27.0-31.0); Mean Corpuscular Volume 88.2 fL (81.0-99.0); Mean Platelet Volume 8.9 fL (7.4-10.4); Platelet Count 300 10^3/uL (130-400); Red Cell Dist. Width 16.5 % (11.5-14.5); White Blood Cell Count 7.8 10^3/uL (4.8-10.8)
[2024-10-05 05:52] LABS: Blood Urea Nitrogen 22 mg/dl (7-17); Calcium 8.8 mg/dl (8.4-10.2); Carbon Dioxide 22 mmol/L (22-30); Chloride 103 mmol/L (98-107); Estimated Creatinine Clearance 38 ml/min; Glucose 95 mg/dl (70-99); Potassium 3.8 mmol/L (3.5-5.1); Sodium 131 mmol/L (135-145)
[2024-10-05 06:00] VITALS: BMI 22.8
[2024-10-05 06:02] LABS: NT-proBNP 3140 pg/ml
--- NOTE | 2024-10-05 06:30 | W.PN.UPDATE ---
Update Note
Progress Note Update
RN contacted this DOULA about pts nausea and vomiting episodes this evening (bloody at times)- w/o relief from PRN antiemetics. X1 dose of Compazine ordered- avoiding Benadryl d/t anticholinergic effects- with recent urinary retention. N/V continued
throughout shift- consult placed fro GI to reevaluate. Dr. Jc encouraged replacement of the NGT. CXR confirmed placement. pt hemodynamically stable at this time. HGB drop this am from 12.1 to 10.5.
[2024-10-05 07:20] VITALS: BP 108/69
--- NOTE | 2024-10-05 07:22 | W.PN.GS2 ---
Addendum entered and electronically signed by Mango Zhang MD 10/05/24 10:30:
Patient seen and examined in follow-up with surgical device sales representative. Agree with documented progress note with additions noted here.
Nausea vomiting worsening abdominal bloating distention and pain overnight.
NG tube placed providing relief.
AFVSS
NAD AAO x 3
Was comfortably sleeping but awoke easily.
ABD: Distended, tympanitic, mild tenderness but no rebound rigidity or guarding.
Right lower quadrant old drain site leaking -DuoDERM dressing applied
Ostomy digitized and examined. Rock hard firm stool located immediately beneath the fascia. Unable to extract. Red rubber catheter placed which provided immediate decompression of liquid stool and gas as well as with manual manipulation of the
firm stool. Ostomy mucosa pink and healthy and healing well otherwise.
Midline incision with laura. No erythema, no drainage.
CT imaging from yesterday personally reviewed. No small bowel obstruction. Significant residual stool burden all the way up to the level of the fascia within the left colon. Liquid stool surrounding it. No abscess. No free air.
Assessment/plan: 83-year-old female POD #19 status post Callahan for stercoral colitis
Postoperative severe malnutrition and challenges with dietary management
Residual stool impacted at fascial level of ostomy which is likely resulting in a degree of partial mechanical colonic obstruction and prohibiting further dietary advancement and tolerance.
Given the firmness of stool recommended mechanical disimpaction which patient and her son are in agreement with.
Continue NG tube decompression
Change PPI to twice daily IV -while dark there is no bright red blood unlikely active upper GI bleeding
Place PICC line
Start TPN for severe postoperative malnutrition -last albumin 1.9
Patient added onto the OR schedule tomorrow for disimpaction under sedation
Original Note:
Today's Communication / Plan
-
NPO
NG tube
Monitor hg
Encourage OOB
Appreciate GI
PICC placement and TPN
To OR tmrw for ostomy disimpaction
Assessment / Plan
-
83 yo female presenting with perforated sigmoid colon secondary to stercoral colitis now POD #19 s/p Chauncey's
SBFT on 09/21 with moderate fecal material throughout the colon but good transit time/no obstruction
XR in follow up with retained PO contrast noted all the way to stoma
Stoma irrigated on 09/23
EGD for UGIB on 09/28 with esophageal/gastric ulcers present
MADELAINE drain removed 10/02
10/04 ab xray and ab/pelvic CT suggestive of adynamic ileus. No evidence of mechanical obstruction.
AFVSS
H/H drop from 21.1 to 10.5 overnight. Hematemesis overnight and NG tube placed
Passing stool/flatus via stoma.
Back on NPO
After some salmon last night, multiple bouts of vomiting. Blood tinged. NG tube re-inserted, Compazine x2 and Zofran x1. GI back on board due to hematemesis. Hg drop from 12.1 to 10.5. Acute blood loss anemia more likely to be secondary to
esophageal bleeding provoked by the N/V with current ileus. Appreciate GI. Today, manually manitupated the ostomy openening and noted to have cement like stool near opening likely causing a partial blockage. We placed a large rubber cath in the
ostomy past the hardened stool in hopes of allowing more liquid stool to pass through. She will need an ostomy disimpaction. Discussed with the pt and family and both are agreeable. Also starting TPN due to severe malnutrition.
--low residue diet -> NPO due to N/V/ ileus noted on ab CT on 10/04
--Placed large red rubber catheter in ostomy past hardened stool to allow better drainage
--To OR tmrw for ostomy disimpaction
--PICC placement and TPN
--Acute blood loss anemia likely secondary to hematemesis as stool does not appear dark
--Trend hg
--GI signed back on appreciate input
--Multimodal analgesics
--ABX regimen completed on 09/30 per ID
--Bowel regimen with Miralax TID as per GI
--OOB as able. PT following. Encourage mobility.
--Heparin SQ on hold due to hematemesis and drop in hg. Utilize CHEMA/SCDS while in bed
--Remove laura on 10/07 (POD #21) or right before discharge as decreased wound healing ability with protein calorie malnutrition
Subjective Data
-
Date of Service: October 05, 2024
Overnight pt very nauseous. Advanced to low residue diet yesterday and able to eat some mashed potato and meat loaf. For dinner she had a small bit of salmon and after that she started vomiting too many times to count. Required Compazine x2 and
Zofran x1. Vomit noted to be blood tinged and NG tube re-inserted per GI. 350cc out via NG tube, dark and blood tinged. This am pt is feeling better than yesterday, but ab chain tender and bloated. No longer feeling nauseous.
Objective Data
-
Intake and Output
10/04/24 10/05/24 10/06/24
06:59 06:59 06:59
Intake Total 780 / 780 530 / 530
Output Total 625 / 625 900 / 900
Balance 155 / 155 -370 / -370
Intake:
Oral fluids 780 / 780 530 / 530
Output:
Liquid stool amount 125 / 125 400 / 400
Colostomy 125 / 125 400 / 400
Gastrointestinal tube output ( 350 / 350
Total)
[place] Sump 350 / 350
Urine, Conner 250 / 250
Urine, Voided 250 / 250
Urostomy output 150 / 150
Other:
How many times incontinent 1
MODERATE amount urine
Vital Signs
Temp Pulse Resp BP Pulse Ox
97.6 F 81 18 108/62 97
10/05/24 02:59 10/05/24 02:59 10/05/24 02:59 10/05/24 02:59 10/05/24 02:59
Lab Results
10/05/24 05:04
10/05/24 05:04
Calcium 8.8 mg/dl (8.4-10.2) 10/05/24 05:04
Phosphorus 4.0 mg/dl (2.5-4.5) 09/19/24 05:00
Magnesium 2.0 mg/dl (1.6-2.3) 10/05/24 05:04
Total Bilirubin 0.5 mg/dl (0.2-1.3) 09/27/24 04:56
Direct Bilirubin 0.5 mg/dl (0.0-0.4) H 09/16/24 19:12
AST 28 U/L (14-36) 09/27/24 04:56
ALT 16 U/L (0-35) 09/27/24 04:56
Alkaline Phosphatase 246 U/L (38-126) H 09/27/24 04:56
Total Protein 3.8 g/dl (6.3-8.2) L 09/27/24 04:56
Albumin 1.9 g/dl (3.5-5.0) L 10/03/24 07:16
Physical Exam
-
AAOx3, does not appear in pain
Distended, diffusely tender abdomen. Decreased bowel sounds. Tympanic bowel sounds.
Liquid greenish tinged stool out of ostomy. No signs of infx around ostomy.
No signs of infx along surgical laura midline.
--- NOTE | 2024-10-05 07:39 | W.PN.HOSP.TC ---
Today's Communication/Plan
-
NPO, NG tube due to ileus and hardened stool causing obstruction
PICC line, TPN
OR tomorrow for ostomy disimpaction
Monitor H&H
Assessment / Plan
Assessment / Plan
Physical Exam
General: Not in acute distress, cachexia
HEENT: Normocephalic, Moist mucous membranes and Atraumatic. NG tube present with dark colored output.
Respiratory: Decreased Breath Sounds Bilaterally; No wheezes.
Cardiac: S1/S2 and Regular Rate and Rhythm
GI: Soft, not tender, mildly distended, midline incision and dressing intact, colostomy (gas and liquid stool present), right drain (removed)
Musculoskeletal: No Cyanosis, Edema of both lower extremities.
Skin: Warm. Dry.
Neuro: Alert. Awake. Nonfocal/grossly intact
Psych: calm
Assessment/Plan
83-year-old female with past medical history of umbilical hernia surgery as a child, atrial fibrillation not on anticoagulation, prior pulmonary embolism, microscopic colitis and IBS presented with abdominal pain. She started having lower abdominal
pain 4 days prior to presentation. Pain was initially intermittent but now constant, and has become more severe. Last bowel movement 5 days prior to presentation. Patient has been passing clear mucus several times a day with some blood in the stool.
On the day of presentation, she had an episode of vomiting, without blood. At the time of admission, she denied fevers, chills, chest pain or shortness of breath. She was found to have perforated viscus likely secondary to severe proctocolitis.
#Upper GI bleeding due to esophagitis and esophageal ulcer
#Esophageal/gastric ulcers
EGD also showed non bleeding gastric ulcer -- s/p EGD on 09/28 w/o intervention
PO PPI changed to IV as patient is NPO
See GI note for how long to continue PPI after discharge
Recheck HGB, showed upward trending
Repeat EGD in 2 months to ensure healing; GI will arrange for outpatient appointment with GI upon discharge
# Acute blood loss anemia , s/p total 4 units, suspected secondary to GI Bleed
Received 1 unit PRBC on 09/18/24
one unit 09/28, 2 units on 09/29
Total of 4 units PRBCs so far this hospitalization
Hematemesis again 10/04/24 to 10/05/24 --> PPI changed to IV, and Heparin subq stopped
#Nausea/Vomiting
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
#Severe constipation following Chauncey's for perforated sigmoid colon 2/ stercoral colitis
Patient was noticed to have slow recovery with slow colostomy output. Drain right lower side removed on 10/02/24
SBFT on 09/21 with moderate fecal material throughout the colon but good transit time/no obstruction
GI also onboard
Follow up abdominal x-ray with retained PO contrast noted all the way to stoma
Repeat CT on 10/04/24 showed ileus --> discussed with surgeon Dr. Zhang on 10/05/24 --> suspected colon is obstructed from residual stool impacting at the fascial level of her ostomy
Surgery placed on 10/05/24 red rubber catheter to decompress the above through her ostomy today and put her on the OR schedule tomorrow 10/06/24 for disimpaction under anesthesia.
Now NPO
Continue NG tube
Continue TPN
Medications converted to IV route
Surgeon updated patient's son on 10/05/24
f/w surgery and GI recommendations
-Wound/ostomy nurse consultation
#E. Coli bacteremia
-Repeat blood cultures with no growth to date
-Given E. coli bacteremia, consulted Infectious Disease --> received Zosyn--> completed course of antibiotics (end date was 09/30/24)
-Pain regimen scheduled and PRN, but no NSAIDs given recent rise in creatinine and GI bleeding.
#Acute on chronic lymphedema
#Bilateral Lower Extremity Edema
#Anasarca
#Weight Gain -- 23 lbs gain as of 10/02/24 since admission in August 2024
- From hypoalbuminemia and not ambulatory
-Was started on Bumex lost weight and less edema in legs -- continue IV Lasix as per patient's preference
-Lower extremity ultrasound with no DVTs
-proBNP elevated. Check Echocardiogram.
#Wheezing - RESOLVED
#Left Lung Crackles - IMPROVED
-Patient denied SOB as of 10/02/24 but reported feeling the wheezing which resolved
-CXR without significant change
-ProBNP elevated. Echo ordered
#R arm (with midline) looks bruised and lumpy, with possible concern for DVT (?) as per night nurse
#Proximal RIGHT BASILIC VEIN superficial venous thrombosis
-Upper extremity ultrasound performed on 10/03/24 with the findings above
-Clinically, patient's arm appearance and symptoms are stable
-Will repeat another ultrasound in few days especially given that overlying soft tissue bandage limited evaluation of the venous system of the mid to distal right upper arm
#Small bilateral pleural effusions, right greater than left
#Bubbles of air within the urinary bladder, which may be related to recent bladder catheterization as per CT report 10/04/24
#Hypoattenuating left renal lesion measures 1.2 cm in diameter, internal Hounsfield units are suggestive of a hemorrhagic cyst, as per CT report 10/04/24
#Mild Hyponatremia
#Hypokalemia
replaced with IV KCl
Monitor BMP
#Moderate protein calorie malnutrition
#Asymptomatic Hypoglycemia
RESOLVED
Stopped Acu-check per patient's request
#JT - RESOLVED
#Suspect underlying CKD IIIb
-Bladder scans protocol
-Avoid NSAIDs
#Hx of paroxysmal atrial fibrillation, followed by Dr. Jarrett of [facility]
#A-Fib with RVR
-Not on anticoagulation as an outpatient
-No anticoagulation due to history of hemorrhagic pericardial effusion (her director career services told her no oral anticoagulation)
-Patient is aware of stroke risk associated with not taking anticoagulation and prefers to continue to avoid anticoagulation at this time
-But patient said Heparin DVT prophylaxis is okay
-PO Lopressor (with increased dose @ 50 mg BID (instead of home 25 mg TID)) NOW ON HOLD PATIENT IS NPO
-Continue IV Lopressor
-Outpatient follow-up to Dr. Tiwari of [facility]
#[employer] DC PPM
#History of Pulmonary Embolism
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
#Microscopic colitis
-Patient usually sees Dr. Shweta Zhu at [facility] [place]; Dr. Zhu prescribes the patient's Budesonide and the Colestipol
-Holding Budesonide and Colestipol for now given acute illness
#Rheumatoid Arthritis
-Stable without any flare-up
-Patient sees Dr. Delgado - Rheumatology at [place] who prescribes the Hydroxychloroquine , ok to resume.
-Holding immunosuppressive TX, especially given Azathioprine is a immunosuppressant and patient is recovering from abdominal surgery and bacteremia
-OP f/u with credit verification clerk Dr. Delgado
#Abnormal imaging of the pancreas
-CT A/P on 09/16: 'questionable pancreatic edema, questionable subtle changes of acute pancreatitis, underlying mass cannot be excluded.'
-Outpatient follow-up CT or MRI
#IBS
#Chronic venous insufficiency
#Peripheral neuropathy
#PVCs
#Osteoporosis
Code Status: Full code
DVT Prophylaxis: SCDs. Heparin SUBQ now on hold due to drop in Hgb.
Anticipated Discharge: > 48 hours
Subjective/Interval History
-
Date of Service: October 05, 2024
Patient was seen and examined. She reported abdominal discomfort, no other complaints. Patient was made NPO and placed on NG tube overnight due to ileus and intractable nausea and vomiting.
Objective Data
-
Labs:
Laboratory Results
10/05/24
05:04
WBC 7.8
Hgb 10.5 L
Hct 30.0 L
Plt Count 300
Sodium 131 L
Potassium 3.8
Chloride 103
Carbon Dioxide 22
BUN 22 H
Creatinine 1.0
Glucose 95
Calcium 8.8
Vital Signs:
Vital Signs
Temp Pulse Resp BP Pulse Ox
97.6 F 81 18 108/62 97
10/05/24 02:59 10/05/24 02:59 10/05/24 02:59 10/05/24 02:59 10/05/24 02:59
I&O
10/04/24 10/05/24 10/06/24
06:59 06:59 06:59
Intake Total 780 / 780 530 / 530
Output Total 625 / 625 900 / 900
Balance 155 / 155 -370 / -370
[2024-10-05] MEDS: MAGIC OR MIRACLE MOUTHWASH 5 ML PO ×4 (08:39→21:25)
[2024-10-05] MEDS: CARAFATE SUSPENSION PO (08:39)
[2024-10-05] MEDS: NON-FORMULARY ITEM 1 SPRAY NASAL ×2 (08:40→20:48)
[2024-10-05] MEDS: RESTASIS 0.05% OPHTHALMIC EMULSION 1 DROPS BOTH EYES ×2 (08:41→20:48)
[2024-10-05] MEDS: REFRESH EYE DROPS (PF) 1 DROPS OPHTH ×4 (08:41→21:24)
--- NOTE | 2024-10-05 10:30 | WOUNDNOTE ---
WOC RN Note: Dr. Zhang notified this mortgage underwriter that we do not need to change patient's ostomy appliance tomorrow as he plans to change it tomorrow in the OR. Will follow as needed.
--- NOTE | 2024-10-05 11:46 | CM ---
Chart reviewed
Increased abd distention, bloating, n/v - NGT placed
PICC today; TPN
Patient added onto the OR schedule tomorrow for disimpaction under sedation
PT recs SNF - pt unsure - CM will f/u - currently having PICC placed
Plan - TBD - anticipate snf when medically ready
[2024-10-05] MEDS: LOPRESSOR PO (11:50)
[2024-10-05] MEDS: LASIX PO (11:50)
[2024-10-05] MEDS: MIRALAX PO (11:51)
[2024-10-05] MEDS: PROTONIX PO (11:51)
[2024-10-05] MEDS: PROTONIX IV 40 MG IV ×2 (12:00→20:47)
[2024-10-05] MEDS: LOPRESSOR 2.5 MG IV ×2 (12:06→17:17)
[2024-10-05] MEDS: LASIX 40 MG IV (12:49)
[2024-10-05 13:03] LABS: Glucose - Point of Care 91 mg/dl (70-99)
--- NOTE | 2024-10-05 13:21 | W.PN.GI.CBS2 ---
Today's Communication / Plan
-
-- IV PPI twice daily
-- Surgery to take her to the OR tomorrow to disimpact the stool behind the stoma
-- Continue aggressive bowel regimen after the disimpaction
-- Most of the stool behind the impaction is liquid so we will need to adjust going forward
-- TPN per surgery
-- No active bleeding now and therefore no intervention at this time
Assessment / Plan
-
Called back to see her on 10/05/24 to see her due to an obstructive process causing nausea vomiting and hematemesis
Porsche Hayes is an 83-year-old female with past medical history of A-fib not on anticoagulation, history of PE, RA on Humira, osteoporosis, history of microscopic colitis maintained on 3 mg of budesonide and 3 g of colestipol daily admitted with
severe abdominal pain on 09/16 found to have bowel perforation 2/2 stercoral colitis with hemoperitoneum/peritonitis c/b Ecoli bacteremia s/p sigmoid resection and creation of end descending colon colostomy. Her postoperative course has been
complicated by some constipation, hard stool balls in the colon, felt to be contributing to her ongoing abdominal pain and bloating. On 09/27-09/28, had an episode of coffee-ground emesis and bloody output in her colostomy bag, with some hypotension.
Hgb dropped to 6.9, transfused wtih 2 units of PRBC with adequate correction.
She underwent EGD on 09/28 with findings of 3 ulcers, 1 of which had a large clot, but appeared to be healing without obvious high risk stigmata, present within her hiatal hernia. She had 2 other ulcer, a smaller one in her hiatal hernia and a linear
ulcer in her cardia which also appeared clean based. Suspect etiology of ulcers were related to prior NGT as well as stress-induced. She was placed on PPI gtt, some melena in her colostomy bag on 09/29, hemoglobin dropped to 7.2. However, she then
started having brown liquid stool without evidence of ongoing active GI bleeding.
# Hematemesis on 10/04/2024 -occurred after significant retching secondary to the fecal impaction just behind her stoma
--Team called me last night and I did decide to go ahead with the NG tube
-- She had a small amounts of blood but then it turned feculent and bilious
-- Her hemoglobin dropped 1-1/2 points but nothing requiring transfusion
--Continue the pantoprazole twice daily switch to IV
-- No significant bleeding at this point, just monitor
#N/V
- Likely secondary to significant constipation
-- On imaging which you can see well in the sagittal view she has balls of stool just inside the stoma
-- Dr. Zhang digitally felt them and placed a rubber catheter to help decompress and allow the liquid to come out
-- This was likely the reason for her persistent nausea and vomiting requiring the NG tube placement last night
#Severe constipation following Chauncey's POD#13 for perforated sigmoid colon 2/2 stercoral colitis
-SBFT on 09/21 with moderate fecal material throughout the colon but good transit time/no obstruction
-XR in follow up with retained PO contrast noted all the way to stoma
-started on miralax TID on 09/28 -she does appear to have liquid stool but still has a hard ball of stool behind the stoma
-- Dr. Zhang is taking her to the OR to disimpact the stool tomorrow, continue the NG tube
# Malnutrition -Dr. Zhang is starting her on TPN
#Esophageal/gastric ulcers
-s/p EGD on 09/28 w/o intervention
-PPI IV BID--> okay to transition to BID after able to take in orals and continue for 8 weeks upon d/c
-Hgb 6.9 --> 8.9 --> 7.2, transfused with 2 units of PRBC 09/29 with stable Hgb. Concern for possible bleeding in colostomy bag however, hemoglobin has improved to >12 and remained stable without any additional episodes of bleeding.
-currently on full liquids but seems early satiety is 2/2 pain related to surgery, unsure how much of this is expected post-operatively, definitely protracted improvement
-recommend repeat EGD in 2 months following d/c to ensure healing; will arrange for outpatient appointment with GI upon discharge
#Abnormal imaging of the pancreas
-CT A/P on 09/16: 'questionable pancreatic edema, questionable subtle changes of acute pancreatitis, underlying mass cannot be excluded.'
-repeat CT 10/04/24 pancreas is normal
.
Subjective
Subjective
Date of Service: October 05, 2024
Porsche felt much better after the NG tube was placed. She had significant abdominal distention with an obstruction likely from stool based on Dr. Zhang's exam. No longer any nausea or vomiting.
Objective
Data Reviewed
Laboratory Data:
Laboratory Results
10/05/24 05:04
10/05/24 05:04
Laboratory Results
PT 16.6 Sec (11.4-14.6) H 09/18/24 03:53
INR 1.31 09/18/24 03:53
APTT 39.2 Sec (23.4-35.0) H 09/18/24 03:53
Phosphorus 4.0 mg/dl (2.5-4.5) 10/05/24 05:04
Magnesium 2.0 mg/dl (1.6-2.3) 10/05/24 05:04
Total Bilirubin 0.5 mg/dl (0.2-1.3) 09/27/24 04:56
AST 28 U/L (14-36) 09/27/24 04:56
ALT 16 U/L (0-35) 09/27/24 04:56
Alkaline Phosphatase 246 U/L (38-126) H 09/27/24 04:56
Lipase 259 U/L (23-300) 09/16/24 19:12
Vital Signs and I&O:
Vital Signs
Temp Pulse Resp BP Pulse Ox
97.5 F 80 16 133/99 97
10/05/24 07:20 10/05/24 12:49 10/05/24 07:20 10/05/24 12:49 10/05/24 07:20
I&O
10/04/24 10/05/24 10/06/24
06:59 06:59 06:59
Intake Total 780 / 780 530 / 530
Output Total 625 / 625 900 / 900
Balance 155 / 155 -370 / -370
Physical Exam
Physical Exam
HEENT: Anicteric
Pulmonary: Clear
GI: Soft and Other (Hypoactive bowel sounds, minimal tenderness diffusely.)
Neuro: Non Focal
[2024-10-05 15:50] VITALS: BP 138/71
[2024-10-05 17:54] LABS: Glucose - Point of Care 92 mg/dl (70-99)
[2024-10-05 19:27] VITALS: BP 130/64
[2024-10-05 20:18] LABS: Hematocrit 32.4 % (37.0-47.0); Hemoglobin 11.4 g/dL (12.0-16.0)
[2024-10-05] MEDS: NSS (PRESERVATIVE FREE) 10 ML IV (20:48)
[2024-10-05] MEDS: Parenteral Nutrition, Central 820 IV (21:22)
[2024-10-05 23:25] VITALS: BP 118/62
[2024-10-05] MEDS: NOVOLOG FLEXPEN-LOW RESISTANCE SC (23:56)
[2024-10-06] VITALS (13 sets, daily range): BP systolic 104–132; BP diastolic 56–74; BMI 21.9
[2024-10-06 00:03] LABS: Glucose - Point of Care 121 mg/dl (70-99)
[2024-10-06] MEDS: LOPRESSOR 2.5 MG IV ×5 (00:11→23:51)
[2024-10-06 05:42] LABS: Glucose - Point of Care 134 mg/dl (70-99)
[2024-10-06] MEDS: NOVOLOG FLEXPEN-LOW RESISTANCE SC ×3 (05:50→17:49)
[2024-10-06 06:00] LABS: Hematocrit 29.6 % (37.0-47.0); Hemoglobin 10.5 g/dL (12.0-16.0); Mean Corp Hgb Conc. 35.5 g/dL (33.0-37.0); Mean Corpuscular Hgb 31.4 pg (27.0-31.0); Mean Corpuscular Volume 88.6 fL (81.0-99.0); Mean Platelet Volume 8.8 fL (7.4-10.4); Platelet Count 329 10^3/uL (130-400); Red Blood Cell Count 3.34 10^6/uL (4.20-5.40); Red Cell Dist. Width 16.4 % (11.5-14.5); White Blood Cell Count 8.5 10^3/uL (4.8-10.8)
[2024-10-06 06:21] LABS: Blood Urea Nitrogen 21 mg/dl (7-17); Calcium 8.8 mg/dl (8.4-10.2); Carbon Dioxide 25 mmol/L (22-30); Chloride 106 mmol/L (98-107); Estimated Creatinine Clearance 42 ml/min; Glucose 112 mg/dl (70-99); Magnesium 1.8 mg/dl (1.6-2.3); Phosphorus 4.4 mg/dl (2.5-4.5); Sodium 136 mmol/L (135-145); Triglycerides 125 mg/dl (10-149); eGFR > 60.00
--- NOTE | 2024-10-06 07:30 | W.PN.GS2 ---
Addendum entered and electronically signed by Akshat Amin MD 10/06/24 10:30:
I saw and examined the patient independently.
The resident's documentation was reviewed and I agree with the note, assessment and plan except where noted below.
Comment: This is an 83-year-old female postoperative day 20 from a Callahan's procedure for stercoral colitis with minimal improvement due to prolonged ileus and likely large bowel obstruction from residual stool.
Will plan for OR fecal disimpaction and possible flexible sigmoidoscopy.
Will replete electrolytes, adjust TPN
Original Note:
Today's Communication / Plan
-
To OR for ostomy disimpaction
Cont TPN
Restart aggressive bowel regimen after disimpaction
PPI BID
Assessment / Plan
-
83 yo female presenting with perforated sigmoid colon secondary to stercoral colitis now POD #20 s/p Chauncey's
SBFT on 09/21 with moderate fecal material throughout the colon but good transit time/no obstruction
XR in follow up with retained PO contrast noted all the way to stoma
Stoma irrigated on 09/23
EGD for UGIB on 09/28 with esophageal/gastric ulcers present
MADELAINE drain removed 10/02
10/04 ab xray and ab/pelvic CT suggestive of adynamic ileus. No evidence of mechanical obstruction.
10/05 red rubber cath placed in ostomy to drain liquid around hardened stool near ostomy opening contributing to build up of stool and TPN
AFVSS
H/H stable at 10.5
Passing stool/flatus via stoma.
NG tube draining light pink fluid
Back on NPO now TPN
Overnight stable. Slept well. Decreased ab size, softer than yesterday. Weight also down 3kg. Was able to drain 900cc+ of liquid stool between yesterday and today after cath placed in ostomy.
--10/05 PICC placed and TPN
--To OR today for ostomy disimpaction
--hg stable
--Cont PPI IV BID
--Multimodal analgesics
--ABX regimen completed on 09/30 per ID
--restart aggressive bowel regimen after disimpaction
--OOB as able. PT following. Encourage mobility.
--Heparin SQ on hold due to hematemesis and drop in hg. Utilize CHEMA/SCDS while in bed
--Remove laura on 10/07 (POD #21) or right before discharge as decreased wound healing ability with protein calorie malnutrition
Subjective Data
-
Date of Service: October 06, 2024
Pt feeling better and less distended than yesterday. Able to get a good night sleep. In slight pain at ostomy sight, but stated she doesn't want to take any pain medications. Denies any N/V overnight.
Objective Data
-
Intake and Output
10/05/24 10/06/24 10/07/24
06:59 06:59 06:59
Intake Total 530 / 530 120 / 120
Output Total 900 / 900 2550 / 2550
Balance -370 / -370 -2430 / -2430
Intake:
Oral fluids 530 / 530 120 / 120
Output:
Liquid stool amount 400 / 400 550 / 550
Colostomy 400 / 400 550 / 550
Drain Output (Total) 250 / 250
Right Lower Abdomen Mynor- 250 / 250
Horner
Gastrointestinal tube output ( 350 / 350 1250 / 1250
Total)
[place] Sump 350 / 350 1250 / 1250
Urine, Voided 500 / 500
Urostomy output 150 / 150
Other:
Number of approximated LARGE 2
amounts of urine
How many times incontinent 1 2
MODERATE amount urine
Vital Signs
Temp Pulse Resp BP Pulse Ox
97.9 F 94 16 121/56 94
10/06/24 03:00 10/06/24 05:24 10/06/24 03:00 10/06/24 03:00 10/06/24 03:00
Lab Results
10/06/24 05:36
10/06/24 05:36
Calcium 8.8 mg/dl (8.4-10.2) 10/06/24 05:36
Phosphorus 4.4 mg/dl (2.5-4.5) 10/06/24 05:36
Magnesium 1.8 mg/dl (1.6-2.3) 10/06/24 05:36
Total Bilirubin 0.5 mg/dl (0.2-1.3) 09/27/24 04:56
Direct Bilirubin 0.5 mg/dl (0.0-0.4) H 09/16/24 19:12
AST 28 U/L (14-36) 09/27/24 04:56
ALT 16 U/L (0-35) 09/27/24 04:56
Alkaline Phosphatase 246 U/L (38-126) H 09/27/24 04:56
Total Protein 3.8 g/dl (6.3-8.2) L 09/27/24 04:56
Albumin 1.9 g/dl (3.5-5.0) L 10/03/24 07:16
Physical Exam
-
AFVSS
Distended abdomen, but decreased from yesterday, tympanic, tender with palpation, but less tender and softer than yesterday.
Liquid brown stool in ostomy. [place] healthy tissue.
No discharge, erythema around surgical midline laura
Light pink fluid from NG tube.
--- NOTE | 2024-10-06 07:49 | W.PN.HOSP.TC ---
Today's Communication/Plan
-
Continue NG tube
Surgery today for disimpaction under anesthesia
Potassium replacement ordered
Assessment / Plan
Assessment / Plan
Physical Exam
General: Not in acute distress, cachexia
HEENT: Normocephalic, Moist mucous membranes and Atraumatic. NG tube present with dark colored output.
Respiratory: Decreased Breath Sounds Bilaterally; No wheezes.
Cardiac: S1/S2 and Regular Rate and Rhythm
GI: Soft, not tender, mildly distended, midline incision and dressing intact, colostomy (gas and liquid stool present), right drain (removed)
Musculoskeletal: No Cyanosis, Edema of both lower extremities.
Skin: Warm. Dry.
Neuro: Alert. Awake. Nonfocal/grossly intact
Psych: calm
Assessment/Plan
83-year-old female with past medical history of umbilical hernia surgery as a child, atrial fibrillation not on anticoagulation, prior pulmonary embolism, microscopic colitis and IBS presented with abdominal pain. She started having lower abdominal
pain 4 days prior to presentation. Pain was initially intermittent but now constant, and has become more severe. Last bowel movement 5 days prior to presentation. Patient has been passing clear mucus several times a day with some blood in the stool.
On the day of presentation, she had an episode of vomiting, without blood. At the time of admission, she denied fevers, chills, chest pain or shortness of breath. She was found to have perforated viscus likely secondary to severe proctocolitis.
#Upper GI bleeding due to esophagitis and esophageal ulcer
#Esophageal/gastric ulcers
EGD also showed non bleeding gastric ulcer -- s/p EGD on 09/28 w/o intervention
PO PPI changed to IV as patient is NPO
See GI note for how long to continue PPI after discharge
Recheck HGB, showed upward trending
Repeat EGD in 2 months to ensure healing; GI will arrange for outpatient appointment with GI upon discharge
#Acute blood loss anemia , s/p total 4 units, suspected secondary to GI Bleed
Received 1 unit PRBC on 09/18/24
one unit 09/28, 2 units on 09/29
Total of 4 units PRBCs so far this hospitalization
Hematemesis again 10/04/24 to 10/05/24 --> PPI changed to IV, and Heparin subq stopped
#Nausea/Vomiting
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
#Severe constipation following Chauncey's for perforated sigmoid colon 2/2 stercoral colitis
Has not improved due to prolonged ileus and likely large bowel obstruction from residual stool all post-op
Repeat CT on 10/04/24 showed ileus --> discussed with surgeon Dr. Zhang on 10/05/24 --> suspected colon is obstructed from residual stool impacting at the fascial level of her ostomy
Surgery placed on 10/05/24 red rubber catheter to decompress the above through her ostomy today and put her on the OR schedule today 10/06/24 for disimpaction under anesthesia.
Now NPO
Continue NG tube
Continue TPN
Medications converted to IV route
Surgeon updated patient's son on 10/05/24
f/w surgery and GI recommendations
-Wound/ostomy nurse consultation
#E. Coli bacteremia
-Repeat blood cultures with no growth to date
-Given E. coli bacteremia, consulted Infectious Disease --> received Zosyn--> completed course of antibiotics (end date was 09/30/24)
-Pain regimen scheduled and PRN, but no NSAIDs given recent rise in creatinine and GI bleeding.
#Acute on chronic lymphedema
#Bilateral Lower Extremity Edema
#Anasarca
#Weight Gain -- 23 lbs gain as of 10/02/24 since admission in August 2024
- From hypoalbuminemia and not ambulatory
-Was started on Bumex lost weight and less edema in legs -- continue IV Lasix as per patient's preference
-Lower extremity ultrasound with no DVTs
-proBNP elevated. Check Echocardiogram.
#Wheezing - RESOLVED
#Left Lung Crackles - IMPROVED
-Patient denied SOB as of 10/02/24 but reported feeling the wheezing which resolved
-CXR without significant change
-ProBNP elevated. Echo with normal LVEF, mild concentric left ventricular hypertrophy, pacer wire seen in right ventricle, moderate mitral regurgitation, mild aortic regurgitation, mild tricuspid regurgitation, trivial pericardial effusion and
dilated aortic root.
#R arm (with midline) looks bruised and lumpy, with possible concern for DVT (?) as per night nurse
#Proximal RIGHT BASILIC VEIN superficial venous thrombosis
-Upper extremity ultrasound performed on 10/03/24 with the findings above
-Clinically, patient's arm appearance and symptoms are stable
-Will repeat another ultrasound in few days especially given that overlying soft tissue bandage limited evaluation of the venous system of the mid to distal right upper arm
#Small bilateral pleural effusions, right greater than left
#Bubbles of air within the urinary bladder, which may be related to recent bladder catheterization as per CT report 10/04/24
#Hypoattenuating left renal lesion measures 1.2 cm in diameter, internal Hounsfield units are suggestive of a hemorrhagic cyst, as per CT report 10/04/24
#Mild Hyponatremia
#Hypokalemia
replaced with IV KCl
Monitor BMP
#Moderate protein calorie malnutrition
#Asymptomatic Hypoglycemia
RESOLVED
Stopped Acu-check per patient's request
#JT - RESOLVED
#Suspect underlying CKD IIIb
-Bladder scans protocol
-Avoid NSAIDs
#Hx of paroxysmal atrial fibrillation, followed by Dr. Jarrett of [facility]
#A-Fib with RVR
-Not on anticoagulation as an outpatient
-No anticoagulation due to history of hemorrhagic pericardial effusion (her tree sapper told her no oral anticoagulation)
-Patient is aware of stroke risk associated with not taking anticoagulation and prefers to continue to avoid anticoagulation at this time
-But patient said Heparin DVT prophylaxis is okay
-PO Lopressor (with increased dose @ 50 mg BID (instead of home 25 mg TID)) NOW ON HOLD PATIENT IS NPO
-Continue IV Lopressor
-Outpatient follow-up to Dr. Tiwari of [facility]
#[employer] DC PPM
#History of Pulmonary Embolism
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
#Microscopic colitis
-Patient usually sees Dr. Shweta Zhu at [facility] [place]; Dr. Zhu prescribes the patient's Budesonide and the Colestipol
-Holding Budesonide and Colestipol for now given acute illness
#Rheumatoid Arthritis
-Stable without any flare-up
-Patient sees Dr. Delgado - Rheumatology at [place] who prescribes the Hydroxychloroquine , ok to resume.
-Holding immunosuppressive [place], especially given Azathioprine is a immunosuppressant and patient is recovering from abdominal surgery and bacteremia
-OP f/u with national park tour guide Dr. Delgado
#Abnormal imaging of the pancreas
-CT A/P on 09/16: 'questionable pancreatic edema, questionable subtle changes of acute pancreatitis, underlying mass cannot be excluded.'
-Outpatient follow-up CT or MRI
#IBS
#Chronic venous insufficiency
#Peripheral neuropathy
#PVCs
#Osteoporosis
Code Status: Full code
DVT Prophylaxis: SCDs. Heparin SUBQ now on hold due to drop in Hgb.
Anticipated Discharge: > 48 hours
Subjective/Interval History
-
Date of Service: October 06, 2024
Patient was seen and examined. She denied any new symptoms or complaints.
Objective Data
-
Labs:
Laboratory Results
10/05/24 10/06/24
20:05 05:36
WBC 8.5
Hgb 11.4 L 10.5 L
Hct 32.4 L 29.6 L
Plt Count 329
Sodium 136
Potassium 3.0 L
Chloride 106
Carbon Dioxide 25
BUN 21 H
Creatinine 0.9
Glucose 112 H
Calcium 8.8
Vital Signs:
Vital Signs
Temp Pulse Resp BP Pulse Ox
98.0 F 129 17 107/70 98
10/06/24 07:37 10/06/24 07:37 10/06/24 07:37 10/06/24 07:37 10/06/24 07:37
I&O
10/05/24 10/06/24 10/07/24
06:59 06:59 06:59
Intake Total 530 / 530 120 / 120
Output Total 900 / 900 2550 / 2550
Balance -370 / -370 -2430 / -2430
[2024-10-06] MEDS: MAGIC OR MIRACLE MOUTHWASH 5 ML PO ×3 (07:53→21:58)
[2024-10-06] MEDS: KCL 100 IV ×2 (07:53→13:05)
[2024-10-06] MEDS: REFRESH EYE DROPS (PF) 1 DROPS OPHTH ×4 (08:04→21:58)
[2024-10-06] MEDS: RESTASIS 0.05% OPHTHALMIC EMULSION 1 DROPS BOTH EYES ×2 (08:04→19:54)
[2024-10-06] MEDS: NON-FORMULARY ITEM 1 SPRAY NASAL ×2 (08:04→19:55)
[2024-10-06] MEDS: PROTONIX IV 40 MG IV ×2 (09:08→19:54)
[2024-10-06] MEDS: NSS (PRESERVATIVE FREE) 10 ML IV ×2 (09:09→19:54)
[2024-10-06] MEDS: LASIX 40 MG IV (09:09)
--- NOTE | 2024-10-06 10:12 | CHAP ---
Emotional and spiritual support provided pre-surgery. Prayers shared and prayer blanket given.
--- NOTE | 2024-10-06 10:25 | CM ---
Chart reviewed
Pt for OR today for ostomy disimpaction
PT recs - snf - pt unsure. Will discuss with pt post-op
Plan - TBD based on pt needs post op
--- NOTE | 2024-10-06 10:36 | W.SUR.PREOP ---
Pre-Operative Surgical Note
-
I have examined this patient prior to the performance of the scheduled procedure.
The patient's condition is unchanged from the time of the current History and
Physical and the patient is able to undergo the scheduled procedure.
[2024-10-06 12:05] LABS: Glucose - Point of Care 141 mg/dl (70-99)
[2024-10-06] MEDS: DILAUDID 0.25 MG IV (17:13)
--- NOTE | 2024-10-06 17:15 | W.IMMPOSTOP ---
Surgical Immed Post Op Note
-
Primary Surgeon: Akshat Amin MD
Assisting Surgeon: None
Pre-op Diagnosis: Fecal impaction
Post-op Diagnosis: Same
Procedure Performed:
1. Manual disimpaction under anesthesia
2. Flexible sigmoidoscopy
Anesthesia Type: General
Specimen / Cultures: None
Estimated Blood Loss: 1 cc
Complications: None
Operative Findings: Multiple large stool concretions noted in the ostomy up to the level of the fascia removed by manual disimpaction. A flexible sigmoidoscopy was performed up to the level of the transverse colon. A few large stool concretions
were identified and broken up, we were able to remove one of the more proximal ones.
POST OP PLAN:
Imaging: None
Labs: Routine AM
Diet: Fulls, continue aggressive bowel regimen.
Analgesia: Tylenol 650mg q6 Carmela, Julissa 5mg q6 PRN, Dilaudid 0.5mg q2h PRN
Neuro/vascular checks: q4h
AC/AP: Hold Therapeutic AC, Ok for DVT PPx
Activity: Ad Latrice
Wound/Incisions/Drains: Routine, routine stoma care
Abx: None
Dispo: RNF
--- NOTE | 2024-10-06 17:24 | W.PN.UPDATE ---
Update Note
Progress Note Update
Several attempts made today by myself and GI team
Unable to see her as was in OR
Diet and bowel regimen per surgery or primary team
GI will follow peripherally at this juncture please call for questions
--- NOTE | 2024-10-06 17:28 | OR.RPT ---
Operative Report
Operative Report
Patient Name: Porsche Grimm
: 1940
Date of Operation: 10/06/2024
Preoperative Diagnosis: Fecal impaction
Postoperative Diagnosis: Same
Procedure performed:
1. Manual disimpaction under anesthesia
2. Flexible sigmoidoscopy
Surgeon(s):
Dr. Amin
Berry Picker Machine Operator:
None
Anesthesia: General
Estimated Blood Loss: 1 cc
Urine Output: None
Drains/Lines/Implants: 20 German PEG tube
Specimens: None
Operative Findings: Multiple large stool concretions noted in the ostomy up to the level of the fascia removed by manual disimpaction. A flexible sigmoidoscopy was performed up to the level of the transverse colon. A few large stool concretions
were identified and broken up, we were able to remove one of the more proximal ones.
Details of the operation:
After inducing general anesthesia her ostomy site was prepped and draped in the usual fashion. A timeout was performed confirming the procedure. Her prior rubber catheter was irrigated with warm saline. Using a lubricated finger, stool in the
ostomy was disimpacted. This took some time to break up the very hard stool concretions. Once everything that we could manually reach was evacuated we then performed a flexible sigmoidoscopy. There were further stool concretions identified along
the descending colon up to the splenic flexure. No polyps or lesions were identified but this was obviously an unprepped colon. We did attempt to retrieve some of the stool concretions using Bennett nets and feeling that large snare to try and break
up some of the stool which we did with some limited success however they were too large to significantly breakdown with the stools. One of the more proximal concretions was hooked with the scope and partial retroflexion and pulled back into the
stoma where we were able to remove it manually. Satisfied, the scope was removed concluding the procedure. There was minimal blood loss. The patient returned to the recovery room in stable condition. Sponge and instrument counts were correct. No
specimen sent to pathology from our portion of the procedure.
I was the attending physician and performed the procedure with no assistance. I was present for all portions of the case
Akshat Amin MD
[2024-10-06 17:36] LABS: Glucose - Point of Care 144 mg/dl (70-99)
[2024-10-06] MEDS: MAGIC OR MIRACLE MOUTHWASH PO (17:49)
--- NOTE | 2024-10-06 18:15 | PTCARENOTE ---
Received patient back from surgery. She is awake and alert, no c/o pain. Hooked NGT back to suction. TPN stil going at 34 cc/hr. Bag of Normosol is finishing. VS WNL. Abdominal site looks same as this morning, with new colostomy bag applied. Stoma
pink and budded.
[2024-10-06] MEDS: FLUSH (NSS) 2 FLUSH IV ×2 (19:57→23:55)
[2024-10-06] MEDS: Parenteral Nutrition, Central 1170 IV (20:49)
[2024-10-06 23:45] LABS: Glucose - Point of Care 228 mg/dl (70-99)
[2024-10-06] MEDS: NOVOLOG FLEXPEN-LOW RESISTANCE 2 UNITS SC (23:56)
[2024-10-07] MEDS: DILAUDID IV (02:04)
[2024-10-07] MEDS: FLUSH (NSS) 2 FLUSH IV ×3 (02:05→19:34)
[2024-10-07] MEDS: DILAUDID 0.25 MG IV (02:13)
[2024-10-07 03:26] VITALS: BP 102/52
[2024-10-07] MEDS: LOPRESSOR 2.5 MG IV ×4 (05:10→23:28)
[2024-10-07 05:16] VITALS: BMI 21.9
[2024-10-07 05:18] LABS: Hematocrit 27.4 % (37.0-47.0); Hemoglobin 9.3 g/dL (12.0-16.0); Mean Corp Hgb Conc. 33.9 g/dL (33.0-37.0); Mean Corpuscular Hgb 30.9 pg (27.0-31.0); Mean Platelet Volume 9.4 fL (7.4-10.4); Platelet Count 270 10^3/uL (130-400); Red Blood Cell Count 3.01 10^6/uL (4.20-5.40); Red Cell Dist. Width 16.9 % (11.5-14.5)
[2024-10-07 05:44] LABS: Blood Urea Nitrogen 26 mg/dl (7-17); Calcium 8.3 mg/dl (8.4-10.2); Carbon Dioxide 24 mmol/L (22-30); Chloride 108 mmol/L (98-107); Estimated Creatinine Clearance 48 ml/min; Glucose 253 mg/dl (70-99); Magnesium 1.8 mg/dl (1.6-2.3); Phosphorus 3.9 mg/dl (2.5-4.5); Potassium 3.9 mmol/L (3.5-5.1); Sodium 139 mmol/L (135-145); eGFR > 60.00
[2024-10-07 05:47] LABS: Glucose - Point of Care 238 mg/dl (70-99)
[2024-10-07] MEDS: NOVOLOG FLEXPEN-LOW RESISTANCE 2 UNITS SC ×3 (05:57→18:11)
[2024-10-07 07:25] VITALS: BP 122/56
[2024-10-07] MEDS: RESTASIS 0.05% OPHTHALMIC EMULSION 1 DROPS BOTH EYES ×2 (09:09→19:30)
[2024-10-07] MEDS: MAGIC OR MIRACLE MOUTHWASH 5 ML PO ×4 (09:09→21:04)
[2024-10-07] MEDS: REFRESH EYE DROPS (PF) 1 DROPS OPHTH ×4 (09:09→21:04)
--- NOTE | 2024-10-07 09:09 | W.PN.GS2 ---
Today's Communication / Plan
-
NG tube clamp trial
Assessment / Plan
-
83 yo female presenting with perforated sigmoid colon secondary to stercoral colitis now POD #21 s/p Chauncey's with prolonged postoperative course due to expected ileus and residual hard stools. POD #1 from a fecal disimpaction under anesthesia
and flexible sigmoidoscopy.
--NG tube clamp trial, will start clears after if she passes.
--Continue TPN
--Cont PPI IV BID
--Multimodal analgesics
--ABX regimen completed on 09/30 per ID
--restart bowel regimen after disimpaction. May plan for a Gastrografin enema on Wednesday.
--OOB as able. PT following. Encourage mobility.
--Heparin SQ on hold due to hematemesis and drop in hg. Utilize CHEMA/SCDS while in bed
-- Will remove skin laura this weekend.
Time Spent
Total Time Spent with Patient (in minutes): 20
Subjective Data
-
Date of Service: October 07, 2024
Interval Events:
No acute events overnight. Slept well. Pain Controlled. Denies Nausea/Vomiting, +bowel function. Tolerating diet.
Objective Data
-
Intake and Output
10/06/24 10/07/24 10/08/24
06:59 06:59 06:59
Intake Total 120 / 120 983 / 983
Output Total 2550 / 2550 950 / 950
Balance -2430 / -2430 / 33
Intake:
Oral fluids 120 / 120
TPN/PPN 983 / 983
Output:
Liquid stool amount 550 / 550
Colostomy 550 / 550
Drain Output (Total) 250 / 250 50 / 50
Right Lower Abdomen Mynor- 250 / 250 50 / 50
Horner
Gastrointestinal tube output ( 1250 / 1250 900 / 900
Total)
[place] Sump 1250 / 1250 900 / 900
Urine, Voided 500 / 500
Other:
Number of approximated LARGE 2 1
amounts of urine
How many times incontinent 2 3
MODERATE amount urine
How many times incontinent 2
SATURATED amount urine
Vital Signs
Temp Pulse Resp BP Pulse Ox
97.5 F 72 16 122/56 98
10/07/24 07:25 10/07/24 07:25 10/07/24 07:25 10/07/24 07:25 10/07/24 07:25
Lab Results
10/07/24 04:54
10/07/24 04:54
Calcium 8.3 mg/dl (8.4-10.2) L 10/07/24 04:54
Phosphorus 3.9 mg/dl (2.5-4.5) 10/07/24 04:54
Magnesium 1.8 mg/dl (1.6-2.3) 10/07/24 04:54
Total Bilirubin 0.5 mg/dl (0.2-1.3) 09/27/24 04:56
Direct Bilirubin 0.5 mg/dl (0.0-0.4) H 09/16/24 19:12
AST 28 U/L (14-36) 09/27/24 04:56
ALT 16 U/L (0-35) 09/27/24 04:56
Alkaline Phosphatase 246 U/L (38-126) H 09/27/24 04:56
Total Protein 3.8 g/dl (6.3-8.2) L 09/27/24 04:56
Albumin 1.9 g/dl (3.5-5.0) L 10/03/24 07:16
Physical Exam
-
GENERAL/NEURO: Awake, Alert, no distress
CHEST: Unlabored breathing on RA
ABDOMEN: Soft, Non-Tender, distended, ostomy is pink patent and productive of brown liquid effluent. Still mildly edematous.
Patient has a aviles catheter: No
Patient has a central line: No
[2024-10-07] MEDS: PROTONIX IV 40 MG IV ×2 (09:10→19:30)
[2024-10-07] MEDS: LASIX 40 MG IV (09:10)
[2024-10-07] MEDS: NSS (PRESERVATIVE FREE) 10 ML IV ×2 (09:10→19:30)
[2024-10-07] MEDS: NON-FORMULARY ITEM 1 SPRAY NASAL ×2 (09:11→19:31)
[2024-10-07] MEDS: MIRALAX 17 GRAMS PO (10:07)
[2024-10-07] MEDS: COLACE 100 MG PO ×2 (10:07→19:27)
--- NOTE | 2024-10-07 10:57 | PTCARENOTE ---
Brief removed to help prevent UTI, and promote patient comfort. Chucks provided and placed.
[2024-10-07 11:20] VITALS: BP 126/66
[2024-10-07] MEDS: DESENEX/MITRAZOL/ZEASORB 1 APPLIC TOPICAL ×2 (12:06→19:36)
[2024-10-07 12:09] LABS: Glucose - Point of Care 215 mg/dl (70-99)
[2024-10-07 15:25] VITALS: BP 148/76
--- NOTE | 2024-10-07 17:49 | W.PN.HOSP.TC ---
Today's Communication/Plan
-
See plan
Assessment / Plan
Assessment / Plan
Physical Exam
General: Not in acute distress, cachexia
HEENT: Normocephalic, Moist mucous membranes and Atraumatic. NG tube present with dark colored output.
Respiratory: Decreased Breath Sounds Bilaterally; No wheezes.
Cardiac: S1/S2 and Regular Rate and Rhythm
GI: Soft, not tender, mildly distended, midline incision and dressing intact, colostomy (gas and liquid stool present), right drain (removed)
Musculoskeletal: No Cyanosis, Edema of both lower extremities.
Skin: Warm. Dry.
Neuro: Alert. Awake. Nonfocal/grossly intact
Psych: calm
Assessment/Plan
83-year-old female with past medical history of umbilical hernia surgery as a child, atrial fibrillation not on anticoagulation, prior pulmonary embolism, microscopic colitis and IBS presented with abdominal pain. She started having lower abdominal
pain 4 days prior to presentation. Pain was initially intermittent but now constant, and has become more severe. Last bowel movement 5 days prior to presentation. Patient has been passing clear mucus several times a day with some blood in the stool.
On the day of presentation, she had an episode of vomiting, without blood. At the time of admission, she denied fevers, chills, chest pain or shortness of breath. She was found to have perforated viscus likely secondary to severe proctocolitis.
#Upper GI bleeding due to esophagitis and esophageal ulcer
#Esophageal/gastric ulcers
EGD also showed non bleeding gastric ulcer -- s/p EGD on 09/28 w/o intervention
PO PPI changed to PPI IV BID as patient is NPO
See GI note for how long to continue PPI after discharge
Recheck HGB, showed upward trending
Repeat EGD in 2 months to ensure healing; GI will arrange for outpatient appointment with GI upon discharge
#Acute blood loss anemia , s/p total 4 units, suspected secondary to GI Bleed
Received 1 unit PRBC on 09/18/24
one unit 09/28, 2 units on 09/29
Total of 4 units PRBCs so far this hospitalization
Hematemesis again 10/04/24 to 10/05/24 --> PPI changed to IV, and Heparin subq stopped
#Nausea/Vomiting
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
#Severe constipation following Chauncey's for perforated sigmoid colon 2/2 stercoral colitis
Has not improved due to prolonged ileus and likely large bowel obstruction from residual stool all post-op
Repeat CT on 10/04/24 showed ileus --> discussed with surgeon Dr. Zhang on 10/05/24 --> suspected colon is obstructed from residual stool impacting at the fascial level of her ostomy
Surgery performed on 10/06/24 fecal disimpaction under anesthesia and flexible sigmoidoscopy
Now on Clear Liquid Diet, NG tube has been taken out
Resume bowel regimen - possible Gastrografin enema on Wednesday.
Continue TPN
Medications converted to IV route
Surgeon updated patient's son
f/w surgery and GI recommendations
-Wound/ostomy nurse consultation
#E. Coli bacteremia
-Repeat blood cultures with no growth to date
-Given E. coli bacteremia, consulted Infectious Disease --> received Zosyn--> completed course of antibiotics (end date was 09/30/24)
-Pain regimen scheduled and PRN, but no NSAIDs given recent rise in creatinine and GI bleeding.
#Groin Yeast Infection
-Continue Desenex
-Continue to monitor
#Acute on chronic lymphedema
#Bilateral Lower Extremity Edema
#Anasarca
#Weight Gain -- 23 lbs gain as of 10/02/24 since admission in August 2024
- From hypoalbuminemia and not ambulatory
-Was started on Bumex lost weight and less edema in legs -- continue IV Lasix as per patient's preference
-Lower extremity ultrasound with no DVTs
-proBNP elevated. Echo with mild concentric left ventricular hypertrophy, no regional wall motion abnormalities are seen, LV ejection fraction 65-70% by visual assessment, pacer wire in right ventricle, moderate mitral regurgitation, mild aortic
regurgitation, mild tricuspid regurgitation, estimated pulmonary artery pressure of 20-25 mmHg assuming a right atrial pressure of 3 mmHg, trivial pericardial effusion, dilated aortic root, sinus of Valsalva measures 4.2 cm, sinotubular junction
measures 3.5 cm.
#Wheezing - RESOLVED
#Left Lung Crackles - IMPROVED
-Patient denied SOB as of 10/02/24 but reported feeling the wheezing which resolved
-CXR without significant change
-ProBNP elevated. Echo as above
#R arm (with midline) looks bruised and lumpy, with possible concern for DVT (?) as per night nurse
#Proximal RIGHT BASILIC VEIN superficial venous thrombosis
-Upper extremity ultrasound performed on 10/03/24 with the findings above
-Clinically, patient's arm appearance and symptoms are stable
-Will repeat another ultrasound in few days especially given that overlying soft tissue bandage limited evaluation of the venous system of the mid to distal right upper arm
#Small bilateral pleural effusions, right greater than left
#Bubbles of air within the urinary bladder, which may be related to recent bladder catheterization as per CT report 10/04/24
#Hypoattenuating left renal lesion measures 1.2 cm in diameter, internal Hounsfield units are suggestive of a hemorrhagic cyst, as per CT report 10/04/24
#Mild Hyponatremia
#Hypokalemia
replaced with IV KCl
Monitor BMP
#Moderate protein calorie malnutrition
#Asymptomatic Hypoglycemia
RESOLVED
Stopped Acu-check per patient's request
#JT - RESOLVED
#Suspect underlying CKD IIIb
-Bladder scans protocol
-Avoid NSAIDs
#Hx of paroxysmal atrial fibrillation, followed by Dr. Jarrett of [facility]
#A-Fib with RVR
-Not on anticoagulation as an outpatient
-No anticoagulation due to history of hemorrhagic pericardial effusion (her head of partner development told her no oral anticoagulation)
-Patient is aware of stroke risk associated with not taking anticoagulation and prefers to continue to avoid anticoagulation at this time
-But patient said Heparin DVT prophylaxis is okay
-PO Lopressor (with increased dose @ 50 mg BID (instead of home 25 mg TID)) NOW ON HOLD PATIENT IS NPO
-Continue IV Lopressor
-Outpatient follow-up to Dr. Tiwari of [facility]
#[employer] DC PPM
#History of Pulmonary Embolism
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
#Microscopic colitis
-Patient usually sees Dr. Shweta Zhu at [facility] [place]; Dr. Zhu prescribes the patient's Budesonide and the Colestipol
-Holding Budesonide and Colestipol for now given acute illness
#Rheumatoid Arthritis
-Stable without any flare-up
-Patient sees Dr. Delgado - Rheumatology at [place] who prescribes the Hydroxychloroquine , ok to resume.
-Holding immunosuppressive [place], especially given Azathioprine is a immunosuppressant and patient is recovering from abdominal surgery and bacteremia
-OP f/u with building materials sales attendant Dr. Delgado
#Abnormal imaging of the pancreas
-CT A/P on 09/16: 'questionable pancreatic edema, questionable subtle changes of acute pancreatitis, underlying mass cannot be excluded.'
-Outpatient follow-up CT or MRI
#IBS
#Chronic venous insufficiency
#Peripheral neuropathy
#PVCs
#Osteoporosis
Code Status: Full code
DVT Prophylaxis: SCDs. Heparin SUBQ still on hold due to drop in Hgb.
Anticipated Discharge: > 48 hours
Subjective/Interval History
-
Date of Service: October 07, 2024
Patient was seen and examined. She reported doing okay, reported gas in the ostomy bag and yeast-like red rash in her groin area, denied any other complaints.
Objective Data
-
Vital Signs:
Vital Signs
Temp Pulse Resp BP Pulse Ox
97.5 F 78 16 148/76 97
10/07/24 15:25 10/07/24 15:25 10/07/24 15:25 10/07/24 15:25 10/07/24 15:25
I&O
10/06/24 10/07/24 10/08/24
06:59 06:59 06:59
Intake Total 120 / 120 983 / 983
Output Total 2550 / 2550 950 / 950
Balance -2430 / -2430
[2024-10-07] MEDS: CARAFATE SUSPENSION 1 GM PO (17:54)
[2024-10-07 17:58] LABS: Glucose - Point of Care 226 mg/dl (70-99)
--- NOTE | 2024-10-07 18:33 | PTCARENOTE ---
NG removed this shift, able to eat CL diet, she stated that she is hungry and wants to eat; tolerated food, denies nausea vomiting, colostomy bag changed this shift with stoma wafer; put out 60 ml of liquid stools from it.
[2024-10-07 19:05] VITALS: BP 138/81
[2024-10-07] MEDS: HEPARIN 5000 UNITS SC (19:27)
[2024-10-07] MEDS: Parenteral Nutrition, Central 1170 IV (20:55)
[2024-10-07 23:15] VITALS: BP 117/87
[2024-10-07 23:32] LABS: Glucose - Point of Care 190 mg/dl (70-99)
[2024-10-07] MEDS: NOVOLOG FLEXPEN-LOW RESISTANCE 1 UNITS SC (23:32)
[2024-10-08] VITALS (7 sets, daily range): BP systolic 114–171; BP diastolic 56–97; BMI 21.8
[2024-10-08] MEDS: TYLENOL 1000 MG PO ×2 (02:23→22:17)
[2024-10-08 05:02] LABS: Glucose - Point of Care 171 mg/dl (70-99)
[2024-10-08] MEDS: NOVOLOG FLEXPEN-LOW RESISTANCE 1 UNITS SC (05:08)
[2024-10-08] MEDS: LOPRESSOR 2.5 MG IV ×3 (05:09→18:42)
[2024-10-08] MEDS: FLUSH (NSS) 2 FLUSH IV (05:10)
[2024-10-08 06:28] LABS: Hematocrit 26.7 % (37.0-47.0); Hemoglobin 9.3 g/dL (12.0-16.0); Mean Corp Hgb Conc. 34.8 g/dL (33.0-37.0); Mean Corpuscular Hgb 31.4 pg (27.0-31.0); Mean Corpuscular Volume 90.2 fL (81.0-99.0); Mean Platelet Volume 8.6 fL (7.4-10.4); Platelet Count 267 10^3/uL (130-400); Red Blood Cell Count 2.96 10^6/uL (4.20-5.40); White Blood Cell Count 7.6 10^3/uL (4.8-10.8)
[2024-10-08 06:48] LABS: Blood Urea Nitrogen 29 mg/dl (7-17); Calcium 8.5 mg/dl (8.4-10.2); Carbon Dioxide 27 mmol/L (22-30); Chloride 108 mmol/L (98-107); Estimated Creatinine Clearance 54 ml/min; Glucose 135 mg/dl (70-99); Magnesium 1.6 mg/dl (1.6-2.3); Phosphorus 2.9 mg/dl (2.5-4.5); Sodium 137 mmol/L (135-145); eGFR > 60.00
[2024-10-08 06:57] LABS: Potassium 3.3 mmol/L (3.5-5.1)
[2024-10-08] MEDS: KCL 270 MEQ IV (07:40)
--- NOTE | 2024-10-08 08:07 | W.PN.HOSP.TC ---
Today's Communication/Plan
-
See plan
Assessment / Plan
Assessment / Plan
Physical Exam
General: Not in acute distress, cachexia
HEENT: Normocephalic, Moist mucous membranes and Atraumatic. NG tube present with dark colored output.
Respiratory: Decreased Breath Sounds Bilaterally; No wheezes.
Cardiac: S1/S2 and Regular Rate and Rhythm
GI: Soft, not tender, mildly distended, midline incision and dressing intact, colostomy (gas and liquid stool present), right drain (removed)
Musculoskeletal: No Cyanosis, Edema of both lower extremities.
Skin: Warm. Dry.
Neuro: Alert. Awake. Nonfocal/grossly intact
Psych: calm
Assessment/Plan
83-year-old female with past medical history of umbilical hernia surgery as a child, atrial fibrillation not on anticoagulation, prior pulmonary embolism, microscopic colitis and IBS presented with abdominal pain. She started having lower abdominal
pain 4 days prior to presentation. Pain was initially intermittent but now constant, and has become more severe. Last bowel movement 5 days prior to presentation. Patient has been passing clear mucus several times a day with some blood in the stool.
On the day of presentation, she had an episode of vomiting, without blood. At the time of admission, she denied fevers, chills, chest pain or shortness of breath. She was found to have perforated viscus likely secondary to severe proctocolitis.
#Upper GI bleeding due to esophagitis and esophageal ulcer
#Esophageal/gastric ulcers
EGD also showed non bleeding gastric ulcer -- s/p EGD on 09/28 w/o intervention
PO PPI changed to PPI IV BID as patient was NPO/hematemesis/had NG tube (taken out 10/07/24)
See GI note for how long to continue PPI after discharge
Recheck HGB, showed upward trending
Repeat EGD in 2 months to ensure healing; GI will arrange for outpatient appointment with GI upon discharge
#Acute blood loss anemia , s/p total 4 units, suspected secondary to GI Bleed
Received 1 unit PRBC on 09/18/24
one unit 09/28, 2 units on 09/29
Total of 4 units PRBCs so far this hospitalization
Hematemesis again 10/04/24 to 10/05/24 --> PPI changed to IV, and Heparin subq stopped
#Nausea/Vomiting
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
#Severe constipation following Chauncey's for perforated sigmoid colon 2/2 stercoral colitis
Has not been improving due to prolonged ileus and likely large bowel obstruction from residual stool all post-op
Repeat CT on 10/04/24 showed ileus --> discussed with surgeon Dr. Zhang on 10/05/24 --> suspected colon is obstructed from residual stool impacting at the fascial level of her ostomy
Surgery performed on 10/06/24 fecal disimpaction under anesthesia and flexible sigmoidoscopy
Now on Full Liquid Diet, NG tube taken out on 10/07/24
Resume bowel regimen
Possible Gastrografin enema on 10/09/24
Continue TPN
Medications converted to IV route
Surgeon updated patient's son
f/w surgery and GI recommendations
-Wound/ostomy nurse consultation
#E. Coli bacteremia
-Repeat blood cultures with no growth to date
-Given E. coli bacteremia, consulted Infectious Disease --> received Zosyn--> completed course of antibiotics (end date was 09/30/24)
-Pain regimen scheduled and PRN, but no NSAIDs given recent rise in creatinine and GI bleeding.
#Groin Yeast Infection
-Continue Desenex
-Continue to monitor
#Acute on chronic lymphedema
#Bilateral Lower Extremity Edema
#Anasarca
#Weight Gain -- 23 lbs gain as of 10/02/24 since admission in August 2024
- From hypoalbuminemia and not ambulatory
-Was started on Bumex lost weight and less edema in legs -- continue IV Lasix as per patient's preference
-Lower extremity ultrasound with no DVTs
-proBNP elevated. Echo with mild concentric left ventricular hypertrophy, no regional wall motion abnormalities are seen, LV ejection fraction 65-70% by visual assessment, pacer wire in right ventricle, moderate mitral regurgitation, mild aortic
regurgitation, mild tricuspid regurgitation, estimated pulmonary artery pressure of 20-25 mmHg assuming a right atrial pressure of 3 mmHg, trivial pericardial effusion, dilated aortic root, sinus of Valsalva measures 4.2 cm, sinotubular junction
measures 3.5 cm.
#Left Leg Pain reported on 10/08/24
-Per nurse, blood pressure being check in that leg
-Recent B/L LE ultrasound was negative for DVT, but given recent drop in Hgb Heparin subq was held, but resumed on 10/08/24
-Check bilateral lower extremity ultrasound again given patient was off chemical DVT prophylaxis for a few days (resumed on 10/08/24)
#Wheezing - RESOLVED
#Left Lung Crackles - IMPROVED
-Patient denied SOB as of 10/02/24 but reported feeling the wheezing which resolved
-CXR without significant change
-ProBNP elevated. Echo as above
#R arm (with midline) looks bruised and lumpy, with possible concern for DVT (?) as per night nurse
#Proximal RIGHT BASILIC VEIN superficial venous thrombosis
-Upper extremity ultrasound performed on 10/03/24 with the findings above
-Clinically, patient's arm appearance and symptoms are stable
-Repeated another bilateral UE ultrasound (was placed as 2 separate orders) on 10/08/24 for surveillance or RT basilic vein thrombus, and given new left hand
swelling
#Small bilateral pleural effusions, right greater than left
#Bubbles of air within the urinary bladder, which may be related to recent bladder catheterization as per CT report 10/04/24
#Hypoattenuating left renal lesion measures 1.2 cm in diameter, internal Hounsfield units are suggestive of a hemorrhagic cyst, as per CT report 10/04/24
#Mild Hyponatremia
#Hypokalemia
replaced with IV KCl
Monitor BMP
#Moderate protein calorie malnutrition
#Asymptomatic Hypoglycemia
RESOLVED
Stopped Accu-check per patient's request
#JT - RESOLVED
#Suspect underlying CKD IIIb
-Bladder scans protocol
-Avoid NSAIDs
#Hx of paroxysmal atrial fibrillation, followed by Dr. Jarrett of [facility]
#A-Fib with RVR
-Not on anticoagulation as an outpatient
-No anticoagulation due to history of hemorrhagic pericardial effusion (her slat pickler told her no oral anticoagulation)
-Patient is aware of stroke risk associated with not taking anticoagulation and prefers to continue to avoid anticoagulation at this time
-But patient said Heparin DVT prophylaxis is okay
-PO Lopressor (with increased dose @ 50 mg BID (instead of home 25 mg TID)) NOW ON HOLD PATIENT WITH GI ISSUES ABOVE
-Continue IV Lopressor
-Outpatient follow-up to Dr. Tiwari of [facility]
#[employer] DC PPM
#History of Pulmonary Embolism
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
#Microscopic colitis
-Patient usually sees Dr. Shweta Zhu at [facility] [place]; Dr. Zhu prescribes the patient's Budesonide and the Colestipol
-Holding Budesonide and Colestipol for now given acute illness
#Rheumatoid Arthritis
-Stable without any flare-up
-Patient sees Dr. Delgado - Rheumatology at [place] who prescribes the Hydroxychloroquine , ok to resume.
-Holding immunosuppressive [place], especially given Azathioprine is a immunosuppressant and patient is recovering from abdominal surgery and bacteremia
-OP f/u with wire sawyer Dr. Delgado
#Abnormal imaging of the pancreas
-CT A/P on 09/16: 'questionable pancreatic edema, questionable subtle changes of acute pancreatitis, underlying mass cannot be excluded.'
-Outpatient follow-up CT or MRI
#IBS
#Chronic venous insufficiency
#Peripheral neuropathy
#PVCs
#Osteoporosis
Code Status: Full code
DVT Prophylaxis: SCDs. Heparin SUBQ was on hold for a few days, resumed today 10/08/24
Anticipated Discharge: > 48 hours
Subjective/Interval History
-
Date of Service: October 08, 2024
Patient was seen and examined. Overnight, patient complained of left leg pain when SCDs were attempted to be placed, blood pressure checks have been done on that leg as well.
Objective Data
-
Labs:
Laboratory Results
10/08/24
06:11
WBC 7.6
Hgb 9.3 L
Hct 26.7 L
Plt Count 267
Sodium 137
Potassium 3.3 L
Chloride 108 H
Carbon Dioxide 27
BUN 29 H
Creatinine 0.7
Glucose 135 H
Calcium 8.5
Vital Signs:
Vital Signs
Temp Pulse Resp BP Pulse Ox
97.7 F 72 17 114/56 96
10/08/24 03:10 10/08/24 05:09 10/08/24 03:10 10/08/24 05:09 10/08/24 05:03
I&O
10/07/24 10/08/24 10/09/24
06:59 06:59 06:59
Intake Total 983 / 983 1278 / 1278
Output Total 950 / 950 60 / 60
Balance 33 / 33 1218 / 1218
[2024-10-08] MEDS: CARAFATE SUSPENSION 1 GM PO ×2 (08:58→18:22)
[2024-10-08] MEDS: REFRESH EYE DROPS (PF) 1 DROPS OPHTH ×4 (08:58→22:18)
[2024-10-08] MEDS: MIRALAX 17 GRAMS PO (08:58)
[2024-10-08] MEDS: RESTASIS 0.05% OPHTHALMIC EMULSION 1 DROPS BOTH EYES ×2 (08:59→20:32)
[2024-10-08] MEDS: LASIX 40 MG IV (08:59)
[2024-10-08] MEDS: PROTONIX IV 40 MG IV ×2 (09:00→20:31)
[2024-10-08] MEDS: COLACE 100 MG PO ×2 (09:00→20:32)
[2024-10-08] MEDS: NSS (PRESERVATIVE FREE) 10 ML IV ×2 (09:00→20:31)
[2024-10-08] MEDS: NON-FORMULARY ITEM 1 SPRAY NASAL ×2 (09:00→20:32)
[2024-10-08] MEDS: HEPARIN 5000 UNITS SC ×2 (09:00→20:31)
[2024-10-08] MEDS: MAGIC OR MIRACLE MOUTHWASH 5 ML PO ×4 (09:01→22:18)
[2024-10-08] MEDS: DESENEX/MITRAZOL/ZEASORB 1 APPLIC TOPICAL ×2 (09:01→20:33)
--- NOTE | 2024-10-08 09:22 | W.PN.GS2 ---
Today's Communication / Plan
-
-- Will advance to fulls
--Continue TPN
--Cont PPI IV BID
--May plan for a Gastrografin enema on Wednesday.
--OOB as able. PT following. Encourage mobility.
-- Resume DVT prophylaxis
-- Will remove skin laura tomorrow
Assessment / Plan
-
83 yo female presenting with perforated sigmoid colon secondary to stercoral colitis now POD #22 s/p Chauncey's with prolonged postoperative course due to expected ileus and residual hard stools. POD #2 from a fecal disimpaction under anesthesia
and flexible sigmoidoscopy.
-- Will advance to fulls
--Continue TPN
--Cont PPI IV BID
--May plan for a Gastrografin enema on Wednesday.
--OOB as able. PT following. Encourage mobility.
-- Resume DVT prophylaxis
-- Will remove skin laura tomorrow
Time Spent
Total Time Spent with Patient (in minutes): 20
Subjective Data
-
Date of Service: October 08, 2024
Interval Events:
No acute events overnight. Slept well. abd Pain Controlled but now complaining of left lower extremity pain after routine manipulation in the bed yesterday. Denies Nausea/Vomiting, +bowel function. Tolerating diet.
Objective Data
-
Intake and Output
10/07/24 10/08/24 10/09/24
06:59 06:59 06:59
Intake Total 983 / 983 1278 / 1278
Output Total 950 / 950 60 / 60
Balance 33 / 33 1218 / 1218
Intake:
Oral fluids 690 / 690
TPN/PPN 983 / 983 588 / 588
Output:
Liquid stool amount 60 / 60
Colostomy 60 / 60
Drain Output (Total) 50 / 50
Right Lower Abdomen Ymnor- 50 50
Horner
Gastrointestinal tube output ( 900 /
Total)
Tift Sump 900 / 900
Other:
Number of approximated SMALL 1
amounts of urine
Number of approximated MODERATE 1
amounts of urine
Number of approximated LARGE 1
amounts of urine
How many times incontinent 1
SMALL amount urine
How many times incontinent 3 1
MODERATE amount urine
How many times incontinent 2 1
SATURATED amount urine
Vital Signs
Temp Pulse Resp BP Pulse Ox
97.5 F 75 18 168/71 95
10/08/24 07:25 10/08/24 07:25 10/08/24 07:25 10/08/24 07:25 10/08/24 07:25
Lab Results
10/08/24 06:11
10/08/24 06:11
Calcium 8.5 mg/dl (8.4-10.2) 10/08/24 06:11
Phosphorus 2.9 mg/dl (2.5-4.5) 10/08/24 06:11
Magnesium 1.6 mg/dl (1.6-2.3) 10/08/24 06:11
Total Bilirubin 0.5 mg/dl (0.2-1.3) 09/27/24 04:56
Direct Bilirubin 0.5 mg/dl (0.0-0.4) H 09/16/24 19:12
AST 28 U/L (14-36) 09/27/24 04:56
ALT 16 U/L (0-35) 09/27/24 04:56
Alkaline Phosphatase 246 U/L (38-126) H 09/27/24 04:56
Total Protein 3.8 g/dl (6.3-8.2) L 09/27/24 04:56
Albumin 1.9 g/dl (3.5-5.0) L 10/03/24 07:16
Physical Exam
-
GENERAL/NEURO: Awake, Alert, no distress
CHEST: Unlabored breathing on RA
ABDOMEN: Soft, Non-Tender, Non-Distended, incision clean dry and intact with laura still in place. Ostomy with the solid output
Extremities: Her left lower extremity is somewhat tender to palpation in the left distal leg just above the ankle. There is stable bruising and swelling bilaterally
Patient has a aviles catheter: No
Patient has a central line: No
[2024-10-08 12:04] LABS: Glucose - Point of Care 143 mg/dl (70-99)
[2024-10-08] MEDS: NOVOLOG FLEXPEN-LOW RESISTANCE SC ×2 (12:10→17:23)
--- NOTE | 2024-10-08 12:10 | CM ---
CM reviewed chart. Pt arrive from home alone in [place]story 57[place]. Supportive family. RW for long distances.
Pt s/p perforated sigmoid colon 2/2 colitis now POD#22 s/p Hartmans w/prolonged post-op course 2/2 expected ileus and residual hard stools.
Pt now POD#2 from fecal disimpaction under anesthesia and flex sign.
Cont TPN via PICC, possible Gastrografin enema on Wednesday as well removal of laura, OOB when approp-result PT/OT, NGT dc'd on 10/07 per nursing and pt is tolerating a clear diet w/ADAT.
Dispo unclear. PT/OT eval to further assist with dcp.
CM/SW will continue to follow to ensure a safe and timely discharge.
[2024-10-08 17:04] LABS: Glucose - Point of Care 123 mg/dl (70-99)
[2024-10-08] MEDS: Parenteral Nutrition, Central 1170 IV (20:42)
[2024-10-08] MEDS: MELATONIN 3 MG PO (22:17)
[2024-10-08 23:59] LABS: Glucose - Point of Care 146 mg/dl (70-99)
[2024-10-09] MEDS: NOVOLOG FLEXPEN-LOW RESISTANCE SC ×3 (00:05→18:14)
[2024-10-09] MEDS: LOPRESSOR 2.5 MG IV ×2 (00:08→06:14)
[2024-10-09 03:28] VITALS: BP 120/62
[2024-10-09] MEDS: TYLENOL 1000 MG PO ×2 (04:15→22:16)
[2024-10-09 04:44] LABS: Hemoglobin 8.6 g/dL (12.0-16.0); Mean Corp Hgb Conc. 34.4 g/dL (33.0-37.0); Mean Corpuscular Hgb 31.6 pg (27.0-31.0); Mean Corpuscular Volume 91.9 fL (81.0-99.0); Mean Platelet Volume 9.1 fL (7.4-10.4); Platelet Count 234 10^3/uL (130-400); Red Blood Cell Count 2.72 10^6/uL (4.20-5.40); Red Cell Dist. Width 17.2 % (11.5-14.5)
[2024-10-09 05:12] LABS: ALT (SGPT) 78 U/L (0-35); AST (SGOT) 130 U/L (14-36); Albumin 1.7 g/dl (3.5-5.0); Alkaline Phosphatase 285 U/L (38-126); Blood Urea Nitrogen 31 mg/dl (7-17); Calcium 8.7 mg/dl (8.4-10.2); Carbon Dioxide 26 mmol/L (22-30); Chloride 107 mmol/L (98-107); Estimated Creatinine Clearance 54 ml/min; Glucose 112 mg/dl (70-99); Magnesium 1.6 mg/dl (1.6-2.3); Phosphorus 2.8 mg/dl (2.5-4.5); Potassium 3.4 mmol/L (3.5-5.1); Sodium 137 mmol/L (135-145); Total Bilirubin 0.4 mg/dl (0.2-1.3); Total Protein 3.6 g/dl (6.3-8.2); Triglycerides 125 mg/dl (10-149); eGFR > 60.00
[2024-10-09 05:53] LABS: Glucose - Point of Care 153 mg/dl (70-99)
[2024-10-09 06:00] VITALS: BMI 22.8
[2024-10-09] MEDS: NOVOLOG FLEXPEN-LOW RESISTANCE 1 UNITS SC (06:14)
[2024-10-09 07:45] VITALS: BP 121/55
--- NOTE | 2024-10-09 08:12 | W.PN.HOSP.TC ---
Addendum entered and electronically signed by Rishi Hernandez MD 10/09/24 15:50:
Addendum
US of right upper extremity showed: Nonocclusive deep venous thrombosis within the right axillary vein, with slight progression compared to prior ultrasound dated 10/02/2024.
Patient had significant recent GI bleeding requiring multiple blood transfusion. She is now back on SQ heparin prophylaxis. Will monitor for now and avoid systemic anti-coagulation. While other occlusive superficial thrombus within the central right
basilic vein, seemed unchanged.
Original Note:
Today's Communication/Plan
-
f/w surgery recommendations
Assessment / Plan
Assessment / Plan
Physical Exam
General: Not in acute distress, cachexia
HEENT: Normocephalic, Moist mucous membranes and Atraumatic. NG tube present with dark colored output.
Respiratory: Decreased Breath Sounds Bilaterally; No wheezes.
Cardiac: S1/S2 and Regular Rate and Rhythm
GI: Soft, not tender, mildly distended, midline incision and dressing intact, colostomy (gas and liquid stool present), right drain (removed)
Musculoskeletal: No Cyanosis, Edema of both lower extremities.
Skin: Warm. Dry.
Neuro: Alert. Awake. Nonfocal/grossly intact
Psych: calm
Assessment/Plan
83-year-old female with past medical history of umbilical hernia surgery as a child, atrial fibrillation not on anticoagulation, prior pulmonary embolism, microscopic colitis and IBS presented with abdominal pain. She started having lower abdominal
pain 4 days prior to presentation. Pain was initially intermittent but now constant, and has become more severe. Last bowel movement 5 days prior to presentation. Patient has been passing clear mucus several times a day with some blood in the stool.
On the day of presentation, she had an episode of vomiting, without blood. At the time of admission, she denied fevers, chills, chest pain or shortness of breath. She was found to have perforated viscus likely secondary to severe proctocolitis.
#Upper GI bleeding due to esophagitis and esophageal ulcer
#Esophageal/gastric ulcers
EGD also showed non bleeding gastric ulcer -- s/p EGD on 09/28 w/o intervention
PO PPI changed to PPI IV BID as patient was NPO/hematemesis/had NG tube (taken out 10/07/24)
See GI note for how long to continue PPI after discharge
Recheck HGB, showed upward trending
Repeat EGD in 2 months to ensure healing; GI will arrange for outpatient appointment with GI upon discharge
#Acute blood loss anemia , s/p total 4 units, suspected secondary to GI Bleed
Received 1 unit PRBC on 09/18/24
one unit 09/28, 2 units on 09/29
Total of 4 units PRBCs so far this hospitalization
Hematemesis again 10/04/24 to 10/05/24 --> PPI changed to IV, and Heparin subq stopped
#Nausea/Vomiting
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
#Severe constipation following Chauncey's for perforated sigmoid colon 2/2 stercoral colitis
Has not been improving due to prolonged ileus and likely large bowel obstruction from residual stool all post-op
Repeat CT on 10/04/24 showed ileus --> discussed with surgeon Dr. Zhang on 10/05/24 --> suspected colon is obstructed from residual stool impacting at the fascial level of her ostomy
Surgery performed on 10/06/24 fecal disimpaction under anesthesia and flexible sigmoidoscopy
Now on Full Liquid Diet, NG tube taken out on 10/07/24
Resume bowel regimen
Possible Gastrografin enema on 10/09/24
Continue TPN
Medications converted to IV route
Surgeon updated patient's son
f/w surgery and GI recommendations
-Wound/ostomy nurse consultation
#E. Coli bacteremia
-Repeat blood cultures with no growth to date
-Given E. coli bacteremia, consulted Infectious Disease --> received Zosyn--> completed course of antibiotics (end date was 09/30/24)
-Pain regimen scheduled and PRN, but no NSAIDs given recent rise in creatinine and GI bleeding.
#Groin Yeast Infection
-Continue Desenex
-Continue to monitor
#Acute on chronic lymphedema
#Bilateral Lower Extremity Edema
#Anasarca
#Weight Gain -- 23 lbs gain as of 10/02/24 since admission in August 2024
- From hypoalbuminemia and not ambulatory
-Was started on Bumex lost weight and less edema in legs -- continue IV Lasix as per patient's preference
-Lower extremity ultrasound with no DVTs
-proBNP elevated. Echo with mild concentric left ventricular hypertrophy, no regional wall motion abnormalities are seen, LV ejection fraction 65-70% by visual assessment, pacer wire in right ventricle, moderate mitral regurgitation, mild aortic
regurgitation, mild tricuspid regurgitation, estimated pulmonary artery pressure of 20-25 mmHg assuming a right atrial pressure of 3 mmHg, trivial pericardial effusion, dilated aortic root, sinus of Valsalva measures 4.2 cm, sinotubular junction
measures 3.5 cm.
#Left Leg Pain reported on 10/08/24
-Per nurse, blood pressure being check in that leg
-Recent B/L LE ultrasound was negative for DVT, but given recent drop in Hgb Heparin subq was held, but resumed on 10/08/24
-Check bilateral lower extremity ultrasound again given patient was off chemical DVT prophylaxis for a few days (resumed on 10/08/24)
#Wheezing - RESOLVED
#Left Lung Crackles - IMPROVED
-Patient denied SOB as of 10/02/24 but reported feeling the wheezing which resolved
-CXR without significant change
-ProBNP elevated. Echo as above
#R arm (with midline) looks bruised and lumpy, with possible concern for DVT (?) as per night nurse
#Proximal RIGHT BASILIC VEIN superficial venous thrombosis
-Upper extremity ultrasound performed on 10/03/24 with the findings above
-Clinically, patient's arm appearance and symptoms are stable
-Repeated another bilateral UE ultrasound , no DVT
#Small bilateral pleural effusions, right greater than left
#Bubbles of air within the urinary bladder, which may be related to recent bladder catheterization as per CT report 10/04/24
#Hypoattenuating left renal lesion measures 1.2 cm in diameter, internal Hounsfield units are suggestive of a hemorrhagic cyst, as per CT report 10/04/24
#Mild Hyponatremia
#Hypokalemia
#Moderate protein calorie malnutrition
#Asymptomatic Hypoglycemia
RESOLVED
Stopped Accu-check per patient's request
#JT - RESOLVED
#Suspect underlying CKD IIIb
-Bladder scans protocol
-Avoid NSAIDs
#Hx of paroxysmal atrial fibrillation, followed by Dr. Jarrett of [facility]
#A-Fib with RVR
-Not on anticoagulation as an outpatient
-No anticoagulation due to history of hemorrhagic pericardial effusion (her communications tower technician told her no oral anticoagulation)
-Patient is aware of stroke risk associated with not taking anticoagulation and prefers to continue to avoid anticoagulation at this time
-But patient said Heparin DVT prophylaxis is okay
-PO Lopressor (with increased dose @ 50 mg BID (instead of home 25 mg TID))
-s/p IV Lopressor
-Outpatient follow-up to Dr. Tiwari of [facility]
[email or web address] DC PPM
#History of Pulmonary Embolism
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
#Microscopic colitis
-Patient usually sees Dr. Shweta Zhu at [facility] [place]; Dr. Zhu prescribes the patient's Budesonide and the Colestipol
-Holding Budesonide and Colestipol for now given acute illness
#Rheumatoid Arthritis
-Stable without any flare-up
-Patient sees Dr. Delgado - Rheumatology at [place] who prescribes the Hydroxychloroquine , ok to resume.
-Holding immunosuppressive [place], especially given Azathioprine is a immunosuppressant and patient is recovering from abdominal surgery and bacteremia
-OP f/u with service plumber Dr. Delgado
#Abnormal imaging of the pancreas
-CT A/P on 09/16: 'questionable pancreatic edema, questionable subtle changes of acute pancreatitis, underlying mass cannot be excluded.'
-Outpatient follow-up CT or MRI
#IBS
#Chronic venous insufficiency
#Peripheral neuropathy
#PVCs
#Osteoporosis
Code Status: Full code
DVT Prophylaxis: SCDs. Heparin SUBQ was on hold for a few days, resumed today 10/08/24
Total time spent to see the patient, examine the pt, review data and lab results, discuss treatment plan with pt, consultants, nursing staff around 57 minutes
Anticipated Discharge: > 48 hours
Subjective/Interval History
-
Date of Service: October 09, 2024
No chest pain
No sob
Objective Data
-
Labs:
Laboratory Results
10/09/24
04:13
WBC 8.0
Hgb 8.6 L
Hct 25.0 L
Plt Count 234
Sodium 137
Potassium 3.4 L
Chloride 107
Carbon Dioxide 26
BUN 31 H
Creatinine 0.7
Glucose 112 H
Calcium 8.7
Total Bilirubin 0.4
AST 130 H
ALT 78 H
Alkaline Phosphatase 285 H
Vital Signs:
Vital Signs
Temp Pulse Resp BP Pulse Ox
98.5 F 72 16 121/55 96
10/09/24 07:45 10/09/24 07:45 10/09/24 07:45 10/09/24 07:45 10/09/24 07:45
I&O
10/08/24 10/09/24 10/10/24
06:59 06:59 06:59
Intake Total 1278 / 1278 2146 / 2146
Output Total 60 / 60 310 / 310
Balance 1218 / 1218 1836 / 1836
--- NOTE | 2024-10-09 09:10 | W.PN.GS2 ---
Addendum entered and electronically signed by Akshat Amin MD 10/09/24 10:10:
I saw and examined the patient independently.
The resident's documentation was reviewed and I agree with the note, assessment and plan except where noted below.
Comment: This is an 83-year-old female with a protracted course after Chauncey's procedure primarily due to deconditioning.
Gastrografin enema today
Renew TPN
Out of bed and ambulate as able. PT OT
Original Note:
Today's Communication / Plan
-
Gastrografin enema
Cont TPN, PPI
Highly encourage mobility
Assessment / Plan
-
83 yo female presenting with perforated sigmoid colon secondary to stercoral colitis now POD #23 s/p Chauncey's with prolonged postoperative course due to expected ileus and residual hard stools. POD #3 from a fecal disimpaction under anesthesia
and flexible sigmoidoscopy.
-- Cont with fulls
-- Continue TPN
-- Cont PPI IV BID
-- Gastrografin enema today to eval residual stool burden and hopefully further clear bowels
-- OOB as able. PT following. Encourage mobility.
-- DVT prophylaxis resumed 10/08 - monitor hg
-- Will remove skin laura today
Subjective Data
-
Date of Service: October 09, 2024
Pt feels distended and like her lower abdomen is going to 'explode,' but better than yesterday. States she is passing stones in her ostomy bag. States every time she drinks something her abdomen feels really distended and uncomfortable.
Objective Data
-
Intake and Output
10/08/24 10/09/24 10/10/24
06:59 06:59 06:59
Intake Total 1278 / 1278 2146 / 2146
Output Total 60 / 60 310 / 310
Balance 1218 / 1218 1836 / 1836
Intake:
Oral fluids 690 / 690 720 / 720
IV piggybacks 250 / 250
TPN/PPN 588 / 588 1176 / 1176
Output:
Liquid stool amount 60 310 / 310
Colostomy 60 310 / 310
Other:
Number of approximated SMALL 1
amounts of urine
Number of approximated MODERATE 1
amounts of urine
How many times incontinent 1
SMALL amount urine
How many times incontinent 1 7
MODERATE amount urine
How many times incontinent 1 1
SATURATED amount urine
Vital Signs
Temp Pulse Resp BP Pulse Ox
98.5 F 72 16 121/55 96
10/09/24 07:45 10/09/24 07:45 10/09/24 07:45 10/09/24 07:45 10/09/24 07:45
Lab Results
10/09/24 04:13
10/09/24 04:13
Calcium 8.7 mg/dl (8.4-10.2) 10/09/24 04:13
Phosphorus 2.8 mg/dl (2.5-4.5) 10/09/24 04:13
Magnesium 1.6 mg/dl (1.6-2.3) 10/09/24 04:13
Total Bilirubin 0.4 mg/dl (0.2-1.3) 10/09/24 04:13
Direct Bilirubin 0.5 mg/dl (0.0-0.4) H 09/16/24 19:12
AST 130 U/L (14-36) H 10/09/24 04:13
ALT 78 U/L (0-35) H 10/09/24 04:13
Alkaline Phosphatase 285 U/L (38-126) H 10/09/24 04:13
Total Protein 3.6 g/dl (6.3-8.2) L 10/09/24 04:13
Albumin 1.7 g/dl (3.5-5.0) L 10/09/24 04:13
Physical Exam
-
Distended, tympanic, tender abdomen, however decreased from prior
Brownish, green liquid stool in ostomy bag along with a hardened stool ball
Healthy pink ostomy tissue
Surgical laura midline, no signs of infection
[2024-10-09] MEDS: RESTASIS 0.05% OPHTHALMIC EMULSION 1 DROPS BOTH EYES ×2 (09:38→21:45)
[2024-10-09] MEDS: CARAFATE SUSPENSION 1 GM PO ×2 (09:39→17:23)
[2024-10-09] MEDS: NON-FORMULARY ITEM 1 SPRAY NASAL (09:51)
[2024-10-09] MEDS: REFRESH EYE DROPS (PF) 1 DROPS OPHTH ×4 (09:52→21:45)
[2024-10-09] MEDS: COLACE PO (09:52)
[2024-10-09] MEDS: LASIX 40 MG IV (09:52)
[2024-10-09] MEDS: MIRALAX PO (09:53)
[2024-10-09] MEDS: PROTONIX IV 40 MG IV ×2 (09:53→21:44)
[2024-10-09] MEDS: HEPARIN 5000 UNITS SC ×2 (09:53→21:40)
[2024-10-09] MEDS: NSS (PRESERVATIVE FREE) 10 ML IV ×2 (09:53→21:44)
[2024-10-09] MEDS: MAGIC OR MIRACLE MOUTHWASH 5 ML PO ×4 (09:53→21:47)
[2024-10-09] MEDS: DESENEX/MITRAZOL/ZEASORB 1 APPLIC TOPICAL ×2 (10:04→22:06)
[2024-10-09 11:08] VITALS: BP 157/53
[2024-10-09 12:15] LABS: Glucose - Point of Care 118 mg/dl (70-99)
--- NOTE | 2024-10-09 13:56 | WOUNDNOTE ---
[facility] RN NOTE: Patient visited for pouch change. Pouch changed today by RN, Keli. Keli thinks pouch may have starting leaking after part of barrier was removed for surgical exam. This freelance writer called [facility] for more ostomy supplies, Keli aware.
Patient found sitting in chair awaiting to go to radiology for gastro enema. Will follow upp with patient later in the week.
--- NOTE | 2024-10-09 14:05 | PTCARENOTE ---
sutures removed by surgery today. colostomy bag changed by this RN. pt oob to chair with x2 assist and rolling walker. complete bed bath done and pt eating full liquids diet.
--- NOTE | 2024-10-09 14:19 | CM ---
Chart reviewed; met with pt
PT/OT recs SNF; pt declined snf - requesting HH
Pt requesting referral to [facility] - TT sent to Liaison for HH needs
Reportsshe will have family support when d/c'ed
Left PAC list with SNF options with pt
Plan - anticipate home with [facility] when medically ready
[2024-10-09 15:16] VITALS: BP 152/96
[2024-10-09 18:10] LABS: Glucose - Point of Care 121 mg/dl (70-99)
[2024-10-09 19:40] VITALS: BP 133/73
[2024-10-09] MEDS: MELATONIN 3 MG PO (21:45)
[2024-10-09] MEDS: NON-FORMULARY ITEM NASAL (21:46)
[2024-10-09] MEDS: LOPRESSOR 50 MG PO (21:46)
[2024-10-09] MEDS: Parenteral Nutrition, Central 1180 IV (21:47)
[2024-10-09 23:00] VITALS: BP 123/73
[2024-10-09 23:46] LABS: Glucose - Point of Care 136 mg/dl (70-99)
[2024-10-10] MEDS: NOVOLOG FLEXPEN-LOW RESISTANCE SC ×4 (00:14→17:45)
[2024-10-10 03:00] VITALS: BP 99/48
[2024-10-10 04:49] LABS: Hematocrit 25.6 % (37.0-47.0); Hemoglobin 8.7 g/dL (12.0-16.0); Mean Corpuscular Volume 91.1 fL (81.0-99.0); Mean Platelet Volume 8.8 fL (7.4-10.4); Platelet Count 181 10^3/uL (130-400); Red Blood Cell Count 2.81 10^6/uL (4.20-5.40); Red Cell Dist. Width 17.2 % (11.5-14.5)
[2024-10-10 04:58] VITALS: BMI 21.7
[2024-10-10 05:15] LABS: Blood Urea Nitrogen 28 mg/dl (7-17); Calcium 8.3 mg/dl (8.4-10.2); Carbon Dioxide 27 mmol/L (22-30); Chloride 105 mmol/L (98-107); Estimated Creatinine Clearance 64 ml/min; Glucose 115 mg/dl (70-99); Potassium 3.3 mmol/L (3.5-5.1); Sodium 135 mmol/L (135-145); eGFR > 60.00
[2024-10-10 06:01] LABS: Glucose - Point of Care 142 mg/dl (70-99)
[2024-10-10 07:55] VITALS: BP 149/75
--- NOTE | 2024-10-10 09:21 | VNURNOTE ---
Home Health Liaison met with patient at bedside to discuss [facility] nurse/therapy, visits, schedule and homebound status. Patient is agreeable and understands that visits at home will be 2-3 x per week to assess and teach medical management and ostomy
care. Patient stated that her adult children will help her for 1-2 weeks after DC. Patient is aware that [facility] will contact them for start of care in 1-2 days after discharge from . [facility] referral accepted in [facility].
[2024-10-10] MEDS: REFRESH EYE DROPS (PF) 1 DROPS OPHTH ×3 (10:36→21:28)
[2024-10-10] MEDS: LOPRESSOR 50 MG PO ×2 (10:36→21:28)
[2024-10-10] MEDS: PROTONIX IV 40 MG IV ×2 (10:36→21:25)
[2024-10-10] MEDS: MIRALAX 17 GRAMS PO (10:36)
[2024-10-10] MEDS: NSS (PRESERVATIVE FREE) 10 ML IV ×2 (10:37→21:25)
[2024-10-10] MEDS: HEPARIN 5000 UNITS SC ×2 (10:37→21:26)
[2024-10-10] MEDS: DESENEX/MITRAZOL/ZEASORB 1 APPLIC TOPICAL ×2 (10:53→21:31)
[2024-10-10] MEDS: MAGIC OR MIRACLE MOUTHWASH 5 ML PO ×3 (10:54→21:29)
[2024-10-10] MEDS: KCL 160 MEQ IV (10:56)
--- NOTE | 2024-10-10 11:06 | W.PN.HOSP.TC ---
Today's Communication/Plan
-
TPN is ordered
Potassium replacement
Surgery to update son
Assessment / Plan
Assessment / Plan
Physical Exam
General: Not in acute distress, cachexia
HEENT: Normocephalic, Moist mucous membranes and Atraumatic. NG tube present with dark colored output.
Respiratory: Decreased Breath Sounds Bilaterally; No wheezes.
Cardiac: S1/S2 and Regular Rate and Rhythm
GI: Soft, not tender, mildly distended, midline incision and dressing intact, colostomy (gas and liquid stool present), right drain (removed)
Musculoskeletal: No Cyanosis, Edema of both lower extremities.
Skin: Warm. Dry.
Neuro: Alert. Awake. Nonfocal/grossly intact
Psych: calm
Assessment/Plan
83-year-old female with past medical history of umbilical hernia surgery as a child, atrial fibrillation not on anticoagulation, prior pulmonary embolism, microscopic colitis and IBS presented with abdominal pain. She started having lower abdominal
pain 4 days prior to presentation. Pain was initially intermittent but now constant, and has become more severe. Last bowel movement 5 days prior to presentation. Patient has been passing clear mucus several times a day with some blood in the stool.
On the day of presentation, she had an episode of vomiting, without blood. At the time of admission, she denied fevers, chills, chest pain or shortness of breath. She was found to have perforated viscus likely secondary to severe proctocolitis.
#Upper GI bleeding due to esophagitis and esophageal ulcer
#Esophageal/gastric ulcers
EGD also showed non bleeding gastric ulcer -- s/p EGD on 09/28 w/o intervention
PO PPI changed to PPI IV BID as patient was NPO/hematemesis/had NG tube (taken out 10/07/24)
See GI note for how long to continue PPI after discharge
Recheck HGB, showed upward trending
Repeat EGD in 2 months to ensure healing; GI will arrange for outpatient appointment with GI upon discharge
#Acute blood loss anemia , s/p total 4 units, suspected secondary to GI Bleed
Received 1 unit PRBC on 09/18/24
one unit 09/28, 2 units on 09/29
Total of 4 units PRBCs so far this hospitalization
Hematemesis again 10/04/24 to 10/05/24 --> PPI changed to IV, and Heparin subq stopped
#Nausea/Vomiting
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
#Severe constipation following Chauncey's for perforated sigmoid colon 2/2 stercoral colitis
Has not been improving due to prolonged ileus and likely large bowel obstruction from residual stool all post-op
Repeat CT on 10/04/24 showed ileus --> discussed with surgeon Dr. Zhang on 10/05/24 --> suspected colon is obstructed from residual stool impacting at the fascial level of her ostomy
Surgery performed on 10/06/24 fecal disimpaction under anesthesia and flexible sigmoidoscopy
Now on Full Liquid Diet, NG tube taken out on 10/07/24
Resume bowel regimen
Possible Gastrografin enema on 10/09/24
Continue TPN
Medications converted to IV route
Surgeon updated patient's son
f/w surgery and GI recommendations
-Wound/ostomy nurse consultation
#E. Coli bacteremia
-Repeat blood cultures with no growth to date
-Given E. coli bacteremia, consulted Infectious Disease --> received Zosyn--> completed course of antibiotics (end date was 09/30/24)
-Pain regimen scheduled and PRN, but no NSAIDs given recent rise in creatinine and GI bleeding.
#Groin Yeast Infection
-Continue Desenex
-Continue to monitor
#Acute on chronic lymphedema
#Bilateral Lower Extremity Edema
#Anasarca
#Weight Gain -- 23 lbs gain as of 10/02/24 since admission in August 2024
- From hypoalbuminemia and not ambulatory
-Was started on Bumex lost weight and less edema in legs -- continue IV Lasix as per patient's preference
-Lower extremity ultrasound with no DVTs
-proBNP elevated. Echo with mild concentric left ventricular hypertrophy, no regional wall motion abnormalities are seen, LV ejection fraction 65-70% by visual assessment, pacer wire in right ventricle, moderate mitral regurgitation, mild aortic
regurgitation, mild tricuspid regurgitation, estimated pulmonary artery pressure of 20-25 mmHg assuming a right atrial pressure of 3 mmHg, trivial pericardial effusion, dilated aortic root, sinus of Valsalva measures 4.2 cm, sinotubular junction
measures 3.5 cm.
#Left Leg Pain reported on 10/08/24
-Per nurse, blood pressure being check in that leg
-Recent B/L LE ultrasound was negative for DVT, but given recent drop in Hgb Heparin subq was held, but resumed on 10/08/24
-Check bilateral lower extremity ultrasound again given patient was off chemical DVT prophylaxis for a few days (resumed on 10/08/24)
#Wheezing - RESOLVED
#Left Lung Crackles - IMPROVED
-Patient denied SOB as of 10/02/24 but reported feeling the wheezing which resolved
-CXR without significant change
-ProBNP elevated. Echo as above
#R arm (with midline) looks bruised and lumpy, with possible concern for DVT (?) as per night nurse
#Proximal RIGHT BASILIC VEIN superficial venous thrombosis
-Upper extremity ultrasound performed on 10/03/24 with the findings above
-Clinically, patient's arm appearance and symptoms are stable
-Repeated another bilateral UE ultrasound , no DVT
#Small bilateral pleural effusions, right greater than left
#Bubbles of air within the urinary bladder, which may be related to recent bladder catheterization as per CT report 10/04/24
#Hypoattenuating left renal lesion measures 1.2 cm in diameter, internal Hounsfield units are suggestive of a hemorrhagic cyst, as per CT report 10/04/24
#Mild Hyponatremia
# Pseudo hypocalcemia due to low albumin
#Hypokalemia
#Moderate protein calorie malnutrition
#Asymptomatic Hypoglycemia
RESOLVED
Stopped Accu-check per patient's request
#JT - RESOLVED
#Suspect underlying CKD IIIb
-Bladder scans protocol
-Avoid NSAIDs
#Hx of paroxysmal atrial fibrillation, followed by Dr. Jarrett of [facility]
#A-Fib with RVR
-Not on anticoagulation as an outpatient
-No anticoagulation due to history of hemorrhagic pericardial effusion (her manager pathology told her no oral anticoagulation)
-Patient is aware of stroke risk associated with not taking anticoagulation and prefers to continue to avoid anticoagulation at this time
-But patient said Heparin DVT prophylaxis is okay
-PO Lopressor (with increased dose @ 50 mg BID (instead of home 25 mg TID))
-s/p IV Lopressor
-Outpatient follow-up to Dr. Tiwari of [facility]
#[employer] DC PPM
#History of Pulmonary Embolism
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
#Microscopic colitis
-Patient usually sees Dr. Shewta Zhu at [facility] [place]; Dr. Zhu prescribes the patient's Budesonide and the Colestipol
-Holding Budesonide and Colestipol for now given acute illness
#Rheumatoid Arthritis
-Stable without any flare-up
-Patient sees Dr. Delgado - Rheumatology at [place] who prescribes the Hydroxychloroquine , ok to resume.
-Holding immunosuppressive [place], especially given Azathioprine is a immunosuppressant and patient is recovering from abdominal surgery and bacteremia
-OP f/u with technical solution architect Dr. Delgado
#Abnormal imaging of the pancreas
-CT A/P on 09/16: 'questionable pancreatic edema, questionable subtle changes of acute pancreatitis, underlying mass cannot be excluded.'
-Outpatient follow-up CT or MRI
#IBS
#Chronic venous insufficiency
#Peripheral neuropathy
#PVCs
#Osteoporosis
Code Status: Full code
DVT Prophylaxis: SCDs. Heparin SUBQ was on hold for a few days, resumed today 10/08/24
Total time spent to see the patient, examine the pt, review data and lab results, discuss treatment plan with pt, consultants, nursing staff around 57 minutes
Anticipated Discharge: > 48 hours
Subjective/Interval History
-
Date of Service: October 10, 2024
She complains of pain around colostomy
Objective Data
-
Labs:
Laboratory Results
10/10/24
04:27
WBC 9.0
Hgb 8.7 L
Hct 25.6 L
Plt Count 181 D
Sodium 135
Potassium 3.3 L
Chloride 105
Carbon Dioxide 27
BUN 28 H
Creatinine 0.6
Glucose 115 H
Calcium 8.3 L
Vital Signs:
Vital Signs
Temp Pulse Resp BP Pulse Ox
97.9 F 74 18 149/75 95
10/10/24 07:55 10/10/24 07:55 10/10/24 07:55 10/10/24 07:55 10/10/24 07:55
I&O
10/09/24 10/10/24 10/11/24
06:59 06:59 06:59
Intake Total 2146 / 2146 1548 / 1548
Output Total 310 / 310 560 / 560
Balance 1836 / 1836 988 / 988
[2024-10-10] MEDS: MAGIC OR MIRACLE MOUTHWASH PO ×2 (11:30→11:33)
[2024-10-10] MEDS: NON-FORMULARY ITEM NASAL ×2 (11:33→21:24)
[2024-10-10] MEDS: CARAFATE SUSPENSION PO (11:34)
--- NOTE | 2024-10-10 11:44 | PTCARENOTE ---
Messaged pharmacy about the rest of patients am meds that are missing
[2024-10-10 11:47] VITALS: BP 129/71
--- NOTE | 2024-10-10 12:42 | W.PN.GS2 ---
Today's Communication / Plan
-
GGE today
TPN
Assessment / Plan
-
83 yo female presenting with perforated sigmoid colon secondary to stercoral colitis now POD #24 s/p Chauncey's with prolonged postoperative course due to expected ileus and residual hard stools. POD #4 from a fecal disimpaction under anesthesia
and flexible sigmoidoscopy.
-- Cont with fulls
-- Continue TPN , Ca gluconate increased today
-- Cont PPI IV BID
-- Gastrografin enema today to eval residual stool burden and hopefully further clear bowels
-- OOB as able. PT following. Encourage mobility.
-- DVT prophylaxis resumed 10/08 - monitor hg
Subjective Data
-
Date of Service: October 10, 2024
AFVSS, c/o difficulty with bloating upon any PO intake, stoma is producing liquid stool but no further hard stools have passed
Objective Data
-
Intake and Output
10/09/24 10/10/24 10/11/24
06:59 06:59 06:59
Intake Total 2146 / 2146 1548 / 1548
Output Total 310 / 310 560 / 560
Balance 1836 / 1836 988 / 988
Intake:
Oral fluids 720 / 720 960 / 960
IV piggybacks 250 / 250
TPN/PPN 1176 / 1176 588 / 588
Output:
Liquid stool amount 310 / 310 560 / 560
Colostomy 310 / 310 560 / 560
Other:
Number of approximated MODERATE 2
amounts of urine
How many times incontinent 7 3
MODERATE amount urine
How many times incontinent 1 3
SATURATED amount urine
Vital Signs
Temp Pulse Resp BP Pulse Ox
97.8 F 89 16 129/71 99
10/10/24 11:47 10/10/24 11:47 10/10/24 11:47 10/10/24 11:47 10/10/24 11:47
Lab Results
10/10/24 04:27
10/10/24 04:27
Calcium 8.3 mg/dl (8.4-10.2) L 10/10/24 04:27
Phosphorus 2.8 mg/dl (2.5-4.5) 10/09/24 04:13
Magnesium 1.6 mg/dl (1.6-2.3) 10/09/24 04:13
Total Bilirubin 0.4 mg/dl (0.2-1.3) 10/09/24 04:13
Direct Bilirubin 0.5 mg/dl (0.0-0.4) H 09/16/24 19:12
AST 130 U/L (14-36) H 10/09/24 04:13
ALT 78 U/L (0-35) H 10/09/24 04:13
Alkaline Phosphatase 285 U/L (38-126) H 10/09/24 04:13
Total Protein 3.6 g/dl (6.3-8.2) L 10/09/24 04:13
Albumin 1.7 g/dl (3.5-5.0) L 10/09/24 04:13
Physical Exam
-
Gen: NAD
Abd: soft, mildly distended, incision cdi stoma PV with liquid stool
Patient has a aviles catheter: No
Patient has a central line: Yes
[2024-10-10 13:00] LABS: Glucose - Point of Care 111 mg/dl (70-99)
[2024-10-10] MEDS: RESTASIS 0.05% OPHTHALMIC EMULSION 1 DROPS BOTH EYES ×2 (13:42→21:28)
[2024-10-10] MEDS: LASIX 40 MG PO (13:42)
[2024-10-10] MEDS: REFRESH EYE DROPS (PF) OPHTH (13:46)
--- NOTE | 2024-10-10 14:43 | CM ---
Chart reviewed
GGE today
Refusing SNF. Accepted by [facility]
Plan - anticipate home with [facility] when medically ready
[2024-10-10 15:55] VITALS: BP 142/53
[2024-10-10] MEDS: CARAFATE SUSPENSION 1 GM PO (16:58)
--- NOTE | 2024-10-10 17:02 | PTCARENOTE ---
[place] text to Dr. Hernandez about increased swelling in left arm compared to right. Pulses are normal, movement and sensation in the left arm are normal as well. Left arm presents as non pitting edema compared to right which has no edema
[2024-10-10 17:35] LABS: Glucose - Point of Care 105 mg/dl (70-99)
[2024-10-10 19:05] VITALS: BP 139/97
[2024-10-10] MEDS: Parenteral Nutrition, Central 1220 IV (21:14)
[2024-10-10] MEDS: MELATONIN 3 MG PO (21:29)
[2024-10-10] MEDS: TYLENOL 1000 MG PO (21:36)
[2024-10-10 23:41] VITALS: BP 94/47
[2024-10-11] VITALS (10 sets, daily range): BP systolic 105–180; BP diastolic 55–115; PULSE 92–98; O2SAT 96; BMI 21.8
[2024-10-11 00:13] LABS: Glucose - Point of Care 164 mg/dl (70-99)
[2024-10-11] MEDS: NOVOLOG FLEXPEN-LOW RESISTANCE 1 UNITS SC (00:43)
[2024-10-11] MEDS: ZOFRAN 4 MG IV (00:50)
--- NOTE | 2024-10-11 03:56 | PTCARENOTE ---
Pt with complaints of SOB/the feeling of not being able to catch her breath. VSS, BP 109/60 SpO2 93-94% on RA. Pt does not appear in distress, speaking in full sentences, not tachypneic. Reassessment of lung sounds; clear but diminished throughout,
unchanged from previous assessment, no cough noted. D/w covering ASSESSOR, responded bedside to personally assess pt. Pt found to be resting comfortably, NAD, respirations even and unlabored. No new orders at this time, pt resting comfortably in bed,
call goldberg within reach.
[2024-10-11 06:14] LABS: Glucose - Point of Care 124 mg/dl (70-99)
[2024-10-11] MEDS: NOVOLOG FLEXPEN-LOW RESISTANCE SC ×3 (06:21→17:43)
--- NOTE | 2024-10-11 07:54 | W.PN.GS2 ---
Addendum entered and electronically signed by Misha Kaminski MD 10/11/24 15:23:
I saw and examined the patient.
The resident's note was reviewed and I agree with the note with the followng additions/corrections.
Comment: Feels about the same. Struggling with PO intake 2/2 'bloating.' Stoma producing liquid stool. Less distended today. Incisions cdi. Gentle stoma irrigation with tap water and red rubber performed, minimal liquid stool output, no hard
stools. Plan to cont current care, bowel regimen, TPN, PPI, adv to LRD as melony
Original Note:
Today's Communication / Plan
-
Encourage OOB
Cont TPN
Red rubber cath in ostomy to decompress bowel around hardened stool near ostomy opening
Assessment / Plan
-
83 yo female presenting with perforated sigmoid colon secondary to stercoral colitis now POD #25 s/p Chauncey's with prolonged postoperative course due to expected ileus and residual hard stools. POD #5 from a fecal disimpaction under anesthesia
and flexible sigmoidoscopy.
-- Cont with fulls
-- Continue TPN
-- Cont PPI IV BID
-- Gastrografin enema 10/10 unsuccessful. May consider placing another red rubber tube to decompress bowel further similar to prior.
-- OOB as able. PT following. Encourage mobility.
-- Pain controlled
-- DVT prophylaxis resumed 10/08 - monitor hg
Subjective Data
-
Date of Service: October 11, 2024
Pt still has significant bloating with PO intake. States she knows when there is something 'rolling around' inside and currently feels like nothing is rolling around, but there is something stuck on the left side.
Objective Data
-
Intake and Output
10/10/24 10/11/24 10/12/24
06:59 06:59 06:59
Intake Total 1548 / 1548 1908 / 1908
Output Total 560 / 560 115 / 115
Balance 988 / 988 1793 / 1793
Intake:
Oral fluids 960 / 960 1320 / 1320
TPN/PPN 588 / 588 588 / 588
Output:
Liquid stool amount 560 / 560 115 / 115
Colostomy 560 / 560 115 / 115
Other:
Number of approximated MODERATE 2 2
amounts of urine
Number of approximated LARGE 1
amounts of urine
How many times incontinent 3 2
MODERATE amount urine
How many times incontinent 3 2
SATURATED amount urine
Vital Signs
Temp Pulse Resp BP Pulse Ox
98.3 F 74 20 109/60 94
10/11/24 03:28 10/11/24 03:28 10/11/24 03:28 10/11/24 03:28 10/11/24 04:28
Lab Results
10/10/24 04:27
10/10/24 04:27
Calcium 8.3 mg/dl (8.4-10.2) L 10/10/24 04:27
Phosphorus 2.8 mg/dl (2.5-4.5) 10/09/24 04:13
Magnesium 1.6 mg/dl (1.6-2.3) 10/09/24 04:13
Total Bilirubin 0.4 mg/dl (0.2-1.3) 10/09/24 04:13
Direct Bilirubin 0.5 mg/dl (0.0-0.4) H 09/16/24 19:12
AST 130 U/L (14-36) H 10/09/24 04:13
ALT 78 U/L (0-35) H 10/09/24 04:13
Alkaline Phosphatase 285 U/L (38-126) H 10/09/24 04:13
Total Protein 3.6 g/dl (6.3-8.2) L 10/09/24 04:13
Albumin 1.7 g/dl (3.5-5.0) L 10/09/24 04:13
Physical Exam
-
AFVSS
NAD
Soft, tender, tympanic, distended, however better than prior in the week
Ostomy pink healthy tissue, liquid stool, no stones
surgical laura removed, scares healing well
Patient has a aviles catheter: No
Patient has a central line: Yes
--- NOTE | 2024-10-11 08:23 | W.PN.HOSP.TC ---
Today's Communication/Plan
-
c/w TPN
Await blood work result
Surgery to update son
Assessment / Plan
Assessment / Plan
Physical Exam
General: Not in acute distress, cachexia
HEENT: Normocephalic, Moist mucous membranes and Atraumatic. NG tube present with dark colored output.
Respiratory: Decreased Breath Sounds Bilaterally; No wheezes.
Cardiac: S1/S2 and Regular Rate and Rhythm
GI: Soft, not tender, mildly distended, midline incision and dressing intact, colostomy (gas and liquid stool present), right drain (removed)
Musculoskeletal: No Cyanosis, Edema of both lower extremities. Swelling left upper extremity
Skin: Warm. Dry.
Neuro: Alert. Awake. Nonfocal/grossly intact
Psych: calm
Assessment/Plan
83-year-old female with past medical history of umbilical hernia surgery as a child, atrial fibrillation not on anticoagulation, prior pulmonary embolism, microscopic colitis and IBS presented with abdominal pain. She started having lower abdominal
pain 4 days prior to presentation. Pain was initially intermittent but now constant, and has become more severe. Last bowel movement 5 days prior to presentation. Patient has been passing clear mucus several times a day with some blood in the stool.
On the day of presentation, she had an episode of vomiting, without blood. At the time of admission, she denied fevers, chills, chest pain or shortness of breath. She was found to have perforated viscus likely secondary to severe proctocolitis.
#Upper GI bleeding due to esophagitis and esophageal ulcer
#Esophageal/gastric ulcers
EGD also showed non bleeding gastric ulcer -- s/p EGD on 09/28 w/o intervention
PO PPI changed to PPI IV BID as patient was NPO/hematemesis/had NG tube (taken out 10/07/24)
See GI note for how long to continue PPI after discharge
Recheck HGB, showed upward trending
Repeat EGD in 2 months to ensure healing; GI will arrange for outpatient appointment with GI upon discharge
#Acute blood loss anemia , s/p total 4 units, suspected secondary to GI Bleed
Received 1 unit PRBC on 09/18/24
one unit 09/28, 2 units on 09/29
Total of 4 units PRBCs so far this hospitalization
Hematemesis again 10/04/24 to 10/05/24 --> PPI changed to IV, and Heparin subq stopped
# Left UE edema
US:No sonographic evidence for LEFT upper extremity deep venous thrombosis.
Dependent edema, encourage movement, elevation.
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
#Severe constipation following Chauncey's for perforated sigmoid colon 2/2 stercoral colitis
Has not been improving due to prolonged ileus and likely large bowel obstruction from residual stool all post-op
Repeat CT on 10/04/24 showed ileus --> discussed with surgeon Dr. Zhang on 10/05/24 --> suspected colon is obstructed from residual stool impacting at the fascial level of her ostomy
Surgery performed on 10/06/24 fecal disimpaction under anesthesia and flexible sigmoidoscopy
Now on Full Liquid Diet, NG tube taken out on 10/07/24
Resumed bowel regimen
Possible Gastrografin enema on 10/09/24, contrast did not go through
Continue TPN
Surgeon to update patient's son per request
f/w surgery and GI recommendations, appreciate help
-Wound/ostomy nurse consultation
#E. Coli bacteremia
-Repeat blood cultures with no growth to date
-Given E. coli bacteremia, consulted Infectious Disease --> received Zosyn--> completed course of antibiotics (end date was 09/30/24)
-Pain regimen scheduled and PRN, but no NSAIDs given recent rise in creatinine and GI bleeding.
#Groin Yeast Infection
-Continue Desenex
-Continue to monitor
#Acute on chronic lymphedema
#Bilateral Lower Extremity Edema
#Anasarca
-Was started on Bumex lost weight and less edema in legs -- continue Lasix as per patient's preference
-Lower extremity ultrasound with no DVTs
-proBNP elevated. Echo with mild concentric left ventricular hypertrophy, no regional wall motion abnormalities are seen, LV ejection fraction 65-70% by visual assessment, pacer wire in right ventricle, moderate mitral regurgitation, mild aortic
regurgitation, mild tricuspid regurgitation, estimated pulmonary artery pressure of 20-25 mmHg assuming a right atrial pressure of 3 mmHg, trivial pericardial effusion, dilated aortic root, sinus of Valsalva measures 4.2 cm, sinotubular junction
measures 3.5 cm.
-Recent B/L LE ultrasound was negative for DVT, but given recent drop in Hgb Heparin subq was held, but resumed on 10/08/24
#Wheezing - RESOLVED
#Left Lung Crackles - IMPROVED
-Patient denied SOB as of 10/02/24 but reported feeling the wheezing which resolved
-CXR without significant change
-ProBNP elevated. Echo as above
#Proximal RIGHT BASILIC VEIN superficial venous thrombosis
-Upper extremity ultrasound performed on 10/03/24 with the findings above
-Clinically, patient's arm appearance and symptoms are stable
#Small bilateral pleural effusions, right greater than left
#Hypoattenuating left renal lesion measures 1.2 cm in diameter, internal Hounsfield units are suggestive of a hemorrhagic cyst, as per CT report 10/04/24
#Mild Hyponatremia
# Pseudo hypocalcemia due to low albumin
#Hypokalemia
#Moderate protein calorie malnutrition
#Asymptomatic Hypoglycemia
RESOLVED
Stopped Accu-check per patient's request
#JT - RESOLVED
#Suspect underlying CKD IIIb
-Bladder scans protocol
-Avoid NSAIDs
#Hx of paroxysmal atrial fibrillation, followed by Dr. Jarrett of [facility]
#A-Fib with RVR
-Not on anticoagulation as an outpatient
-No anticoagulation due to history of hemorrhagic pericardial effusion (her hris administrator told her no oral anticoagulation)
-Patient is aware of stroke risk associated with not taking anticoagulation and prefers to continue to avoid anticoagulation at this time
-But patient said Heparin DVT prophylaxis is okay
-PO Lopressor (with increased dose @ 50 mg BID (instead of home 25 mg TID))
-s/p IV Lopressor
-Outpatient follow-up to Dr. Tiwari of [facility]
#[employer] DC PPM
#History of Pulmonary Embolism
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
#Microscopic colitis
-Patient usually sees Dr. Shweta Zhu at [facility]; Dr. Zhu prescribes the patient's Budesonide and the Colestipol
-Holding Budesonide and Colestipol for now given acute illness
#Rheumatoid Arthritis
-Stable without any flare-up
-Patient sees Dr. Delgado - Rheumatology at [facility] who prescribes the Hydroxychloroquine , ok to resume.
-Holding immunosuppressive TX, especially given Azathioprine is a immunosuppressant and patient is recovering from abdominal surgery and bacteremia
-OP f/u with air intercept controller supervisor Dr. Delgado
#Abnormal imaging of the pancreas
-CT A/P on 09/16: 'questionable pancreatic edema, questionable subtle changes of acute pancreatitis, underlying mass cannot be excluded.'
-Outpatient follow-up CT or MRI
#IBS
#Chronic venous insufficiency
#Peripheral neuropathy
#PVCs
#Osteoporosis
Code Status: Full code
DVT Prophylaxis: SCDs. Heparin SUBQ was on hold for a few days, resumed today 10/08/24
Total time spent to see the patient, examine the pt, review data and lab results, discuss treatment plan with pt, consultants, nursing staff around 57 minutes
Anticipated Discharge: > 48 hours
Subjective/Interval History
-
Date of Service: October 11, 2024
Objective Data
-
Vital Signs:
Vital Signs
Temp Pulse Resp BP Pulse Ox
98.3 F 74 20 109/60 94
10/11/24 03:28 10/11/24 03:28 10/11/24 03:28 10/11/24 03:28 10/11/24 04:28
I&O
10/10/24 10/11/24 10/12/24
06:59 06:59 06:59
Intake Total 1548 / 1548 1908 / 1908
Output Total 560 / 560 115 / 115
Balance 988 / 988 1793 / 1793
[2024-10-11] MEDS: LOPRESSOR 50 MG PO ×2 (09:01→20:33)
[2024-10-11] MEDS: RESTASIS 0.05% OPHTHALMIC EMULSION 1 DROPS BOTH EYES ×2 (09:01→20:34)
[2024-10-11] MEDS: CARAFATE SUSPENSION 1 GM PO ×2 (09:01→15:34)
[2024-10-11] MEDS: REFRESH EYE DROPS (PF) 1 DROPS OPHTH ×4 (09:01→21:11)
[2024-10-11] MEDS: PROTONIX IV 40 MG IV ×2 (09:02→20:34)
[2024-10-11] MEDS: LASIX 40 MG PO (09:02)
[2024-10-11] MEDS: HEPARIN 5000 UNITS SC ×2 (09:02→20:34)
[2024-10-11] MEDS: NSS (PRESERVATIVE FREE) 10 ML IV ×2 (09:02→20:34)
[2024-10-11] MEDS: MIRALAX 17 GRAMS PO (09:02)
[2024-10-11] MEDS: NON-FORMULARY ITEM NASAL ×2 (09:03→20:49)
[2024-10-11] MEDS: MAGIC OR MIRACLE MOUTHWASH 5 ML PO ×4 (09:03→21:15)
[2024-10-11] MEDS: DESENEX/MITRAZOL/ZEASORB 1 APPLIC TOPICAL ×2 (09:03→20:35)
--- NOTE | 2024-10-11 09:30 | WOUNDNOTE ---
L 5TH TOE
--- NOTE | 2024-10-11 09:32 | WOUNDNOTE ---
[facility] RN note: Patient's sacral pressure injury improved, appears to be deep dermal stage 2 pressure injuries, pink with yellow fibrin. Current wound care appropriate. RLQ old drain site dressing changed. Protective foam applied to small scabbed
abrasion R posterior calf. Patient has a small dry corn on her L dorsal 5th toe (appears chronic). Skin on heels intact, blanchable mild red. Patient incontinent of urine. Nicolle care given by ELSIE Heller. Linens changed. Patient turned to R semi side
lying position using 2 pillows. Heels off bed with pillow. Air chair cushion in chair. Will follow as needed.
--- NOTE | 2024-10-11 11:36 | CM ---
Chart reviewed; met with pt
Pt requesting info for SNF options
Given PAC list from [employer] to review - would like family input. CM will f/u with pt
Plan - anticipate SNF when medically ready
[2024-10-11 12:47] LABS: Glucose - Point of Care 111 mg/dl (70-99)
[2024-10-11] MEDS: DUONEB 3 ML INH (13:43)
[2024-10-11 17:43] LABS: Glucose - Point of Care 123 mg/dl (70-99)
[2024-10-11] MEDS: Parenteral Nutrition, Central 1180 IV (21:02)
[2024-10-11] MEDS: MELATONIN 3 MG PO (21:10)
[2024-10-11] MEDS: TYLENOL 1000 MG PO (21:15)
[2024-10-12] VITALS (9 sets, daily range): BP systolic 112–167; BP diastolic 48–94; PULSE 80; O2SAT 99; BMI 22.5
[2024-10-12 00:12] LABS: Glucose - Point of Care 148 mg/dl (70-99)
[2024-10-12] MEDS: NOVOLOG FLEXPEN-LOW RESISTANCE SC ×4 (00:36→17:44)
[2024-10-12 05:04] LABS: Hematocrit 24.6 % (37.0-47.0); Hemoglobin 8.3 g/dL (12.0-16.0); Mean Corp Hgb Conc. 33.7 g/dL (33.0-37.0); Mean Corpuscular Hgb 31.2 pg (27.0-31.0); Mean Corpuscular Volume 92.5 fL (81.0-99.0); Mean Platelet Volume 9.2 fL (7.4-10.4); Platelet Count 198 10^3/uL (130-400); Red Blood Cell Count 2.66 10^6/uL (4.20-5.40); Red Cell Dist. Width 17.9 % (11.5-14.5); White Blood Cell Count 10.5 10^3/uL (4.8-10.8)
[2024-10-12 05:45] LABS: Glucose - Point of Care 129 mg/dl (70-99)
[2024-10-12 05:45] LABS: ALT (SGPT) 93 U/L (0-35); AST (SGOT) 85 U/L (14-36); Albumin 1.8 g/dl (3.5-5.0); Alkaline Phosphatase 305 U/L (38-126); Blood Urea Nitrogen 32 mg/dl (7-17); Calcium 8.8 mg/dl (8.4-10.2); Carbon Dioxide 27 mmol/L (22-30); Chloride 103 mmol/L (98-107); Estimated Creatinine Clearance 48 ml/min; Glucose 116 mg/dl (70-99); Potassium 4.2 mmol/L (3.5-5.1); Sodium 134 mmol/L (135-145); Total Bilirubin 0.5 mg/dl (0.2-1.3); Total Protein 3.9 g/dl (6.3-8.2); eGFR > 60.00
--- NOTE | 2024-10-12 07:25 | W.PN.GS2 ---
Addendum entered and electronically signed by Mango Zhang MD 10/12/24 08:37:
Patient seen and examined in follow-up with certified surgical tech/first assistant. Agree with documented progress note.
Colicky/crampy abdominal pain overnight a bit more severe than prior but no nausea or vomiting.
Has tried limited p.o. intake.
AFVSS
NAD AAO x 3
ABD: Softly distended, no tenderness on palpation. Ostomy appliance in place. Mucosa pink. Digitized stoma -no palpable stool, no significant gas or liquid released.
A/P: -Low residue diet as tolerated and start Ensure supplement daily
- Renew TPN until adequate p.o. intake
- Stop Carafate as may be contributing to constipation
- PPI twice daily p.o. -8 weeks in setting of recent esophageal/gastric ulcers
- MiraLAX bowel regiment
Original Note:
Today's Communication / Plan
-
Cont low residue diet, TPN and PPI
Encourage OOB
Assessment / Plan
-
83 yo female presenting with perforated sigmoid colon secondary to stercoral colitis now POD #26 s/p Chauncey's with prolonged postoperative course due to expected ileus and residual hard stools. POD #6 from a fecal disimpaction under anesthesia
and flexible sigmoidoscopy.
-- Cont with low residue diet
-- Continue TPN
-- Cont PPI IV BID
-- OOB as able. PT following. Encourage mobility.
-- Pain controlled
-- DVT prophylaxis resumed 10/08 - monitor hg
Subjective Data
-
Date of Service: October 12, 2024
Pt was able to eat a small meal of food last night. No nausea or vomiting overnight however sharp abdominal pains on and off until 3:30 AM. A small amount of bloating, however much less than previously when she tried to eat or drink food. Patient
did not note passing any ' stones' overnight.
Objective Data
-
Intake and Output
10/11/24 10/12/24 10/13/24
06:59 06:59 06:59
Intake Total 1908 / 1908 1068 / 1068
Output Total 115 / 115 50 / 50
Balance 1793 / 1793 1018 / 1018
Intake:
Oral fluids 1320 / 1320 480 / 480
TPN/PPN 588 / 588 588 / 588
Output:
Liquid stool amount 115 / 115 50 / 50
Colostomy 115 / 115 50 / 50
Other:
Number of approximated MODERATE 2 1
amounts of urine
Number of approximated LARGE 1 1
amounts of urine
How many times incontinent 2
MODERATE amount urine
How many times incontinent 2 3
SATURATED amount urine
Vital Signs
Temp Pulse Resp BP Pulse Ox
98.5 F 72 18 115/48 95
10/12/24 03:05 10/12/24 03:05 10/12/24 03:05 10/12/24 03:05 10/12/24 03:05
Lab Results
10/12/24 04:51
10/12/24 04:51
Calcium 8.8 mg/dl (8.4-10.2) 10/12/24 04:51
Phosphorus 2.8 mg/dl (2.5-4.5) 10/09/24 04:13
Magnesium 1.6 mg/dl (1.6-2.3) 10/09/24 04:13
Total Bilirubin 0.5 mg/dl (0.2-1.3) 10/12/24 04:51
Direct Bilirubin 0.5 mg/dl (0.0-0.4) H 09/16/24 19:12
AST 85 U/L (14-36) H 10/12/24 04:51
ALT 93 U/L (0-35) H 10/12/24 04:51
Alkaline Phosphatase 305 U/L (38-126) H 10/12/24 04:51
Total Protein 3.9 g/dl (6.3-8.2) L 10/12/24 04:51
Albumin 1.8 g/dl (3.5-5.0) L 10/12/24 04:51
Physical Exam
-
AFVSS
NAD
Small amount of tenderness with palpation, small amount of distention remarkably improved from prior.
Ostomy tissue pink and healthy, no output in ostomy bag
Surgical scars to midline healing well
Patient has a aviles catheter: No
Patient has a central line: Yes
[2024-10-12] MEDS: CARAFATE SUSPENSION 1 GM PO (08:30)
[2024-10-12] MEDS: RESTASIS 0.05% OPHTHALMIC EMULSION 1 DROPS BOTH EYES ×2 (08:30→21:22)
[2024-10-12] MEDS: HEPARIN 5000 UNITS SC ×2 (08:30→21:24)
[2024-10-12] MEDS: LOPRESSOR 50 MG PO ×2 (08:31→21:21)
[2024-10-12] MEDS: LASIX 40 MG PO (08:31)
[2024-10-12] MEDS: REFRESH EYE DROPS (PF) 1 DROPS OPHTH ×4 (08:31→22:43)
[2024-10-12] MEDS: PROTONIX IV 40 MG IV (08:32)
[2024-10-12] MEDS: MIRALAX 17 GRAMS PO (08:32)
[2024-10-12] MEDS: MAGIC OR MIRACLE MOUTHWASH 5 ML PO ×3 (08:32→15:59)
[2024-10-12] MEDS: NON-FORMULARY ITEM NASAL (08:32)
[2024-10-12] MEDS: NSS (PRESERVATIVE FREE) 10 ML IV (08:32)
--- NOTE | 2024-10-12 08:32 | W.PN.HOSP.TC ---
Today's Communication/Plan
-
Pt wants to see social insurance specialist, expect discharging early next week
ordering TPN
Assessment / Plan
Assessment / Plan
Physical Exam
General: Not in acute distress, cachexia
HEENT: Normocephalic, Moist mucous membranes and Atraumatic. NG tube present with dark colored output.
Respiratory: Decreased Breath Sounds Bilaterally; No wheezes.
Cardiac: S1/S2 and Regular Rate and Rhythm
GI: Soft, not tender, mildly distended, midline incision and dressing intact, colostomy (gas and liquid stool present), right drain (removed)
Musculoskeletal: No Cyanosis, Edema of both lower extremities. Swelling left upper extremity
Skin: Warm. Dry.
Neuro: Alert. Awake. Nonfocal/grossly intact
Psych: calm
Assessment/Plan
83-year-old female with past medical history of umbilical hernia surgery as a child, atrial fibrillation not on anticoagulation, prior pulmonary embolism, microscopic colitis and IBS presented with abdominal pain. She started having lower abdominal
pain 4 days prior to presentation. Pain was initially intermittent but now constant, and has become more severe. Last bowel movement 5 days prior to presentation. Patient has been passing clear mucus several times a day with some blood in the stool.
On the day of presentation, she had an episode of vomiting, without blood. At the time of admission, she denied fevers, chills, chest pain or shortness of breath. She was found to have perforated viscus likely secondary to severe proctocolitis.
#Upper GI bleeding due to esophagitis and esophageal ulcer
#Esophageal/gastric ulcers
EGD also showed non bleeding gastric ulcer -- s/p EGD on 09/28 w/o intervention
PO PPI changed to PPI IV BID as patient was NPO/hematemesis/had NG tube (taken out 10/07/24)
See GI note for how long to continue PPI after discharge
Rechecked HGB, showed upward trending
Repeat EGD in 2 months to ensure healing; GI will arrange for outpatient appointment with GI upon discharge
#Acute blood loss anemia , s/p total 4 units, suspected secondary to GI Bleed
Received 1 unit PRBC on 09/18/24
one unit 09/28, 2 units on 09/29
Total of 4 units PRBCs so far this hospitalization
Hematemesis again 10/04/24 to 10/05/24 --> PPI changed to IV, and Heparin subq stopped, now resumed.
# Left UE edema
US:No sonographic evidence for LEFT upper extremity deep venous thrombosis.
Dependent edema, encourage movement, elevation.
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
#Severe constipation following Chauncey's for perforated sigmoid colon 2/[address] on 10/04/24 showed ileus --> discussed with surgeon Dr. Zhang on 10/05/24 --> suspected colon is obstructed from residual stool impacting at the fascial level of her ostomy
Surgery performed on 10/06/24 fecal disimpaction under anesthesia and flexible sigmoidoscopy
Now on LR Diet, NG tube taken out on 10/07/24
Resumed bowel regimen
Possible Gastrografin enema on 10/09/24, contrast did not go through
Continue TPN, low sodium, will increase NaCl percentage
Surgeon to update patient's son per request
f/w surgery and GI recommendations, appreciate help
-Wound/ostomy nurse consultation
#E. Coli bacteremia
-Repeat blood cultures with no growth to date
-Given E. coli bacteremia, consulted Infectious Disease --> received Zosyn--> completed course of antibiotics (end date was 09/30/24)
-Pain regimen scheduled and PRN, but no NSAIDs given recent rise in creatinine and GI bleeding.
#Groin Yeast Infection
-Continue Desenex
-Continue to monitor
#Acute on chronic lymphedema
#Bilateral Lower Extremity Edema
#Anasarca
-Was started on Bumex lost weight and less edema in legs -- continue Lasix as per patient's preference
-Lower extremity ultrasound with no DVTs
-proBNP elevated. Echo with mild concentric left ventricular hypertrophy, no regional wall motion abnormalities are seen, LV ejection fraction 65-70% by visual assessment, pacer wire in right ventricle, moderate mitral regurgitation, mild aortic
regurgitation, mild tricuspid regurgitation, estimated pulmonary artery pressure of 20-25 mmHg assuming a right atrial pressure of 3 mmHg, trivial pericardial effusion, dilated aortic root, sinus of Valsalva measures 4.2 cm, sinotubular junction
measures 3.5 cm.
-Recent B/L LE ultrasound was negative for DVT, but given recent drop in Hgb Heparin subq was held, but resumed on 10/08/24
#Wheezing - RESOLVED
#Left Lung Crackles - IMPROVED
-Patient denied SOB as of 10/02/24 but reported feeling the wheezing which resolved
-CXR without significant change
-ProBNP elevated. Echo as above
#Proximal RIGHT BASILIC VEIN superficial venous thrombosis
-Upper extremity ultrasound performed on 10/03/24 with the findings above
-Clinically, patient's arm appearance and symptoms are stable
#Small bilateral pleural effusions, right greater than left
#Hypoattenuating left renal lesion measures 1.2 cm in diameter, internal Hounsfield units are suggestive of a hemorrhagic cyst, as per CT report 10/04/24
#Mild Hyponatremia
# Pseudo hypocalcemia due to low albumin
#Hypokalemia
#Moderate protein calorie malnutrition
#Asymptomatic Hypoglycemia
RESOLVED
Stopped Accu-check per patient's request
#JT - RESOLVED
#Suspect underlying CKD IIIb
-Bladder scans protocol
-Avoid NSAIDs
#Hx of paroxysmal atrial fibrillation, followed by Dr. Jarrett of [facility]
#A-Fib with RVR
-Not on anticoagulation as an outpatient
-No anticoagulation due to history of hemorrhagic pericardial effusion (her otr owner operator truck driver told her no oral anticoagulation)
-Patient is aware of stroke risk associated with not taking anticoagulation and prefers to continue to avoid anticoagulation at this time
-But patient said Heparin DVT prophylaxis is okay
-PO Lopressor (with increased dose @ 50 mg BID (instead of home 25 mg TID))
-s/p IV Lopressor
-Outpatient follow-up to Dr. Tiwari of [facility]
#[employer] DC PPM
#History of Pulmonary Embolism
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
#Microscopic colitis
-Patient usually sees Dr. Shweta Zhu at [facility] with [place]; Dr. Zhu prescribes the patient's Budesonide and the Colestipol
-Holding Budesonide and Colestipol for now given acute illness
#Rheumatoid Arthritis
-Stable without any flare-up
-Patient sees Dr. Delgado - Rheumatology at [place] who prescribes the Hydroxychloroquine , ok to resume.
-Holding immunosuppressive [place], especially given Azathioprine is a immunosuppressant and patient is recovering from abdominal surgery and bacteremia
-OP f/u with supervising editor news reel Dr. Delgado
#Abnormal imaging of the pancreas
-CT A/P on 09/16: 'questionable pancreatic edema, questionable subtle changes of acute pancreatitis, underlying mass cannot be excluded.'
-Outpatient follow-up CT or MRI
#IBS
#Chronic venous insufficiency
#Peripheral neuropathy
#PVCs
#Osteoporosis
Code Status: Full code
DVT Prophylaxis: SCDs. Heparin SUBQ was on hold for a few days, resumed today 10/08/24
Total time spent to see the patient, examine the pt, review data and lab results, discuss treatment plan with pt, consultants, nursing staff around 57 minutes
Anticipated Discharge: > 48 hours
Subjective/Interval History
-
Date of Service: October 12, 2024
No chest pain
No sob
Objective Data
-
Labs:
Laboratory Results
10/12/24
04:51
WBC 10.5
Hgb 8.3 L
Hct 24.6 L
Plt Count 198
Sodium 134 L
Potassium 4.2 D
Chloride 103
Carbon Dioxide 27
BUN 32 H
Creatinine 0.8
Glucose 116 H
Calcium 8.8
Total Bilirubin 0.5
AST 85 H
ALT 93 H
Alkaline Phosphatase 305 H
Vital Signs:
Vital Signs
Temp Pulse Resp BP Pulse Ox
98.2 F 83 18 130/94 96
10/12/24 07:42 10/12/24 07:42 10/12/24 07:42 10/12/24 07:42 10/12/24 07:42
I&O
10/11/24 10/12/24 10/13/24
06:59 06:59 06:59
Intake Total 1908 / 1908 1068 / 1068
Output Total 115 / 115 50 / 50
Balance 1793 / 1793 1018 / 1018
[2024-10-12] MEDS: DESENEX/MITRAZOL/ZEASORB 1 APPLIC TOPICAL ×2 (08:33→21:20)
--- NOTE | 2024-10-12 10:06 | WOUNDNOTE ---
WOC RN NOTE: Patient visited for pouch change. Pouch intact and changed on 10/11 by RNJudith after enema. Per chart review patient may be discharged to SNF early next week. Discharge orders have been updated. RN may change pouch 2x weekly or PRN.
Call WOC RN for any new issues or problems with ostomy.
--- NOTE | 2024-10-12 11:41 | CM ---
Chart reviewed; met with pt
Discussed SNF options with pt - requested referral to [facility]) and [facility]
Referral sent in [facility]
Plan - SNF when medically ready for d/c
[2024-10-12 12:07] LABS: Glucose - Point of Care 102 mg/dl (70-99)
[2024-10-12 17:43] LABS: Glucose - Point of Care 130 mg/dl (70-99)
--- NOTE | 2024-10-12 17:44 | PTCARENOTE ---
Patient OOB to chair for ~3 hours this afternoon, assist x2 stand and pivot back to bed. Patient tolerating low res diet although eating small amounts of meals at a time, given ordered vanilla Ensure, states occ abdominal discomfort at times but
denies need for pain medication. No N/V. Patient with occasional exertional wheeze, administered PRN neb tx by respiratory and encouraged to use IS in bed. LLQ colostomy with no stool output, burped for air throughout this shift, stoma red and
budded, appliance intact. Patient maintained on q2hr turns, stress incontinence of urine but able to use bedpan for majority of shift. Protective foams intact, SCDs in place, B/L arms and legs elevated with pillows.
[2024-10-12] MEDS: PROTONIX 40 MG PO (21:20)
[2024-10-12] MEDS: NON-FORMULARY ITEM 1 SPRAY NASAL (21:23)
[2024-10-12] MEDS: MELATONIN PO (21:31)
[2024-10-12] MEDS: MAGIC OR MIRACLE MOUTHWASH PO (21:31)
[2024-10-12] MEDS: TYLENOL 1000 MG PO (21:37)
[2024-10-13] VITALS (7 sets, daily range): BP systolic 122–159; BP diastolic 50–80; PULSE 91; O2SAT 94; BMI 22.9
[2024-10-13 00:08] LABS: Glucose - Point of Care 112 mg/dl (70-99)
[2024-10-13] MEDS: Parenteral Nutrition, Central 1190 IV (00:09)
[2024-10-13] MEDS: NOVOLOG FLEXPEN-LOW RESISTANCE SC ×5 (00:19→23:58)
[2024-10-13 05:28] LABS: ALT (SGPT) 68 U/L (0-35); AST (SGOT) 58 U/L (14-36); Albumin 1.8 g/dl (3.5-5.0); Alkaline Phosphatase 324 U/L (38-126); Blood Urea Nitrogen 35 mg/dl (7-17); Calcium 8.4 mg/dl (8.4-10.2); Carbon Dioxide 27 mmol/L (22-30); Chloride 106 mmol/L (98-107); Estimated Creatinine Clearance 54 ml/min; Glucose 112 mg/dl (70-99); Sodium 136 mmol/L (135-145); Total Bilirubin 0.5 mg/dl (0.2-1.3); Total Protein 3.9 g/dl (6.3-8.2); eGFR > 60.00
[2024-10-13 06:00] LABS: Glucose - Point of Care 110 mg/dl (70-99)
--- NOTE | 2024-10-13 07:26 | W.PN.GS2 ---
Addendum entered and electronically signed by Mango Zhang MD 10/13/24 08:54:
Patient seen and examined in follow-up with surgical services asst. Agree with progress note.
Overall patient appears to be doing satisfactorily but she continues to have significant anorexia. Reports colicky abdominal pain overnight and fear of eating food.
No nausea, no vomiting
Ostomy producing flatus, not much stool output but she has been eating little
AFVSS
NAD AAO x 3
ABD: Soft, not tensely distended as she previously was. Very minimal tenderness on palpation. Left-sided ostomy with pink mucosa air within the appliance and some mucoid material.
A/P: Advised patient to try to push her dietary intake - I recommended that family members or friends bring in food that she would desire from home to see if she would tolerate this better.
Will obtain abdominal x-ray to evaluate bowel gas pattern but at this point suspect limited ostomy output is more due to lack of fecal material then residual obstruction/pseudoobstruction
[employer]
Original Note:
Today's Communication / Plan
-
Cont TNP, PPI and encourage OOB
Encourage PO intake as tolerated
KUB
Assessment / Plan
-
83 yo female presenting with perforated sigmoid colon secondary to stercoral colitis now POD #27 s/p Chauncey's with prolonged postoperative course due to expected ileus and residual hard stools. POD #7 from a fecal disimpaction under anesthesia
and flexible sigmoidoscopy.
AFVSS
Mucous like stool in ostomy, bloating with eating
-- KUB today
-- Cont with low residue diet
-- Continue TPN
-- Cont PPI IV BID
-- OOB as able. PT following.
-- Pain controlled
-- Bowel regimen with miralax
-- DVT prophylaxis resumed 10/08 - monitor hg
Subjective Data
-
Date of Service: October 13, 2024
Had some pancakes and yoghurt yesterday and overnight ab felt tight with occasional sharp pains. Pt stated ab still felt 'soft' but very uncomfortable overnight and wants to try only liquids today. She was able to sit up and participate in PT a
little yesterday.
Objective Data
-
Intake and Output
10/12/24 10/13/24 10/14/24
06:59 06:59 06:59
Intake Total 1068 / 1068 780 / 780
Output Total 50 / 50
Balance 1018 / 1018 780 / 780
Intake:
Oral fluids 480 / 480 780 / 780
TPN/PPN 588 / 588
Output:
Liquid stool amount 50 / 50
Colostomy 50 / 50
Other:
Number of approximated MODERATE 1 5
amounts of urine
Number of approximated LARGE 1 1
amounts of urine
How many times incontinent 1
MODERATE amount urine
How many times incontinent 3 1
SATURATED amount urine
Vital Signs
Temp Pulse Resp BP Pulse Ox
97.8 F 76 20 122/62 97
10/13/24 03:10 10/13/24 03:10 10/13/24 03:10 10/13/24 03:10 10/13/24 03:10
Lab Results
10/12/24 04:51
10/13/24 04:50
Calcium 8.4 mg/dl (8.4-10.2) 10/13/24 04:50
Phosphorus 2.8 mg/dl (2.5-4.5) 10/09/24 04:13
Magnesium 1.6 mg/dl (1.6-2.3) 10/09/24 04:13
Total Bilirubin 0.5 mg/dl (0.2-1.3) 10/13/24 04:50
Direct Bilirubin 0.5 mg/dl (0.0-0.4) H 09/16/24 19:12
AST 58 U/L (14-36) H 10/13/24 04:50
ALT 68 U/L (0-35) H 10/13/24 04:50
Alkaline Phosphatase 324 U/L (38-126) H 10/13/24 04:50
Total Protein 3.9 g/dl (6.3-8.2) L 10/13/24 04:50
Albumin 1.8 g/dl (3.5-5.0) L 10/13/24 04:50
Physical Exam
-
AFVSS
NAD
Distended, slight tympanic, tender with palpation
Small amount of mucous in ostomy bag, pink healthy ostomy tissue
Surgical scar down midline healing well
[2024-10-13] MEDS: MIRALAX 17 GRAMS PO (08:34)
[2024-10-13] MEDS: LASIX 40 MG PO (08:34)
[2024-10-13] MEDS: MAGIC OR MIRACLE MOUTHWASH 5 ML PO (08:34)
[2024-10-13] MEDS: DESENEX/MITRAZOL/ZEASORB 1 APPLIC TOPICAL ×2 (08:34→21:07)
[2024-10-13] MEDS: PROTONIX 40 MG PO ×2 (08:35→21:05)
[2024-10-13] MEDS: REFRESH EYE DROPS (PF) 1 DROPS OPHTH ×3 (08:35→21:27)
[2024-10-13] MEDS: LOPRESSOR 50 MG PO ×2 (08:35→21:00)
[2024-10-13] MEDS: RESTASIS 0.05% OPHTHALMIC EMULSION 1 DROPS BOTH EYES ×2 (08:36→21:04)
[2024-10-13] MEDS: HEPARIN 5000 UNITS SC ×2 (08:36→21:05)
[2024-10-13] MEDS: NON-FORMULARY ITEM 1 SPRAY NASAL ×2 (08:36→21:06)
--- NOTE | 2024-10-13 10:29 | W.PN.HOSP.TC ---
Today's Communication/Plan
-
ordered and adjusted TPN
Assessment / Plan
Assessment / Plan
Physical Exam
General: Not in acute distress, cachexia
HEENT: Normocephalic, Moist mucous membranes and Atraumatic. NG tube present with dark colored output.
Respiratory: Decreased Breath Sounds Bilaterally; No wheezes.
Cardiac: S1/S2 and Regular Rate and Rhythm
GI: Soft, not tender, mildly distended, midline incision and dressing intact, colostomy (gas and liquid stool present), right drain (removed)
Musculoskeletal: No Cyanosis, Edema of both lower extremities. Swelling left upper extremity
Skin: Warm. Dry.
Neuro: Alert. Awake. Nonfocal/grossly intact
Psych: calm
Assessment/Plan
83-year-old female with past medical history of umbilical hernia surgery as a child, atrial fibrillation not on anticoagulation, prior pulmonary embolism, microscopic colitis and IBS presented with abdominal pain. She started having lower abdominal
pain 4 days prior to presentation. Pain was initially intermittent but now constant, and has become more severe. Last bowel movement 5 days prior to presentation. Patient has been passing clear mucus several times a day with some blood in the stool.
On the day of presentation, she had an episode of vomiting, without blood. At the time of admission, she denied fevers, chills, chest pain or shortness of breath. She was found to have perforated viscus likely secondary to severe proctocolitis.
#Upper GI bleeding due to esophagitis and esophageal ulcer
#Esophageal/gastric ulcers
EGD also showed non bleeding gastric ulcer -- s/p EGD on 09/28 w/o intervention
PO PPI changed to PPI IV BID as patient was NPO/hematemesis/had NG tube (taken out 10/07/24)
See GI note for how long to continue PPI after discharge
Rechecked HGB, showed upward trending
Repeat EGD in 2 months to ensure healing; GI will arrange for outpatient appointment with GI upon discharge
#Acute blood loss anemia , s/p total 4 units, suspected secondary to GI Bleed
Received 1 unit PRBC on 09/18/24
one unit 09/28, 2 units on 09/29
Total of 4 units PRBCs so far this hospitalization
Hematemesis again 10/04/24 to 10/05/24 --> PPI changed to IV, and Heparin subq stopped, now resumed.
# Left UE edema
US:No sonographic evidence for LEFT upper extremity deep venous thrombosis.
Dependent edema, encourage movement, elevation.
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
#Severe constipation following Chauncey's for perforated sigmoid colon 2/ stercoral colitis
Repeat CT on 10/04/24 showed ileus --> discussed with surgeon Dr. Zhang on 10/05/24 --> suspected colon is obstructed from residual stool impacting at the fascial level of her ostomy
Surgery performed on 10/06/24 fecal disimpaction under anesthesia and flexible sigmoidoscopy
Now on LR Diet, NG tube taken out on 10/07/24
Resumed bowel regimen
Possible Gastrografin enema on 10/09/24, contrast did not go through
Continue TPN, low sodium, will increase NaCl percentage
Surgeon to update patient's son per request
f/w surgery and GI recommendations, appreciate help
-Wound/ostomy nurse consultation
#E. Coli bacteremia
-Repeat blood cultures with no growth to date
-Given E. coli bacteremia, consulted Infectious Disease --> received Zosyn--> completed course of antibiotics (end date was 09/30/24)
-Pain regimen scheduled and PRN, but no NSAIDs given recent rise in creatinine and GI bleeding.
#Groin Yeast Infection
-Continue Desenex
-Continue to monitor
#Acute on chronic lymphedema
#Bilateral Lower Extremity Edema
#Anasarca
-Was started on Bumex lost weight and less edema in legs -- continue Lasix as per patient's preference
-Lower extremity ultrasound with no DVTs
-proBNP elevated. Echo with mild concentric left ventricular hypertrophy, no regional wall motion abnormalities are seen, LV ejection fraction 65-70% by visual assessment, pacer wire in right ventricle, moderate mitral regurgitation, mild aortic
regurgitation, mild tricuspid regurgitation, estimated pulmonary artery pressure of 20-25 mmHg assuming a right atrial pressure of 3 mmHg, trivial pericardial effusion, dilated aortic root, sinus of Valsalva measures 4.2 cm, sinotubular junction
measures 3.5 cm.
-Recent B/L LE ultrasound was negative for DVT, but given recent drop in Hgb Heparin subq was held, but resumed on 10/08/24
#Wheezing - RESOLVED
#Left Lung Crackles - IMPROVED
-Patient denied SOB as of 10/02/24 but reported feeling the wheezing which resolved
-CXR without significant change
-ProBNP elevated. Echo as above
#Proximal RIGHT BASILIC VEIN superficial venous thrombosis
-Upper extremity ultrasound performed on 10/03/24 with the findings above
-Clinically, patient's arm appearance and symptoms are stable
#Small bilateral pleural effusions, right greater than left
#Hypoattenuating left renal lesion measures 1.2 cm in diameter, internal Hounsfield units are suggestive of a hemorrhagic cyst, as per CT report 10/04/24
#Mild Hyponatremia
# Pseudo hypocalcemia due to low albumin
#Hypokalemia
#Moderate protein calorie malnutrition
#Asymptomatic Hypoglycemia
RESOLVED
Stopped Accu-check per patient's request
#JT - RESOLVED
#Suspect underlying CKD IIIb
-Bladder scans protocol
-Avoid NSAIDs
#Hx of paroxysmal atrial fibrillation, followed by Dr. Jarrett of [facility]
#A-Fib with RVR
-Not on anticoagulation as an outpatient
-No anticoagulation due to history of hemorrhagic pericardial effusion (her drywall hanger told her no oral anticoagulation)
-Patient is aware of stroke risk associated with not taking anticoagulation and prefers to continue to avoid anticoagulation at this time
-But patient said Heparin DVT prophylaxis is okay
-PO Lopressor (with increased dose @ 50 mg BID (instead of home 25 mg TID))
-s/p IV Lopressor
-Outpatient follow-up to Dr. Tiwari of [facility]
#[employer] DC PPM
#History of Pulmonary Embolism
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
#Microscopic colitis
-Patient usually sees Dr. Shweta Zhu at [facility] with [place]; Dr. Zhu prescribes the patient's Budesonide and the Colestipol
-Holding Budesonide and Colestipol for now given acute illness
#Rheumatoid Arthritis
-Stable without any flare-up
-Patient sees Dr. Delgado - Rheumatology at [facility] who prescribes the Hydroxychloroquine , ok to resume.
-Holding immunosuppressive [place], especially given Azathioprine is a immunosuppressant and patient is recovering from abdominal surgery and bacteremia
-OP f/u with plan checker Dr. Delgado
#Abnormal imaging of the pancreas
-CT A/P on 09/16: 'questionable pancreatic edema, questionable subtle changes of acute pancreatitis, underlying mass cannot be excluded.'
-Outpatient follow-up CT or MRI
#IBS
#Chronic venous insufficiency
#Peripheral neuropathy
#PVCs
#Osteoporosis
Code Status: Full code
DVT Prophylaxis: SCDs. Heparin SUBQ was on hold for a few days, resumed today 10/08/24
Total time spent to see the patient, examine the pt, review data and lab results, discuss treatment plan with pt, consultants, nursing staff around 57 minutes
Anticipated Discharge: > 48 hours
Subjective/Interval History
-
Date of Service: October 13, 2024
Objective Data
-
Labs:
Laboratory Results
10/13/24
04:50
Sodium 136
Potassium 4.0
Chloride 106
Carbon Dioxide 27
BUN 35 H
Creatinine 0.7
Glucose 112 H
Calcium 8.4
Total Bilirubin 0.5
AST 58 H
ALT 68 H
Alkaline Phosphatase 324 H
Vital Signs:
Vital Signs
Temp Pulse Resp BP Pulse Ox
98.1 F 78 16 129/53 98
10/13/24 07:30 10/13/24 08:34 10/13/24 07:30 10/13/24 08:35 10/13/24 07:30
I&O
10/12/24 10/13/24 10/14/24
06:59 06:59 06:59
Intake Total 1068 / 1068 780 / 780
Output Total 50 / 50
Balance 1018 / 1018 780 / 780
[2024-10-13 12:16] LABS: Glucose - Point of Care 136 mg/dl (70-99)
[2024-10-13] MEDS: REFRESH EYE DROPS (PF) OPHTH (13:29)
--- NOTE | 2024-10-13 13:39 | CM ---
CM following re: discharge planning.
Reviewed pt's chart, met with pty.
PT and OT continue recommending SNF level of care.
Per CM note, pt referred to [facility] and [facility].
[facility] deaired a referral.
[facility] did not respond to [facility]. CM left a message to [facility] business continuity global director and [facility] purchasing coordinator to confirm whether or not they will offer a bed when pt is medically stable.
Awaiting for determination from [facility].
D/C plan: [facility] if accepted.
CM will follow with discharge plan updates as hospitalization progresses
[2024-10-13 17:24] LABS: Glucose - Point of Care 127 mg/dl (70-99)
[2024-10-13] MEDS: Parenteral Nutrition, Central 1180 IV (20:57)
[2024-10-13] MEDS: MELATONIN PO (21:22)
[2024-10-13 23:38] LABS: Glucose - Point of Care 123 mg/dl (70-99)
[2024-10-14] VITALS (7 sets, daily range): BP systolic 120–141; BP diastolic 49–84; BMI 22.6
[2024-10-14 06:43] LABS: Glucose - Point of Care 127 mg/dl (70-99)
[2024-10-14] MEDS: NOVOLOG FLEXPEN-LOW RESISTANCE SC ×2 (06:44→17:23)
[2024-10-14] MEDS: DESENEX/MITRAZOL/ZEASORB 1 APPLIC TOPICAL ×2 (08:38→20:56)
[2024-10-14] MEDS: LASIX 40 MG PO (08:38)
[2024-10-14] MEDS: LOPRESSOR 50 MG PO ×2 (08:38→19:53)
[2024-10-14] MEDS: PROTONIX 40 MG PO ×2 (08:38→19:56)
[2024-10-14] MEDS: RESTASIS 0.05% OPHTHALMIC EMULSION 1 DROPS BOTH EYES ×2 (08:38→19:56)
[2024-10-14] MEDS: NON-FORMULARY ITEM 1 SPRAY NASAL ×2 (08:39→19:57)
[2024-10-14] MEDS: REFRESH EYE DROPS (PF) 1 DROPS OPHTH ×3 (08:39→21:04)
[2024-10-14] MEDS: HEPARIN 5000 UNITS SC ×2 (08:39→19:54)
[2024-10-14] MEDS: MIRALAX 17 GRAMS PO (08:39)
--- NOTE | 2024-10-14 09:14 | W.PN.HOSP.TC ---
Today's Communication/Plan
-
TPN is ordered
Blood work tomorrow or Wednesday
Encourage oral intake and OUT protocol
should take MiraLAX
c/w Lasix
Assessment / Plan
Assessment / Plan
Physical Exam
General: Not in acute distress, cachexia
HEENT: Normocephalic, Moist mucous membranes and Atraumatic. NG tube present with dark colored output.
Respiratory: Decreased Breath Sounds Bilaterally; No wheezes.
Cardiac: S1/S2 and Regular Rate and Rhythm
GI: Soft, not tender, mildly distended, midline incision and dressing intact, colostomy (gas and liquid stool present), right drain (removed)
Musculoskeletal: No Cyanosis, Edema of both lower extremities. Swelling left upper extremity
Skin: Warm. Dry.
Neuro: Alert. Awake. Nonfocal/grossly intact
Psych: calm
Assessment/Plan
83-year-old female with past medical history of umbilical hernia surgery as a child, atrial fibrillation not on anticoagulation, prior pulmonary embolism, microscopic colitis and IBS presented with abdominal pain. She started having lower abdominal
pain 4 days prior to presentation. Pain was initially intermittent but now constant, and has become more severe. Last bowel movement 5 days prior to presentation. Patient has been passing clear mucus several times a day with some blood in the stool.
On the day of presentation, she had an episode of vomiting, without blood. At the time of admission, she denied fevers, chills, chest pain or shortness of breath. She was found to have perforated viscus likely secondary to severe proctocolitis.
#Upper GI bleeding due to esophagitis and esophageal ulcer
#Esophageal/gastric ulcers
EGD also showed non bleeding gastric ulcer -- s/p EGD on 09/28 w/o intervention
PO PPI changed to PPI IV BID as patient was NPO/hematemesis/had NG tube (taken out 10/07/24)
See GI note for how long to continue PPI after discharge
Rechecked HGB, showed upward trending
Repeat EGD in 2 months to ensure healing; GI will arrange for outpatient appointment with GI upon discharge
#Acute blood loss anemia , s/p total 4 units, suspected secondary to GI Bleed
Received 1 unit PRBC on 09/18/24
one unit 09/28, 2 units on 09/29
Total of 4 units PRBCs so far this hospitalization
Hematemesis again 10/04/24 to 10/05/24 --> PPI changed to IV, and Heparin subq stopped, now resumed.
# Left UE edema
US:No sonographic evidence for LEFT upper extremity deep venous thrombosis.
Dependent edema, encourage movement, elevation.
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
#Severe constipation following Chauncey's for perforated sigmoid colon 2/[address] on 10/04/24 showed ileus --> discussed with surgeon Dr. Zhang on 10/05/24 --> suspected colon is obstructed from residual stool impacting at the fascial level of her ostomy
Surgery performed on 10/06/24 fecal disimpaction under anesthesia and flexible sigmoidoscopy
Now on LR Diet, NG tube taken out on 10/07/24
Resumed bowel regimen
Possible Gastrografin enema on 10/09/24, contrast did not go through
Continue TPN, low sodium, will increase NaCl percentage
Surgeon to update patient's son per request
f/w surgery and GI recommendations, appreciate help
-Wound/ostomy nurse consultation
#E. Coli bacteremia
-Repeat blood cultures with no growth to date
-Given E. coli bacteremia, consulted Infectious Disease --> received Zosyn--> completed course of antibiotics (end date was 09/30/24)
-Pain regimen scheduled and PRN, but no NSAIDs given recent rise in creatinine and GI bleeding.
#Groin Yeast Infection
-Continue Desenex
-Continue to monitor
#Acute on chronic lymphedema
#Bilateral Lower Extremity Edema
#Anasarca
-Was started on Bumex lost weight and less edema in legs -- continue Lasix as per patient's preference
-Lower extremity ultrasound with no DVTs
-proBNP elevated. Echo with mild concentric left ventricular hypertrophy, no regional wall motion abnormalities are seen, LV ejection fraction 65-70% by visual assessment, pacer wire in right ventricle, moderate mitral regurgitation, mild aortic
regurgitation, mild tricuspid regurgitation, estimated pulmonary artery pressure of 20-25 mmHg assuming a right atrial pressure of 3 mmHg, trivial pericardial effusion, dilated aortic root, sinus of Valsalva measures 4.2 cm, sinotubular junction
measures 3.5 cm.
-Recent B/L LE ultrasound was negative for DVT, but given recent drop in Hgb Heparin subq was held, but resumed on 10/08/24
#Wheezing - RESOLVED
#Left Lung Crackles - IMPROVED
-Patient denied SOB as of 10/02/24 but reported feeling the wheezing which resolved
-CXR without significant change
-ProBNP elevated. Echo as above
#Proximal RIGHT BASILIC VEIN superficial venous thrombosis
-Upper extremity ultrasound performed on 10/03/24 with the findings above
-Clinically, patient's arm appearance and symptoms are stable
#Small bilateral pleural effusions, right greater than left
#Hypoattenuating left renal lesion measures 1.2 cm in diameter, internal Hounsfield units are suggestive of a hemorrhagic cyst, as per CT report 10/04/24
#Mild Hyponatremia
# Pseudo hypocalcemia due to low albumin
#Hypokalemia
#Moderate protein calorie malnutrition
#Asymptomatic Hypoglycemia
RESOLVED
Stopped Accu-check per patient's request
#JT - RESOLVED
#Suspect underlying CKD IIIb
-Bladder scans protocol
-Avoid NSAIDs
#Hx of paroxysmal atrial fibrillation, followed by Dr. Jarrett of [facility]
#A-Fib with RVR
-Not on anticoagulation as an outpatient
-No anticoagulation due to history of hemorrhagic pericardial effusion (her oral hygienist told her no oral anticoagulation)
-Patient is aware of stroke risk associated with not taking anticoagulation and prefers to continue to avoid anticoagulation at this time
-But patient said Heparin DVT prophylaxis is okay
-PO Lopressor (with increased dose @ 50 mg BID (instead of home 25 mg TID))
-s/p IV Lopressor
-Outpatient follow-up to Dr. Tiwari of [facility]
#[employer] DC PPM
#History of Pulmonary Embolism
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
#Microscopic colitis
-Patient usually sees Dr. Shweta Zhu at [facility] with [place]; Dr. Zhu prescribes the patient's Budesonide and the Colestipol
-Holding Budesonide and Colestipol for now given acute illness
#Rheumatoid Arthritis
-Stable without any flare-up
-Patient sees Dr. Delgado - Rheumatology at [place] who prescribes the Hydroxychloroquine , ok to resume.
-Holding immunosuppressive [place], especially given Azathioprine is a immunosuppressant and patient is recovering from abdominal surgery and bacteremia
-OP f/u with fire prevention bureau captain Dr. Delgado
#Abnormal imaging of the pancreas
-CT A/P on 09/16: 'questionable pancreatic edema, questionable subtle changes of acute pancreatitis, underlying mass cannot be excluded.'
-Outpatient follow-up CT or MRI
#IBS
#Chronic venous insufficiency
#Peripheral neuropathy
#PVCs
#Osteoporosis
Code Status: Full code
DVT Prophylaxis: SCDs. Heparin SUBQ was on hold for a few days, resumed today 10/08/24
Total time spent to see the patient, examine the pt, review data and lab results, discuss treatment plan with pt, consultants, nursing staff around 57 minutes
Anticipated Discharge: 24 - 48 hours
Subjective/Interval History
-
Date of Service: October 14, 2024
Less abdominal discomfort
No fevers
No sob
Objective Data
-
Vital Signs:
Vital Signs
Temp Pulse Resp BP Pulse Ox
98.5 F 78 18 131/57 98
10/14/24 07:20 10/14/24 07:20 10/14/24 07:20 10/14/24 08:38 10/14/24 07:20
I&O
10/13/24 10/14/24 10/15/24
06:59 06:59 06:59
Intake Total 780 / 780 2147 / 2147
Output Total 175 / 175
Balance 780 / 780 1972
[2024-10-14 11:30] LABS: Glucose - Point of Care 160 mg/dl (70-99)
[2024-10-14] MEDS: NOVOLOG FLEXPEN-LOW RESISTANCE 300 UNITS SC (12:13)
[2024-10-14 17:12] LABS: Glucose - Point of Care 109 mg/dl (70-99)
[2024-10-14] MEDS: REFRESH EYE DROPS (PF) OPHTH (18:10)
[2024-10-14] MEDS: Parenteral Nutrition, Central 1180 IV (20:52)
[2024-10-14] MEDS: MELATONIN PO (20:57)
[2024-10-14] MEDS: TYLENOL 1000 MG PO (20:58)
[2024-10-15 00:07] LABS: Glucose - Point of Care 139 mg/dl (70-99)
[2024-10-15] MEDS: NOVOLOG FLEXPEN-LOW RESISTANCE SC ×5 (00:07→23:52)
[2024-10-15 03:17] VITALS: BP 108/61
[2024-10-15] MEDS: TYLENOL 1000 MG PO ×2 (04:03→23:54)
[2024-10-15 06:00] VITALS: BMI 22.3
[2024-10-15 06:56] LABS: Glucose - Point of Care 132 mg/dl (70-99)
[2024-10-15 07:20] VITALS: BP 109/60
[2024-10-15 08:11] LABS: Hematocrit 24.9 % (37.0-47.0); Hemoglobin 8.2 g/dL (12.0-16.0); Mean Corp Hgb Conc. 32.9 g/dL (33.0-37.0); Mean Corpuscular Hgb 31.1 pg (27.0-31.0); Mean Corpuscular Volume 94.3 fL (81.0-99.0); Platelet Count 290 10^3/uL (130-400); Red Blood Cell Count 2.64 10^6/uL (4.20-5.40); Red Cell Dist. Width 18.6 % (11.5-14.5); White Blood Cell Count 8.1 10^3/uL (4.8-10.8)
[2024-10-15 08:26] LABS: Blood Urea Nitrogen 32 mg/dl (7-17); Calcium 8.3 mg/dl (8.4-10.2); Carbon Dioxide 25 mmol/L (22-30); Chloride 111 mmol/L (98-107); Estimated Creatinine Clearance 54 ml/min; Glucose 113 mg/dl (70-99); Magnesium 2.2 mg/dl (1.6-2.3); Phosphorus 4.2 mg/dl (2.5-4.5); Potassium 4.1 mmol/L (3.5-5.1); Sodium 140 mmol/L (135-145); eGFR > 60.00
[2024-10-15] MEDS: REFRESH EYE DROPS (PF) 1 DROPS OPHTH ×4 (09:04→21:35)
[2024-10-15] MEDS: LASIX 40 MG PO (09:04)
[2024-10-15] MEDS: MIRALAX 17 GRAMS PO (09:05)
[2024-10-15] MEDS: RESTASIS 0.05% OPHTHALMIC EMULSION 1 DROPS BOTH EYES ×2 (09:05→21:13)
[2024-10-15] MEDS: PROTONIX 40 MG PO ×2 (09:05→21:11)
[2024-10-15] MEDS: HEPARIN 5000 UNITS SC ×2 (09:05→21:11)
[2024-10-15] MEDS: LOPRESSOR 50 MG PO ×2 (09:05→21:12)
[2024-10-15] MEDS: DESENEX/MITRAZOL/ZEASORB 1 APPLIC TOPICAL ×2 (09:06→21:29)
[2024-10-15] MEDS: NON-FORMULARY ITEM 1 SPRAY NASAL ×2 (09:06→21:12)
--- NOTE | 2024-10-15 10:57 | W.PN.HOSP.TC ---
Today's Communication/Plan
-
Ordered TPN
Skin cream for itching
Assessment / Plan
Assessment / Plan
Physical Exam
General: Not in acute distress, cachexia
HEENT: Normocephalic, Moist mucous membranes and Atraumatic. NG tube present with dark colored output.
Respiratory: Decreased Breath Sounds Bilaterally; No wheezes.
Cardiac: S1/S2 and Regular Rate and Rhythm
GI: Soft, not tender, mildly distended, midline incision and dressing intact, colostomy (gas and liquid stool present), right drain (removed)
Musculoskeletal: No Cyanosis, Edema of both lower extremities. Swelling left upper extremity
Skin: Warm. Dry.
Neuro: Alert. Awake. Nonfocal/grossly intact
Psych: calm
Assessment/Plan
83-year-old female with past medical history of umbilical hernia surgery as a child, atrial fibrillation not on anticoagulation, prior pulmonary embolism, microscopic colitis and IBS presented with abdominal pain. She started having lower abdominal
pain 4 days prior to presentation. Pain was initially intermittent but now constant, and has become more severe. Last bowel movement 5 days prior to presentation. Patient has been passing clear mucus several times a day with some blood in the stool.
On the day of presentation, she had an episode of vomiting, without blood. At the time of admission, she denied fevers, chills, chest pain or shortness of breath. She was found to have perforated viscus likely secondary to severe proctocolitis.
#Upper GI bleeding due to esophagitis and esophageal ulcer
#Esophageal/gastric ulcers
EGD also showed non bleeding gastric ulcer -- s/p EGD on 09/28 w/o intervention
PO PPI changed to PPI IV BID as patient was NPO/hematemesis/had NG tube (taken out 10/07/24)
See GI note for how long to continue PPI after discharge
Rechecked HGB, showed stability.
Repeat EGD in 2 months to ensure healing; GI will arrange for outpatient appointment with GI upon discharge
#Acute blood loss anemia , s/p total 4 units, suspected secondary to GI Bleed
Received 1 unit PRBC on 09/18/24
one unit 09/28, 2 units on 09/29
Total of 4 units PRBCs so far this hospitalization
Hematemesis again 10/04/24 to 10/05/24 --> PPI changed to IV, and Heparin subq stopped, now resumed.
# Skin itching, no erythema or rash, PRN Hydrocortisone cream.
# Left UE edema
US:No sonographic evidence for LEFT upper extremity deep venous thrombosis.
Dependent edema, encourage movement, elevation. Will wean off TPN soon, no pain in arm, good & strong radial pulse
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
#Severe constipation following Chauncey's for perforated sigmoid colon 2/[address] on 10/04/24 showed ileus --> discussed with surgeon Dr. Zhang on 10/05/24 --> suspected colon is obstructed from residual stool impacting at the fascial level of her ostomy
Surgery performed on 10/06/24 fecal disimpaction under anesthesia and flexible sigmoidoscopy
Now on LR Diet, NG tube taken out on 10/07/24
Resumed bowel regimen
Possible Gastrografin enema on 10/09/24, contrast did not go through
Continue TPN,
Surgeon to update patient's son per request
f/w surgery and GI recommendations, appreciate help
-Wound/ostomy nurse consultation
#E. Coli bacteremia
-Repeat blood cultures with no growth to date
-Given E. coli bacteremia, consulted Infectious Disease --> received Zosyn--> completed course of antibiotics (end date was 09/30/24)
-Pain regimen scheduled and PRN, but no NSAIDs given recent rise in creatinine and GI bleeding.
#Groin Yeast Infection
-Continue Desenex
-Continue to monitor
#Acute on chronic lymphedema
#Bilateral Lower Extremity Edema
#Anasarca
-Was started on Bumex lost weight and less edema in legs -- continue Lasix as per patient's preference
-Lower extremity ultrasound with no DVTs
-proBNP elevated. Echo with mild concentric left ventricular hypertrophy, no regional wall motion abnormalities are seen, LV ejection fraction 65-70% by visual assessment, pacer wire in right ventricle, moderate mitral regurgitation, mild aortic
regurgitation, mild tricuspid regurgitation, estimated pulmonary artery pressure of 20-25 mmHg assuming a right atrial pressure of 3 mmHg, trivial pericardial effusion, dilated aortic root, sinus of Valsalva measures 4.2 cm, sinotubular junction
measures 3.5 cm.
-Recent B/L LE ultrasound was negative for DVT, but given recent drop in Hgb Heparin subq was held, but resumed on 10/08/24
#Wheezing - RESOLVED
#Left Lung Crackles - IMPROVED
-Patient denied SOB as of 10/02/24 but reported feeling the wheezing which resolved
-CXR without significant change
-ProBNP elevated. Echo as above
#Proximal RIGHT BASILIC VEIN superficial venous thrombosis
-Upper extremity ultrasound performed on 10/03/24 with the findings above
-Clinically, patient's arm appearance and symptoms are stable
#Small bilateral pleural effusions, right greater than left
#Hypoattenuating left renal lesion measures 1.2 cm in diameter, internal Hounsfield units are suggestive of a hemorrhagic cyst, as per CT report 10/04/24
#Mild Hyponatremia
# Pseudo hypocalcemia due to low albumin
#Hypokalemia
#Moderate protein calorie malnutrition
#Asymptomatic Hypoglycemia
RESOLVED
Stopped Accu-check per patient's request
#JT - RESOLVED
#Suspect underlying CKD IIIb
-Bladder scans protocol
-Avoid NSAIDs
#Hx of paroxysmal atrial fibrillation, followed by Dr. Jarrett of [facility]
#A-Fib with RVR
-Not on anticoagulation as an outpatient
-No anticoagulation due to history of hemorrhagic pericardial effusion (her vocational rehabilitation teacher told her no oral anticoagulation)
-Patient is aware of stroke risk associated with not taking anticoagulation and prefers to continue to avoid anticoagulation at this time
-But patient said Heparin DVT prophylaxis is okay
-PO Lopressor (with increased dose @ 50 mg BID (instead of home 25 mg TID))
-s/p IV Lopressor
-Outpatient follow-up to Dr. Tiwari of [facility]
#Cryptopay DC PPM
#History of Pulmonary Embolism
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
#Microscopic colitis
-Patient usually sees Dr. Shweta Zhu at [facility] with [place]; Dr. Zhu prescribes the patient's Budesonide and the Colestipol
-Holding Budesonide and Colestipol for now given acute illness
#Rheumatoid Arthritis
-Stable without any flare-up
-Patient sees Dr. Delgado - Rheumatology at [place] who prescribes the Hydroxychloroquine , ok to resume.
-Holding immunosuppressive [place], especially given Azathioprine is a immunosuppressant and patient is recovering from abdominal surgery and bacteremia
-OP f/u with braider operator Dr. Delgado
#Abnormal imaging of the pancreas
-CT A/P on 09/16: 'questionable pancreatic edema, questionable subtle changes of acute pancreatitis, underlying mass cannot be excluded.'
-Outpatient follow-up CT or MRI
#IBS
#Chronic venous insufficiency
#Peripheral neuropathy
#PVCs
#Osteoporosis
Code Status: Full code
DVT Prophylaxis: SCDs. Heparin SUBQ was on hold for a few days, resumed today 10/08/24
Total time spent to see the patient, examine the pt, review data and lab results, discuss treatment plan with pt, consultants, nursing staff around 57 minutes
Anticipated Discharge: > 48 hours
Subjective/Interval History
-
Date of Service: October 15, 2024
Complained of insomnia and getting anxiety but declined medications
No chest pain
No abdominal pain at current time
No nausea
Objective Data
-
Labs:
Laboratory Results
10/15/24
08:00
WBC 8.1
Hgb 8.2 L
Hct 24.9 L
Plt Count 290 D
Sodium 140
Potassium 4.1
Chloride 111 H
Carbon Dioxide 25
BUN 32 H
Creatinine 0.7
Glucose 113 H
Calcium 8.3 L
Vital Signs:
Vital Signs
Temp Pulse Resp BP Pulse Ox
97.6 F 75 18 109/60 99
10/15/24 07:20 10/15/24 07:20 10/15/24 07:20 10/15/24 09:05 10/15/24 07:20
I&O
10/14/24 10/15/24 10/16/24
06:59 06:59 06:59
Intake Total 2147 1138 / 1138
Output Total 175 / 175
Balance 1972 / 1972 1138 / 1138
[2024-10-15 11:05] VITALS: BP 118/68
[2024-10-15 11:33] LABS: Glucose - Point of Care 127 mg/dl (70-99)
--- NOTE | 2024-10-15 11:41 | W.PN.GS2 ---
Today's Communication / Plan
-
LRD
Assessment / Plan
-
83 yo female presenting with perforated sigmoid colon secondary to stercoral colitis now POD #29 s/p Chauncey's with prolonged postoperative course due to expected ileus and residual hard stools. POD #9 from a fecal disimpaction under anesthesia
and flexible sigmoidoscopy. EGD for UGIB on 09/28 with esophageal/gastric ulcers present, has been on PPI since that time.
AFVSS
Labs stable
Doing better with PO intake
Stoma functioning well
Pain continuing to improve
XR on 10/14 without obstruction, ileus or concerning findings
-- Cont with low residue diet
-- TPN as per primary team, approaching readiness for discontinuation as her PO intake improves
-- Cont PPI BID
-- OOB as able. PT following.
-- Pain controlled
-- Bowel regimen with miralax
-- DVT prophylaxis with sq heparin
Subjective Data
-
Date of Service: October 15, 2024
Patient seen and examined at bedside with Dr. Gao. Denies n/v. Tolerating PO intake well but does feel full after meals. Feeling like she has more energy.
Objective Data
-
Intake and Output
10/14/24 10/15/24 10/16/24
06:59 06:59 06:59
Intake Total 8 / 2148 1138 / 1138
Output Total 175 / 175
Balance 1972 / 1972 1138 / 1138
Intake:
Oral fluids 960 / 960 550 / 550
TPN/PPN 1188 / 1188 588 / 588
Output:
Liquid stool amount 175 / 175
Colostomy 175 / 175
Other:
Number of approximated SMALL 1 1
amounts of urine
Number of approximated MODERATE 3 3
amounts of urine
Number of approximated LARGE 1 1
amounts of urine
How many times incontinent 1 1
SMALL amount urine
How many times incontinent 1 1
MODERATE amount urine
How many times incontinent 2
SATURATED amount urine
Number of unmeasured liquid
stools
Colostomy 2 1
Vital Signs
Temp Pulse Resp BP Pulse Ox
97.6 F 75 18 109/60 99
10/15/24 07:20 10/15/24 07:20 10/15/24 07:20 10/15/24 09:05 10/15/24 07:20
Lab Results
10/15/24 08:00
10/15/24 08:00
Calcium 8.3 mg/dl (8.4-10.2) L 10/15/24 08:00
Phosphorus 4.2 mg/dl (2.5-4.5) 10/15/24 08:00
Magnesium 2.2 mg/dl (1.6-2.3) 10/15/24 08:00
Total Bilirubin 0.5 mg/dl (0.2-1.3) 10/13/24 04:50
Direct Bilirubin 0.5 mg/dl (0.0-0.4) H 09/16/24 19:12
AST 58 U/L (14-36) H 10/13/24 04:50
ALT 68 U/L (0-35) H 10/13/24 04:50
Alkaline Phosphatase 324 U/L (38-126) H 10/13/24 04:50
Total Protein 3.9 g/dl (6.3-8.2) L 10/13/24 04:50
Albumin 1.8 g/dl (3.5-5.0) L 10/13/24 04:50
Physical Exam
-
AFVSS
NAD
ND, NT, stoma pink healthy with appliance full of soft, brown stool and flatus
Surgical scar down midline healing well
[2024-10-15] MEDS: HYDROCORTISONE 1% CREAM 1 APPLIC TOPICAL ×2 (12:29→20:51)
--- NOTE | 2024-10-15 14:47 | PTCARENOTE ---
pt with increased work of breathing. sob at bedside. pulse ox reading 97-99%. MD made aware. pt receiving PO lasix daily. good urinary output. pt LUE swelling increasing. MD aware as well and arm remains elevated on pillows.
[2024-10-15 15:15] VITALS: BP 106/65
--- NOTE | 2024-10-15 15:15 | PTCARENOTE ---
pt verbalizing itchy upper back. prn hydrocortisone cream ordered by . pt using bed proctor for urination, occasional stress inc. pt colostomy bag changed today by this RN. pt with improving oral intake. continues to receive TPN through L PICC
--- NOTE | 2024-10-15 15:47 | CHAP ---
Porsche was glad for a chance to talk about the SNF decision she is facing. Emotional and spiritual support provided.
[2024-10-15 17:51] LABS: Glucose - Point of Care 107 mg/dl (70-99)
[2024-10-15 19:00] VITALS: BP 112/68
[2024-10-15] MEDS: Parenteral Nutrition, Central 1180 IV (21:09)
[2024-10-15] MEDS: DUONEB 3 ML INH (21:09)
[2024-10-15] MEDS: MELATONIN PO (21:35)
[2024-10-15 23:00] VITALS: BP 108/63
[2024-10-15 23:51] LABS: Glucose - Point of Care 110 mg/dl (70-99)
[2024-10-16] VITALS (7 sets, daily range): BP systolic 82–146; BP diastolic 45–72; BMI 22.1
[2024-10-16] MEDS: HYDROCORTISONE 1% CREAM 1 APPLIC TOPICAL
[2024-10-16 06:03] LABS: Hematocrit 23.3 % (37.0-47.0); Hemoglobin 7.7 g/dL (12.0-16.0); Mean Corpuscular Hgb 31.6 pg (27.0-31.0); Mean Corpuscular Volume 95.5 fL (81.0-99.0); Mean Platelet Volume 9.2 fL (7.4-10.4); Platelet Count 328 10^3/uL (130-400); Red Blood Cell Count 2.44 10^6/uL (4.20-5.40); Red Cell Dist. Width 18.3 % (11.5-14.5); White Blood Cell Count 8.6 10^3/uL (4.8-10.8)
[2024-10-16 06:26] LABS: Blood Urea Nitrogen 33 mg/dl (7-17); Calcium 8.1 mg/dl (8.4-10.2); Carbon Dioxide 24 mmol/L (22-30); Chloride 111 mmol/L (98-107); Estimated Creatinine Clearance 48 ml/min; Glucose 109 mg/dl (70-99); Magnesium 2.2 mg/dl (1.6-2.3); Phosphorus 4.2 mg/dl (2.5-4.5); Potassium 4.3 mmol/L (3.5-5.1); Sodium 141 mmol/L (135-145); Triglycerides 98 mg/dl (10-149); eGFR > 60.00
[2024-10-16] MEDS: NOVOLOG FLEXPEN-LOW RESISTANCE SC ×3 (06:49→17:00)
[2024-10-16 06:54] LABS: Glucose - Point of Care 93 mg/dl (70-99)
--- NOTE | 2024-10-16 07:58 | W.PN.GS2 ---
Addendum entered and electronically signed by Akshat Amin MD 10/16/24 11:11:
I saw and examined the patient independently.
The resident's documentation was reviewed and I agree with the note, assessment and plan except where noted below.
Comment: Only major interval change is new O2 requirement. Was planning on obtaining a chest x-ray however primary more concerned about a PE, given her poor ambulation and left upper extremity swelling this is certainly possible. I did review her
preliminary CT chest imaging which was negative for any large thrombus/PE however will follow-up final read to ensure there is no subsegmental clots. Okay from a surgery perspective for therapeutic anticoagulation if deemed necessary. I do think
her left upper extremity PICC line is contributing to some of the swelling in her arm, these are also often associated with nonocclusive thrombi.
We really did try to encourage increasing p.o. intake and will perform a calorie count. If she is able to keep up her nutrition enterally will remove PICC and stop TPN. If the be time, we will decrease TPN volume as she is getting some p.o. intake
in.
Regularized the importance of working with physical therapy.
P.o. intake ad blanca., protein shakes
General Surgery will continue to follow
Original Note:
Today's Communication / Plan
-
TPN/LRD
Encourage OOB as able
Chest xray for SOB/crackles
Assessment / Plan
-
83 yo female presenting with perforated sigmoid colon secondary to stercoral colitis now POD #30 s/p Chauncey's with prolonged postoperative course due to expected ileus and residual hard stools. POD #10 from a fecal disimpaction under anesthesia
and flexible sigmoidoscopy. EGD for UGIB on 09/28 with esophageal/gastric ulcers present, has been on PPI since that time.
Afebrile, BP soft, Now on 3 L oxygen - crackles in left lower lung field likely volume overload
Hg 7.7 today - monitor Hg
Left upper extremity swelling
PO intake poor
Stoma functioning well
Pain continuing to improve
XR on 10/14 without obstruction, ileus or concerning findings
-- Cont with low residue diet
-- TPN as per primary team, approaching readiness for discontinuation as her PO intake improves
-- Cont PPI BID
-- OOB as able. PT following.
-- Pain controlled
-- Bowel regimen with miralax
-- DVT prophylaxis with sq heparin
-- Chest x-ray for SOB
Subjective Data
-
Date of Service: October 16, 2024
Had a small amount of meatloaf last night and experienced some bloating and cramping after. Not interested in eating today. Feels short of breath and put on 3L O2. Sig increased in LUE swelling.
Objective Data
-
Intake and Output
10/15/24 10/16/24 10/17/24
06:59 06:59 06:59
Intake Total 1138 / 1138 720 / 720
Output Total 400 / 400
Balance 1138 / 1138 320 / 320
Intake:
Oral fluids 550 / 550 720 / 720
TPN/PPN 588 / 588
Output:
Liquid stool amount 400 / 400
Colostomy 400 / 400
Other:
Number of approximated SMALL 1 1
amounts of urine
Number of approximated MODERATE 3 4
amounts of urine
Number of approximated LARGE 1 1
amounts of urine
How many times incontinent 1
SMALL amount urine
How many times incontinent 1 1
MODERATE amount urine
How many times incontinent 5
SATURATED amount urine
Number of unmeasured liquid
stools
Colostomy 1
Vital Signs
Temp Pulse Resp BP Pulse Ox
97.9 F 73 18 96/50 97
10/16/24 03:00 10/16/24 03:00 10/16/24 03:00 10/16/24 03:00 10/16/24 03:00
Lab Results
10/16/24 05:22
10/16/24 05:22
Calcium 8.1 mg/dl (8.4-10.2) L 10/16/24 05:22
Phosphorus 4.2 mg/dl (2.5-4.5) 10/16/24 05:22
Magnesium 2.2 mg/dl (1.6-2.3) 10/16/24 05:22
Total Bilirubin 0.5 mg/dl (0.2-1.3) 10/13/24 04:50
Direct Bilirubin 0.5 mg/dl (0.0-0.4) H 09/16/24 19:12
AST 58 U/L (14-36) H 10/13/24 04:50
ALT 68 U/L (0-35) H 10/13/24 04:50
Alkaline Phosphatase 324 U/L (38-126) H 10/13/24 04:50
Total Protein 3.9 g/dl (6.3-8.2) L 10/13/24 04:50
Albumin 1.8 g/dl (3.5-5.0) L 10/13/24 04:50
Physical Exam
-
NAD
Slight ab distension, tympanic, slight tenderness with palpation
Liquid brown stool in ostomy, pink healthy tissue
Left upper extremity swelling
Crackles on left lower lung on auscultation
--- NOTE | 2024-10-16 08:05 | W.PN.HOSP.TC ---
Today's Communication/Plan
-
Therapeutic Lovenox
See plan
Assessment / Plan
Assessment / Plan
Physical Exam
General: Not in acute distress, cachexia
HEENT: Normocephalic, Moist mucous membranes and Atraumatic. NG tube present with dark colored output.
Respiratory: Decreased Breath Sounds Bilaterally; No wheezes.
Cardiac: S1/S2 and Regular Rate and Rhythm
GI: Soft, not tender, mildly distended, midline incision and dressing intact, colostomy (gas and liquid stool present), right drain (removed)
Musculoskeletal: No Cyanosis, Edema of both lower extremities. Swelling left upper extremity
Skin: Warm. Dry.
Neuro: Alert. Awake. Nonfocal/grossly intact
Psych: calm
Assessment/Plan
83-year-old female with past medical history of umbilical hernia surgery as a child, atrial fibrillation not on anticoagulation, prior pulmonary embolism, microscopic colitis and IBS presented with abdominal pain. She started having lower abdominal
pain 4 days prior to presentation. Pain was initially intermittent but now constant, and has become more severe. Last bowel movement 5 days prior to presentation. Patient has been passing clear mucus several times a day with some blood in the stool.
On the day of presentation, she had an episode of vomiting, without blood. At the time of admission, she denied fevers, chills, chest pain or shortness of breath. She was found to have perforated viscus likely secondary to severe proctocolitis.
#Upper GI bleeding due to esophagitis and esophageal ulcer
#Esophageal/gastric ulcers
EGD also showed non bleeding gastric ulcer -- s/p EGD on 09/28 w/o intervention
PO PPI changed to PPI IV BID as patient was NPO/hematemesis/had NG tube (taken out 10/07/24)
See GI note for how long to continue PPI after discharge
Rechecked HGB, showed stability.
Repeat EGD in 2 months to ensure healing; GI will arrange for outpatient appointment with GI upon discharge
#Acute blood loss anemia , s/p total 4 units, suspected secondary to GI Bleed
Received 1 unit PRBC on 09/18/24
one unit 09/28, 2 units on 09/29
Total of 4 units PRBCs so far this hospitalization
Hematemesis again 10/04/24 to 10/05/24 --> PPI changed to IV, and Heparin subq stopped, now resumed.
# Skin itching, no erythema or rash, PRN Hydrocortisone cream.
# Left UE edema
US:No sonographic evidence for LEFT upper extremity deep venous thrombosis.
Dependent edema, encourage movement, elevation. Will wean off TPN soon, no pain in arm, good & strong radial pulse
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
#Severe constipation following Chauncey's for perforated sigmoid colon 2/[address] on 10/04/24 showed ileus --> discussed with surgeon Dr. Zhang on 10/05/24 --> suspected colon is obstructed from residual stool impacting at the fascial level of her ostomy
Surgery performed on 10/06/24 fecal disimpaction under anesthesia and flexible sigmoidoscopy
Now on LR Diet, NG tube taken out on 10/07/24
Resumed bowel regimen
Possible Gastrografin enema on 10/09/24, contrast did not go through
Continue TPN
Surgeon to update patient's son per request
f/w surgery and GI recommendations, appreciate help
-Wound/ostomy nurse consultation
#E. Coli bacteremia
-Repeat blood cultures with no growth to date
-Given E. coli bacteremia, consulted Infectious Disease --> received Zosyn--> completed course of antibiotics (end date was 09/30/24)
-Pain regimen scheduled and PRN, but no NSAIDs given recent rise in creatinine and GI bleeding.
#Groin Yeast Infection
-Continue Desenex
-Continue to monitor
#Acute on chronic lymphedema
#Bilateral Lower Extremity Edema
#Anasarca
-Was started on Bumex lost weight and less edema in legs -- continue Lasix as per patient's preference
-Lower extremity ultrasound with no DVTs
-proBNP elevated. Echo with mild concentric left ventricular hypertrophy, no regional wall motion abnormalities are seen, LV ejection fraction 65-70% by visual assessment, pacer wire in right ventricle, moderate mitral regurgitation, mild aortic
regurgitation, mild tricuspid regurgitation, estimated pulmonary artery pressure of 20-25 mmHg assuming a right atrial pressure of 3 mmHg, trivial pericardial effusion, dilated aortic root, sinus of Valsalva measures 4.2 cm, sinotubular junction
measures 3.5 cm.
-Recent B/L LE ultrasound was negative for DVT, but given recent drop in Hgb Heparin subq was held, but resumed on 10/08/24
#Wheezing - RESOLVED
#Left Lung Crackles - IMPROVED
-Patient denied SOB as of 10/02/24 but reported feeling the wheezing which resolved
-CXR without significant change
-ProBNP elevated. Echo as above
#Shortness of breath at rest 10/16/24
-Started after physical activity on 10/13/24 as per patient
-EKG, troponins
-CT Chest PE given several risk factors for PE: sedentary right now given clinical condition, history of PE, TPN can increase risk of VTE
-IR consult for therapeutic and diagnostic thoracentesis -- patient reported relief after procedure
-proBNP -- if high extra diuresis, consult cardiology
#Worsening Left Upper Extremity Swelling
-Left UE ultrasound
#Proximal RIGHT BASILIC VEIN superficial venous thrombosis -- extending into axillary vein on ultrasound
-Clinically, patient's arm appearance and symptoms are stable
-COnsulted hematology who confirmed that therapeutic Loevenox can be started
#Small bilateral pleural effusions, right greater than left
#Hypoattenuating left renal lesion measures 1.2 cm in diameter, internal Hounsfield units are suggestive of a hemorrhagic cyst, as per CT report 10/04/24
#Mild Hyponatremia
# Pseudo hypocalcemia due to low albumin
#Hypokalemia
#Moderate protein calorie malnutrition
#Asymptomatic Hypoglycemia
RESOLVED
Stopped Accu-check per patient's request
#JT - RESOLVED
#Suspect underlying CKD IIIb
-Bladder scans protocol
-Avoid NSAIDs
#Hx of paroxysmal atrial fibrillation, followed by Dr. Jarrett of [facility]
#A-Fib with RVR
-Not on anticoagulation as an outpatient
-Initially, No anticoagulation due to history of hemorrhagic pericardial effusion (her certified endoscopy technician told her no oral anticoagulation) -- but now therapeutic dose Lovenox given RUE DVT
-PO Lopressor (with increased dose @ 50 mg BID (instead of home 25 mg TID))
-s/p IV Lopressor
-Outpatient follow-up to Dr. Tiwari of [facility]
#Stingray Geophysical DC PPM
#History of Pulmonary Embolism? -- may actually just be the pericardial hematoma she had
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
#Microscopic colitis
-Patient usually sees Dr. Shweta Zhu at [facility] [place]; Dr. Zhu prescribes the patient's Budesonide and the Colestipol
-Holding Budesonide and Colestipol for now given acute illness
#Rheumatoid Arthritis
-Stable without any flare-up
-Patient sees Dr. Delgado - Rheumatology at [place] who prescribes the Hydroxychloroquine , ok to resume.
-Holding immunosuppressive TX, especially given Azathioprine is a immunosuppressant and patient is recovering from abdominal surgery and bacteremia
-OP f/u with technical intern Dr. Delgado
#Abnormal imaging of the pancreas
-CT A/P on 09/16: 'questionable pancreatic edema, questionable subtle changes of acute pancreatitis, underlying mass cannot be excluded.'
-Outpatient follow-up CT or MRI
#IBS
#Chronic venous insufficiency
#Peripheral neuropathy
#PVCs
#Osteoporosis
Code Status: Full code
DVT Prophylaxis: SCDs. Lovenox 1 mg/kg.
Anticipated Discharge: > 48 hours
Subjective/Interval History
-
Date of Service: October 16, 2024
Patient was seen and examined. She reported shortness of breath.
Objective Data
-
Labs:
Laboratory Results
10/16/24
05:22
WBC 8.6
Hgb 7.7 L
Hct 23.3 L
Plt Count 328
Sodium 141
Potassium 4.3
Chloride 111 H
Carbon Dioxide 24
BUN 33 H
Creatinine 0.8
Glucose 109 H
Calcium 8.1 L
Vital Signs:
Vital Signs
Temp Pulse Resp BP Pulse Ox
97.9 F 73 18 96/50 97
10/16/24 03:00 10/16/24 03:00 10/16/24 03:00 10/16/24 03:00 10/16/24 03:00
I&O
10/15/24 10/16/24 10/17/24
06:59 06:59 06:59
Intake Total 1138 / 1138 720 / 720
Output Total 400 / 400
Balance 1138 / 1138 320 / 320
[2024-10-16] MEDS: MIRALAX 17 GRAMS PO (08:50)
[2024-10-16] MEDS: NON-FORMULARY ITEM 1 SPRAY NASAL ×2 (08:51→21:35)
[2024-10-16] MEDS: REFRESH EYE DROPS (PF) 1 DROPS OPHTH ×3 (08:51→21:36)
[2024-10-16] MEDS: RESTASIS 0.05% OPHTHALMIC EMULSION 1 DROPS BOTH EYES ×2 (08:51→21:35)
[2024-10-16] MEDS: PROTONIX 40 MG PO ×2 (08:52→21:35)
[2024-10-16] MEDS: LOPRESSOR 50 MG PO ×2 (08:52→21:34)
[2024-10-16] MEDS: HEPARIN 5000 UNITS SC (08:52)
[2024-10-16] MEDS: LASIX 40 MG PO (08:52)
[2024-10-16] MEDS: DESENEX/MITRAZOL/ZEASORB 1 APPLIC TOPICAL ×2 (08:57→21:34)
--- NOTE | 2024-10-16 12:02 | CON.ONC ---
Consultation
-
Date Consultation Performed: 10/16/24
Performing Provider: Dr. Mcmahon/Dr. Ivey
Impression
Impression
Provoked DVT of left upper extremity-- prophylactic heparin intermittently held given concern bleeding episodes. Chest CT 10/16 with no evidence of PE.
Anemia likely multifactorial-- gradual downtrend of hgb noted, no signs of active bleeding
Plan
Plan
Discontinue BID heparin. Will start DVT treatment dose of eliquis 10mg BID x1 week, followed by 5mg BID-- monitor closely for signs of bleeding-- follow daily CBC
Patient History
History of Present Illness
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 She was found to have a bowel
perforation secondary to stercoral colitis with hemoperitoneum/peritonitis complicated by E coli bacteremia s/p sigmoid resection and creation of descending colon colostomy 09/16/24. Her postoperative course was complicated by upper GI bleed
requiring 3u pRBC and fecal impaction. EGD 09/28/24 showed 3 ulcers, 1 of which had a clot but appeared to be healing without obvious high risk stigmata. She underwent fecal disimpaction under anesthesia and flex sig 10/06/24. In the right arm, she was
found to have nearly occlusive superficial thrombus within central R basilic vein 10/02 and nonocclusive deep venous thrombosis within R axillary vein 10/09. Heme/onc consulted for DVT recommendations.
Spoke with MACHINE SHORTHAND TEACHER from Dr. Reinaldo Tiwari's office (outpatient cardiology) for more information regarding pericardial effusion. In April 2019, she was diagnosed with atrial fibrillation and started on eliquis. A week later, she developed hemorrhagic
pericardial effusion, which was complicated by pericardial hematoma and tamponade. Eliquis was discontinued for afib, and she was discharged on aspirin only. Of note, she did not have a pulmonary embolism during that hospitalization and they have no
record of history of PE-- I suspect the 'clot in my chest' she talks about was the pericardial hematoma rather than a pulmonary embolism.
Past-Medical/Surgical History
Medical history: Afib not on anticoagulation, hypertension, hyperlipidemia, microscopic colitis, IBS, Prior pulmonary embolism, Prior hemorrhagic pericardial effusion, and as above
Surgical history: umbilical hernia surg in childhood, foot surgery, and as above
Patient Medication
�Medication �Instructions �Recorded �Confirmed �Last Taken �Type
B-complex with vitamin C 1 tab PO DAILY Supplement 09/18/24 09/18/24 Unknown History
adalimumab 40 mg/0.4 mL 40 mg SC Q14D Gastrointestinal 09/18/24 09/18/24 09/10/24 History
subcutaneous pen kit (Humira(CF) Issue
Pen)
alendronate 35 mg tablet 35 mg PO Q7D Osteoporosis 09/18/24 09/18/24 09/17/24 History
atorvastatin 20 mg tablet 20 mg PO HS High Cholesterol 09/18/24 09/18/24 Unknown History
azathioprine 50 mg tablet 50 mg PO DAILY Gastrointestinal 09/18/24 09/18/24 Unknown History
Issue
budesonide 3 mg 3 mg PO DAILY Gastrointestinal 09/18/24 09/18/24 Unknown History
capsule,delayed,extended release Issue
carboxymethylcellulose 0.5 1 drp ophthalmic (eye) QIDPRN PRN 09/18/24 09/18/24 Unknown History
%-glycerin 1 % (PF) eye dry eyes
drops,dropperette (Refresh Relieva
PF)
cholecalciferol (vitamin D3) 25 25 mcg PO DAILY Supplement 09/18/24 09/18/24 Unknown History
mcg (1,000 unit) tablet
colestipol 1 gram tablet 3 g PO DAILY Gastrointestinal Issue 09/18/24 09/18/24 Unknown History
cyanocobalamin (vitamin B-12) 500 500 mcg PO DAILY Supplement 09/18/24 09/18/24 Unknown History
mcg tablet
cyclosporine 0.05 % eye drops in a 1 drp BOTH EYES BID dry eyes 09/18/24 09/18/24 Unknown History
dropperette (Restasis)
famotidine 20 mg tablet 20 mg PO BID Gastrointestinal Issue 09/18/24 09/18/24 Unknown History
furosemide 40 mg tablet 40 mg PO DAILY Fluid 09/18/24 09/18/24 Unknown History
Retention/Swelling
hydroxychloroquine 200 mg tablet 200 mg PO DAILY Autoimmune Disorder 09/18/24 09/18/24 Unknown History
metoprolol tartrate 25 mg tablet 25 mg PO TID Heart 09/18/24 09/18/24 Unknown History
Disease/Condition
potassium chloride 20 mEq 40 meq PO BID@14,20 Electrolyte 09/18/24 09/18/24 Unknown History
tablet,extended release Repletion
potassium chloride 20 mEq 60 meq PO DAILY Electrolyte 09/18/24 09/18/24 Unknown History
tablet,extended release Repletion
valsartan 40 mg tablet 40 mg PO DAILY@2000 Blood Pressure 09/18/24 09/18/24 Unknown History
varenicline tartrate 0.03 mg/spray 1 spray intranasal BID dry eyes 09/18/24 09/18/24 Unknown History
metered nasal spray (Tyrvaya)
Active Medications
Generic Name Dose Route Start Last Admin
Trade Name Freq PRN Reason Stop Dose Admin
Acetaminophen 1,000 mg 09/29/24 11:37 10/15/24 23:54
Acetaminophen 500 Mg Tablet PO 10/27/24 11:36 1,000 mg
Q6HPRN PRN Administration
mild pain
Albuterol/Ipratropium 3 ml 10/11/24 13:27 10/15/24 21:09
Ipratropium 0.5/Albuterol 3 Mg (3 Ml Ampul) INH 3 ml
R Q4HPRN PRN Administration
sob
Protocol
Artificial Tears 1 drops 09/23/24 13:00 10/16/24 08:51
Artificial Tears Pf (Refresh) 10 Drop Droperette OPHTH 10/21/24 12:59 1 drops
QID JANNET Administration
Cyclosporine 1 drops 09/18/24 20:00 10/16/24 08:51
Cyclosporine 0.05% (Ophthalmic Emulsion) 10 Drop Droperette BOTH EYES 11/13/24 19:59 1 drops
BID JANNET Administration
Dextrose 12.5 grams 09/19/24 05:57 09/19/24 10:44
Dextrose 50% (0.5 Grams/Ml) 50 Ml Syringe IV 11/13/24 05:56 12.5 grams
O80OCDE PRN Administration
BS> 70
Furosemide 40 mg 10/05/24 08:00 10/16/24 08:52
Furosemide 40 Mg Tablet PO 11/02/24 07:59 40 mg
DAILY JANNET Administration
Glucagon 1 mg 09/21/24 22:00
Glucagon 1 Mg Vial IM 11/13/24 21:59
PRN PRN
hypoglycemia - no IV access
Protocol
Heparin Sodium 5,000 units 09/17/24 08:00 10/16/24 08:52
Heparin 5,000 Units/Ml 1 Ml Vial SC 11/10/24 07:59 5,000 units
Q12 JANNET Administration
Hydrocortisone 0 applic 10/15/24 10:56 10/16/24 00:00
Hydrocortisone 1% (Cream) Tube TOPICAL 11/12/24 10:55 1 applic
BIDPRN PRN Administration
itching
Nutrition (Parenteral) 1,180 ml in 1,180 mls @ 49 mls/hr 10/15/24 21:00 10/15/24 21:09
Parenteral Nutrition, Central IV 10/16/24 20:59 1,180 mls
ONCE@2100 NR Administration
Protocol
Per Protocol
Nutrition (Parenteral) 940 ml in 940 mls @ 39 mls/hr 10/16/24 21:00
Parenteral Nutrition, Central IV 10/17/24 20:59
ONCE@2100 NR
Protocol
Per Protocol
Insulin Aspart 0 units 10/06/24 00:00 10/16/24 06:49
Insulin Aspart Low Resistance 300 Units/3 Ml Pen.Injctr SC 11/03/24 00:00 Not Given
Q6 JANNET
Protocol
Melatonin 3 mg 10/08/24 22:00 10/15/24 21:35
Melatonin 3 Mg Tablet PO 11/05/24 21:59 Not Given
HS JANNET
Metoprolol Tartrate 50 mg 09/22/24 20:00 10/16/24 08:52
Metoprolol 50 Mg Regular Release Tablet PO 10/20/24 19:59 50 mg
BID JANNET Administration
Metoprolol Tartrate 5 mg 09/22/24 17:30 09/22/24 17:33
Metoprolol 5 Mg/5 Ml Vial IV 10/20/24 17:29 5 mg
Q4HPRN PRN Administration
tachycardia>130
Miconazole Nitrate 0 applic 10/07/24 12:00 10/16/24 08:57
Miconazole Powder Bottle TOPICAL 11/04/24 11:59 1 applic
BID JANNET Administration
Multi-Ingredient Mouthwash/Gargle 5 ml 10/13/24 08:54
Magic (Miracle) Mouthwash 90 Ml Bottle PO
ACHSPRN PRN
esophageal irritation
Varenicline Tartrate 0 spray 09/18/24 20:00 10/16/24 08:51
[Tyrvaya] 0.03 Mg/ NASAL 11/13/24 19:59 1 spray
[place] - 1 [place] Each Q12 JANNET Administration
Nostril Q12h
Ondansetron HCl 4 mg 09/16/24 23:35 10/11/24 00:50
Ondansetron 4 Mg/2 Ml Vial IV 11/10/24 23:34 4 mg
Q6HPRN PRN Administration
nausea and vomiting
Pantoprazole Sodium 40 mg 10/12/24 20:00 10/16/24 08:52
Pantoprazole 40 Mg Delayed Release Tablet PO 11/09/24 19:59 40 mg
BID JANNET Administration
Polyethylene Glycol 17 grams 10/07/24 10:00 10/16/24 08:50
Polyethylene Glycol Powder 17 Grams Packet PO 11/04/24 09:59 17 grams
DAILY JANNET Administration
Prochlorperazine Edisylate 5 mg 09/26/24 00:50 10/04/24 20:31
Prochlorperazine 10 Mg/2 Ml Vial IV 10/24/24 00:49 5 mg
Q6HPRN PRN Administration
n/v
Sodium Chloride 0 flush 09/17/24 01:00 10/08/24 05:10
Sodium Chloride 0.9% (Flush) Syringe IV 11/10/24 00:59 2 flush
PER PROTOCOL JANNET Administration
Review of Systems
-
History Source: Patient
Constitutional: Reports Weakness
EENT: Reports No Symptoms
Respiratory: Reports Trouble Breathing; Denies Cough or Hemoptysis
Cardiac: Reports Palpitations (occasionally with PT activity) and Orthopnea; Denies Chest Pain, Diaphoresis or Syncope
GI: Reports Abdominal Pain (improving) and Anorexia; Denies Hemetemesis
Musculoskeletal: Reports Edema
Skin: Reports No Symptoms
Neuro: Reports Lightheadedness (some with PT activity); Denies Dizzy or Headache
Hematologic/Lymphatic: Denies Bleeding or Blood Clots
Physical Exam
-
General: Sitting up in bed, appears comfortable. Elderly female appears stated age and chronically ill. No acute distress, pain, chills/sweats. Conversant.
Lungs: Increased respiratory effort. Able to talk in full sentences. Supplemental oxygen via nasal canula 2L/min.
Left upper extremity with diffuse edema, nontender, nonerythematous. TPN left arm. Right arm with no edema.
Neuro: Awake, alert, oriented. No focal neurologic deficits apparent.
Psych: Calm. Appropriate affect.
Labs
Lab Results
WBC 8.6 10^3/uL (4.8-10.8) 10/16/24 05:22
RBC 2.44 10^6/uL (4.20-5.40) L 10/16/24 05:22
Hgb 7.7 g/dL (12.0-16.0) L 10/16/24 05:22
Hct 23.3 % (37.0-47.0) L 10/16/24 05:22
MCV 95.5 fL (81.0-99.0) 10/16/24 05:22
MCH 31.6 pg (27.0-31.0) H 10/16/24 05:22
MCHC 33.0 g/dL (33.0-37.0) 10/16/24 05:22
RDW 18.3 % (11.5-14.5) H 10/16/24 05:22
Plt Count 328 10^3/uL (130-400) 10/16/24 05:22
MPV 9.2 fL (7.4-10.4) 10/16/24 05:22
Abs Immat Gran (auto) Cancelled 09/17/24 06:47
Absolute Neuts (auto) Cancelled 09/17/24 06:47
Absolute Lymphs (auto) Cancelled 09/17/24 06:47
Absolute Monos (auto) Cancelled 09/17/24 06:47
Absolute Eos (auto) Cancelled 09/17/24 06:47
Absolute Basos (auto) Cancelled 09/17/24 06:47
Immature Gran % Cancelled 09/17/24 06:47
Neutrophils % Cancelled 09/17/24 06:47
Lymphocytes % Cancelled 09/17/24 06:47
Monocytes % Cancelled 09/17/24 06:47
Eosinophils % Cancelled 09/17/24 06:47
Basophils % Cancelled 09/17/24 06:47
Creatinine 0.8 mg/dL (0.6-1.0) 10/16/24 05:22
Vital Signs
Vital Signs
Temp Pulse Resp BP Pulse Ox
97.4 F 76 20 122/45 100
10/16/24 07:25 10/16/24 07:25 10/16/24 07:25 10/16/24 08:52 10/16/24 07:25
[2024-10-16 12:08] LABS: Glucose - Point of Care 128 mg/dl (70-99)
[2024-10-16 12:26] LABS: Troponin I 0.017 ng/ml
--- NOTE | 2024-10-16 12:44 | W.PN.ONC2 ---
Addendum entered and electronically signed by Manuela Ivey MD 10/16/24 12:54:
DISREGARD, WRONG PT!!!!
Original Note:
Today's Communication / Plan
-
F/U flow cytometry, urate, calcium.
Supportive care.
Impression
Impression
Progressive leukocytosis
Progressive renal insufficieny
Anemia
Plan
Plan
Flow cytometry sent today.
Uric acid, phosphate levels now - exclude tumor lysis. K+, Ca2+ noted to be normal.
Discussed possibility of bone marrow biopsy with daughter. Would not record changer at this time in critically ill pt.
Subjective/Objective
Chief Complaint
Heme/Onc follow up of progressive leukocytosis with anemia
Subjective
Pt starting hemodialysis today for progressive renal insufficiency
Vital Signs:
Vital Signs
Temp Pulse Resp BP Pulse Ox
97.4 F 93 22 116/49 100
10/16/24 11:55 10/16/24 11:55 10/16/24 11:55 10/16/24 11:55 10/16/24 11:55
Lab Results:
Laboratory Data
WBC 8.6 10^3/uL (4.8-10.8) 10/16/24 05:22
Hgb 7.7 g/dL (12.0-16.0) L 10/16/24 05:22
Plt Count 328 10^3/uL (130-400) 10/16/24 05:22
PT 16.6 Sec (11.4-14.6) H 09/18/24 03:53
INR 1.31 09/18/24 03:53
APTT 39.2 Sec (23.4-35.0) H 09/18/24 03:53
eGFR > 60.00 10/16/24 05:22
[2024-10-16 14:06] LABS: NT-proBNP 1240 pg/ml
[2024-10-16 14:10] LABS: LDH 250 U/L (120-246)
--- NOTE | 2024-10-16 14:31 | CM ---
Chart reviewed
Chest CT today - r/o PE
Requiring O2
SNF when medically stable - requested referral review to [facility]
Plan - SNF when bed obtained and medically ready
[2024-10-16] MEDS: REFRESH EYE DROPS (PF) OPHTH (14:46)
--- NOTE | 2024-10-16 14:50 | PTCARENOTE ---
pt still with increased work of breathing. pt on 2L. MD made aware. Chest CT and IR consulted after discussion with MD. BNP drawn, 1240 result. MD made aware. hgb drop from 8.2-7.7 on morning labs. Vascular, heme, and MD made aware. pt sent down to
thoracentesis at 1430 via stretcher. pt still receiving TPN at this time but calorie counting has been initiated. paper and envelope hanging on door.
[2024-10-16 16:12] LABS: Body Fluid pH 7.35
[2024-10-16 16:35] LABS: Body Fluid Glucose 114 mg/dl; Body Fluid LDH 478 U/L; Body Fluid Protein 2.4 g/dl
[2024-10-16 16:48] LABS: Glucose - Point of Care 89 mg/dl (70-99)
--- NOTE | 2024-10-16 16:59 | VATNOTE ---
LUE very edematous. U/S suggested to hospitalist. U/S ordered, will continue to monitor.
[2024-10-16 17:55] LABS: Body Fluid Mononuclear 84.4 %; Body Fluid Polymorphonuclear 15.6 %; Body Fluid WBC 2721 /CUMM
[2024-10-16 18:00] LABS: Body Fluid Second Tech CMC
[2024-10-16 20:45] LABS: Troponin I 0.028 ng/ml
[2024-10-16] MEDS: Parenteral Nutrition, Central 940 IV (21:32)
[2024-10-16] MEDS: LOVENOX 60 MG SC (21:34)
[2024-10-16] MEDS: TYLENOL 1000 MG PO (21:36)
[2024-10-16] MEDS: MELATONIN PO (21:36)
[2024-10-17] VITALS (8 sets, daily range): BP systolic 103–181; BP diastolic 44–81; PULSE 89; O2SAT 99; BMI 21.9
[2024-10-17 00:37] LABS: Glucose - Point of Care 138 mg/dl (70-99)
[2024-10-17] MEDS: NOVOLOG FLEXPEN-LOW RESISTANCE SC ×4 (00:37→17:57)
[2024-10-17 03:03] LABS: Troponin I 0.045 ng/ml
[2024-10-17 05:23] LABS: Glucose - Point of Care 112 mg/dl (70-99)
[2024-10-17] MEDS: TYLENOL 1000 MG PO ×2 (05:27→22:59)
--- NOTE | 2024-10-17 07:53 | W.PN.HOSP.TC ---
Today's Communication/Plan
-
Continue diet, tolerating well, calorie count, dietary consult
Continue therapeutic Lovenox
Stop TPN
Assessment / Plan
Assessment / Plan
Physical Exam
General: Not in acute distress, cachexia
HEENT: Normocephalic, Moist mucous membranes and Atraumatic. NG tube present with dark colored output.
Respiratory: Decreased Breath Sounds Bilaterally; No wheezes.
Cardiac: S1/S2 and Regular Rate and Rhythm
GI: Soft, not tender, mildly distended, midline incision and dressing intact, colostomy (gas and liquid stool present), right drain (removed)
Musculoskeletal: No Cyanosis, Edema of both lower extremities. Swelling left upper extremity
Skin: Warm. Dry.
Neuro: Alert. Awake. Nonfocal/grossly intact
Psych: calm
Assessment/Plan
83-year-old female with past medical history of umbilical hernia surgery as a child, atrial fibrillation not on anticoagulation, prior pulmonary embolism, microscopic colitis and IBS presented with abdominal pain. She started having lower abdominal
pain 4 days prior to presentation. Pain was initially intermittent but now constant, and has become more severe. Last bowel movement 5 days prior to presentation. Patient has been passing clear mucus several times a day with some blood in the stool.
On the day of presentation, she had an episode of vomiting, without blood. At the time of admission, she denied fevers, chills, chest pain or shortness of breath. She was found to have perforated viscus likely secondary to severe proctocolitis.
#Upper GI bleeding due to esophagitis and esophageal ulcer
#Esophageal/gastric ulcers
EGD also showed non bleeding gastric ulcer -- s/p EGD on 09/28 w/o intervention
Continue PPI BID
See GI note for how long to continue PPI after discharge
Rechecked HGB, showed stability.
Repeat EGD in 2 months to ensure healing; GI will arrange for outpatient appointment with GI upon discharge
#Acute blood loss anemia , s/p total 4 units, suspected secondary to GI Bleed
Received 1 unit PRBC on 09/18/24
one unit 09/28, 2 units on 09/29
Total of 4 units PRBCs so far this hospitalization
Hematemesis again 10/04/24 to 10/05/24 --> PPI changed to IV, and Heparin subq stopped, now resumed.
# Skin itching, no erythema or rash, PRN Hydrocortisone cream.
# Left UE edema
US:No sonographic evidence for LEFT upper extremity deep venous thrombosis.
Dependent edema, encourage movement, elevation. Will wean off TPN soon, no pain in arm, good & strong radial pulse
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
#Severe constipation following Chauncey's for perforated sigmoid colon 2/[address] on 10/04/24 showed ileus --> discussed with surgeon Dr. Zhang on 10/05/24 --> suspected colon is obstructed from residual stool impacting at the fascial level of her ostomy
Surgery performed on 10/06/24 fecal disimpaction under anesthesia and flexible sigmoidoscopy
Now on LR Diet, NG tube taken out on 10/07/24
Resumed bowel regimen -- continue Miralax
Possible Gastrografin enema on 10/09/24, contrast did not go through
TPN can be stopped this evening as patient tolerating oral intake well
Surgeon to update patient's son per request
f/w surgery and GI recommendations, appreciate help
-Wound/ostomy nurse consultation
#E. Coli bacteremia
-Repeat blood cultures with no growth to date
-Given E. coli bacteremia, consulted Infectious Disease --> received Zosyn--> completed course of antibiotics (end date was 09/30/24)
-Pain regimen scheduled and PRN, but no NSAIDs given recent rise in creatinine and GI bleeding.
#Groin Yeast Infection
-Continue Desenex
-Continue to monitor
#Acute on chronic lymphedema
#Bilateral Lower Extremity Edema
#Anasarca
-Was started on Bumex lost weight and less edema in legs -- continue Lasix as per patient's preference
-Lower extremity ultrasound with no DVTs
-proBNP elevated. Echo with mild concentric left ventricular hypertrophy, no regional wall motion abnormalities are seen, LV ejection fraction 65-70% by visual assessment, pacer wire in right ventricle, moderate mitral regurgitation, mild aortic
regurgitation, mild tricuspid regurgitation, estimated pulmonary artery pressure of 20-25 mmHg assuming a right atrial pressure of 3 mmHg, trivial pericardial effusion, dilated aortic root, sinus of Valsalva measures 4.2 cm, sinotubular junction
measures 3.5 cm.
-Recent B/L LE ultrasound was negative for DVT, but given recent drop in Hgb Heparin subq was held, but resumed on 10/08/24
#Wheezing - RESOLVED
#Left Lung Crackles - IMPROVED
-Patient denied SOB as of 10/02/24 but reported feeling the wheezing which resolved
-CXR without significant change
-ProBNP was previously elevated. Echo as above
#Shortness of breath at rest 10/16/24
-Started after physical activity on 10/13/24 as per patient -- likely from pleural effusion
-CT Chest PE given several risk factors for PE: sedentary right now given clinical condition, history of PE, TPN can increase risk of VTE - NO PE
-IR consult for therapeutic and diagnostic thoracentesis -- patient reported relief of SOB after procedure
#Worsening Left Upper Extremity Swelling
-Left UE ultrasound
#Proximal RIGHT BASILIC VEIN superficial venous thrombosis -- extending into axillary vein on ultrasound
-Clinically, patient's arm appearance and symptoms are stable
-Consulted hematology --> recommended therapeutic Lovenox followed by DOAC
-Continue Lovenox 1mg/kg q12h for now and transition to DOAC when tolerating po diet well
-Remove PICC when able -- this is the provoking factor -- needs 3 months total anticoagulation
-Monitor CBC and for bleeding
#Small bilateral pleural effusions, right greater than left
#Hypoattenuating left renal lesion measures 1.2 cm in diameter, internal Hounsfield units are suggestive of a hemorrhagic cyst, as per CT report 10/04/24
#Mild Hyponatremia
# Pseudo hypocalcemia due to low albumin
#Hypokalemia
#Moderate protein calorie malnutrition
#Asymptomatic Hypoglycemia
RESOLVED
Stopped Accu-check per patient's request
#JT - RESOLVED
#Suspect underlying CKD IIIb
-Bladder scans protocol
-Avoid NSAIDs
#Hx of paroxysmal atrial fibrillation, followed by Dr. Jarrett of [facility]
#A-Fib with RVR
-Not on anticoagulation as an outpatient
-Initially, No anticoagulation due to history of hemorrhagic pericardial effusion (her chip crusher operator told her no oral anticoagulation) -- but now therapeutic dose Lovenox given RUE DVT
-PO Lopressor (with increased dose @ 50 mg BID (instead of home 25 mg TID))
-s/p IV Lopressor
-Outpatient follow-up to Dr. Tiwari of [facility]
#[employer] DC PPM
#History of Pulmonary Embolism? -- may actually just be the pericardial hematoma she had NOT PE HISTORY (see oncology note from 10/16/24)
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
#Microscopic colitis
-Patient usually sees Dr. Shweta Zhu at [facility] [place]; Dr. Zhu prescribes the patient's Budesonide and the Colestipol
-Holding Budesonide and Colestipol for now given acute illness
#Rheumatoid Arthritis
-Stable without any flare-up
-Patient sees Dr. Delgado - Rheumatology at [place] who prescribes the Hydroxychloroquine , ok to resume.
-Holding immunosuppressive TX, especially given Azathioprine is a immunosuppressant and patient is recovering from abdominal surgery and bacteremia
-OP f/u with eap specialist Dr. Delgado
#Abnormal imaging of the pancreas
-CT A/P on 09/16: 'questionable pancreatic edema, questionable subtle changes of acute pancreatitis, underlying mass cannot be excluded.'
-Outpatient follow-up CT or MRI
#IBS
#Chronic venous insufficiency
#Peripheral neuropathy
#PVCs
#Osteoporosis
Code Status: Full code
DVT Prophylaxis: SCDs. Lovenox 1 mg/kg.
Anticipated Discharge: > 48 hours
Subjective/Interval History
-
Date of Service: October 17, 2024
Patient was seen and examined. She reported that her shortness of breath has improved after thoracentesis yesterday.
Objective Data
-
Labs:
Laboratory Results
10/17/24
07:44
WBC Pending
Hgb Pending
Hct Pending
Plt Count Pending
Sodium Pending
Potassium Pending
Chloride Pending
Carbon Dioxide Pending
BUN Pending
Creatinine Pending
Glucose Pending
Calcium Pending
Total Bilirubin Pending
AST Pending
ALT Pending
Alkaline Phosphatase Pending
Vital Signs:
Vital Signs
Temp Pulse Resp BP Pulse Ox
97.7 F 72 18 135/44 99
10/17/24 07:33 10/17/24 07:33 10/17/24 07:33 10/17/24 07:33 10/17/24 07:33
I&O
10/16/24 10/17/24 10/18/24
06:59 06:59 06:59
Intake Total 720 / 720 1348 / 1348
Output Total 400 / 400 325 / 325
Balance 320 / 320 1023 / 1023
[2024-10-17 07:58] LABS: Hematocrit 23.7 % (37.0-47.0); Hemoglobin 7.6 g/dL (12.0-16.0); Mean Corp Hgb Conc. 32.1 g/dL (33.0-37.0); Mean Corpuscular Hgb 30.6 pg (27.0-31.0); Mean Corpuscular Volume 95.6 fL (81.0-99.0); Mean Platelet Volume 8.9 fL (7.4-10.4); Platelet Count 326 10^3/uL (130-400); Red Blood Cell Count 2.48 10^6/uL (4.20-5.40); Red Cell Dist. Width 18.8 % (11.5-14.5); White Blood Cell Count 10.1 10^3/uL (4.8-10.8)
[2024-10-17 08:23] LABS: Troponin I 0.028 ng/ml
[2024-10-17 08:46] LABS: ALT (SGPT) 49 U/L (0-35); AST (SGOT) 47 U/L (14-36); Albumin 1.8 g/dl (3.5-5.0); Alkaline Phosphatase 324 U/L (38-126); Blood Urea Nitrogen 36 mg/dl (7-17); Calcium 8.3 mg/dl (8.4-10.2); Carbon Dioxide 24 mmol/L (22-30); Chloride 111 mmol/L (98-107); Estimated Creatinine Clearance 48 ml/min; Glucose 99 mg/dl (70-99); Potassium 4.3 mmol/L (3.5-5.1); Sodium 140 mmol/L (135-145); Total Bilirubin 0.3 mg/dl (0.2-1.3); eGFR > 60.00
[2024-10-17] MEDS: PROTONIX 40 MG PO ×2 (09:19→20:44)
[2024-10-17] MEDS: LOVENOX 60 MG SC ×2 (09:19→20:44)
[2024-10-17] MEDS: MIRALAX 17 GRAMS PO (09:19)
[2024-10-17] MEDS: LOPRESSOR 50 MG PO ×2 (09:19→20:45)
[2024-10-17] MEDS: REFRESH EYE DROPS (PF) 1 DROPS OPHTH ×4 (09:19→22:58)
[2024-10-17] MEDS: RESTASIS 0.05% OPHTHALMIC EMULSION 1 DROPS BOTH EYES ×2 (09:19→20:44)
[2024-10-17] MEDS: LASIX 40 MG PO (09:20)
[2024-10-17] MEDS: NON-FORMULARY ITEM 1 SPRAY NASAL ×2 (09:21→20:45)
[2024-10-17] MEDS: DESENEX/MITRAZOL/ZEASORB 1 APPLIC TOPICAL ×2 (09:21→20:46)
--- NOTE | 2024-10-17 09:33 | W.PN.GS2 ---
Today's Communication / Plan
-
-- No changes from a surgical perspective
Assessment / Plan
-
83 yo female presenting with perforated sigmoid colon secondary to stercoral colitis now POD #31 s/p Chauncey's with prolonged postoperative course due to expected ileus and residual hard stools. POD #11 from a fecal disimpaction under anesthesia
and flexible sigmoidoscopy.
EGD for UGIB on 09/28 with esophageal/gastric ulcers present, has been on PPI since that time.
Afebrile, BP soft, Now on 2 L oxygen - crackles in left lower lung field likely volume overload
Hb stable
Left upper extremity swelling
PO intake stable, slightly improved, calorie count on going
Stoma functioning well
Pain continuing to improve
XR on 10/14 without obstruction, ileus or concerning findings
-- Cont with low residue diet
-- TPN as per primary team, approaching readiness for discontinuation as her PO intake improves, calorie count on going
-- Cont PPI BID
-- OOB as able. PT following.
-- Pain controlled
-- Bowel regimen with Miralax
-- DVT prophylaxis with sq heparin
Subjective Data
-
Date of Service: October 17, 2024
Reports eating all of breakfast and small amounts of her lunch and dinner. Progressive though endorsed worsening bloating throughout the day. No nausea or vomiting. Continues to pass flatus and stool via ostomy. Afebrile.
Objective Data
-
Intake and Output
10/16/24 10/17/24 10/18/24
06:59 06:59 06:59
Intake Total 720 / 720 1348 / 1348
Output Total 400 / 400 325 / 325
Balance 320 / 320 1023 / 1023
Intake:
Oral fluids 720 / 720 860 / 860
TPN/PPN 488 / 488
Output:
Liquid stool amount 400 / 400 325 / 325
Colostomy 400 / 400 325 / 325
Other:
Number of approximated SMALL 1
amounts of urine
Number of approximated MODERATE 4 2
amounts of urine
Number of approximated LARGE 1
amounts of urine
How many times incontinent 1 1
MODERATE amount urine
How many times incontinent 5 3
SATURATED amount urine
Vital Signs
Temp Pulse Resp BP Pulse Ox
97.7 F 72 18 135/44 99
10/17/24 07:33 10/17/24 09:20 10/17/24 07:33 10/17/24 09:20 10/17/24 07:33
Lab Results
10/17/24 07:44
10/17/24 07:44
Calcium 8.3 mg/dl (8.4-10.2) L 10/17/24 07:44
Phosphorus 4.2 mg/dl (2.5-4.5) 10/16/24 05:22
Magnesium 2.2 mg/dl (1.6-2.3) 10/16/24 05:22
Total Bilirubin 0.3 mg/dl (0.2-1.3) 10/17/24 07:44
Direct Bilirubin 0.5 mg/dl (0.0-0.4) H 09/16/24 19:12
AST 47 U/L (14-36) H 10/17/24 07:44
ALT 49 U/L (0-35) H 10/17/24 07:44
Alkaline Phosphatase 324 U/L (38-126) H 10/17/24 07:44
Total Protein 4.0 g/dl (6.3-8.2) L 10/17/24 07:44
Albumin 1.8 g/dl (3.5-5.0) L 10/17/24 07:44
Physical Exam
-
Gen: NAD
Abd: soft, NT, mild distension, non-peritoneal, incision c/d/i, ostomy PPV - stool and flatus in appliance
Patient has a aviles catheter: No
Patient has a central line: Yes
[2024-10-17 11:33] LABS: Glucose - Point of Care 134 mg/dl (70-99)
--- NOTE | 2024-10-17 11:42 | VATNOTE ---
Biopatch noted to be blood soaked. Dressing changed. No active bleeding noted.
--- NOTE | 2024-10-17 13:36 | W.PN.ONC ---
Today's Communication / Plan
-
Continue lovenox BID
Impression
Impression
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 10/04 s/p OR 10/06/24 fecal disimpaction under anesthesia and flexible sigmoidoscopy
Provoked DVT of RIGHT upper extremity (R axillary vein DVT on US 10/09)-- previously had R midline (removed after US showed superficial VT of basilic vein 10/02)
LEFT upper extremity edema-- LUE US 10/08 negative for DVT-- L PICC
Chest CT 10/16 with no evidence of PE.
R pleural effusion s/p thoracentesis 10/16/24-- cytology pending
Anemia likely multifactorial-- EGD 09/28 w non-bleeding ulcer. on PPI--s/p 4u pRBC this hospitalization most recently on 09/29--gradual downtrend of hgb noted
E. coli bacteremia-- resolved
atrial fibrillation not on anticoagulation prior to admission
Plan
Plan
Remove LUE PICC when able, currently on TPN-- repeat LUE venous US pending
Lovenox 60mg (1 mg/kg) SQ BID-- if no bleeding, consider transition to eliquis and continuing at discharge
Follow daily CBC while inpatient
Subjective/Objective
Subjective/Objective
No complaints. Reports minor oozing from PICC site, no other bleeding/bruising noted.
General: Sitting in bed, no acute distress. Appears comfortable. Conversant.
Lungs: Nonlabored breathing. 2L NC.
Extremities: LUE edema, L PICC present. RUE nonedematous.
Neuro: Awake, alert, oriented. Nonfocal.
Psych: Calm. Appropriate affect.
Vital Signs:
Vital Signs
Temp Pulse Resp BP Pulse Ox
97.6 F 71 18 125/46 100
10/17/24 11:46 10/17/24 11:46 10/17/24 11:46 10/17/24 11:46 10/17/24 11:46
Lab Results:
Laboratory Data
WBC 10.1 10^3/uL (4.8-10.8) 10/17/24 07:44
Hgb 7.6 g/dL (12.0-16.0) L 10/17/24 07:44
Plt Count 326 10^3/uL (130-400) 10/17/24 07:44
PT 16.6 Sec (11.4-14.6) H 09/18/24 03:53
INR 1.31 09/18/24 03:53
APTT 39.2 Sec (23.4-35.0) H 09/18/24 03:53
eGFR > 60.00 10/17/24 07:44
[2024-10-17] MEDS: DUONEB 3 ML INH (14:05)
--- NOTE | 2024-10-17 15:39 | CM ---
Chart reviewed - pt off unit
SNF when medically ready - referrals sent
Plan - anticipate snf when medically ready
[2024-10-17 17:56] LABS: Glucose - Point of Care 98 mg/dl (70-99)
--- NOTE | 2024-10-17 19:41 | PTCARENOTE ---
Patient dyspneic at rest and on exertion for this RN, occasional exertional wheeze with turning and repositioning, POX stable on RA but patient requesting 2L for comfort. PRN inhaler administered by resp this shift, patient states partial relief
after administration. MD made aware, no new orders at this time. Patient with mixed continence this shift, ostomy putting out loose brown stool output, appliance changed by this RN. TPN infusing through R PICC, set to be DCed tonight. Patient with
good appetite on low res diet, calorie counting in place.
[2024-10-17] MEDS: MELATONIN PO (21:15)
[2024-10-18] VITALS (7 sets, daily range): BP systolic 111–134; BP diastolic 49–93; BMI 22.0
[2024-10-18] MEDS: NOVOLOG FLEXPEN-LOW RESISTANCE SC ×4 (00:15→17:41)
[2024-10-18 00:16] LABS: Glucose - Point of Care 105 mg/dl (70-99)
[2024-10-18 05:24] LABS: Hemoglobin 7.6 g/dL (12.0-16.0); Mean Corpuscular Hgb 31.1 pg (27.0-31.0); Mean Corpuscular Volume 94.3 fL (81.0-99.0); Mean Platelet Volume 9.2 fL (7.4-10.4); Platelet Count 349 10^3/uL (130-400); Red Blood Cell Count 2.44 10^6/uL (4.20-5.40); Red Cell Dist. Width 18.8 % (11.5-14.5); White Blood Cell Count 9.4 10^3/uL (4.8-10.8)
[2024-10-18 05:47] LABS: ALT (SGPT) 54 U/L (0-35); AST (SGOT) 58 U/L (14-36); Albumin 1.9 g/dl (3.5-5.0); Alkaline Phosphatase 380 U/L (38-126); Blood Urea Nitrogen 42 mg/dl (7-17); Calcium 8.2 mg/dl (8.4-10.2); Carbon Dioxide 25 mmol/L (22-30); Chloride 109 mmol/L (98-107); Estimated Creatinine Clearance 48 ml/min; Glucose 83 mg/dl (70-99); Magnesium 2.1 mg/dl (1.6-2.3); Phosphorus 4.6 mg/dl (2.5-4.5); Potassium 4.3 mmol/L (3.5-5.1); Sodium 139 mmol/L (135-145); Total Bilirubin 0.4 mg/dl (0.2-1.3); Total Protein 4.2 g/dl (6.3-8.2); eGFR > 60.00
[2024-10-18 06:00] LABS: Glucose - Point of Care 85 mg/dl (70-99)
--- NOTE | 2024-10-18 08:28 | W.PN.GS2 ---
Today's Communication / Plan
-
DC to SNF when bed avail
Assessment / Plan
-
83 yo female presenting with perforated sigmoid colon secondary to stercoral colitis now about a month s/p Chauncey's with prolonged postoperative course due to expected ileus and residual hard stools. POD #12 from a fecal disimpaction under
anesthesia and flexible sigmoidoscopy.
EGD for UGIB on 09/28 with esophageal/gastric ulcers present, has been on PPI since that time.
Afebrile, BP soft, Now on 2 L oxygen - crackles in left lower lung field likely volume overload
Hb stable
Left upper extremity swelling
PO intake stable, slightly improved, calorie count with 100% of trays recorded for past 2 days
Stoma functioning well
Pain continuing to improve
XR on 10/14 without obstruction, ileus or concerning findings
-- Cont with low residue diet
-- Stop TPN
-- Cont PPI BID
-- OOB as able. PT following.
-- Pain controlled
-- Bowel regimen with Miralax
-- DVT prophylaxis with sq heparin
-- OK for DC to SNF from surgery standpoint, pls call with ?s
Subjective Data
-
Date of Service: October 18, 2024
AFVSS, taking 100% of her trays, pain controlled
Objective Data
-
Intake and Output
10/17/24 10/18/24 10/19/24
06:59 06:59 06:59
Intake Total 1348 / 1348 1468 / 1468
Output Total 325 / 325
Balance 1023 / 1023 1468 / 1468
Intake:
Oral fluids 860 / 860 1000 / 1000
TPN/PPN 488 / 488 468 / 468
Output:
Liquid stool amount 325 / 325
Colostomy 325 / 325
Other:
Number of approximated SMALL 2
amounts of urine
Number of approximated MODERATE 2 4
amounts of urine
How many times incontinent 1 1
MODERATE amount urine
How many times incontinent 3
SATURATED amount urine
Vital Signs
Temp Pulse Resp BP Pulse Ox
98.2 F 77 18 117/49 98
10/18/24 03:05 10/18/24 03:05 10/18/24 03:05 10/18/24 03:05 10/18/24 03:05
Lab Results
10/18/24 04:54
10/18/24 04:54
Calcium 8.2 mg/dl (8.4-10.2) L 10/18/24 04:54
Phosphorus 4.6 mg/dl (2.5-4.5) H 10/18/24 04:54
Magnesium 2.1 mg/dl (1.6-2.3) 10/18/24 04:54
Direct Bilirubin 0.5 mg/dl (0.0-0.4) H 09/16/24 19:12
Total Bilirubin 0.4 mg/dl (0.2-1.3) 10/18/24 04:54
AST 58 U/L (14-36) H 10/18/24 04:54
ALT 54 U/L (0-35) H 10/18/24 04:54
Alkaline Phosphatase 380 U/L (38-126) H 10/18/24 04:54
Total Protein 4.2 g/dl (6.3-8.2) L 10/18/24 04:54
Albumin 1.9 g/dl (3.5-5.0) L 10/18/24 04:54
Physical Exam
-
Gen: NAD
Abd: soft, no ttp, minimal distention, stoma PPV with pastey brown stool
Patient has a aviles catheter: No
Patient has a central line: Yes
[2024-10-18] MEDS: LOPRESSOR 50 MG PO ×2 (09:26→20:52)
[2024-10-18] MEDS: MIRALAX 17 GRAMS PO (09:26)
[2024-10-18] MEDS: RESTASIS 0.05% OPHTHALMIC EMULSION 1 DROPS BOTH EYES ×2 (09:26→20:43)
[2024-10-18] MEDS: PROTONIX 40 MG PO ×2 (09:26→20:44)
[2024-10-18] MEDS: LOVENOX 60 MG SC ×2 (09:26→20:43)
[2024-10-18] MEDS: REFRESH EYE DROPS (PF) 1 DROPS OPHTH ×4 (09:26→22:57)
[2024-10-18] MEDS: NON-FORMULARY ITEM 1 SPRAY NASAL ×2 (09:27→20:47)
[2024-10-18] MEDS: DESENEX/MITRAZOL/ZEASORB 1 APPLIC TOPICAL ×2 (09:27→20:49)
[2024-10-18] MEDS: LASIX 40 MG PO (09:27)
--- NOTE | 2024-10-18 09:47 | W.PN.PUL3 ---
Today's Communication / Plan
-
Asked for re-eval for SOB and effusion, s/p tap for only 350mL (exudate)
Doubtful this is he cause for SOB, she has had small effusion since admission, no subjective benefit following tap
She is 99% on RA, no hypoxemia noted
She likely has underlying RLD c/b severe deconditioning, agree with placement at SNF
Will change her nebs to TID scheduled for SOB
Will need OP evaluation for SOB if ongoing post rehab, I reviewed this with patient in detail
Assessment
-
Patient is an 83-year-old female with previous history of atrial fibrillation, PE, colitis, IBS presenting with abdominal pain to ER on 09/16/2024. CT abdomen pelvis demonstrating free air with suspicion for stercoral colitis with perforation.
Underwent exploratory laparotomy with sigmoid colon resection and creation of end colostomy on 09/16/2024, admitted to ICU 09/18/24 due to hypotension (and evaluated by critical care service). Transferred to floors within 48 hours. SBFT on 09/21 with
moderate fecal material throughout the colon but good transit time/no obstruction. Diet advanced. Had episode of coffee-ground emesis 09/27/24 and bloody output in her colostomy bag, Hgb drop to 6.9 s/p transfusion of 2 units PRBC. Underwent EGD 09/28
w/ 3 ulcers (1 w/ large clot/but healing) without obvious high risk stigmata, present within hiatal hernia. 1 other gastric ulcer noted with clean base. Had on/off intermittent N/V on floors- felt to have prolonged ileus and likely large bowel
obstruction from residual stool. Underwent fecal disimpaction in OR 10/06/24. Since then has been improving, noted to have some mild SOB complaints beginning 10/16. CXR showing small effusion on L not noted on admission films, but developed as far
back as 09/17 CXR. She underwent thoracentesis of 350mL on 10/16 showing exudative effusion/culture negative. We are re-consulted for evaluation 10/18/24.
Perforated sigmoid colon secondary to stercoral colitis status post ex lap with sigmoid resection and end colostomy creation on 09/16/24
Severe proctocolitis likely site of perforation
E. Coli bacteremia
Lactic acidosis
Septic shock, resolved
Multifactorial anemia including UGIB, postop losses, critical illness, requiring transfusions
Transaminitis likely secondary to perforation/High ALP
UBIG, coffee ground emesis, resolved
Gastric/hiatal hernia ulcers s/p EGD 09/28
Small L sided pleural effusion s/p thora 10/16
SOB
Scoliosis on CXR, suspect underlying RLD
Conditions present [employer]
Atrial fibrillation not on anticoagulation
h/o pulmonary embolism
microscopic colitis
IBS
umbilical hernia
Pacemaker
Plan
Currently saturating 99% on RA
Home O2 evaluation could not be completed as she is very weak and needs full assist
She has no prior history of O2 use at home
Prior history of lung disease is NOT noted -- she is a lifelong nonsmoker
There is family history of COPD but she has no personal history, no prior PFTs for review
CXR/CT obtained indicating small pleural effusion, tapped for 350mL
Effusion studies are exudative which could be parapneumonic, relating to aspiration vs intra-abd issues
Other imaging reviewed--this was present since beginning of hospitalization and unlikely the sole cause of her SOB
She is also not improved post tap
I would follow this as OP, no acute intervention is needed at this moment
SOB is likely multifactorial given scoliosis on imaging (likely with restrictive lung disease at baseline), severe deconditioning
She notes occasional CHIU at baseline prior to hospitalization but never was evaluated
Can try nebulizers for now for SOB, I will change them to scheduled
Prior ECHO results are reviewed indicating normal EF and trivial VHD
proBNP 3140 -> 1240
Continue diuresis as indicated
CT abdomen pelvis shows significant amount of free air suggesting perforated viscous, severe proctocolitis, indeterminate 1.6 cm left renal lesion, questionable subtle changes of acute pancreatitis,
s/p Ex lap, resection/ostomy 09/16/24
s/p Small Bowel Follow Through X-Ray completed on 09/21/24
Advanced to Clear Liquids Diet started (NG tube taken out on 09/21/24, and previously was NPO) --> continue. Continue MADELAINE drain output monitoring.
Pain regimen scheduled and PRN, but no NSAIDs given recent rise in creatine
-Wound/ostomy nurse consultation
-Out of bed as tolerated
-PO bowel regimen, colace/miralax -- may need to irrigate stoma pending outputs.
Initial blood cultures showed E. coli, repeat blood cultures with no growth to date
Given E. coli bacteremia, consulted Infectious Disease --> continue Zosyn
At time of discharge, can transition to Augmentin 500mg po bid.
Will need outpatient pulmonary evaluation in our office for PFTs and 6MWT
Reviewed with patient
Agree with discharge planning to SNF per team
We will follow as OP
Diagnostic Data
Chest X-Ray: 10/16/24- Decreased right pleural fluid status post thoracentesis. No appreciable pneumothorax within the limits of patient rotation to the left. Small left pleural effusion.
10/02/24-Left basilar opacification at least in part suggesting elevated left hemidiaphragm without significant change. Possible accompanying left lower lobe atelectasis and/or pneumonia and small left pleural effusion.
09/27/24- There is mild elevation of the left hemidiaphragm with likely left basilar atelectasis, similar to prior. Small effusion is possible.
09/17/24- Increased density in the central to lateral aspect of the left lower hemithorax, probably a combination of a small amount of pleural fluid and adjacent underlying atelectasis.
Minimal blunting of the right lateral costophrenic angle suggesting a minimal right pleural effusion. Mild to moderate dextroconvex scoliosis centered in the midthoracic spine with moderate levoconvex scoliosis centered in the upper lumbar spine.
CT Scan: CHEST 10/16/24- 1. No CTA evidence for an acute pulmonary thromboembolism.
2. Moderate right and small left pleural effusions.
CT abd/pelvis: significant amount of free air suggestive of perforated viscus. Severe proctocolitis with surrounding inflammatory change and fluid within the pelvis, possible site of perforation.
Echo: 10/05/24- Normal left ventricular size and systolic function. Mild concentric left ventricular hypertrophy. No regional wall motion abnormalities are seen. LV ejection fraction is 65-70% by visual assessment. Pacer wire seen in right ventricle.
Moderate mitral regurgitation. Mild aortic regurgitation. Mild tricuspid regurgitation. Estimated pulmonary artery pressure of 20-25 mmHg assuming a right atrial pressure of 3 mmHg. Trivial pericardial effusion. Dilated aortic root. Sinus of
Valsalva measures 4.2 cm. Sinotubular junction measures 3.5 cm. The IVC is of normal size and demonstrates normal respiratory variation.
PFT's:
Reports and relevant images were personally reviewed.
Total time spent on this encounter __61__ minutes which includes review of history, physical exam, medications, laboratory data, personal review of imaging, extensive review of outpatient records, discussion with care team and respiratory therapy.
Subjective Data
-
Date of Service:
Date of Service: October 18, 2024
Chief Complaint: Pulmonary Follow Up
Subjective:
SOB noted, but this has not significantly improved since thora
She is stable on RA
This is mostly with exertion
Objective Data
Data Reviewed
Vital Signs / I&O / Oxygen:
Vital Signs
Temp Pulse Resp BP Pulse Ox
98.3 F 80 18 134/66 99
10/18/24 08:00 10/18/24 09:27 10/18/24 08:00 10/18/24 09:27 10/18/24 08:00
Intake and Output
10/17/24 10/18/24 10/19/24
06:59 06:59 06:59
Intake Total 1348 / 1348 1468 / 1468
Output Total 325 / 325
Balance 1023 / 1023 1468 / 1468
SaO2 99
Nasal Cannula flow liters per 2
minute
Physical Exam
General: Comfortable and Other (NAD, deconditoned appearing, weak overall)
HEENT: Normocephalic and Anicteric
Cardiovascular: S1-S2, Regular Rhythm and Peripheral Edema (LUE)
Respiratory: Clear and Non-Labored Respirations
GI: Soft, Non Distended and Non Tender
Neurology: Awake, Alert, Oriented and No Motor Deficits
Skin: Warm, Dry and Good Color
Labs/Micro/Reports
Lab Data
10/18/24 04:54
10/18/24 04:54
Microbiology
10/16/24 15:16 Pleural Fluid Body Fluid Culture - Preliminary
No Growth After 48 Hours
10/16/24 15:16 Pleural Fluid Gram Stain - Preliminary
--- NOTE | 2024-10-18 10:16 | RESPNOTE ---
attempted home 02 assessment as order for this pt.
pt is 3 people assist for ambulation with walker.
pt declined to walk stating she cannot walk.
pt's room air 02 sats of 99% noted.
nurse made aware of findings.
--- NOTE | 2024-10-18 10:39 | CM ---
Chart reviewed; met with pt
Pt for SNF - referrals sent previously - updates sent in [facility]
LM with Tracy at [facility] and Alina at [facility] - bed availability
Sent additional referral to Julio Perez for review
Pt updated
Plan - SNF when bed obtained and medically ready
[2024-10-18 11:50] LABS: Glucose - Point of Care 115 mg/dl (70-99)
[2024-10-18 17:32] LABS: Glucose - Point of Care 111 mg/dl (70-99)
--- NOTE | 2024-10-18 17:41 | W.PN.HOSP.TC ---
Today's Communication/Plan
-
Placement pending
See plan
Assessment / Plan
Assessment / Plan
Physical Exam
General: Not in acute distress, cachexia
HEENT: Normocephalic, Moist mucous membranes and Atraumatic. NG tube present with dark colored output.
Respiratory: Decreased Breath Sounds Bilaterally; No wheezes.
Cardiac: S1/S2 and Regular Rate and Rhythm
GI: Soft, not tender, mildly distended, midline incision and dressing intact, colostomy (gas and liquid stool present), right drain (removed)
Musculoskeletal: No Cyanosis, Edema of both lower extremities. Swelling left upper extremity
Skin: Warm. Dry.
Neuro: Alert. Awake. Nonfocal/grossly intact
Psych: calm
Assessment/Plan
83-year-old female with past medical history of umbilical hernia surgery as a child, atrial fibrillation not on anticoagulation, prior pulmonary embolism, microscopic colitis and IBS presented with abdominal pain. She started having lower abdominal
pain 4 days prior to presentation. Pain was initially intermittent but now constant, and has become more severe. Last bowel movement 5 days prior to presentation. Patient has been passing clear mucus several times a day with some blood in the stool.
On the day of presentation, she had an episode of vomiting, without blood. At the time of admission, she denied fevers, chills, chest pain or shortness of breath. She was found to have perforated viscus likely secondary to severe proctocolitis.
#Upper GI bleeding due to esophagitis and esophageal ulcer
#Esophageal/gastric ulcers
EGD also showed non bleeding gastric ulcer -- s/p EGD on 09/28 w/o intervention
Continue PPI BID
See GI note for how long to continue PPI after discharge
Rechecked HGB, showed stability.
Repeat EGD in 2 months to ensure healing; GI will arrange for outpatient appointment with GI upon discharge
#Acute blood loss anemia , s/p total 4 units, suspected secondary to GI Bleed
Received 1 unit PRBC on 09/18/24
one unit 09/28, 2 units on 09/29
Total of 4 units PRBCs so far this hospitalization
Hematemesis again 10/04/24 to 10/05/24 --> PPI changed to IV, and Heparin subq stopped, now resumed.
# Skin itching, no erythema or rash, PRN Hydrocortisone cream.
# Left UE edema
US:No sonographic evidence for LEFT upper extremity deep venous thrombosis.
Dependent edema, encourage movement, elevation. Will wean off TPN soon, no pain in arm, good & strong radial pulse
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
#Severe constipation following Chauncey's for perforated sigmoid colon 2/[address] on 10/04/24 showed ileus --> discussed with surgeon Dr. Zhang on 10/05/24 --> suspected colon is obstructed from residual stool impacting at the fascial level of her ostomy
Surgery performed on 10/06/24 fecal disimpaction under anesthesia and flexible sigmoidoscopy
Now on LR Diet, NG tube taken out on 10/07/24
Resumed bowel regimen -- continue Miralax
Possible Gastrografin enema on 10/09/24, contrast did not go through
TPN stopped 10/17/24 as patient tolerating oral intake well
Surgeon to update patient's son per request
f/w surgery and GI recommendations, appreciate help
-Wound/ostomy nurse consultation
#E. Coli bacteremia
-Repeat blood cultures with no growth to date
-Given E. coli bacteremia, consulted Infectious Disease --> received Zosyn--> completed course of antibiotics (end date was 09/30/24)
-Pain regimen scheduled and PRN, but no NSAIDs given recent rise in creatinine and GI bleeding.
#Groin Yeast Infection
-Continue Desenex
-Continue to monitor
#Acute on chronic lymphedema
#Bilateral Lower Extremity Edema
#Anasarca
-Was started on Bumex lost weight and less edema in legs -- continue Lasix as per patient's preference
-Lower extremity ultrasound with no DVTs
-proBNP elevated. Echo with mild concentric left ventricular hypertrophy, no regional wall motion abnormalities are seen, LV ejection fraction 65-70% by visual assessment, pacer wire in right ventricle, moderate mitral regurgitation, mild aortic
regurgitation, mild tricuspid regurgitation, estimated pulmonary artery pressure of 20-25 mmHg assuming a right atrial pressure of 3 mmHg, trivial pericardial effusion, dilated aortic root, sinus of Valsalva measures 4.2 cm, sinotubular junction
measures 3.5 cm.
-Recent B/L LE ultrasound was negative for DVT, but given recent drop in Hgb Heparin subq was held, but resumed on 10/08/24
#Wheezing - RESOLVED
#Left Lung Crackles - IMPROVED
-Patient denied SOB as of 10/02/24 but reported feeling the wheezing which resolved
-CXR without significant change
-ProBNP was previously elevated. Echo as above
#Shortness of breath likely multifactorial given scoliosis on imaging (likely with restrictive lung disease at baseline), severe deconditioning
-Started after physical activity on 10/13/24 as per patient -- likely from pleural effusion
-CT Chest PE given several risk factors for PE: sedentary right now given clinical condition, history of PE, TPN can increase risk of VTE - NO PE
-IR consult for therapeutic and diagnostic thoracentesis -- patient reported relief of SOB after procedure -- but soon SOB again
-Consulted pulmonary given unknown etiology of SOB -- pleural effusions are unlikely the only cause of patient's shortness of breath
-Scheduled nebulizers
-SOB can be followed up outpatient
#Worsening Left Upper Extremity Swelling
-Left UE ultrasound
#Proximal RIGHT BASILIC VEIN superficial venous thrombosis -- extending into axillary vein on ultrasound
-Clinically, patient's arm appearance and symptoms are stable
-Consulted hematology --> recommended therapeutic Lovenox followed by DOAC
-Continue Lovenox 1mg/kg q12h for now and transition to DOAC when tolerating po diet well
-Remove PICC when able -- this is the provoking factor -- needs 3 months total anticoagulation
-Monitor CBC and for bleeding
#Small bilateral pleural effusions, right greater than left
-Right thoracentesis was performed on October 16, 2024 -- fluid is exudative which could be parapneumonic, relating to aspiration vs intra-abd issues
-Follow up on pathology results
#Hypoattenuating left renal lesion measures 1.2 cm in diameter, internal Hounsfield units are suggestive of a hemorrhagic cyst, as per CT report 10/04/24
#Mild Hyponatremia
# Pseudo hypocalcemia due to low albumin
#Hypokalemia
#Moderate protein calorie malnutrition
#Asymptomatic Hypoglycemia
RESOLVED
Stopped Accu-check per patient's request
#JT - RESOLVED
#Suspect underlying CKD IIIb
-Bladder scans protocol
-Avoid NSAIDs
#Hx of paroxysmal atrial fibrillation, followed by Dr. Jarrett of [facility]
#A-Fib with RVR
-Not on anticoagulation as an outpatient
-Initially, No anticoagulation due to history of hemorrhagic pericardial effusion (her environmental communications specialist told her no oral anticoagulation) -- but now therapeutic dose Lovenox given RUE DVT
-PO Lopressor (with increased dose @ 50 mg BID (instead of home 25 mg TID))
-s/p IV Lopressor
-Outpatient follow-up to Dr. Tiwari of [facility]
#[employer] DC PPM
#History of Pulmonary Embolism? -- may actually just be the pericardial hematoma she had NOT PE HISTORY (see oncology note from 10/16/24)
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
#Microscopic colitis
-Patient usually sees Dr. Shweta Zhu at [facility]; Dr. Zhu prescribes the patient's Budesonide and the Colestipol
-Holding Budesonide and Colestipol for now given acute illness
#Rheumatoid Arthritis
-Stable without any flare-up
-Patient sees Dr. Delgado - Rheumatology at [place] who prescribes the Hydroxychloroquine , ok to resume.
-Holding immunosuppressive TX, especially given Azathioprine is a immunosuppressant and patient is recovering from abdominal surgery and bacteremia
-OP f/u with secret service agent Dr. Delgado
#Abnormal imaging of the pancreas
-CT A/P on 09/16: 'questionable pancreatic edema, questionable subtle changes of acute pancreatitis, underlying mass cannot be excluded.'
-Outpatient follow-up CT or MRI
#IBS
#Chronic venous insufficiency
#Peripheral neuropathy
#PVCs
#Osteoporosis
Code Status: Full code
DVT Prophylaxis: SCDs. Lovenox 1 mg/kg.
Anticipated Discharge: > 48 hours
Subjective/Interval History
-
Date of Service: October 18, 2024
Patient was seen and examined. She reported shortness of breath at times, denied any new complaints.
Objective Data
-
Labs:
Laboratory Results
10/18/24
04:54
Sodium 139
Potassium 4.3
Chloride 109 H
Carbon Dioxide 25
BUN 42 H
Creatinine 0.8
Glucose 83
Calcium 8.2 L
Total Bilirubin 0.4
AST 58 H
ALT 54 H
Alkaline Phosphatase 380 H
Vital Signs:
Vital Signs
Temp Pulse Resp BP Pulse Ox
98.2 F 90 16 133/53 96
10/18/24 16:34 10/18/24 16:34 10/18/24 16:34 10/18/24 16:34 10/18/24 16:34
I&O
10/17/24 10/18/24 10/19/24
06:59 06:59 06:59
Intake Total 1348 / 1348 1468 / 1468 600 / 600
Output Total 325 / 325 500 / 500
Balance 1023 / 1023 1468 / 1461 100 / 100
[2024-10-18] MEDS: DUONEB 3 ML INH (19:13)
[2024-10-18 21:50] LABS: Glucose - Point of Care 97 mg/dl (70-99)
[2024-10-18] MEDS: MELATONIN PO (23:00)
[2024-10-18] MEDS: TYLENOL 1000 MG PO (23:02)
[2024-10-19] MEDS: NOVOLOG FLEXPEN-LOW RESISTANCE SC ×2 (00:38→06:46)
[2024-10-19 03:15] VITALS: BP 110/51
[2024-10-19 05:23] LABS: Hematocrit 22.8 % (37.0-47.0); Hemoglobin 7.4 g/dL (12.0-16.0); Mean Corp Hgb Conc. 32.5 g/dL (33.0-37.0); Mean Corpuscular Hgb 30.5 pg (27.0-31.0); Mean Corpuscular Volume 93.8 fL (81.0-99.0); Mean Platelet Volume 8.9 fL (7.4-10.4); Platelet Count 367 10^3/uL (130-400); Red Blood Cell Count 2.43 10^6/uL (4.20-5.40); Red Cell Dist. Width 18.6 % (11.5-14.5)
[2024-10-19 05:43] LABS: ALT (SGPT) 48 U/L (0-35); AST (SGOT) 49 U/L (14-36); Albumin 1.8 g/dl (3.5-5.0); Alkaline Phosphatase 401 U/L (38-126); Blood Urea Nitrogen 36 mg/dl (7-17); Calcium 7.8 mg/dl (8.4-10.2); Carbon Dioxide 24 mmol/L (22-30); Chloride 107 mmol/L (98-107); Estimated Creatinine Clearance 48 ml/min; Glucose 81 mg/dl (70-99); Potassium 3.8 mmol/L (3.5-5.1); Sodium 138 mmol/L (135-145); Total Bilirubin 0.5 mg/dl (0.2-1.3); Total Protein 4.5 g/dl (6.3-8.2); eGFR > 60.00
[2024-10-19] MEDS: TYLENOL 1000 MG PO (05:47)
[2024-10-19 06:00] VITALS: BMI 22.4
[2024-10-19 07:30] VITALS: BP 124/55
[2024-10-19 07:38] LABS: Glucose - Point of Care 81 mg/dl (70-99)
[2024-10-19] MEDS: DUONEB 3 ML INH ×2 (07:59→15:14)
[2024-10-19] MEDS: LASIX 40 MG PO (08:25)
[2024-10-19] MEDS: MIRALAX 17 GRAMS PO (08:25)
[2024-10-19] MEDS: REFRESH EYE DROPS (PF) 1 DROPS OPHTH (08:25)
[2024-10-19] MEDS: DESENEX/MITRAZOL/ZEASORB 1 APPLIC TOPICAL (08:26)
[2024-10-19] MEDS: LOVENOX 60 MG SC (08:26)
[2024-10-19] MEDS: LOPRESSOR 50 MG PO (08:26)
[2024-10-19] MEDS: PROTONIX 40 MG PO (08:26)
[2024-10-19] MEDS: RESTASIS 0.05% OPHTHALMIC EMULSION 1 DROPS BOTH EYES (08:26)
[2024-10-19] MEDS: NON-FORMULARY ITEM 1 SPRAY NASAL (08:27)
--- NOTE | 2024-10-19 09:04 | W.PN.PUL3 ---
Today's Communication / Plan
-
Feels the nebs are helpful but wears off quickly, will change to QID
This can be continued at SNF and rehab will be beneficial
We reviewed OP pulmonary FU when able following rehab
She was agreeable
OK for discharge planning from our perspective, we will sign off at this time
Assessment
-
Patient is an 83-year-old female with previous history of atrial fibrillation, PE, colitis, IBS presenting with abdominal pain to ER on 09/16/2024. CT abdomen pelvis demonstrating free air with suspicion for stercoral colitis with perforation.
Underwent exploratory laparotomy with sigmoid colon resection and creation of end colostomy on 09/16/2024, admitted to ICU 09/18/24 due to hypotension (and evaluated by critical care service). Transferred to floors within 48 hours. SBFT on 09/21 with
moderate fecal material throughout the colon but good transit time/no obstruction. Diet advanced. Had episode of coffee-ground emesis 09/27/24 and bloody output in her colostomy bag, Hgb drop to 6.9 s/p transfusion of 2 units PRBC. Underwent EGD 09/28
w/ 3 ulcers (1 w/ large clot/but healing) without obvious high risk stigmata, present within hiatal hernia. 1 other gastric ulcer noted with clean base. Had on/off intermittent N/V on floors- felt to have prolonged ileus and likely large bowel
obstruction from residual stool. Underwent fecal disimpaction in OR 10/06/24. Since then has been improving, noted to have some mild SOB complaints beginning 10/16. CXR showing small effusion on L not noted on admission films, but developed as far
back as 09/17 CXR. She underwent thoracentesis of 350mL on 10/16 showing exudative effusion/culture negative. We are re-consulted for evaluation 10/18/24.
Perforated sigmoid colon secondary to stercoral colitis status post ex lap with sigmoid resection and end colostomy creation on 09/16/24
Severe proctocolitis likely site of perforation
E. Coli bacteremia
Lactic acidosis
Septic shock, resolved
Multifactorial anemia including UGIB, postop losses, critical illness, requiring transfusions
Transaminitis likely secondary to perforation/High ALP
UBIG, coffee ground emesis, resolved
Gastric/hiatal hernia ulcers s/p EGD 09/28
Small L sided pleural effusion s/p thora 10/16
SOB
Scoliosis on CXR, suspect underlying RLD
Conditions present DRAGGER OUT
Atrial fibrillation not on anticoagulation
h/o pulmonary embolism
microscopic colitis
IBS
umbilical hernia
Pacemaker
Plan
Currently saturating 99% on RA
Home O2 evaluation could not be completed as she is very weak and needs full assist
She has no prior history of O2 use at home
Prior history of lung disease is NOT noted -- she is a lifelong nonsmoker
There is family history of COPD but she has no personal history, no prior PFTs for review
CXR/CT obtained indicating small pleural effusion, tapped for 350mL
Effusion studies are exudative which could be parapneumonic, relating to aspiration vs intra-abd issues
Other imaging reviewed--this was present since beginning of hospitalization and unlikely the sole cause of her SOB
She is also not improved post tap
I would follow this as OP, no acute intervention is needed at this moment
SOB is likely multifactorial given scoliosis on imaging (likely with restrictive lung disease at baseline), severe deconditioning
She notes occasional CHIU at baseline prior to hospitalization but never was evaluated
Can try nebulizers for now for SOB, I will change them to scheduled
Prior ECHO results are reviewed indicating normal EF and trivial VHD
proBNP 3140 -> 1240
Continue diuresis as indicated
CT abdomen pelvis shows significant amount of free air suggesting perforated viscous, severe proctocolitis, indeterminate 1.6 cm left renal lesion, questionable subtle changes of acute pancreatitis,
s/p Ex lap, resection/ostomy 09/16/24
s/p Small Bowel Follow Through X-Ray completed on 09/21/24
Advanced to Clear Liquids Diet started (NG tube taken out on 09/21/24, and previously was NPO) --> continue. Continue MADELAINE drain output monitoring.
Pain regimen scheduled and PRN, but no NSAIDs given recent rise in creatine
-Wound/ostomy nurse consultation
-Out of bed as tolerated
-PO bowel regimen, colace/miralax -- may need to irrigate stoma pending outputs.
Initial blood cultures showed E. coli, repeat blood cultures with no growth to date
Given E. coli bacteremia, consulted Infectious Disease --> continue Zosyn
At time of discharge, can transition to Augmentin 500mg po bid.
Will need outpatient pulmonary evaluation in our office for PFTs and 6MWT
Reviewed with patient
Agree with discharge planning to SNF per team
We will follow as OP
Diagnostic Data
Chest X-Ray: 10/16/24- Decreased right pleural fluid status post thoracentesis. No appreciable pneumothorax within the limits of patient rotation to the left. Small left pleural effusion.
10/02/24-Left basilar opacification at least in part suggesting elevated left hemidiaphragm without significant change. Possible accompanying left lower lobe atelectasis and/or pneumonia and small left pleural effusion.
09/27/24- There is mild elevation of the left hemidiaphragm with likely left basilar atelectasis, similar to prior. Small effusion is possible.
09/17/24- Increased density in the central to lateral aspect of the left lower hemithorax, probably a combination of a small amount of pleural fluid and adjacent underlying atelectasis.
Minimal blunting of the right lateral costophrenic angle suggesting a minimal right pleural effusion. Mild to moderate dextroconvex scoliosis centered in the midthoracic spine with moderate levoconvex scoliosis centered in the upper lumbar spine.
CT Scan: CHEST 10/16/24- 1. No CTA evidence for an acute pulmonary thromboembolism.
2. Moderate right and small left pleural effusions.
CT abd/pelvis: significant amount of free air suggestive of perforated viscus. Severe proctocolitis with surrounding inflammatory change and fluid within the pelvis, possible site of perforation.
Echo: 10/05/24- Normal left ventricular size and systolic function. Mild concentric left ventricular hypertrophy. No regional wall motion abnormalities are seen. LV ejection fraction is 65-70% by visual assessment. Pacer wire seen in right ventricle.
Moderate mitral regurgitation. Mild aortic regurgitation. Mild tricuspid regurgitation. Estimated pulmonary artery pressure of 20-25 mmHg assuming a right atrial pressure of 3 mmHg. Trivial pericardial effusion. Dilated aortic root. Sinus of
Valsalva measures 4.2 cm. Sinotubular junction measures 3.5 cm. The IVC is of normal size and demonstrates normal respiratory variation.
PFT's:
Reports and relevant images were personally reviewed.
Total time spent on this encounter __41__ minutes which includes review of history, physical exam, medications, laboratory data, personal review of imaging, extensive review of outpatient records, discussion with care team and respiratory therapy.
Subjective Data
-
Date of Service:
Date of Service: October 19, 2024
Chief Complaint: Pulmonary Follow Up
Subjective:
Does feel improvement with nebs but feels it does not last long
Otherwise, still very deconditioned
Objective Data
Data Reviewed
Vital Signs / I&O / Oxygen:
Vital Signs
Temp Pulse Resp BP Pulse Ox
97.8 F 72 16 110/51 98
10/19/24 07:30 10/19/24 08:00 10/19/24 08:00 10/19/24 08:26 10/19/24 07:30
Intake and Output
10/18/24 10/19/24 10/20/24
06:59 06:59 06:59
Intake Total 1468 / 1468 600 / 600
Output Total 700 / 700
Balance 1468 / 1468 -100 / -100
SaO2 98
Nasal Cannula flow liters per 2
minute
Physical Exam
General: Comfortable and Other (NAD, deconditoned appearing, weak overall)
HEENT: Normocephalic and Anicteric
Cardiovascular: S1-S2, Regular Rhythm and Peripheral Edema (LUE)
Respiratory: Clear and Non-Labored Respirations
GI: Soft, Non Distended and Non Tender
Neurology: Awake, Alert, Oriented and No Motor Deficits
Skin: Warm, Dry and Good Color
Labs/Micro/Reports
Lab Data
10/19/24 04:58
10/19/24 04:58
Microbiology
10/16/24 15:16 Pleural Fluid Body Fluid Culture - Preliminary
No Growth After 48 Hours
10/16/24 15:16 Pleural Fluid Gram Stain - Preliminary
[2024-10-19 10:56] VITALS: BP 139/62; PULSE 77; O2SAT 98
[2024-10-19 10:58] VITALS: BP 139/62; PULSE 77; O2SAT 98
[2024-10-19 11:05] VITALS: BP 130/66
--- NOTE | 2024-10-19 11:58 | W.PN.HOSP.TC ---
Today's Communication/Plan
-
Discharge today
Assessment / Plan
Assessment / Plan
Physical Exam
General: Not in acute distress, cachexia
HEENT: Normocephalic, Moist mucous membranes and Atraumatic. NG tube present with dark colored output.
Respiratory: Decreased Breath Sounds Bilaterally; No wheezes.
Cardiac: S1/S2 and Regular Rate and Rhythm
GI: Soft, not tender, mildly distended, midline incision and dressing intact, colostomy (gas and liquid stool present), right drain (removed)
Musculoskeletal: No Cyanosis, Edema of both lower extremities. Swelling left upper extremity
Skin: Warm. Dry.
Neuro: Alert. Awake. Nonfocal/grossly intact
Psych: calm
Assessment/Plan
83-year-old female with past medical history of umbilical hernia surgery as a child, atrial fibrillation not on anticoagulation, prior pulmonary embolism, microscopic colitis and IBS presented with abdominal pain. She started having lower abdominal
pain 4 days prior to presentation. Pain was initially intermittent but now constant, and has become more severe. Last bowel movement 5 days prior to presentation. Patient has been passing clear mucus several times a day with some blood in the stool.
On the day of presentation, she had an episode of vomiting, without blood. At the time of admission, she denied fevers, chills, chest pain or shortness of breath. She was found to have perforated viscus likely secondary to severe proctocolitis.
#Upper GI bleeding due to esophagitis and esophageal ulcer
#Esophageal/gastric ulcers
#Hematemesis on 10/04/2024 -occurred after significant retching secondary to the fecal impaction just behind her stoma
EGD also showed non bleeding gastric ulcer -- s/p EGD on 09/28 w/o intervention
Continue PPI BID -- continue for 8 weeks and follow-up with outpatient GI to determine when to stop it
Repeat EGD in 2 months to ensure healing; GI will arrange for outpatient appointment with GI upon discharge
#Acute blood loss anemia , s/p total 4 units, suspected secondary to GI Bleed
Received 1 unit PRBC on 09/18/24
one unit 09/28, 2 units on 09/29
Total of 4 units PRBCs so far this hospitalization
Hematemesis again 10/04/24 to 10/05/24 --> PPI changed to IV, and Heparin subq stopped, then eventually on therapeutic Lovenox for VTE
# Skin itching - RESOLVED
# Left UE edema - no DVT
US:No sonographic evidence for LEFT upper extremity deep venous thrombosis.
Dependent edema, encourage movement, elevation. Will wean off TPN soon, no pain in arm, good & strong radial pulse
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
#Nausea/Vomiting likely secondary to significant constipation
#Severe constipation following Chauncey's for perforated sigmoid colon 2/[address] on 10/04/24 showed ileus --> discussed with surgeon Dr. Zhang on 10/05/24 --> suspected colon is obstructed from residual stool impacting at the fascial level of her ostomy
Surgery performed on 10/06/24 fecal disimpaction under anesthesia and flexible sigmoidoscopy
Now on Low Residue Diet -- continue, NG tube taken out on 10/07/24
Resumed bowel regimen -- continue Miralax
Possible Gastrografin enema on 10/09/24, contrast did not go through
TPN stopped 10/17/24 as patient tolerating oral intake well
Surgeon to update patient's son per request
f/w surgery and GI recommendations, appreciate help
-Wound/ostomy nurse consultation
#E. Coli bacteremia
-Repeat blood cultures with no growth to date
-Given E. coli bacteremia, consulted Infectious Disease --> received Zosyn--> completed course of antibiotics (end date was 09/30/24)
-Pain regimen scheduled and PRN, but no NSAIDs given recent rise in creatinine and GI bleeding.
#Groin Yeast Infection
-Continue Desenex
-Continue to monitor
#Acute on chronic lymphedema
#Bilateral Lower Extremity Edema
#Anasarca
-Was started on Bumex lost weight and less edema in legs -- continue Lasix as per patient's preference
-Lower extremity ultrasound with no DVTs
-proBNP elevated. Echo with mild concentric left ventricular hypertrophy, no regional wall motion abnormalities are seen, LV ejection fraction 65-70% by visual assessment, pacer wire in right ventricle, moderate mitral regurgitation, mild aortic
regurgitation, mild tricuspid regurgitation, estimated pulmonary artery pressure of 20-25 mmHg assuming a right atrial pressure of 3 mmHg, trivial pericardial effusion, dilated aortic root, sinus of Valsalva measures 4.2 cm, sinotubular junction
measures 3.5 cm.
-Recent B/L LE ultrasound was negative for DVT, but given recent drop in Hgb Heparin subq was held, but resumed on 10/08/24
#Wheezing - RESOLVED
#Left Lung Crackles - IMPROVED
-Patient denied SOB as of 10/02/24 but reported feeling the wheezing which resolved
-CXR without significant change
-ProBNP was previously elevated. Echo as above
#Shortness of breath likely multifactorial given scoliosis on imaging (likely with restrictive lung disease at baseline), severe deconditioning
#Atelectasis
-Started after physical activity on 10/13/24 as per patient -- likely from pleural effusion
-CT Chest PE given several risk factors for PE: sedentary right now given clinical condition, history of PE, TPN can increase risk of VTE - NO PE
-IR consult for therapeutic and diagnostic thoracentesis -- patient reported relief of SOB after procedure -- but soon SOB again
-Consulted pulmonary given unknown etiology of SOB -- pleural effusions are unlikely the only cause of patient's shortness of breath
-Scheduled nebulizers
-SOB can be followed up outpatient
#Nonocclusive deep venous thrombosis within the right axillary vein on ultrasound dated 10/09/2024 (the superficial thrombus within the basilic vein seen on prior ultrasound dated 10/02/2024 progressed to deep venous thrombosis within the right
axillary vein on 10/09/2024) -- THROMBUS ASSOCIATED WITH PICC LINE
-Clinically, patient's arm appearance and symptoms are stable
-Consulted hematology --> recommended therapeutic Lovenox followed by [facility]
-Continue Lovenox 1mg/kg q12h for now and transition to DO[facility] (patient stated on 10/19/24 that she is agreeable to Eliquis) when tolerating po diet well
-Remove PICC when able -- this is the provoking factor -- needs 3 months total anticoagulation
-Monitor CBC and for bleeding
#Small bilateral pleural effusions, right greater than left
#Moderate Right Pleural Effusion
-Right thoracentesis was performed on October 16, 2024 -- fluid is exudative which could be parapneumonic, relating to aspiration versus intra-abdominal issues
-Follow up on pathology results:Negative for malignant cells but showed reactive mesothelial cells, RBC�s, macrophages, background inflammation
-Follow-up with PCP/pulm outpatient
#Hypoattenuating left renal lesion measures 1.2 cm in diameter, internal Hounsfield units are suggestive of a hemorrhagic cyst, as per CT report 10/04/24
#Mild Hyponatremia
# Pseudo hypocalcemia due to low albumin
#Hypokalemia
#Moderate protein calorie malnutrition
#Asymptomatic Hypoglycemia
RESOLVED
Stopped Accu-check per patient's request
#JT - RESOLVED
#Concern for possible underlying CKD IIIb
-Bladder scans protocol
-Avoid NSAIDs
#History of paroxysmal atrial fibrillation, followed by Dr. Jarrett of [facility]
#A-Fib with RVR
-Not on anticoagulation as an outpatient
-Initially, No anticoagulation due to history of hemorrhagic pericardial effusion (her district engineer told her no oral anticoagulation) -- but now therapeutic dose Lovenox given RUE DVT
-PO Lopressor (with increased dose @ 50 mg BID (instead of home 25 mg TID))
-Eliquis as above
-s/p IV Lopressor
-Outpatient follow-up to Dr. Tiwari of [facility]
#[employer] DC PPM
#History of Pulmonary Embolism? -- may actually just be the pericardial hematoma she had NOT PE HISTORY (see oncology note from 10/16/24)
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
#History of hemorrhagic pericardial effusion, which was complicated by pericardial hematoma and tamponade
#Microscopic colitis
-Patient usually sees Dr. Shweta Zhu at [facility]; Dr. Zhu prescribes the patient's Budesonide and the Colestipol
-Holding Budesonide and Colestipol for now given acute illness
#Rheumatoid Arthritis
-Stable without any flare-up
-Patient sees Dr. Delgado - Rheumatology at [facility] who prescribes the Hydroxychloroquine , ok to resume.
-Holding immunosuppressive TX, especially given Azathioprine is a immunosuppressant and patient is recovering from abdominal surgery and bacteremia
-OP f/u with retread supervisor Dr. Delgado
#Abnormal imaging of the pancreas
-CT A/P on 09/16: 'questionable pancreatic edema, questionable subtle changes of acute pancreatitis, underlying mass cannot be excluded.'
-Outpatient follow-up CT or MRI
#Hypoattenuating left renal lesion measures 1.2 cm in diameter, internal Hounsfield units are suggestive of a hemorrhagic cyst on CT Imaging
#Indeterminate 1.6 cm left renal lesion
-Recommend outpatient workup with dedicated renal mass protocol CT or MRI.
#IBS
#Chronic venous insufficiency
#Peripheral neuropathy
#PVCs
#Osteoporosis
Code Status: Full code
DVT Prophylaxis: SCDs. Lovenox 1 mg/kg.
More than 30 minutes spent in discharge including
Final examination of the patient
Summarizing hospital stay
Instructions for continuing care to all relevant caregivers
Preparation of discharge records, prescriptions, and referral forms
Total time spent (in minutes): 50
Anticipated Discharge: Today
Subjective/Interval History
-
Date of Service: October 19, 2024
Patient was seen and examined. She denied any new symptoms or complaints.
Objective Data
-
Labs:
Laboratory Results
10/19/24
04:58
WBC 9.0
Hgb 7.4 L
Hct 22.8 L
Plt Count 367
Sodium 138
Potassium 3.8
Chloride 107
Carbon Dioxide 24
BUN 36 H
Creatinine 0.8
Glucose 81
Calcium 7.8 L
Total Bilirubin 0.5
AST 49 H
ALT 48 H
Alkaline Phosphatase 401 H
Vital Signs:
Vital Signs
Temp Pulse Resp BP Pulse Ox
97.2 F 82 20 130/66 98
10/19/24 11:05 10/19/24 11:05 10/19/24 11:05 10/19/24 11:05 10/19/24 11:05
I&O
10/18/24 10/19/24 10/20/24
06:59 06:59 06:59
Intake Total 1468 / 1468 600 / 600
Output Total 700 / 700
Balance 1468 / 1468 -100 / -100
--- NOTE | 2024-10-19 12:40 | CM ---
Addendum entered by Deyanira Llanes 10/19/24 15:04:
Transport at 6PM
Updated pts son and Vy at [facility]
Addendum entered by Deyanira Llanes 10/19/24 14:19:
Updated pt and her son regarding d/c plan
Reviewed IMM
Transport forms on chart
Plan - Transfer to [facility]
R - [phone]
- [phone]
Original Note:
Spoke with Vy at [facility] - can accept today
Pt prefers [facility]
Updated Dr Miguel
--- NOTE | 2024-10-19 13:10 | WOUNDNOTE ---
WO RN note: Patient's sacral ulcer appears newly healed. Patient moving better and she seems more interested in doing her ostomy care. Patient opened and closed her colostomy appliance with verbal cues and minimal assistance. She cut out wafer and
snapped on pouch. Appliance was last changed on 10/17. Ostomy supplies and colostomy teaching folder in room. Sacral silicone border foam changed. Skin on heels intact. Patient turned to L semi side lying position. Patient can turn self in bed. Air
chair cushions in room. Patient for possible transfer to SNF/rehab today to tomorrow as per patient. Nursing care assist patient with routine pouch changes.
--- NOTE | 2024-10-19 13:45 | W.DCSUMMARY ---
Discharge Summary
Discharge Data
Date of Admission: 09/16/24
Date of Discharge: 10/19/24
Total time spent discharging patient (in min): 50
-
Pending Results: No
Hospital Course
83-year-old female past medical history of umbilical hernia surgery as a child, atrial fibrillation not on anticoagulation, prior pulmonary embolism? (may actually just have been patient's pericardial hemorrhagic effusion and NOT pulmonary embolism
history), microscopic colitis and IBS presented with abdominal pain. Patient was found to have perforated viscus and proctocolitis. Patient was made NPO, started on antibiotics and surgery team was consulted. On September 17, 2024, patient had
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 Patient was placed in the intensive care unit postoperatively and [facility] was consulted. Infectious Disease was
consulted for patient's E. coli bacteremia. Patient was treated with intravenous fluids to correct high sodium, she continued to have nausea. Patient had atrial fibrillation with rapid ventricular response, given beta valeria and cardiology was
consulted -- patient's oral beta valeria dose was increased, and it was noted that regarding patient's anticoagulation, patient has a [id number] of at least 5 (age, gender, prior VTE); however, following discussion, patient wished to forgo
anticoagulation due to prior hemorrhagic pericardial effusion. Later anticoagulation needed to be started given DVT in her right upper extremity (provoked DVT from PICC line), and hematology was consulted to assist given her bleeding history and
bleeding below -- it was recommended that she be started on therapeutic Lovenox followed by [facility]. Patient continued to have issues with ileus and constipation post-op. At times she was able to tolerate oral diet, but then she could not. Patient
was placed on bowel regimen. Patient was placed on Bumex for hypervolemia.
Patient also had coffee ground emesis. She also had blood in her ostomy bag. Patient was started on intravenous Protonix and gastroenterology was consulted. Patient did need to receive packed red blood cell transfusions during her hospitalization.
Upper endoscopy showed esophagitis, small hiatal hernia, esophageal ulcer, and gastric ulcer. Repeat EGD in about 2 months and PPI were recommended.
Patient continued to have nausea, vomiting and bloating, had repeat CT imaging down which showed per surgery team significant residual stool burden all the way up to the level of the fascia within the left colon with liquid stool surrounding it.
Patient was placed on NG tube decompression. Patient was also started on TPN nutrition. Patient had manual disimpaction under anesthesia and flexible sigmoidoscopy for her fecal impaction.
Patient was short of breath therefore CT Chest PE study was checked and showed no PE. Patient had thoracentesis, shortness of breath initially improved but then continued to persist, pulmonary was consulted and from their standpoint, the shortness
of breath was multifactorial given scoliosis on imaging (likely with restrictive lung disease at baseline) and severe deconditioning. Patient would need pulmonary follow-up outpatient.
As mentioned above, therapeutic Lovenox was started for right upper extremity DVT (which was provoked -- PICC associated clot), she tolerated the Lovenox fine, therefore was transitioned to Eliquis on discharge. Patient would need hematology
follow-up outpatient.
Patient was tolerating a diet and stable, and therefore stable for discharge with close outpatient follow-up and close outpatient recheck of routine labwork.
Discharge Plan
-
Patient Disposition: Skilled Nursing/SNF
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
#Nausea/Vomiting likely secondary to significant constipation
#Severe constipation following Chauncey's for perforated sigmoid colon secondary to stercoral colitis
#Upper gastrointestinal bleeding due to esophagitis and esophageal ulcer
#Esophageal/gastric ulcers
#Hematemesis on 10/04/2024 -occurred after significant retching secondary to the fecal impaction just behind her stoma
#Acute blood loss anemia, received total 4 units of red blood cells
#Skin itching - RESOLVED
#Left upper extremity edema
#E. Coli bacteremia
#Groin Yeast Infection
#Acute on chronic lymphedema
#Bilateral Lower Extremity Edema
#Anasarca
#Wheezing - RESOLVED
#Left Lung Crackles - IMPROVED
#Shortness of breath likely multifactorial given scoliosis on imaging (likely with restrictive lung disease at baseline), severe deconditioning
#Atelectasis
#Nonocclusive deep venous thrombosis within the right axillary vein on ultrasound dated 10/09/2024 (the superficial thrombus within the basilic vein seen on prior ultrasound dated 10/02/2024 progressed to deep venous thrombosis within the right
axillary vein on 10/09/2024) -- THROMBUS ASSOCIATED WITH PICC LINE
#History of paroxysmal atrial fibrillation, followed by Dr. Jarrett of [facility]
#A-Fib with RVR
#[employer] DC PPM
#History of Pulmonary Embolism (PE)? -- may actually just be the pericardial hematoma she had NOT PE HISTORY (see oncology note from 10/16/24)
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
#History of hemorrhagic pericardial effusion, which was complicated by pericardial hematoma and tamponade
#Microscopic colitis
#Rheumatoid Arthritis
#Small bilateral pleural effusions, right greater than left
#Moderate Right Pleural Effusion -- negative for malignant cells but showed reactive mesothelial cells, RBC�s, macrophages, background inflammation
#Hypoattenuating left renal lesion measures 1.2 cm in diameter, internal Hounsfield units are suggestive of a hemorrhagic cyst, as per CT report 10/04/24
#Mild Hyponatremia
#Pseudo hypocalcemia due to low albumin
#Hypokalemia
#Moderate protein calorie malnutrition
#Asymptomatic Hypoglycemia
#JT - RESOLVED
#Concern for possible underlying CKD IIIb
#Abnormal imaging of the pancreas
#Hypoattenuating left renal lesion measures 1.2 cm in diameter, internal Hounsfield units are suggestive of a hemorrhagic cyst on CT Imaging
#Indeterminate 1.6 cm left renal lesion - recommend outpatient workup with dedicated renal mass protocol CT or MRI.
#IBS
#Chronic venous insufficiency
#Peripheral neuropathy
#PVCs
#Osteoporosis
Echocardiogram (as per pst manager's report)
'CONCLUSIONS
Normal left ventricular size and systolic function.
Mild concentric left ventricular hypertrophy.
No regional wall motion abnormalities are seen.
LV ejection fraction is 65-70% by visual assessment.
Pacer wire seen in right ventricle.
Moderate mitral regurgitation.
Mild aortic regurgitation.
Mild tricuspid regurgitation.
Estimated pulmonary artery pressure of 20-25 mmHg assuming a right atrial
pressure of 3 mmHg.
Trivial pericardial effusion.
Dilated aortic root.
Sinus of Valsalva measures 4.2 cm.
Sinotubular junction measures 3.5 cm.
The IVC is of normal size and demonstrates normal respiratory variation.'
Condition: Fair
Diet: Low Residue
Activity: No strenuous activity
Additional Activity: Do not lift over 15lbs for the next 4-6 weeks
Bathing Restrictions: OK to Shower
Blood Work: CBC, CMP, Serum Albumin, Magnesium and Phosphorus check in 2 to 4 days
Others Tests: Will need follow up CT or MRI with PCP or Dr. Zhu with changes noted around pancreas on CT during admission
Wound Care: [place] will be removed at your follow up appointment with your surgeon 2-3 weeks after surgery. Cover with clean gauze dressing and change daily if drainage noted
Activity Restrictions/Additional Instructions:
Repeat EGD in 2 months to ensure healing; needs close follow-up with general manager farm outpatient
Follow-up with closely with her pst manager Dr. Reinaldo Tiwari outpatient.
OUTPATIENT PRIMARY CARE PHYSICIAN, PATIENT'S SPECIALIST PHYSICIANS (e.g. her GROUP INSURANCE SPECIALIST, BACK UP WORKER AND MENTAL HEALTH ASSOCIATE) AND PHYSICIAN AT SNF/REHAB FACILITY SHOULD TRY TO OBTAIN ALL RECORDS FROM THIS HOSPITALIZATION (FROM SEPTEMBER 16, 2024 TO
OCTOBER 19, 2024) AND TRY TO REVIEW ALL RESULTS AND NOTES
Duonebs can be made QID scheduled to help with shortness of breath.
Colostomy supplies: Fe wafer # [id number] and pouch # [id number]. If leakage occurs, use an Shaq seal. Change ostomy appliance 2 times a week and as needed for leakage
Sacrum- Protective sacral silicone border foam and change Q 48 hours.
Air mattress.
Pressure redistributing chair cushion.
Elevate heels off bed with pillow/s.
Call supply [employer] (list in folder provided) for monthly Ostomy supplies after discharge (ask VN to order supplies while on service).
Follow up with surgeon.
Call [facility] RN nurse for ostomy pouching concerns or leakage problems [phone] or [phone] or [phone].
Referrals:
Layla Maradiaga CRNP [Specified Professional Personl] - 11/21/24 11:30 am
Shweta Zhu MD [Non-Admitting Privileges] - (follow up with [facility] after discharge )
Karma Lao DO [Active] - in two to three weeks (PFT)
Mariia Bray MD [Active] - in six weeks (Provoked Upper Extremity VTE follow-up)
Misha Kaminski MD [Active] - As needed (No need to follow up unless you have questions or concerns)
UNKNOWN - PT DOES,NOT KNOW [Family Provider] -
Additional Discharge Medication Instructions: Eliquis is 10 mg BID for 7 days, followed by 5 mg BID -- and it needs to be continued for at least 3 months given upper extremity DVT -- please check with outpatient [facility]
Pantoprazole is 40 mg BID -- check with gastroenterology if patient should continue this medication beyond the next 8 weeks.
Miralax is important. Patient had severe constipation this hospitalization.
Duonebs can be made QID scheduled to help with shortness of breath.
Many of patient's Microscopic Colitis and Rheumatoid Arthritis medications were held during this hospitalization given her acute abdominal illness/abdominal surgery -- please coordinate with patient's internal control analyst and general manager farm regarding
if and when to resume these medications.
Prescriptions:
New
ipratropium-albuterol 0.5 mg-3 mg(2.5 mg base)/3 mL Solution For Nebulization
3 ml inhalation R TID PRN (Reason: shortness of breath or wheezing) Qty: 90 0RF
metoprolol tartrate 50 mg Tablet
50 mg PO BID Qty: 60 1RF
polyethylene glycol 3350 17 gram Powder In Packet
17 g PO DAILY Qty: 30 0RF
pantoprazole 40 mg Tablet,Delayed Release (Dr/Ec)
40 mg PO BID 56 Days Qty: 112 0RF
Eliquis 5 mg tablet
See Rx Instructions .ROUTE .COMPLEX Qty: 100 0RF
Rx Instructions:
10 mg BID for 7 days, followed by 5 mg BID
Continued
cyclosporine [Restasis] 0.05 % Dropperette
1 drp BOTH EYES BID
Refresh Relieva PF 0.5-1 % Dropperette
1 drp OPHTHALMIC (EYE) QIDPRN PRN (Reason: dry eyes)
Tyrvaya 0.03 mg/spray [place], Metered, Non-Aerosol
1 spray INTRANASAL BID
Rx Instructions:
administer into each nostril; approximately 12 hours apart
furosemide 40 mg Tablet
40 mg PO DAILY
cyanocobalamin (vitamin B-12) 500 mcg Tablet
500 mcg PO DAILY
B-complex with vitamin C Tablet
1 tab PO DAILY
cholecalciferol (vitamin D3) 25 mcg (1,000 unit) Tablet
25 mcg PO DAILY
Held
atorvastatin 20 mg Tablet
20 mg PO HS
Hold Instructions: Resume on 10/26/24. Find out from primary care physician if and when to resume this medication.
azathioprine 50 mg Tablet
50 mg PO DAILY
Hold Instructions: Resume on 10/26/24. Please find out from Dr. Delgado (Research Instrumentation Technician at [facility]) regarding when to resume this medication.
alendronate 35 mg Tablet
35 mg PO Q7D
Hold Instructions: Resume on 11/09/24. Find out from primary care physician if and when to resume this medication.
hydroxychloroquine 200 mg Tablet
200 mg PO DAILY
Hold Instructions: Resume on 10/26/24. Please find out from Dr. Delgado (Research Instrumentation Technician at [facility]) regarding when to resume this medication.
Humira(CF) Pen 40 mg/0.4 mL Pen Injector Kit
40 mg SC Q14D
Hold Instructions: Resume on 11/02/24. Find out from Dr. Shweta Zhu at [facility] regarding when to resume this medication.
famotidine 20 mg Tablet
20 mg PO BID
Hold Instructions: Resume on 10/26/24. Find out from Dr. Shweta Zhu at [facility] [place] regarding when to resume this medication.
budesonide 3 mg Capsule,Delayed,Extend.Release
3 mg PO DAILY
Hold Instructions: Resume on 10/26/24. Find out from Dr. Shweta Zhu at [facility] [place] regarding when to resume this medication.
colestipol 1 gram Tablet
3 g PO DAILY
Hold Instructions: Resume on 10/26/24. Find out from Dr. Shweta Zhu at [facility] [place] regarding when to resume this medication.
valsartan 40 mg Tablet
40 mg PO DAILY@1999
Hold Instructions: Resume on 11/23/24. Resume if and only if okay per outpatient providers to resume this medication.
Discontinued
metoprolol tartrate 25 mg Tablet
25 mg PO TID
potassium chloride 20 mEq Tablet Extended Release
60 meq PO DAILY
potassium chloride 20 mEq Tablet Extended Release
40 meq PO BID@14,20
Discharge Orders:
Discharge Patient (As Directed); Ordered 10/19/24
Ordered By: Bunny Miguel
Discharge Date and Time
Discharge Date/Time: 10/19/24 18:24
Print Language: MONGOLIAN
[2024-10-19] MEDS: REFRESH EYE DROPS (PF) OPHTH ×2 (14:51→17:41)
[2024-10-19 15:20] VITALS: BP 114/53
== END 2024-10-19 18:24 | DRG 329 ==
LOC: 2 NORTH 21:46
PROVIDERS: Internal Medicine; Nurse Practitioner Family; Nurse Practitioner Gerontology; Physician Assistant; Radiology Diagnostic Radiology; Radiology Vascular & Interventional Radiology; Registered Nurse; Surgery; ADMITTING PHYSICIAN Hospitalist; ATTENDING PHYSICIAN Hospitalist; CONSULT PHYSICIAN Internal Medicine; CONSULT PHYSICIAN Internal Medicine Hematology & Oncology; CONSULT PHYSICIAN Surgery; EMERGENCY PHYSICIAN Emergency Medicine; OTHER PHYSICIAN Internal Medicine Cardiovascular Disease; OTHER PHYSICIAN Internal Medicine Critical Care Medicine; OTHER PHYSICIAN Internal Medicine Infectious Disease
PROC: 0D9670Z Drainage of Stomach with Drainage Device, Via Natural or Artificial Opening (ICD-10-PCS; 2024-09-17)
PROC: 0DBN0ZZ Excision of Sigmoid Colon, Open Approach (ICD-10-PCS; 2024-09-17)
PROC: 3E0M05Z Introduction of Adhesion Barrier into Peritoneal Cavity, Open Approach (ICD-10-PCS; 2024-09-17)
PROC: 0D1N0Z4 Bypass Sigmoid Colon to Cutaneous, Open Approach (ICD-10-PCS; 2024-09-17)
PROC: 30233N1 Transfusion of Nonautologous Red Blood Cells into Peripheral Vein, Percutaneous Approach (ICD-10-PCS; 2024-09-18)
PROC: 0DJ08ZZ Inspection of Upper Intestinal Tract, Via Natural or Artificial Opening Endoscopic (ICD-10-PCS; 2024-09-28)
PROC: 02HV33Z Insertion of Infusion Device into Superior Vena Cava, Percutaneous Approach (ICD-10-PCS; 2024-10-05)
PROC: 0DC Gastrointestinal System, Extirpation (ICD-10-PCS; 2024-10-05)
PROC: 3E0336Z Introduction of Nutritional Substance into Peripheral Vein, Percutaneous Approach (ICD-10-PCS; 2024-10-05)
PROC: 0W993ZZ Drainage of Right Pleural Cavity, Percutaneous Approach (ICD-10-PCS; 2024-10-16)
DX: K52.839 Microscopic colitis, unspecified (principal); K22.11 Ulcer of esophagus with bleeding; K63.1 Perforation of intestine (nontraumatic); K65.9 Peritonitis, unspecified; K66.1 Hemoperitoneum; K85.90 Acute pancreatitis without necrosis or infection, unspecified; R64 Cachexia; N17.9 Acute kidney failure, unspecified; D62 Acute posthemorrhagic anemia; E87.20 Acidosis, unspecified; E87.1 Hypo-osmolality and hyponatremia; E87.0 Hyperosmolality and hypernatremia; K56.7 Ileus, unspecified; E44.0 Moderate protein-calorie malnutrition; I82.611 Acute embolism and thrombosis of superficial veins of right upper extremity; J90 Pleural effusion, not elsewhere classified; I82.A11 Acute embolism and thrombosis of right axillary vein; B37.49 Other urogenital candidiasis; R78.81 Bacteremia; K62.5 Hemorrhage of anus and rectum; K92.0 Hematemesis; J98.11 Atelectasis; I95.89 Other hypotension; I48.0 Paroxysmal atrial fibrillation; I10 Essential (primary) hypertension; M06.9 Rheumatoid arthritis, unspecified; I87.2 Venous insufficiency (chronic) (peripheral); E83.39 Other disorders of phosphorus metabolism; G62.9 Polyneuropathy, unspecified; I89.0 Lymphedema, not elsewhere classified; I49.3 Ventricular premature depolarization; M81.0 Age-related osteoporosis without current pathological fracture; R74.01 Elevation of levels of liver transaminase levels; K25.9 Gastric ulcer, unspecified as acute or chronic, without hemorrhage or perforation; I34.0 Nonrheumatic mitral (valve) insufficiency; B96.20 Unspecified Escherichia coli [E. coli] as the cause of diseases classified elsewhere; K44.9 Diaphragmatic hernia without obstruction or gangrene; K56.41 Fecal impaction; N18.32 Chronic kidney disease, stage 3b; E88.09 Other disorders of plasma-protein metabolism, not elsewhere classified; E87.70 Fluid overload, unspecified; R06.2 Wheezing; K21.9 Gastro-esophageal reflux disease without esophagitis; E16.2 Hypoglycemia, unspecified; I77.810 Thoracic aortic ectasia; E83.51 Hypocalcemia; E87.6 Hypokalemia; R33.9 Retention of urine, unspecified; Z86.711 Personal history of pulmonary embolism; Z95.0 Presence of cardiac pacemaker; Z88.1 Allergy status to other antibiotic agents; Z88.2 Allergy status to sulfonamides; Z79.69 Long term (current) use of other immunomodulators and immunosuppressants; Z68.22 Body mass index [BMI] 22.0-22.9, adult; Z79.83 Long term (current) use of bisphosphonates; Z79.620 Long term (current) use of immunosuppressive biologic
CPT/HCPCS: 88305; 88307; 32555; 71045; 71275; 73590; 74018; 74176; 74177; 74250; 74270; 80048; 80053; 80076; 81003; 81015; 82040; 82945; 82962; 83605; 83615; 83690; 83735; 83880; 83986; 84100; 84132; 84155; 84157; 84478; 84484; 85014; 85018; 85025; 85027; 85610; 85730; 86850; 86900; 86901; 86920; 87015; 87040; 87070; 87086; 87149; 87186; 87205; 88112; 89051; 93005; 93306; 93970; 93971; 94640; 96365; 96375; 96376; 97110; 97116; 97163; 97167; 97530; 97535; 99291; C1776; P9016; P9047; Q9967

== ENCOUNTER → 2024-10-21 11:10 | Outpatient (REF) | payer OTHER, MEDICARE, BC, SELFPAY ==
[2024-10-21 11:42] LABS: Hematocrit 24.7 % (37.0-47.0); Hemoglobin 8.3 g/dL (12.0-16.0); Mean Corp Hgb Conc. 33.6 g/dL (33.0-37.0); Mean Corpuscular Hgb 31.7 pg (27.0-31.0); Mean Corpuscular Volume 94.3 fL (81.0-99.0); Mean Platelet Volume 9.6 fL (7.4-10.4); Platelet Count 439 10^3/uL (130-400); Red Blood Cell Count 2.62 10^6/uL (4.20-5.40); Red Cell Dist. Width 19.1 % (11.5-14.5); White Blood Cell Count 8.5 10^3/uL (4.8-10.8)
[2024-10-21 11:43] LABS: ALT (SGPT) 55 U/L (0-35); AST (SGOT) 54 U/L (14-36); Albumin 2.1 g/dl (3.5-5.0); Alkaline Phosphatase 391 U/L (38-126); Blood Urea Nitrogen 26 mg/dl (7-17); Carbon Dioxide 24 mmol/L (22-30); Chloride 111 mmol/L (98-107); Glucose 75 mg/dl (70-99); Magnesium 1.7 mg/dl (1.6-2.3); Phosphorus 3.7 mg/dl (2.5-4.5); Potassium 3.8 mmol/L (3.5-5.1); Sodium 138 mmol/L (135-145); Total Bilirubin 0.4 mg/dl (0.2-1.3); Total Protein 4.6 g/dl (6.3-8.2); eGFR > 60.00
[2024-10-21 12:13] LABS: % Basophils 0.8 % (0-2); % Eosinophils 2.7 % (0-6); % Lymphocytes 57.7 % (20.5-51.1); % Monocytes 9.1 % (1.7-9.3); % Neutrophils 27.7 % (42.2-75.2); Absolute Basophils 0.1 10^3/uL (0-0.2); Absolute Eosinophils 0.2 10^3/uL (0-0.7); Absolute Immature Granulocytes 0.2 10^3/uL (0-0.05); Absolute Lymphocytes 4.9 10^3/uL (1.2-3.4); Absolute Monocytes 0.8 10^3/uL (0.1-0.6); Absolute Neutrophils 2.4 10^3/uL (1.4-6.5); Nucleated Red Blood Cells % 0 %
== END ==
LOC: OLABP 11:10
PROVIDERS: ATTENDING PHYSICIAN Family Medicine
DX: Z48.815 Encounter for surgical aftercare following surgery on the digestive system (principal); D64.9 Anemia, unspecified; K63.1 Perforation of intestine (nontraumatic); R19.8 Other specified symptoms and signs involving the digestive system and abdomen; B96.20 Unspecified Escherichia coli [E. coli] as the cause of diseases classified elsewhere; R78.81 Bacteremia; K92.2 Gastrointestinal hemorrhage, unspecified; K52.89 Other specified noninfective gastroenteritis and colitis; I89.0 Lymphedema, not elsewhere classified; Z93.3 Colostomy status; J90 Pleural effusion, not elsewhere classified; E44.0 Moderate protein-calorie malnutrition; M06.9 Rheumatoid arthritis, unspecified; K58.9 Irritable bowel syndrome, unspecified; E87.6 Hypokalemia
CPT/HCPCS: 36415; 80053; 83735; 84100; 85025

== ENCOUNTER → 2024-11-06 10:31 | Outpatient (REF) | payer OTHER, MEDICARE, BC, SELFPAY ==
[2024-11-06 11:16] LABS: Blood Urea Nitrogen 32 mg/dl (7-17); Calcium 8.1 mg/dl (8.4-10.2); Carbon Dioxide 31 mmol/L (22-30); Chloride 106 mmol/L (98-107); Glucose 75 mg/dl (70-99); Potassium 3.4 mmol/L (3.5-5.1); Sodium 142 mmol/L (135-145)
[2024-11-06 11:34] LABS: Hematocrit 26.6 % (37.0-47.0); Hemoglobin 8.3 g/dL (12.0-16.0); Mean Corp Hgb Conc. 31.2 g/dL (33.0-37.0); Mean Corpuscular Hgb 30.9 pg (27.0-31.0); Mean Corpuscular Volume 98.9 fL (81.0-99.0); Mean Platelet Volume 8.9 fL (7.4-10.4); Platelet Count 227 10^3/uL (130-400); Red Blood Cell Count 2.69 10^6/uL (4.20-5.40); Red Cell Dist. Width 19.3 % (11.5-14.5); White Blood Cell Count 7.1 10^3/uL (4.8-10.8)
[2024-11-06 12:41] LABS: % Basophils 0.4 % (0-2); % Eosinophils 5.6 % (0-6); % Immature Granulocytes 0.6 % (0-0.5); % Lymphocytes 60.1 % (20.5-51.1); % Monocytes 11.4 % (1.7-9.3); % Neutrophils 21.9 % (42.2-75.2); Absolute Eosinophils 0.4 10^3/uL (0-0.7); Absolute Lymphocytes 4.3 10^3/uL (1.2-3.4); Absolute Monocytes 0.8 10^3/uL (0.1-0.6); Absolute Neutrophils 1.6 10^3/uL (1.4-6.5); Nucleated Red Blood Cells % 0 %
== END ==
LOC: OLABP 10:31
PROVIDERS: ATTENDING PHYSICIAN Family Medicine
DX: Z48.815 Encounter for surgical aftercare following surgery on the digestive system (principal); D64.9 Anemia, unspecified; R63.1 Polydipsia; R19.8 Other specified symptoms and signs involving the digestive system and abdomen; B96.20 Unspecified Escherichia coli [E. coli] as the cause of diseases classified elsewhere; R78.81 Bacteremia; K92.2 Gastrointestinal hemorrhage, unspecified; K52.89 Other specified noninfective gastroenteritis and colitis; I89.0 Lymphedema, not elsewhere classified; Z93.3 Colostomy status; J90 Pleural effusion, not elsewhere classified; E44.0 Moderate protein-calorie malnutrition; M06.9 Rheumatoid arthritis, unspecified; K58.9 Irritable bowel syndrome, unspecified; E87.6 Hypokalemia
CPT/HCPCS: 36415; 80048; 85025

== ENCOUNTER → 2025-01-09 14:24 | Outpatient (REF) | payer MEDICARE, BC, SELFPAY | LOC: RAD 14:24 | PROVIDERS: ATTENDING PHYSICIAN Internal Medicine Hematology & Oncology; FAMILY PHYSICIAN Internal Medicine | DX: I82.622 Acute embolism and thrombosis of deep veins of left upper extremity (principal); D68.9 Coagulation defect, unspecified | CPT/HCPCS: 93971 ==

== ENCOUNTER → 2025-02-06 12:54 | Outpatient (REF) | payer MEDICARE, BC, SELFPAY | LOC: RAD 12:54 | PROVIDERS: ATTENDING PHYSICIAN Internal Medicine Gastroenterology; FAMILY PHYSICIAN Internal Medicine; REFERRING PHYSICIAN Nurse Practitioner | DX: R74.8 Abnormal levels of other serum enzymes (principal); R93.5 Abnormal findings on diagnostic imaging of other abdominal regions, including retroperitoneum | CPT/HCPCS: 74177; Q9967 ==

== ENCOUNTER → 2025-03-07 09:39 | Outpatient (REF) | payer MEDICARE, BC, SELFPAY | LOC: RAD 09:39 | PROVIDERS: ATTENDING PHYSICIAN Podiatrist Foot Surgery; FAMILY PHYSICIAN Internal Medicine | DX: M86.172 Other acute osteomyelitis, left ankle and foot (principal) | CPT/HCPCS: 78315; A9503 ==

== ENCOUNTER → 2025-03-14 06:43 | Outpatient (REF) | payer MEDICARE, BC, SELFPAY | LOC: RAD 06:43 | PROVIDERS: ATTENDING PHYSICIAN Podiatrist Foot Surgery; FAMILY PHYSICIAN Internal Medicine | DX: M86.172 Other acute osteomyelitis, left ankle and foot (principal) | CPT/HCPCS: 78803; A9569 ==